=== PATIENT | male | born 1980 | race Caucasian/White ===

== ENCOUNTER 2020-07-23 09:06 | Emergency (ER) | payer MEDICAID, SELFPAY ==
--- NOTE | ~2020-07-23 | XR_ITS ---
EXAMINATION: XR CHEST CLINICAL INFORMATION: Check Port-A-Cath COMPARISON: Previous chest CT February 2018 and chest MRI February 2018 TECHNIQUE: 2 views of the chest were obtained. FINDINGS: The cardiac and mediastinal contours are normal. There is a right jugular Port-A-Cath with tip projecting over the SVC the lungs are clear. There is no pleural effusion or pneumothorax. The right anterior second and third ribs are absent. There may be pleural thickening adjacent to the right anterior fourth rib. There are mild degenerative changes of the spine. There may be slight loss of height of the T7 vertebral body. XR/XR chest 2V IMPRESSION: Right jugular port projects over SVC. Absent right anterior second and third ribs. Question pleural thickening adjacent to the anterior right fourth rib.
[2020-07-23 09:59] VITALS: BP 156/71; PULSE 58; RESP 12; TEMP 36.7; O2SAT 98; BMI 25.8
--- NOTE | 2020-07-23 09:59 | ED.SKABFB ---
HPI - Skin/Abscess/Foreign Bdy General Chief complaint: General Medical Stated complaint: infection Time Seen by Provider: 07/23/20 09:58 Source: patient Mode of arrival: ambulatory Limitations: no limitations History of Present Illness HPI narrative: 40 year-old male came in for evaluation for possible port a cath infection. The patient with history of multiple myeloma require weekly infusion of chemotherapy, because difficult IV access on the patient patient had a right-sided chest Port-A-Cath placed 3 months ago, because he change the schedule of the chemotherapy to biweekly patient was concern of clotting of the catheter patient flush to the isabel cath himself reportedly patient used an aseptic technique, however patient started to have subjective low-grade fever, for 2-3 days last week but not this week, also notice some redness around the catheter injection site, otherwise patient feels okay patient came in today concerned of infection of his Port-A-Cath. Related Data Allergies Allergy/AdvReac Type Severity Reaction Status Date / Time No Known Allergies Allergy Verified 07/23/20 10:16 Review of Systems Review of Systems: All other systems are reviewed and are negative Constitutional: Reports as per HPI and Reports no additional constitutional complaints Eyes: Reports as per HPI and Reports no additional eye complaints Reports system reviewed and no additional complaints, except as documented Cardiovascular: Reports as per HPI and Reports no additional cardiovascular complaints Respiratory: Reports as per HPI and Reports no additional respiratory complaints Gastrointestinal: Reports as per HPI and Reports no additional gastrointestinal complaints Genitourinary: Reports no additional female genitourinary complaints Musculoskeletal: Reports no additional musculoskeletal complaints Skin/Breast: Reports system reviewed and no additional complaints, except as docu Psychiatric: Reports no additional psychiatric complaints Endocrine: Reports no additional endocrine complaints Hematologic/Lymphatic: Reports no additional hematologic/lymphatic complaints Allergic/Immunologic: Reports no additional allergic/immunologic complaints Reports system reviewed and no additional complaints, except as documented and Reports Abnormal speech present [facility] Past Medical History Medical History (Updated 07/23/20 @ 13:30 by Mita Solo MD) Multiple myeloma Social History Social History Alcohol intake: never Smoking Status: Current every day smoker Use of substances other than those prescribed or required for medical reasons: No Advance Directives: No Advance Directives Information Provided: No Physical Exam Vital Signs: Vital Signs: Last Vital Signs Temp 98.1 F 07/23/20 09:59 Pulse 51 07/23/20 11:31 Resp 17 07/23/20 11:31 BP 136/79 07/23/20 11:31 Pulse Ox 99 07/23/20 11:31 Body Mass Index 25.8 Vital signs have been reviewed as appeared to be correct. Blood pressure normal. Heart rate normal. Respiration rate normal. Temperature normal. Oxygen saturation normal. Appearance: Alert. Oriented X3. No acute distress. Head: Normal external exam. Normocephalic. Atraumatic. No Davis signs noted. No raccoon eyes noted Eyes: PERRLA. EOMI. Conjunctiva and sclera normal. Eyelids normal. ENT: TM's Normal. Pharynx normal. Uvula midline. Moist mucous membranes. No trismus noted. No drooling noted. No muffled voice noted. Neck: Normal inspection. Neck supple. FROM. No adenopathy. Thyroid Normal. No meningeal signs. No neck mass noted. CVS: Normal heart rate and rhythm. Heart sound normal. No murmurs noted. Pulses normal throughout. Respiratory: No respiratory distress. Painless inspiration. Breath sounds normal. No wheezes/rales/rhonchi noted. Catheter reservoir is felt on Right Chest wall, 2 x 1 circular redness around it, no fluctuation, no discharge, no tenderness. No accessory muscle usage noted or decreased air movement noted. Abdomen: Soft and nontender. Bowel sounds normal in all 4 quadrants. No distention noted. No organomegaly noted. No visible injury noted. Back: No CVA tenderness. Full range of motion noted. Skin: Skin warm and dry. Normal skin color. Normal skin turgor. No rashes/lesions/lacerations noted. Extremities: No lower extremity edema. Extremities exhibit normal range of motion. Extremities nontender. Neuro: Oriented X 3. No motor deficit. No sensory deficit. Reflexes normal. Course Course Course Narrative: Plan was discussed with the patient to check his blood white count, CRP, sed rate. Patient walked out before full evaluation. Discharge Plan Discharge Clinical Impression: Problem with intravenous catheter Patient Disposition: Elopement
[2020-07-23 11:31] VITALS: BP 136/79; PULSE 51; RESP 17; O2SAT 99
--- NOTE | 2020-07-23 13:13 | PC.NURSE ---
pt is not at bedside, bing pratt (amanda) and cardiac cath technician stickers are one the bed, md aware.
== END 2020-07-23 13:13 | disposition left against medical advice (07) ==
PROVIDERS: Emergency Provider Emergency Medicine; PCP Internal Medicine
DX: T82.7XXA Infection and inflammatory reaction due to other cardiac and vascular devices, implants and grafts, initial encounter (principal); R50.9 Fever, unspecified; Y82.9 Unspecified medical devices associated with adverse incidents; Y92.9 Unspecified place or not applicable; F17.200 Nicotine dependence, unspecified, uncomplicated; Z71.6 Tobacco abuse counseling; Z79.899 Other long term (current) drug therapy
CPT/HCPCS: 71046; 87040; 99284

== ENCOUNTER 2020-09-12 16:08 | Emergency (ER) | payer MEDICAID, SELFPAY ==
--- NOTE | ~2020-09-12 | XR_ITS ---
EXAMINATION: XR CHEST CLINICAL INFORMATION: Pain around the prior port COMPARISON: 07/23/2020 TECHNIQUE: 2 views of the chest were obtained. FINDINGS: Chest wall port has been removed. The lungs are well expanded. There is no focal consolidation, edema, or effusion. No pneumothorax. The cardiomediastinal silhouette is within normal limits. No acute osseous abnormality. XR/XR chest 2V IMPRESSION: Clear lungs.
[2020-09-12 16:26] VITALS: BP 143/90; PULSE 69; RESP 8; TEMP 36.7; O2SAT 98; BMI 25.7
[2020-09-12 17:26] VITALS: BP 152/85; PULSE 65; TEMP 36.6; O2SAT 97
--- NOTE | 2020-09-12 17:29 | ED.GENADULT ---
HPI - General Adult General Chief complaint: General Medical Stated complaint: infection Time Seen by Provider: 09/12/20 17:12 Source: patient Limitations: no limitations History of Present Illness HPI narrative: This is a 40-year-old male with history of multiple myeloma who had had a port placed at [facility] in April. The patient subsequently had an infection of the port and had it removed. He was on ceftriaxone and amoxicillin and the infection improved. Patient finished a last course of antibiotics about 2 weeks ago. Subsequently he felt like there was some pain around the port site and went to [facility] and was re-evaluated, however they did not feel there was an infection and did not recommend antibiotics. Patient continues to have some discomfort around the port site and is concerned that the infection is coming back. He denies any fever. He denies any redness or swelling around where the port was. He went to an urgent care today but was advised to come to the emergency department. Denies any cough or shortness of breath. He has not had any abdominal pain. Related Data Allergies Allergy/AdvReac Type Severity Reaction Status Date / Time No Known Allergies Allergy Verified 07/23/20 10:16 Review of Systems Review of Systems: Yes all other systems are reviewed and are negative Constitutional: Constitutional: Reports as per HPI and Denies fever(s) Eyes: Eyes: Reports as per HPI and Reports no additional eye complaints ENT: Reports system reviewed and no additional complaints, except as documented, Reports as per HPI, Denies nasal congestion, Denies nasal discharge and Denies sore throat Cardiovascular: Cardiovascular: Reports as per HPI, Denies chest pain and Denies dyspnea Respiratory: Respiratory: Reports as per HPI, Denies cough and Denies dyspnea Gastrointestinal: Gastrointestinal: Reports as per HPI, Denies abdominal pain, Denies diarrhea and Denies vomiting Genitourinary: Genitourinary: Reports as per HPI, Denies hematuria, Denies dysuria and Denies urinary frequency Musculoskeletal: Musculoskeletal: Reports no additional musculoskeletal complaints and Denies numbness Integumentary/Breasts: Skin/Breast: Reports as per HPI and Denies rash Neurologic: Reports as per HPI, Denies focal weakness, Denies numbness and Denies Sensory deficit (Neuro) Psychiatric: Psychiatric: Reports no additional psychiatric complaints and Reports as per HPI Endocrine: Endocrine: Reports no additional endocrine complaints and Reports as per HPI Hematologic/Lymphatic: Hematologic/Lymphatic: Reports no additional hematologic/lymphatic complaints, Reports as per HPI and Reports other (No peripheral edema) [facility] Past Medical History Medical History (Updated 09/13/20 @ 00:01 by Felix Chambers) Anxiety Multiple myeloma Restless legs Social History Social History Alcohol intake: never Patient Tobacco Use Status: Current everyday Tobacco user Use of substances other than those prescribed or required for medical reasons: Yes Substance Use Type: Marijuana Advance Directives: No Advance Directives Information Provided: No Physical Exam Vital Signs: Vital Signs: Last Vital Signs Temp 98.5 F 09/12/20 18:45 Pulse 68 09/12/20 18:54 Resp 16 09/12/20 18:54 BP 126/84 09/12/20 18:54 Pulse Ox 98 09/12/20 18:54 Body Mass Index 25.7 Const: General: cooperative, no acute distress and alert Orientation/consciousness: patient oriented x3 HENMT: Head: Yes normal to inspection Eyes: General: appearance normal, both eyes and all related structures Eyelids: Yes eyelids normal Conjunctivae: conjunctivae normal Pupils: Equal, round and reactive pupils present Neck: Neck: Yes normal visual inspection and Yes supple Chest: Chest palpation & inspection: normal inspection of the chest and other ( Well-healed incision right chest, no erythema, swelling, induration, fluc) Breast/axilla palpation: other Resp: Effort & Inspection: normal respiratory effort Auscultation: clear to auscultation bilaterally Cardio: Rate: regular rate Rhythm: regular rhythm Heart sounds: S1 normal heart sound present, S2 normal heart sound present, no gallops, no murmurs and no rubs GI: Palpation (GI): Soft to palpation, nontender and Other GI palpation findings present (Non-distended) Auscultation: normal bowel sounds Skin: General skin exam: no rashes or lesions noted Neuro: General: patient oriented x3, no focal motor deficits and CN's II-XI intact bilaterally Cranial nerves: Yes Equal, round and reactive pupils present Cognition (Neuro): normal cognition Motor exam (neuro): 5/5 motor strength present throughout Sensory Exam: No Sensory deficit (Neuro) Extrem: General: Yes normal to inspection and Yes no pedal edema Psych: Appearance: grossly normal Affect: normal affect Medical Decision Making MDM Narrative Medical decision making narrative: Patient concerned about infection around his port, which he had previously, but subsequently had the port removed him was on antibiotics. No clinical evidence of infection on exam. Chest x-ray, white blood cell count, CRP all normal. Patient likely has some residual discomfort to the chest wall related to having had a port in the infection, could perhaps have some affected nerves. Recommend ibuprofen and reassured the patient that the symptoms will gradually resolved. Lab Data Lab results reviewed: Yes I reviewed the patient's lab results. Result diagrams: 09/12/20 18:11 09/12/20 18:11 Labs: Lab Results 09/12/20 09/12/20 09/12/20 Range/Units 18:10 18:10 18:11 WBC 5.3 (4.8-10.8) X10*3/uL RBC 5.13 (4.60-5.80) X10*6/uL Hgb 15.4 (14.0-18.0) g/dl Hct 45.4 (42-52) % MCV 88.5 (80-98) fL MCH 30.0 (27.0-33.0) pg MCHC 33.9 (31.0-36.0) g/dl RDW 13.4 (11.0-16.0) % Plt Count 240 (160-400) X10*3/uL MPV 9.1 L (9.4-12.4) fL Immature Gran % (Auto) 0.2 (0.0-0.4) % Neut % (Auto) 70.2 (45-73) % Lymph % (Auto) 18.4 L (20-40) % [facility] % (Auto) 9.9 (2-11) % Eos % (Auto) 0.9 (0-4) % Baso % (Auto) 0.4 (0-2) % Lymph # (Auto) 1.0 L (1.2-4.9) X10*3/uL [facility] # (Auto) 0.5 (0.1-1.2) X10*3/uL Eos # (Auto) 0.1 (0.0-0.4) X10*3/uL Baso # (Auto) 0.0 (0.0-0.2) X10*3/uL Abs Immat Gran (auto) 0.01 (0.00-0.03) X10*3/uL Absolute Neuts (auto) 3.7 (2.0-8.3) X10*3/uL Absolute Nucleated RBC 0.000 (0.0-0.012) X10*3/uL Nucleated RBC % (auto) 0.0 (0.0-0.2) /100WBC ESR 2 (0-15) MM/HR Sodium (135-145) mmol/L Potassium (3.3-5.1) mmol/L Chloride (96-108) mmol/L Carbon Dioxide (22-29) mmol/L Anion Gap (12-20) BUN (9-16) mg/dL Creatinine (0.5-1.4) mg/dL Estim Creat Clear Calc Estimated GFR Random Glucose (60-115) mg/dL Calcium (8.4-10.2) mg/dL C-Reactive Protein 0.09 (< or = 0.50) mg/dL 09/12/20 Range/Units 18:11 WBC (4.8-10.8) X10*3/uL RBC (4.60-5.80) X10*6/uL Hgb (14.0-18.0) g/dl Hct (42-52) % MCV (80-98) fL MCH (27.0-33.0) pg MCHC (31.0-36.0) g/dl RDW (11.0-16.0) % Plt Count (160-400) X10*3/uL MPV (9.4-12.4) fL Immature Gran % (Auto) (0.0-0.4) % Neut % (Auto) (45-73) % Lymph % (Auto) (20-40) % [facility] % (Auto) (2-11) % Eos % (Auto) (0-4) % Baso % (Auto) (0-2) % Lymph # (Auto) (1.2-4.9) X10*3/uL [facility] # (Auto) (0.1-1.2) X10*3/uL Eos # (Auto) (0.0-0.4) X10*3/uL Baso # (Auto) (0.0-0.2) X10*3/uL Abs Immat Gran (auto) (0.00-0.03) X10*3/uL Absolute Neuts (auto) (2.0-8.3) X10*3/uL Absolute Nucleated RBC (0.0-0.012) X10*3/uL Nucleated RBC % (auto) (0.0-0.2) /100WBC ESR (0-15) MM/HR Sodium 138 (135-145) mmol/L Potassium 4.3 (3.3-5.1) mmol/L Chloride 104 (96-108) mmol/L Carbon Dioxide 24 (22-29) mmol/L Anion Gap 14 (12-20) BUN 18 H (9-16) mg/dL Creatinine 1.04 (0.5-1.4) mg/dL Estim Creat Clear Calc 94.4 Estimated GFR > 60 Random Glucose 93 (60-115) mg/dL Calcium 9.7 (8.4-10.2) mg/dL C-Reactive Protein (< or = 0.50) mg/dL Imaging Data Chest x-ray: Radiologist's impression: Patient: Brandin GarciaMR#: [id number]: [id number]:[id number]/Sex: 40 / MADM Date: 09/12/20Loc: [facility]: Ordering Physician: Jamar Lara MD Date of Service: 09/12/20 Procedure(s): XR chest 2V Accession Number(s): [id number] cc: Jamar Lara MD~ EXAMINATION: XR CHEST CLINICAL INFORMATION: Pain around the prior port COMPARISON: 07/23/2020 TECHNIQUE: 2 views of the chest were obtained. FINDINGS: Chest wall port has been removed. The lungs are well expanded. There is no focal consolidation, edema, or effusion. No pneumothorax. The cardiomediastinal silhouette is within normal limits. No acute osseous abnormality. XR/XR chest 2V IMPRESSION: Clear lungs. Dictated By:Brennon Lopez MDSigned By:<Electronically signed by Brennon Lopez MD in OV> Discharge Plan Discharge Clinical Impression: Acute chest wall pain Patient Disposition: Home, Self-Care Instructions: Chest Wall Pain (ED) Additional Instructions: Return for any worsened symptoms such as redness, swelling, fever. [facility] to have some residual discomfort related to her port, however there is no evidence of infection at this time. His Tylenol or ibuprofen for pain and the discomfort will likely gradually dissipate over days to weeks Interventions: ED Discharge Assessment Last Done: 09/12/20 18:56 Discharge Date/Time: 09/12/20 18:57
[2020-09-12 18:16] LABS: MANUAL DIFF FLAG NO
[2020-09-12 18:19] LABS: Basophils Percent Auto 0.4 % (0-2); Eosinophils Absolute Auto 0.1 X10*3/uL (0.0-0.4); Eosinophils Percent Auto 0.9 % (0-4); Hematocrit 45.4 % (42-52); Hemoglobin 15.4 g/dl (14.0-18.0); Imm Gran Abs Auto 0.01 X10*3/uL (0.00-0.03); Imm Gran Pct Auto 0.2 % (0.0-0.4); Lymphocytes Percent Auto 18.4 % (20-40); Mean Corpuscular HGB Conc 33.9 g/dl (31.0-36.0); Mean Corpuscular Volume 88.5 fL (80-98); Mean Platelet Volume 9.1 fL (9.4-12.4); Monocytes Absolute Auto 0.5 X10*3/uL (0.1-1.2); Monocytes Percent Auto 9.9 % (2-11); Neutrophils Absolute Auto 3.7 X10*3/uL (2.0-8.3); Neutrophils Percent Auto 70.2 % (45-73); Platelet Count 240 X10*3/uL (160-400); Red Blood Count 5.13 X10*6/uL (4.60-5.80); Red Cell Distribution Width 13.4 % (11.0-16.0); White Blood Count 5.3 X10*3/uL (4.8-10.8)
[2020-09-12 18:38] LABS: C Reactive Protein 0.09 mg/dL (< or = 0.50)
[2020-09-12 18:39] LABS: Anion Gap 14 (12-20); Blood Urea Nitrogen 18 mg/dL (9-16); Calcium 9.7 mg/dL (8.4-10.2); Carbon Dioxide 24 mmol/L (22-29); Chloride 104 mmol/L (96-108); Creatinine Clr Calc Pharmacy 94.4; Estimated Glomerular Filt Rate > 60; Glucose Random 93 mg/dL (60-115); Potassium 4.3 mmol/L (3.3-5.1); Sodium 138 mmol/L (135-145)
[2020-09-12 18:45] VITALS: BP 116/79; PULSE 55; RESP 18; TEMP 36.9; O2SAT 98
[2020-09-12 18:54] VITALS: BP 126/84; PULSE 68; RESP 16; O2SAT 98
[2020-09-12 19:05] LABS: Erythrocyte Sedimentation Rate 2 MM/HR (0-15)
== END 2020-09-12 18:57 | disposition home or self-care (01) ==
PROVIDERS: Physician Assistant; Emergency Provider Emergency Medicine; PCP Internal Medicine
DX: R07.89 Other chest pain (principal); Z85.79 Personal history of other malignant neoplasms of lymphoid, hematopoietic and related tissues
CPT/HCPCS: 36415; 71046; 80048; 85025; 85652; 86140; 99283; 99284

== ENCOUNTER 2021-12-26 14:31 | Outpatient (REF) | payer MEDICAID, SELFPAY ==
--- NOTE | ~2021-12-26 | XR_ITS ---
EXAMINATION: XR CHEST CLINICAL INFORMATION: Productive cough COMPARISON: None TECHNIQUE: 2 views of the chest were obtained. FINDINGS: No focal consolidation, pulmonary edema, or pleural effusion. Stable cardiomediastinal silhouette. Residual soft tissue thickening along the right anterior 5th rib. The anterior 2nd, 3rd, and 4th ribs appear to have been resected. XR/XR chest 2V IMPRESSION: No acute cardiopulmonary findings.
[2021-12-26 16:52] LABS: MANUAL DIFF FLAG NO
[2021-12-26 17:08] LABS: Basophils Percent Auto 0.9 % (0-2); Eosinophils Absolute Auto 0.2 X10*3/uL (0.0-0.4); Eosinophils Percent Auto 5.2 % (0-4); Hematocrit 31.6 % (42.0-52.0); Hemoglobin 10.7 g/dl (14.0-18.0); Imm Gran Abs Auto 0.23 X10*3/uL (0.00-0.03); Lymphocytes Absolute Auto 1.1 X10*3/uL (1.2-4.9); Lymphocytes Percent Auto 23.7 % (20-40); Mean Corpuscular HGB Conc 33.9 g/dl (31.0-36.0); Mean Corpuscular Hemoglobin 30.7 pg (27.0-33.0); Mean Corpuscular Volume 90.5 fL (80.0-98.0); Mean Platelet Volume 10.6 fL (9.4-12.4); Monocytes Absolute Auto 0.5 X10*3/uL (0.1-1.2); Monocytes Percent Auto 11.5 % (2-11); NRBC Pct Auto 0.4 /100WBC (0.0-0.2); Neutrophils Absolute Auto 2.5 x10*3/uL (2.0-8.3); Neutrophils Percent Auto 53.7 % (45-73); Red Blood Count 3.49 X10*6/uL (4.60-5.80); Red Cell Distribution Width 15.1 % (11.0-16.0); White Blood Count 4.6 X10*3/uL (4.8-10.8)
[2021-12-26 17:10] LABS: Platelet Count 96 X10*3/uL (160-400)
[2021-12-26 17:37] LABS: Anion Gap 21 (12-20); Blood Urea Nitrogen 21 mg/dL (9-16); Carbon Dioxide 22 mmol/L (22-29); Chloride 101 mmol/L (96-108); Estimated Glomerular Filt Rate 40; Glucose Random 79 mg/dL (60-115); Potassium 4.4 mmol/L (3.3-5.1); Sodium 140 mmol/L (135-145)
[2021-12-26 17:45] LABS: Calcium 11.5 mg/dL (8.4-10.2)
== END 2021-12-26 14:32 | disposition home or self-care (01) ==
LOC: HO.HMGCX 14:31
PROVIDERS: PCP Internal Medicine; Visit Provider Internal Medicine
DX: R05.9 Cough, unspecified (principal); R53.83 Other fatigue
CPT/HCPCS: 36415; 71046; 80048; 85025

== ENCOUNTER 2022-04-21 13:33 | Outpatient (REF) | payer MEDICAID, SELFPAY ==
--- NOTE | ~2022-04-21 | XR_ITS ---
EXAMINATION: XR CHEST CLINICAL INFORMATION: Congestion COMPARISON: 12/26/2021 TECHNIQUE: 2 views of the chest were obtained. FINDINGS: No focal consolidation, pulmonary edema, or pleural effusion. Stable cardiomediastinal silhouette. Interval placement of a right subclavian catheter with tip overlying the cavoatrial junction. XR/XR chest 2V IMPRESSION: No acute cardiopulmonary findings.
== END 2022-04-21 13:34 | disposition home or self-care (01) ==
LOC: HO.HMGCX 13:33
PROVIDERS: PCP Internal Medicine; Visit Provider Internal Medicine
DX: J18.9 Pneumonia, unspecified organism (principal)
CPT/HCPCS: 71046

== ENCOUNTER 2023-02-26 08:45 | Outpatient (REF) | payer MEDICARE, MEDICAID, SELFPAY ==
--- NOTE | ~2023-02-26 | XR_ITS ---
EXAMINATION: XR CHEST CLINICAL INFORMATION: Cough. Concern for pneumonia. COMPARISON: April 21, 2022. TECHNIQUE: 2 views of the chest were obtained. FINDINGS: The cardiomediastinal silhouette is normal. Dual-lumen central catheter is noted in a stable position. There is no focal lung consolidation or pleural effusion. The bony structures and soft tissues are unremarkable. XR/XR chest 2V IMPRESSION: No active cardiopulmonary disease. No significant interval change.
== END 2023-02-26 08:46 | disposition home or self-care (01) ==
LOC: HO.HMGCX 08:45
PROVIDERS: PCP Internal Medicine; Visit Provider Internal Medicine
DX: R05.9 Cough, unspecified (principal)
CPT/HCPCS: 71046

== ENCOUNTER → 2023-05-20 16:17 | Outpatient (BNVA) | payer MEDICARE, MEDICAID, SELFPAY | PROVIDERS: PCP Internal Medicine; Visit Provider Internal Medicine Nephrology ==

== ENCOUNTER 2023-06-12 13:51 | Outpatient (AMB) | payer MEDICARE, MEDICAID, SELFPAY ==
--- NOTE | 2023-06-12 13:54 | HO.NEPHOV_ITS ---
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 According to him he has been told that he has been in remission from eyes myeloma point of few. His pain has been controlled on his chronic methadone and oxycodone. He had been having high inter dialytic weight gains which is better now. He does not have significant urine output. He denies vomiting, chest pain, shortness of breath, abdominal pain, diarrhea, or urinary symptoms. He is compliant with his dialysis treatments.He has a permcath. He has been having blood pressure issues during and after dialysis but better now. He feels tired after his dialysis treatments. His girl friend was also there during this visit. [facility] Medical History (Updated 06/11/23 @ 21:02 by Dhaval Gomes MD) Restless legs Anxiety Multiple myeloma Family History (Updated 06/12/23 @ 14:02 by Sonia Fernández MA) Maternal Uncle Cancer Social History (Updated 06/12/23 @ 14:03 by Sonia Fernández MA) Alcohol intake: never Patient Tobacco Use Status: Current everyday Tobacco user Use of substances other than those prescribed or required for medical reasons: No Vital Signs 06/12/23 13:55 Height 5 ft 9 in Weight 145 lb 8 oz BMI 21.5 BP 102/60 Blood Pressure Location Lt brachial Position Sitting Pulse 80 Pulse Source Pulse Oximeter Pulse Oximetry (%) 97 Oxygen Delivery Method Room Air Physical Exam Vital Signs: Last Vital Signs Pulse 80 06/12/23 13:55 BP 102/60 06/12/23 13:55 Pulse Ox 97 06/12/23 13:55 Oxygen Delivery Method Room Air 06/12/23 13:55 BMI result Body Mass Index 21.5 Const Other: PermCath present General: comfortable and no acute distress Orientation/consciousness: patient oriented x3 HEENT Head: Yes normocephalic Mouth: Normal oral and palatal mucosa present Eyes EOM: EOMs intact bilaterally Neck Neck: Yes supple Resp Auscultation: clear to auscultation bilaterally Cardio Jugular venous distension: no JVD Rate: regular rate GI Palpation (GI): Soft to palpation Auscultation: normal bowel sounds General: Yes no CVA tenderness Back/Spine/Pelvis Back: no CVA tenderness Skin General skin exam: no rashes or lesions noted Neuro General: patient oriented x3 and moves all extremities Extrem General: Yes no pedal edema Assessment & Plan Assessment & Plan (1) End stage renal disease on dialysis: Code(s): N18.6 - End stage renal disease; Z99.2 - Dependence on renal dialysis (2) Multiple myeloma: Code(s): C90.00 - Multiple myeloma not having achieved remission Qualifiers: Multiple myeloma remission status: not in remission Qualified Code(s): C90.00 - Multiple myeloma not having achieved remission Plan 1.ESRD on HD - schedule: T/T/S at [facility] - access: R IJ PermCath - Shall follow recent labs and adjust medications as appropriate - he wants to explore whether he is a candidate for renal transplant-- & is going to discuss with his oncologist in [facility] - he should maintain a renal diet and take phosphorus binders with meals -he should be strict with inter dialytic weight gain with his salt and fluid restriction 2. IgA Myeloma - Had gotten chemo through Oncology. He has a disease in remission now. 3. Anemia - Had been getting Mircera 4. Hyperkalemia - renal diet 5. Hypertension -Continue current BP medications for now -I shall adjust his antihypertensive medication regimen once his dry weight has been adjusted Coding Level of Care Code Est Pt Level 4 (59330) Diagnoses End stage renal disease on dialysis N18.6; Z99.2 Multiple myeloma not having achieved remission C90.00 Multiple myeloma remission status: not in remission
[2023-06-12 13:55] VITALS: BP 102/60; PULSE 80; O2SAT 97; BMI 21.5
== END 2023-06-12 14:48 | disposition home or self-care (01) ==
PROVIDERS: PCP Internal Medicine; Visit Provider Internal Medicine Nephrology
DX: N18.6 End stage renal disease (principal); Z99.2 Dependence on renal dialysis; C90.00 Multiple myeloma not having achieved remission
CPT/HCPCS: 99214

== ENCOUNTER → 2023-06-12 13:51 | Outpatient (BNVA) | payer MEDICARE, MEDICAID, SELFPAY | PROVIDERS: PCP Internal Medicine; Visit Provider Internal Medicine Nephrology | DX: C90.00 Multiple myeloma not having achieved remission (principal); N18.6 End stage renal disease; Z99.2 Dependence on renal dialysis | CPT/HCPCS: 99212 ==

== ENCOUNTER → 2023-09-07 | Outpatient (BNV) | payer MEDICARE, MEDICAID, SELFPAY | PROVIDERS: PCP Internal Medicine; Visit Provider Internal Medicine Nephrology | DX: N18.6 End stage renal disease (principal) | CPT/HCPCS: 90960; 90961; 90962 ==

== ENCOUNTER 2023-12-15 15:06 | Outpatient (REF) | payer MEDICARE, MEDICAID, SELFPAY ==
--- NOTE | ~2023-12-15 | XR_ITS ---
EXAMINATION: XR CHEST CLINICAL INFORMATION: Cough, fatigue, rule out pneumonia. COMPARISON: 02/26/2023. TECHNIQUE: 2 views of the chest were obtained. FINDINGS: Redemonstration of dual lumen central catheter with tip at the cavoatrial junction. Cardiac silhouette within normal limits in size. No significant pleural effusion. Mild degenerative changes in the thoracic spine. No significant pleural effusion. Increased bilateral patchy airspace opacities, predominantly lower lungs, right greater than left, concerning for pneumonia versus other etiology. XR/XR chest 2V IMPRESSION: Increased bilateral patchy airspace opacities, predominantly lower lungs, right greater than left, concerning for pneumonia versus other etiology. This study was presented to me on December 23, 2023 for interpretation. PSA staff will provide results to referring provider at this time. This study was presented today December 23, 2023 for interpretation. Stat results provided at this time as requested by referring provider. Electronically signed by: Monie Ríos MD 12/23/2023 08:52 AM EDT
[2023-12-15 16:32] LABS: Mean Corpuscular Hemoglobin 31.6 pg (27.0-33.0); Mean Corpuscular Volume 101.8 fL (80.0-98.0); Mean Platelet Volume 9.6 fL (9.4-12.4); Platelet Count 117 X10*3/uL (160-400); Red Blood Count 2.85 X10*6/uL (4.60-5.80); Red Cell Distribution Width 15.9 % (11.0-16.0)
[2023-12-15 16:37] LABS: WBC ABN SCTR FOR CBC 1
[2023-12-15 17:13] LABS: Alanine Aminotransferase 13 U/L (0-40); Albumin Level 4.1 g/dL (3.5-5.0); Alkaline Phosphatase 80 U/L (39-117); Anion Gap 15 (12-20); Aspartate Amino Transferase 17 U/L (5-37); Bilirubin Total 0.9 mg/dL (0.0-1.0); Blood Urea Nitrogen 21 mg/dL (9-16); Calcium 8.8 mg/dL (8.4-10.2); Carbon Dioxide 28 mmol/L (22-29); Chloride 103 mmol/L (96-108); Estimated Glomerular Filt Rate 16; Glucose Random 83 mg/dL (60-115); Potassium 3.7 mmol/L (3.3-5.1); Sodium 142 mmol/L (135-145); Total Protein 6.4 g/dL (6.5-8.0)
[2023-12-15 18:58] LABS: Band Neutrophils Percent 5 % (3-5); Basophils Percent Manual 2 % (0-2); Eosinophils Percent Manual 28 % (0-4); Lymphocytes Percent Manual 13 % (20-40); Metamyelocytes Percent 3 %; Monocytes Percent Manual 11 % (2-11); Neutrophils Percent Manual 38 % (45-73)
[2023-12-15 19:00] LABS: RBC Morphology NOTED
[2023-12-15 19:01] LABS: Schistocytes 1+ (0-2) /OIF
[2023-12-15 19:02] LABS: Burr Cells 1+ (0-2) /OIF; Platelet Estimate NORMAL (NORMAL); Toxic Vacuolation PRESENT
[2023-12-15 19:30] LABS: Ovalocytes 1+ (5-14) /OIF
[2023-12-15 20:22] LABS: Basophils Abs Manual 0.1 X10*3/uL (0.0-0.2); Eosinophils Absolute Manual 1.1 X10*3/uL (0.0-0.4); Lymphocytes Absolute Manual 0.5 X10*3/uL (1.2-4.9); Metamyelocytes Absolute 0.1 X10*3/uL; Monocytes Absolute Manual 0.4 X10*3/uL (0.1-1.2); Neutrophils Absolute Manual 1.6 X10*3/uL (2.0-8.3); Platelet Morphology Comment NORMAL; White Blood Count 3.8 X10*3/uL (4.8-10.8)
== END 2023-12-15 15:07 | disposition home or self-care (01) ==
LOC: HO.HMGCX 15:06
PROVIDERS: PCP Internal Medicine; Visit Provider Internal Medicine
DX: R53.83 Other fatigue (principal)
CPT/HCPCS: 36415; 71046; 80053; 85007; 85027

== ENCOUNTER 2023-12-23 11:57 | Outpatient (AMB) | payer MEDICARE, MEDICAID, SELFPAY ==
--- OUTSIDE RECORDS SUMMARY | 2023-12-23 11:58 | XMS_ITS | Continuity of Care Document ---
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 Name Role Phone Johan BOND, Nabil Coleman Primary Care Physician [phone] Encounter [facility] [place] Date(s): 03/18/22 - 04/27/[address] [id number] Attending Physician: Joao Jama MD Admitting Physician: Joao Jama MD Referring Physician: Yudith BOND, Danny Allergies, Adverse Reactions, Alerts No Known Allergies Immunizations Given and Recorded Vaccine Date Status Refusal Reason pneumococcal 23-valent vaccine 08/17/18 Given pneumococcal 13-valent vaccine 1 06/15/18 Given Not Given Vaccine Date Status Refusal Reason influenza virus vaccine, inactivated 03/28/22 Not Given Patient Refuses 1Early/Late Reason: Wan to Standard Admin Times Medications acyclovir 400 mg oral tablet 1 tablet = 400 mg, By Mouth, 2 times a day, # 14 tablet, 0 Refills, Maintenance, 03/30/22 12:41:00 EST, Tablet, [facility], Partial fill upon patient request if the prescription is for a schedule II opioid drug., 172, cm, 03/30/22 7:57:0... Start Date: 03/30/22 Stop Date: 04/06/22 Status: Ordered amLODIPine 10 mg oral tablet 10 mg, 1, tablet, By Mouth, Daily, # 30 tablet, Refills 0, Tot. Refills 0, Maintenance, 03/07/22 14:44:00 EST, Route to Pharmacy Electronically, [facility], Partial fill upon patient request if the prescription is for a schedule II opioi... Start Date: 03/07/22 Stop Date: 04/06/22 Status: Ordered KlonoPIN 1 mg oral tablet 1 tablet = 1 mg, By Mouth, 2 times a day, this is an increase, # 60 tablet, 1 Refills, Maintenance,03/31/22 12:15:00 EST, [facility], Partial fill upon patient request if the prescription is for a schedule II opioid drug., 172, cm, 03/30/22... Start Date: 03/31/22 Stop Date: 05/30/22 Status: Ordered Methadone = 140 mg, By Mouth, Daily, 0 Refills, Maintenance, 05/10/18 11:13:13 EST Start Date: 05/10/18 Status: Ordered ondansetron 4 mg oral tablet 1 tablet = 4 mg, By Mouth, Every 8 hours, PRN Nausea & Vomiting, # 90 tablet, 0 Refills, Maintenance, 04/22/22 9:26:00 EST, Tablet, [facility], Partial fill upon patient request if the prescription is for a schedule II opioid drug., 175, cm,... Start Date: 04/22/22 Status: Ordered oxyCODONE 5 mg oral capsule 1 capsule = 5 mg, By Mouth, Every 6 hours, 0 Refills, Maintenance, 11/26/21 13:30:00 EDT, Partial fill upon patient request if the prescription is for a schedule II opioid drug. Start Date: 11/26/21 Status: Ordered Pepcid 20 mg oral tablet 1 tablet = 20 mg, By Mouth, Daily, # 90 tablet, 1 Refills, Maintenance, 04/22/22 9:26:00 EST, Tablet, [facility], Partial fill upon patient request if the prescription is for a schedule II opioid drug., 175, cm, 04/11/22 13:59:00 EST, Height,... Start Date: 04/22/22 Status: Ordered prochlorperazine 5 mg oral tablet 1-2 tablet, By Mouth, Every 6 hours, PRN Nausea, # 60 tablet, 1 Refills, Maintenance, 02/12/22 17:40:00 EST, [facility], Partial fill upon patient request if the prescription is for a schedule II opioid drug., 175, cm, 02/12/22 14:26:00 EST,... Start Date: 02/12/22 Status: Ordered Problem List Condition Confirmation Course Effective Dates Status Health St atus Informant Abscess of chest wall Confirmed Active Anxiety Confirmed Active Bacteremia due to Enterococcus Confirmed Active Chronic anemia Confirmed Active COVID-19 1 Confirmed 03/07/22 Active End stage renal disease on dialysis Confirmed Active Multiple myeloma in relapse Confirmed Active Opioid use disorder Confirmed Active Opiate dependence Confirmed Active Plasmacytoma Confirmed Active History of tobacco use Confirmed Active 1Problem added by Discern Expert Social History Social History Type Response Smoking Status 10 or more cigarette s (1/2 pack or more)/day in last 30 days entered on: 06/03/18 Sex Patient Care team information Care Team Personnel Name: Suzette Jama Position: S Onco RN Member Role: Primary Care Nurse Name: Aracely Rae RN Position: S RN Member Role: Primary Care Nurse Name: Moon Cummings RN Position: [facility] RN Member Role: Primary Care Nurse Name: Errol Hdez RN Position: [facility] RN Member Role: Primary Care Nurse Name: Gladis Viera RN Position: [facility] RN Member Role: Primary Care Nurse Name: Hanh Bruner RN Position: [facility] Onco RN Member Role: Primary Care Nurse Name: Geneva Ayala NP Position: [facility] Associate Professional Member Role: Lifetime Consulting Provider Address: Address: [address] [place] [address] [facility] [place] [address]- Name: Eliseo Ramirez DO Position: [facility] Renal MD Member Role: Lifetime Consulting Physician Address: Address: [address] [place] [address] [facility] [address] Name: Julieta Richmond RN Position: [facility] Onco RN Member Role: Primary Care Nurse Name: Goyo Moncada III, RN Position: [facility] RN Member Role: Primary Care Nurse Name: Nereyda Nguyễn RN Position: [facility] Onco RN Member Role: Primary Care Nurse Name: Nabil Prado MD Position: Reference Physician Member Role: PCP Address: Address: [address] [place] [id number]- Name: Eric Castano RN Position: S RN Member Role: Primary Care Nurse Name: Dinah Kaur RN Position: S RN Member Role: Primary Care Nurse Name: Johnny Romano RN Position: S RN Member Role: Primary Care Nurse Name: Johnson Munoz RN Position: [facility] RN Member Role: Primary Care Nurse Name: Suzanne Weber RN Position: [facility] RN Member Role: Primary Care Nurse Name: Radha Miguel RN Position: [facility] RN Member Role: Primary Care Nurse Name: Shantanu Allan RN Position: [facility] RN Member Role: Primary Care Nurse Name: Laura Narayanan Position: [facility] Onco RN Member Role: Primary Care Nurse Name: Jemma Matos RN Position: [facility] RN Member Role: Primary Care Nurse Name: Dash Olson RN Position: [facility] OB RN Member Role: Primary Care Nurse Name: Sahara Patel RN Position: [facility] RN Member Role: Primary Care Nurse Name: Dorinda Brery RN Position: [facility] Onco RN Member Role: Primary Care Nurse Name: Lotus Gutierrez RN, I Position: [facility] RN Member Role: Primary Care Nurse Name: Lacey Rodriguez Position: [facility] RN Member Role: Primary Care Nurse Name: Kirsty Avila RN Position: [facility] SN RN Member Role: Primary Care Nurse Care Team Related Persons Name: SUZANNE WALLIS Address: [address] [place] [address] Name: DASH MATTHEW Address: [address] [place] [address]
--- NOTE | 2023-12-23 11:59 | MHC.OFFWIV ---
Intake Vital Signs 12/23/23 12:00 Weight 145 lb BP 130/90 H Blood Pressure Location Lt brachial Position Sitting Pulse 64 Pulse Source Pulse Oximeter Pulse Oximetry (%) 94 Oxygen Delivery Method Room Air Intake Visit Reasons: EP-chest congestion Intake Note: Patient here for chest congestion that has been present for about 1 month. Patient Tobacco Use Status: Current everyday Tobacco user Allergies No Known Allergies Allergy (Verified 12/23/23 12:00) Do you need a note to return to daycare/school/sports/work: No HPI HPI Comments History of Present Illness Details Patient is a 43-year-old male complaining of 1 month of a cough and chest congestion. He states his cough is productive with white sputum. He denies any fevers, sinus pain, headaches, ear pain or shortness of breath. He states he did have some other symptoms earlier on in the illness but the only thing that remains as his cough. He does admit to being a current smoker but he is unsure if he has COPD. He has not been taking any aghd-mom-ltimzfy medications to treat his symptoms. [facility] Medical History (Updated 12/23/23 @ 12:13 by Criselda Arnold PA-C) Restless legs Anxiety Multiple myeloma Family History (Updated 06/12/23 @ 14:02 by Sonia Fernández MA) Maternal Uncle Cancer Social History (Updated 06/12/23 @ 14:03 by Sonia Fernández MA) Alcohol intake: never Patient Tobacco Use Status: Current everyday Tobacco user Review of Systems Const All systems reviewed & are unremarkable except as noted in HPI and below Physical Exam Const General: cooperative, healthy appearing, comfortable and no acute distress Orientation/consciousness: patient oriented x3 Limitations: no limitations HEENT Head: Yes normal to inspection Ears: hearing grossly normal bilaterally, external ears normal and TM's normal bilaterally General nose exam: Normal external nose present, Normal nares present and No nasal discharge present Face and sinus: Yes normal facial exam and Yes sinuses nontender Mouth: Normal oral and palatal mucosa present and moist mucous membranes Throat: Yes tonsils normal, Yes uvula midline and Yes posterior oropharynx abnormal (Erythema) Eyes General: appearance normal, both eyes and all related structures Neck Neck: Yes normal visual inspection Resp Effort & Inspection: normal respiratory effort, able to speak in complete sentences, no respiratory distress, not tachypneic, no tripod positioning and no use of accessory muscles Auscultation: bronchovesicular breath sounds on the right (lower) Cardio Rate: regular rate Rhythm: regular rhythm Heart sounds: normal S1 and S2 Skin General skin exam: no rashes or lesions noted Neuro General: patient oriented x3 Extrem General: Yes normal to inspection and Yes no clubbing, cyanosis or edema Assessment & Plan Assessment & Plan (1) Lower respiratory infection (e.g., bronchitis, pneumonia, pneumonitis, pulmonitis): Code(s): J22 - Unspecified acute lower respiratory infection Plan: Patient is slightly hypoxic at 94%, is a current smoker but unclear of COPD status, we will get a chest x-ray to rule out pneumonia as lung sounds bronchovesicular in the right lower. If that is negative, we will prescribe a Z-Dandy for walking pneumonia. Plan See above Orders: Orders XR chest 2V Today R05.9 - Cough, unspecified Coding Level of Care Code New Pt Level 4 (13648) Diagnoses Lower respiratory infection (e.g., bronchitis, pneumonia, pneumonitis, pulmonitis) J22
--- OUTSIDE RECORDS SUMMARY | 2023-12-23 11:59 | XMS_ITS | Continuity of Care Document ---
Author Organization [facility] Address [address] [place] [address]- Care Team Providers Care Cathead Operator Name Role Phone Johan BOND, Nabil Coleman Primary Care Physician Encounter [facility] [place] Date(s): 02/18/23 - 03/20/23 [facility] [address] [place] [id number] Attending Physician: Aiden Jackson Admitting Physician: AdmtrAiden Referring Physician: Admtr, Aiden Allergies, Adverse Reactions, Alerts No Known Allergies Immunizations Given and Recorded Vaccine Date Status Refusal Reason pneumococcal 23-valent vaccine 08/17/18 Given pneumococcal 13-valent vaccine 1 06/15/18 Given 1Early/Late Reason: Wan to Standard Admin Times Medications acyclovir 400 mg oral tablet 1 tablet = 400 mg, By Mouth, 2 times a day, # 180 tablet, 3 Refills, Maintenance, 08/06/23 8:09:00 EDT, Tablet, [id number], Partial fill upon patient request if the prescription is for a schedule II opioid drug., 175, cm, 02/19/23 14:12:00 EST... Start Date: 08/06/23 Stop Date: 07/31/24 Status: Ordered acyclovir 400 mg oral tablet 1 tablet = 400 mg, By Mouth, 2 times a day, for 30 days, # 60 tablet, 6 Refills, Hard Stop :09:00 EDT, 01/08/23 8:09:00 EDT, Tablet, [facility], Partial fill upon patient request if the prescription is for a schedule II opioid drug.... Start Date: 01/08/23 Stop Date: 08/06/23 Status: Ordered amLODIPine 10 mg oral tablet 10 mg, 1, tablet, By Mouth, Daily, # 30 tablet, Refills 0, Tot. Refills 0, Maintenance, 03/07/22 14:44:00 EST, Route to Pharmacy Electronically, [facility], Partial fill upon patient request if the prescription is for a schedule II opioi... Start Date: 03/07/22 Stop Date: 04/06/22 Status: Ordered Bactrim 400 mg-80 mg oral tablet 1 tablet, By Mouth, 2 times a day, # 10 tablet, 0 Refills, Maintenance, 10/16/22 14:30:00 EDT, Tablet, Partial fill upon patient request if the prescription is for a schedule II opioid drug. Start Date: 10/16/22 Status: Ordered dexamethasone 4 mg oral tablet See Instructions, 10 tablet By Mouth once a week, # 40 tablet, 0 Refills, Maintenance, 07/24/22 8:41:00 EDT, Tablet, [facility], Partial fill upon patient request if the prescription is for a schedule II opioid drug., 175, cm, 07/21/22 12:33... Start Date: 07/24/22 Status: Ordered KlonoPIN 1 mg oral tablet 1 tablet = 1 mg, By Mouth, 2 times a day, for 30 days, this is an increase, # 60 tablet, 1 Refills,Hard Stop 04/16/23 13:22:00 EST, 02/15/23 13:22:00 EST, [facility], Partial fill upon patient request if the prescription is for a schedule II... Start Date: 02/15/23 Stop Date: 04/16/23 Status: Ordered KlonoPIN 1 mg oral tablet 1 tablet = 1 mg, By Mouth, 2 times a day, this is an increase, # 60 tablet, 2 Refills, Maintenance,04/16/23 13:22:00 EST, [id number], Partial fill upon patient request if the prescription isfor a schedule II opioid drug., 175, cm, 02/19/23 1... Start Date: 04/16/23 Stop Date: 07/15/23 Status: Ordered Methadone = 140 mg, By Mouth, Daily, 0 Refills, Maintenance, 05/10/18 11:13:13 EST Start Date: 05/10/18 Status: Ordered ondansetron 4 mg oral tablet 1 tablet = 4 mg, By Mouth, Every 8 hours, PRN Nausea & Vomiting, may take 2 if 1 not effective,# 90 tablet, 0 Refills, Maintenance, 12/02/22 8:58:00 EDT, Tablet, [facility], Partial fill upon patient request if the prescription is for a sche... Start Date: 12/02/22 Status: Ordered oxyCODONE 5 mg oral capsule 1 capsule = 5 mg, By Mouth, Every 6 hours, 0 Refills, Maintenance, 11/26/21 13:30:00 EDT, Partial fill upon patient request if the prescription is for a schedule II opioid drug. Start Date: 11/26/21 Status: Ordered Pepcid 20 mg oral tablet 1 tablet = 20 mg, By Mouth, Daily, # 90 tablet, 1 Refills, Maintenance, 07/29/22 15:26:00 EDT, Tablet, [facility], Partial fill upon patient request if the prescription is for a schedule II opioid drug., 175, cm, 07/21/22 12:33:00 EDT, Height... Start Date: 07/29/22 Status: Ordered Pomalyst 4 mg oral capsule 1 capsule = 4 mg, By Mouth, Daily, on an empty stomach take for 21 days followed by a 7 day rest period, # 21 capsule, 0 Refills, Maintenance, 07/28/22 13:44:00 EDT, Capsule, Partial fill upon patient request if the prescription is for a schedule II... Start Date: 07/28/22 Status: Ordered prochlorperazine 10 mg oral tablet 1 tablet = 10 mg, By Mouth, Every 6 hours, # 60 tablet, 0 Refills, Maintenance, 12/02/22 8:58:00 EDT, [facility], Partial fill upon patient request if the prescription is for a schedule II opioid drug., 175, cm, 11/13/22 9:53:00 EDT, Height,... Start Date: 12/02/22 Status: Ordered sulfamethoxazole-trimethoprim 800 mg-160 mg oral tablet 1 tablet, By Mouth, Every Thursday, Thursday and Thursday, # 45 tablet, 3 Refills, Maintenance, 03/16/23 9:22:00 EST, [id number], Partial fill upon patient request if the prescription is for a schedule II opioid drug., 1 tablet By Mouth Every Mon... Start Date: 03/16/23 Status: Ordered Zarxio 300 mcg/0.5 mL injectable solution See Instructions, 300 mcg Subcutaneous Infusion M,W,F, # 12 each, 4 Refills, Maintenance, 01/30/23 8:58:00 EST, Partial fill upon patient request if the prescription is for a schedule II opioid drug. Start Date: 01/30/23 Status: Ordered Zarxio 300 mcg/0.5 mL injectable solution See Instructions, 300 mcg Subcutaneous Injection MWF, # 12 each, 0 Refills, Maintenance, 01/01/23 15:09:00 EDT, Solution, Partial fill upon patient request if the prescription is for a schedule II opioid drug. Start Date: 01/01/23 Status: Ordered Problem List Condition Confirmation Course [...] last 30 days entered on: 06/03/18 Sex Cardiology * Event Display: Non BH Cardiopulm Exercise Test Results Authored Date: Laboratory * Event Display: Non BH Lab Results Authored Date: * Event Display: Non BH Lab Results Authored Date: * Event Display: Non BH Lab Results Authored Date: Radiology * Event Display: NM Nuclear Medicine, Non-BH Authored Date: * Event Display: IR Special Procedures, Non-BH Authored Date: * Event Display: MRI Spine, Non- BH Authored Date: * Event Display: IR Special Procedures, Non-BH Authored Date: * Event Display: MRI Chest, Non- BH Authored Date: * Event Display: CT Scan Chest, Non- Authored Date: Patient Care team information Care Team Personnel Name: Evita Suzette Position: [facility] Onco RN Member Role: Primary Care Nurse Name: Aracely Rae RN Position: S RN Member Role: Primary Care Nurse Name: Moon Cummings RN Position: [facility] RN Member Role: Primary Care Nurse Name: Kath Weeks RN Position: [facility] RN Member Role: Primary Care Nurse Name: Errol Hdez RN Position: [facility] RN Member Role: Primary Care Nurse Name: Hanh Bruner RN Position: [facility] Onco RN Member Role: Primary Care Nurse Name: Geneva Ayala NP Position: [facility] Associate Professional Member Role: Lifetime Consulting Provider Address: Address: [address] [place] [address] [facility] [address] Name: Phil Ortiz MD Position: [facility] Renal MD Member Role: Lifetime Consulting Physician Address: Address: [address] [place] [address] [facility] [address] Name: Eliseo Ramirez DO Position: [facility] Renal MD Member Role: Lifetime Consulting Physician Address: Address: [address] [place] [address] [facility] [address] Name: Julieta Richmond RN Position: [facility] Onco RN Member Role: Primary Care Nurse Name: Goyo Moncada III, RN Position: [facility] RN Member Role: Primary Care Nurse Name: Nereyda Nguyễn RN Position: [facility] Onco RN Member Role: Primary Care Nurse Name: Nabil Prado MD Position: Reference Physician Member Role: PCP Address: Address: [address] [place] [address] Name: Eric Castano RN Position: [facility] RN Member Role: Primary Care Nurse Name: Johnny Romano RN Position: [facility] RN Member Role: Primary Care Nurse Name: Johnson Munoz RN Position: [facility] Onco RN Member Role: Primary Care Nurse Name: Jaret Mendoza RN Position: [facility] RN Member Role: Primary Care Nurse Name: Shantanu Allan RN Position: [facility] RN Member Role: Primary Care Nurse Name: Laura Narayanan Position: [facility] Onco RN Member Role: Primary Care Nurse Name: Jemma Matos RN Position: [facility] RN Member Role: Primary Care Nurse Name: Dash Olson RN Position: [facility] Onco RN Member Role: Primary Care Nurse Name: Dorinda Berry RN Position: [facility] Onco RN Member Role: Primary Care Nurse Name: Lotus Gutierrez RN, I Position: [facility] RN Member Role: Primary Care Nurse Name: Lacey Rodriguez RN Position: [facility] RN Member Role: Primary Care Nurse Name: Kirsty Avila RN Position: [facility] SN RN Member Role: Primary Care Nurse Care Team Related Persons Name: INOCENCIOWARRENSUZANNE GOOD Address: [address] [place] [address] Name: DASH MATTHEW Address: [address] [place] [address]
--- OUTSIDE RECORDS SUMMARY | 2023-12-23 11:59 | XMS_ITS | Continuity of Care Document ---
Author Organization [facility] Address [address] [place] [address]- Care Team Providers Care Warehouse Picker Name Role Phone Johan BOND, Nabil Coleman Primary Care Physician [place] [facility] [place]23 [place] 07/01/23 [facility] [address] [place] [id number] Allergies, Adverse Reactions, Alerts No Known Allergies Immunizations Given and Recorded Vaccine Date Status Refusal Reason pneumococcal 23-valent vaccine 08/17/18 Given pneumococcal 13-valent vaccine 1 06/15/18 Given 1Early/Late Reason: Wan to Standard Admin Times Medications acyclovir 400 mg oral tablet 1 tablet = 400 mg, By Mouth, 2 times a day, # 180 tablet, 3 Refills, Maintenance, 08/06/23 8:09:00 EDT, Tablet, [id number], Partial fill upon patient request if [...] 03/07/22 14:44:00 EST, Route to Pharmacy Electronically, [facility], Partial fill upon patient [...] 0 Refills, Maintenance, 07/24/22 8:41:00 EDT, Tablet, [facility], Partial fill upon patient request if the prescription is for a schedule II opioid drug., 175 cm, 07/21/22 12:33... Start Date: 07/24/22 Status: Ordered hydrALAZINE 50 mg oral tablet 1 tablet = 50 mg, By Mouth, 3 times a day, # 90 tablet, 0 Refills, Maintenance, 06/01/23 15:43:00 EDT, Tablet, Partial fill upon patient request if the prescription is for a schedule II opioid drug. Start Date: 06/01/23 Status: Ordered KlonoPIN 1 mg oral tablet 1 tablet = 1 mg, By Mouth, 2 times a day, this is an increase, # 60 tablet, 0 Refills, Maintenance,07/15/23 13:22:00 EDT, [id number], Partial fill upon patient request if the prescription isfor a schedule II opioid drug., 175, cm, 06/01/23 1... Start Date: 07/15/23 Stop Date: 08/14/23 Status: Ordered KlonoPIN 1 mg oral tablet 1 tablet = 1 mg, By Mouth, 2 times a day, for 30 days, this is an increase, # 60 tablet, 2 Refills,Hard Stop 07/15/23 13:22:00 EDT, 04/16/23 13:22:00 EST, [id number], Partial fill upon patient request if the prescription is for a schedule II... Start Date: 04/16/23 Stop Date: 07/15/23 Status: Ordered labetalol 300 mg oral tablet 1 tablet = 300 mg, By Mouth, 3 times a day, 0 Refills, Maintenance, 06/01/23 15:44:00 EDT, Partial fill upon patient request if the prescription is for a schedule II opioid drug. Start Date: 06/01/23 Status: Ordered levETIRAcetam 500 mg oral tablet 1 tablet = 500 mg, By Mouth, 2 times a day, # 180 tablet, 0 Refills, Maintenance, 06/01/23 15:44:00EDT, Tablet, Partial fill upon patient request if the prescription is for a schedule II opioid drug. Start Date: 06/01/23 Status: Ordered Methadone = 140 mg, By Mouth, Daily, 0 Refills, Maintenance, 05/10/18 11:13:13 EST Start Date: 05/10/18 Status: Ordered ondansetron 4 mg oral tablet 1 tablet = 4 mg, By Mouth, Every 8 hours, PRN Nausea & Vomiting, may take 2 if 1 not effective,# 90 tablet, 0 Refills, Maintenance, 12/02/22 8:58:00 EDT, Tablet, [facility], Partial fill upon [...] 1 Refills, Maintenance, 07/29/22 15:26:00 EDT, Tablet, [facility], Partial fill upon [...] tablet, 0 Refills, Maintenance, 12/02/22 8:58:00 EDT, [facility], Partial fill upon patient request if the prescription is for a schedule II opioid drug., 175, cm, 11/13/22 9:53:00 EDT, Height,... Start Date: 12/02/22 Status: Ordered sulfamethoxazole-trimethoprim 800 mg-160 mg oral tablet 1 tablet, By Mouth, Every Thursday, Thursday and Thursday, # 45 tablet, 3 Refills, Maintenance, 03/16/23 9:22:00 EST, [id number], Partial fill upon patient request if [...] History Social History Type Response Smoking Status 5-9 cigarettes (betw een 1/4 to 1/2 pack)/day in last 30 days; Interested in cessation: No; Patient wants NRT during admission No entered on: 06/01/23 Sex Patient Care team information Care Team Personnel Name: Evita , Suzette Position: [facility] Onco RN Member Role: Primary Care Nurse Name: Aracely Rae RN Position: [facility] RN Member Role: Primary Care Nurse Name: Moon Cummings RN Position: S RN Member Role: Primary Care Nurse Name: Kath Weeks RN Position: [facility] RN Member Role: Primary Care Nurse Name: Errol Hdez RN Position: [facility] RN Member Role: Primary Care Nurse Name: Hanh Bruner RN Position: [facility] Onco RN Member Role: Primary Care Nurse Name: Geneva Ayala NP Position: [facility] Associate Professional Member Role: Lifetime Consulting Provider Address: Address: [address] [place], [place] [address]E [facility] [address] Name: Phil Ortiz MD Position: [facility] Renal MD Member Role: Lifetime Consulting Physician Address: Address: [address] [place], [place] [address] [facility] [address] Name: Eliseo Ramirez DO Position: [facility] Renal MD Member Role: Lifetime Consulting Physician Address: Address: [address] [place], [place] [address] [address] Name: Julieta Richmond RN Position: [facility] Onco RN Member Role: Primary Care Nurse Name: Dorinda Bryant RN Position: [facility] Onco RN Member Role: Primary Care Nurse Name: Goyo Moncada III, RN Position: [facility] RN Member Role: Primary Care Nurse Name: Nereyda Nguyễn RN Position: [facility] Onco RN Member Role: Primary Care Nurse Name: Nabil Prado MD Position: Reference Physician Member Role: PCP Address: Address: [address] [place] [id number]- Name: Eric Castano RN Position: [facility] RN Member Role: Primary Care Nurse Name: Johnny Romano RN Position: [facility] RN Member Role: Primary Care Nurse Name: Johnson Munoz RN Position: [facility] Onco RN Member Role: Primary Care Nurse Name: Jaret Mendoza RN Position: [facility] RN Member Role: Primary Care Nurse Name: Shantanu Allan RN Position: [facility] RN Member Role: Primary Care Nurse Name: Laura Narayanan Position: [facility] Onco RN Member Role: Primary Care Nurse Name: Jemma Matos RN Position: [facility] RN Member Role: Primary Care Nurse Name: Dash Olson RN Position: [facility] Onco RN Member Role: Primary Care Nurse Name: Lotus Gutierrez RN, I Position: [facility] RN Member Role: Primary Care Nurse Name: Lacey Rodriguez RN Position: [facility] RN Member Role: Primary Care Nurse Name: Kirsty Avila RN Position: [facility] SN RN Member Role: Primary Care Nurse Care Team Related Persons Name: SUZANNE WALLIS Address: [address] [place] [address] Name: DASH MATTHEW Address: [address] [place] [address]
--- OUTSIDE RECORDS SUMMARY | 2023-12-23 11:59 | XMS_ITS | Continuity of Care Document ---
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 Role Phone Johan BOND, Nabil Coleman Primary Care Physician Encounter [facility] [place] [facility] Date(s): 12/10/22 - 01/09/23 [facility] [address] [place] [id number] Allergies, Adverse Reactions, Alerts No Known Allergies Immunizations Given and Recorded Vaccine Date Status Refusal Reason pneumococcal 23-valent vaccine 08/17/18 Given pneumococcal 13-valent vaccine 1 06/15/18 Given 1Early/Late Reason: Wan to Standard Admin Times Medications acyclovir 400 mg oral tablet 1 tablet = 400 mg, By Mouth, 2 times a day, # 60 tablet, 6 Refills, Maintenance, 01/08/23 8:09:00 EDT, Tablet, [facility], Partial fill upon patient request if the prescription is for a schedule II opioid drug., 175, cm, 07/21/22 12:33:00 EDT... Start Date: 01/08/23 Stop Date: 08/06/23 Status: Ordered amLODIPine 10 mg oral tablet 10 mg, 1, tablet, By Mouth, Daily, # 30 tablet, Refills 0, Tot. Refills 0, Maintenance, 03/07/22 14:44:00 EST, Route to Pharmacy Electronically, [facility], Partial fill upon patient [...] 0 Refills, Maintenance, 07/24/22 8:41:00 EDT, Tablet, [facility], Partial fill upon patient request if the prescription is for a schedule II opioid drug., 175, cm, 07/21/22 12:33... Start Date: 07/24/22 Status: Ordered filgrastim 300 mcg/0.5 mL injectable solution = 300 mcg, Subcutaneous Injection, Daily, for 14 days, # 14 each, 4 Refills, Acute 02/20/23 7:10:00EST, 12/12/22 7:10:00 EDT, Solution, Partial fill upon patient request if the prescription is for aschedule II opioid drug. Start Date: 12/12/22 Stop Date: 02/20/23 Status: Ordered KlonoPIN 1 mg oral tablet 1 tablet = 1 mg, By Mouth, 2 times a day, this is an increase, # 60 tablet, 1 Refills, Maintenance,12/17/22 13:22:00 EDT, [facility], Partial fill upon patient request if the prescription is for a schedule II opioid drug., 175, cm, 12/15/22... Start Date: 12/17/22 Stop Date: 02/15/23 Status: Ordered Methadone = 140 mg, By Mouth, Daily, 0 Refills, Maintenance, 05/10/18 11:13:13 EST Start Date: 05/10/18 Status: Ordered ondansetron 4 mg oral tablet 1 tablet = 4 mg, By Mouth, Every 8 hours, PRN Nausea & Vomiting, may take 2 if 1 not effective,# 90 tablet, 0 Refills, Maintenance, 12/02/22 8:58:00 EDT, Tablet, [facility], [...] 1 Refills, Maintenance, 07/29/22 15:26:00 EDT, Tablet, [facility], [...] tablet, 0 Refills, Maintenance, 12/02/22 8:58:00 EDT, [facility], Partial fill upon patient request if the prescription is for a schedule II opioid drug., 175, cm, 11/13/22 9:53:00 EDT, Height,... Start Date: 12/02/22 Status: Ordered Zarxio 300 mcg/0.5 mL injectable solution See Instructions, 300 mcg Subcutaneous Injection MWF, # 12 each, 0 Refills, Maintenance, 01/01/23 15:09:00 EDT, Solution, Partial fill upon patient request if the prescription is for a schedule II opioid drug. Start Date: 01/01/23 Status: Ordered Problem List Condition Confirmation Course Effective Dates Status [facility] Informant Abscess of chest wall [...] Care Team Personnel Name: Suzette Jama Position: [facility] Onco RN Member Role: Primary Care Nurse Name: Aracely Rae RN Position: [facility] RN Member Role: Primary Care Nurse Name: Moon Cummings RN Position: [facility] RN Member Role: Primary Care Nurse Name: Kath Weeks RN Position: [facility] RN Member Role: Primary Care Nurse Name: Errol Hdez RN Position: [facility] RN Member Role: Primary Care Nurse Name: Hanh Bruner RN Position: [facility] Onco RN Member Role: Primary Care Nurse Name: Geneva Ayala NP Position: [facility] Associate Professional Member Role: Lifetime Consulting Provider Address: Address: [address] [place], [place] [address] [address] Name: Phil Ortiz MD Position: [facility] Renal MD Member Role: Lifetime Consulting Physician Address: Address: [address] [place], [place] [address] [address] Name: Eliseo Ramirez DO Position: [facility] Renal MD Member Role: Lifetime Consulting Physician Address: Address: [address] [place], [place] [address]E [facility] [address] Name: Julieta Richmond RN Position: [facility] Onco RN Member Role: Primary Care Nurse Name: Goyo Moncada III, RN Position: [facility] RN Member Role: Primary Care Nurse Name: Nereyda Nguyễn RN Position: [facility] Onco RN Member Role: Primary Care Nurse Name: Nabil Prado MD Position: Reference Physician Member Role: PCP Address: Address: [address] [place] [id number] Name: Eric Castano RN Position: [facility] RN Member Role: Primary Care Nurse Name: Dinah Kaur RN Position: [facility] RN Member Role: Primary Care Nurse Name: Johnny Romano RN Position: [facility] RN Member Role: Primary Care Nurse Name: Johnson Munoz RN Position: [facility] Onco RN Member Role: Primary Care Nurse Name: Jaret Mendoza RN Position: [facility] RN Member Role: Primary Care Nurse Name: Shantanu Allan RN Position: [facility] RN Member Role: Primary Care Nurse Name: Laura Narayanan Position: [facility] Onco RN Member Role: Primary Care Nurse Name: Jemma Matos RN Position: [facility] RN Member Role: Primary Care Nurse Name: Dash Olson RN Position: [facility] Onco RN Member Role: Primary Care Nurse Name: Dorinda Berry RN Position: [facility] Onco RN Member Role: Primary Care Nurse Name: Lotus Gutierrez RN, I Position: [facility] RN Member Role: Primary Care Nurse Name: Lacey Rodriguez RN Position: [facility] RN Member Role: Primary Care Nurse Name: Kirsty Avila RN Position: [facility] SN RN Member Role: Primary Care Nurse Care Team Related Persons Name: SUZANNE [place] Address: home [address] [place] [address] Name: DASH MATTHEW Address: [place] [address] [place] [address]
--- OUTSIDE RECORDS SUMMARY | 2023-12-23 11:59 | XMS_ITS | Continuity of Care Document ---
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 Role Phone Johan BOND, Nabil Coleman Primary Care Physician Encounter [facility] R [id number] Date(s): 04/07/19 - 04/17/19 [facility] [address] [address]- [place] Attending Physician: Aiden Jackson Admitting Physician: AdmAiden ace Referring Physician: AdmtrAiden Allergies, Adverse Reactions, Alerts Substance Reaction Severity Status NKA Active Immunizations Given and Recorded Vaccine Date Status Refusal Reason pneumococcal 23-valent vaccine 08/17/18 Given pneumococcal 13-valent vaccine 1 06/15/18 Given 1Early/Late Reason: Wan to Standard Admin Times Medications Calcium 600+D oral tablet 1 tablet, By Mouth, 2 times a day, with food, # 60 tablet, 0 Refills, Maintenance, 10/21/18 10:51:34 EDT, 1 tablet By Mouth 2 times a day,x30 days,Instr:with food Start Date: 10/21/18 Stop Date: 11/20/18 Status: Ordered clonazePAM 2 mg oral tablet 1 tablet = 2 mg, By Mouth, 3 times a day, 0 Refills, Maintenance, 05/10/18 11:12:00 EST Start Date: 05/10/18 Status: Ordered lenalidomide 25 mg oral capsule 1 capsule = 25 mg, By Mouth, Daily, do not break, chew, or open capsules, take 3 weeks ON and 1 week OFF, # 21 capsule, 0 Refills, Maintenance, 03/08/19 11:05:00 EST Start Date: 03/08/19 Stop Date: 03/29/19 Status: Ordered Methadone By Mouth, 0 Refills, Maintenance, 05/10/18 11:13:13 EST Start Date: 05/10/18 Status: Ordered Problem List Condition Effective Dates Status Health Status Inform ant H/O: substance abuse(Confirmed) 1 Active 1on Methadone maintenance 2006 Social History Social History Type Response Smoking Status 10 or more cigarette s (1/2 pack or more)/day in last 30 days entered on: 06/03/18 Sex
--- OUTSIDE RECORDS SUMMARY | 2023-12-23 11:59 | XMS_ITS | Continuity of Care Document ---
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 [place] Date(s): 09/06/20 - 09/21/20 [facility] Care [address] [place] [id number] Discharge Disposition: A-D/C Home Attending Physician: Glenda Higginbotham MD Admitting Physician: Glenda Higginbotham MD Referring Physician: Nabil Prado MD Allergies, Adverse Reactions, Alerts Substance Reaction Severity Status NKA Active Immunizations Given and Recorded Vaccine Date Status Refusal Reason pneumococcal 23-valent vaccine 08/17/18 Given pneumococcal 13-valent vaccine 1 06/15/18 Given 1Early/Late Reason: Wan to Standard Admin Times Medications acyclovir 400 mg oral tablet 1 tablet = 400 mg, By Mouth, 2 times a day, # 60 tablet, 3 Refills, Maintenance, 10/24/19 12:35:00 EDT, Tablet, [facility], 173, cm, 10/24/19 10:34:00 EDT, Height, 75, kg, 10/24/19 10:34:00 EDT, Dry Weight Start Date: 10/24/19 Stop Date: 02/21/20 Status: Ordered aspirin 325 mg oral tablet 325 mg, 1, tablet, By Mouth, Daily, # 30 tablet, Refills 3, Tot. Refills 3, Maintenance, 10/24/19 12:35:00 EDT, Route to Pharmacy Electronically, [facility], 173, cm, 10/24/19 10:34:00 EDT, Height, 75, kg, 10/24/19 10:34:00 EDT, Dry Weight Start Date: 10/24/19 Status: Ordered Calcium 600+D oral tablet 1 tablet, By Mouth, 2 times a day, with food, # 60 tablet, 0 Refills, Maintenance, 10/21/18 10:51:34 EDT, 1 tablet By Mouth 2 times a day,x30 days,Instr:with food Start Date: 10/21/18 Stop Date: 11/20/18 Status: Ordered clonazePAM 0.5 mg oral tablet 0.5 tablet = 0.25 mg, By Mouth, Daily, 0 Refills, Maintenance, 08/22/19 13:50:00 EDT, Tablet Start Date: 08/22/19 Status: Ordered lenalidomide 25 mg oral capsule 1 capsule = 25 mg, By Mouth, Daily, do not break, chew, or open capsules, take 3 weeks ON and 1 week OFF, # 21 capsule, 0 Refills, Maintenance, 04/06/20 13:10:00 EST Start Date: 04/06/20 Stop Date: 04/27/20 Status: Ordered lenalidomide 25 mg oral capsule 1 capsule = 25 mg, By Mouth, Daily, do not break, chew, or open capsules, take 3 weeks ON and 1 week OFF, # 21 capsule, 0 Refills, Maintenance, 08/29/20 13:04:00 EDT Start Date: 08/29/20 Stop Date: 09/19/20 Status: Ordered Methadone = 140 mg, By Mouth, Daily, 0 Refills, Maintenance, 05/10/18 11:13:13 EST Start Date: 05/10/18 Status: Ordered prochlorperazine 10 mg oral tablet 1 tablet = 10 mg, By Mouth, Every 6 hours, PRN as needed for nausea/vomiting, # 60 tablet, 1 Refills, Maintenance, 05/16/20 14:07:00 EST, [facility], Partial fill upon patient request if theprescription is for a schedule II opioid drug., 173... Start Date: 05/16/20 Status: Ordered Zofran 8 mg oral tablet 1 tablet = 8 mg, By Mouth, Every 8 hours, PRN as needed for nausea/vomiting, # 30 tablet, 1 Refills, Maintenance, 05/16/20 14:07:00 EST, [facility], Partial fill upon patient request if the prescription is for a schedule II opioid drug., 173,... Start Date: 05/16/20 Status: Ordered Problem List Condition Effective Dates Status Health Status Inform ant Abscess of chest wall(Confirmed) Active Bacteremia due to Enterococcus(Confirmed) Active Opioid use disorder(Confirmed) Active History of tobacco use(Confirmed) Active Social History Social History Type Response Smoking Status 10 or more cigarette s (1/2 pack or more)/day in last 30 days entered on: 06/03/18 Sex
--- OUTSIDE RECORDS SUMMARY | 2023-12-23 11:59 | XMS_ITS | Continuity of Care Document ---
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 Start Date: 03/30/22 Stop Date: 04/06/22 Status: Ordered amLODIPine 10 mg oral tablet 10 mg, 1, tablet, By Mouth, Daily, # 30 tablet, Refills 0, Tot. Refills 0, Maintenance, 03/07/22 14:44:00 EST, Route to Pharmacy Electronically, [facility], Partial fill upon patient request if the prescription is for a schedule II opioi... Start Date: 03/07/22 Stop Date: 04/06/22 Status: Ordered KlonoPIN 1 mg oral tablet 1 tablet = 1 mg, By Mouth, 2 times a day, this is an increase, # 60 tablet, 1 Refills, Maintenance,03/31/22 12:15:00 EST, [facility], Partial fill [...] 4 mg, By Mouth, Every 8 hours, # 30 tablet, 0 Refills, Acute 04/29/22 9:00:00 EST, 03/30/22 12:41:00 EST, Tablet, [facility], Partial fill upon patient request if the prescription is for a schedule II opioid drug., 172, cm, ... Start Date: 03/30/22 Stop Date: 04/29/22 Status: Ordered oxyCODONE 5 mg oral capsule 1 capsule = 5 mg, By Mouth, Every 6 hours, 0 Refills, Maintenance, 11/26/21 13:30:00 EDT, Partial fill upon patient request if the prescription is for a schedule II opioid drug. Start Date: 11/26/21 Status: Ordered Pepcid 20 mg oral tablet 1 tablet = 20 mg, By Mouth, Daily, # 30 tablet, 3 Refills, Maintenance, 03/11/22 16:38:00 EST, Tablet, [facility], Partial fill upon patient request if the prescription is for a schedule II opioid drug., 175, cm, 03/05/22 22:38:00 EST, Height... Start Date: 03/11/22 Status: Ordered prochlorperazine 5 mg oral tablet [...] Care Team Personnel Name: Suzette Jama Position: [facility] Onco RN Member Role: Primary Care Nurse Name: Aracely Rae RN Position: [facility] RN Member Role: Primary Care Nurse Name: Moon Cummings RN Position: S RN Member Role: Primary Care Nurse Name: Errol Hdez RN Position: S RN Member Role: Primary Care Nurse Name: Gladis Viera RN Position: [facility] RN Member Role: Primary Care Nurse Name: Hanh Bruner RN Position: [facility] Onco RN Member Role: Primary Care Nurse Name: Geneva Ayala NP Position: [facility] Associate Professional Member Role: Lifetime Consulting Provider Address: Address: [address] [place] [address] [facility] [address] Name: Eliseo Ramirez DO Position: [facility] Renal MD Member Role: Lifetime Consulting Physician Address: Address: [address] [place] [address] [facility] [place] [address]- Name: Julieta Richmond RN Position: [facility] Onco RN Member Role: Primary Care Nurse Name: Goyo Moncada III, RN Position: [facility] RN Member Role: Primary Care Nurse Name: Nereyda Nguyễn RN Position: [facility] Onco RN Member Role: Primary Care Nurse Name: Nabil Prado MD Position: Reference Physician Member Role: PCP Address: Address: [address] [place] [address]- Name: Eric Castano RN Position: [facility] RN Member Role: Primary Care Nurse Name: Dinah Kaur RN Position: S RN Member Role: Primary Care Nurse Name: Johnny Romano RN Position: S RN Member Role: Primary Care Nurse Name: Johnson Munoz RN Position: [facility] RN Member Role: Primary Care Nurse Name: Suzanne Weber RN Position: [facility] RN Member Role: Primary Care Nurse Name: Radha Miguel RN Position: [facility] RN Member Role: Primary Care Nurse Name: Shantanu Allan RN Position: [facility] RN Member Role: Primary Care Nurse Name: Laura Narayanan Position: [facility] Onco RN Member Role: Primary Care Nurse Name: Jemma Matos RN Position: [facility] RN Member Role: Primary Care Nurse Name: Dash Olson RN Position: [facility] OB RN Member Role: Primary Care Nurse Name: Sahara Patel RN Position: [facility] RN Member Role: Primary Care Nurse Name: Dorinda Berry RN Position: [facility] Onco RN Member Role: Primary Care Nurse Name: Lotus Gutierrez RN, I Position: [facility] RN Member Role: Primary Care Nurse Name: Lacey Rodriguez Position: [facility] RN Member Role: Primary Care Nurse Name: Kirsty Avila RN Position: [facility] RN Member Role: Primary Care Nurse Care Team Related Persons Name: SUZANNE [place] Address: home [address] [place] [address] Name: DASH MATTHEW Address: home [address] [place] [address]
--- OUTSIDE RECORDS SUMMARY | 2023-12-23 11:59 | XMS_ITS | Continuity of Care Document ---
Author Organization [facility] ter Address [address] [place] [id number]- Care Team Providers Care Greaser Operator Name Role Phone Johan BOND, Nabil Coleman Primary Care Physician [place] [facility] [place]): 03/10/22 - 03/10/[address] [address] Discharge Disposition: A-D/C Home Attending Physician: Efrain Mukherjee MD, I Admitting Physician: Efrain Mukherjee MD, I Referring Physician: Not on Staff, Referring MD Allergies, Adverse Reactions, Alerts No Known Allergies Immunizations Given and Recorded Vaccine Date Status Refusal Reason pneumococcal 23-valent vaccine 08/17/18 Given pneumococcal 13-valent vaccine 1 06/15/18 Given 1Early/Late Reason: Wan to Standard Admin Times Medications amLODIPine 10 mg oral tablet 10 mg, 1, tablet, By Mouth, Daily, # 30 tablet, Refills 0, Tot. Refills 0, Maintenance, 03/07/22 14:44:00 EST, Route to Pharmacy Electronically, [facility], Partial fill upon patient request if the prescription is for a schedule II opioi... Start Date: 03/07/22 Stop Date: 04/06/22 Status: Ordered Calcium 600+D oral tablet 1 tablet, By Mouth, 2 times a day, with food, # 60 tablet, 0 Refills, Maintenance, 10/21/18 10:51:34 EDT, 1 tablet By Mouth 2 times a day,x30 days,Instr:with food Start Date: 10/21/18 Stop Date: 11/20/18 Status: Ordered KlonoPIN 1 mg oral tablet 1 tablet = 1 mg, By Mouth, Daily at bedtime, # 14 tablet, 0 Refills, Maintenance, 02/04/22 15:31:00EST, [facility], Partial fill upon patient request if the prescription is for a schedule II opioid drug., 175, cm, 02/04/22 10:02:00 EST, [place]... Start Date: 02/04/22 Status: Ordered LORazepam 0.5 mg oral tablet 1 tablet = 0.5 mg, By Mouth, Daily at bedtime, PRN Insomnia, # 14 tablet, 0 Refills, Maintenance, 01/08/22 16:52:00 EDT, Tablet, [facility], Partial fill upon patient request if the prescription is for a schedule II opioid drug., 175, cm, .. Start Date: 01/08/22 Status: Ordered Methadone = 140 mg, By Mouth, Daily, 0 Refills, Maintenance, 05/10/18 11:13:13 EST Start Date: 05/10/18 Status: Ordered oxyCODONE 5 mg oral capsule 1 capsule = 5 mg, By Mouth, Every 6 hours, 0 Refills, Maintenance, 11/26/21 13:30:00 EDT, Partial fill upon patient request if the prescription is for a schedule II opioid drug. Start Date: 11/26/21 Status: Ordered Pepcid 20 mg oral tablet 1 tablet = 20 mg, By Mouth, Daily, # 30 tablet, 3 Refills, Maintenance, 02/12/22 17:40:00 EST, Tablet, [facility], Partial fill upon patient request if the prescription is for a schedule II opioid drug., 175, cm, 02/12/22 14:26:00 EST, Height... Start Date: 02/12/22 Status: Ordered prochlorperazine 5 mg oral tablet 1-2 tablet, By Mouth, Every 6 hours, PRN Nausea, # 60 tablet, 1 Refills, Maintenance, 02/12/22 17:40:00 EST, [facility], Partial fill upon patient request if the prescription is for a schedule II opioid drug., 175, cm, 02/12/22 14:26:00 EST,... Start Date: 02/12/22 Status: Ordered venetoclax 100 mg oral tablet 2 tablet = 200 mg, By Mouth, Daily, dose reduction to level -1 given prolonged cytopenia >42 days; ref: Lancet Haematol. 2019 ; 7(10): e724 e736., # 42 tablet, 0 Refills, Maintenance, 02/26/22 11:59:00 EST, Tablet, [facility],... Start Date: 02/26/22 Stop Date: 03/19/22 Status: Ordered Problem List Condition Confirmation Course Effective Dates Status Health St atus Informant Abscess of chest wall Confirmed Active Bacteremia due to Enterococcus Confirmed Active COVID-19 1 Confirmed 03/07/22 Active Opioid use disorder Confirmed Active History of tobacco use Confirmed Active 1Problem added by Discern Expert Social History Social History Type Response Smoking Status 10 or more cigarette s (1/2 pack or more)/day in last 30 days entered on: 06/03/18 Sex Hospital Progress note * Radha Miguel RN: PERFORM, SIGN, VERIFY Event Display: Progress Note Hospital Authored Date: Patient: RITESH GARCIA Age: 42 years Sex: Male : 1980 Associated Diagnoses: None Author: Radha Miguel RN Findings Narrative/Incidental pt tolerated 3 hr tx most well last 30 min pt reported to have nausea and sweating re checked bp 91/43 , HOB placed to flat position 200 ml of NS given with positive result , pt reported to feel better now than shagufta to hd , 2.3 L OF NET FLUID REMOVED BV-10.1% VSS S/P HD as follow BP100/39 hr 74 rr 13 temp 97.9. Discharge Information Case Management Discharge Plan : Case Management Discharge Plan Data 03/07/2022 16:34 EST Discharge Level of Care at Discharge Home/Prison/Foster Care 03/07/2022 9:17 EST Discharge Level of Care at Discharge Home/Prison/Foster Care * Iglesia Lambert MD: PERFORM, SIGN, VERIFY Event Display: Progress Note Hospital Authored Date: [id number] Patient: RITESH GARCIA Age: 42 years Sex: Male : 1980 Associated Diagnoses: None Author: Iglesia Lambert MD pt here for dialysis, tolerating treatment well records reviewed Review of Systems Constitutional: negative. Physical Examination HEENT Moist mucous membranes. Respiratory Lungs: CTA. Cardiac No murmur/gallop/rub. Abdomen/GI Soft. Extremities Normal. Skin OTHER Right chest permcath. Data Review Laboratory results reviewed : RENAL FLOWSHEET 03/10/2022 7:02 EST Sodium 138 mmol/L Potassium 3.5 mmol/L L Chloride 95 mmol/L L Bicarbonate Level 24 mmol/L Anion Gap 19 H Hgb 6.3 Gm/dL C Hct 19.6 % C WBC 9.3 k/mm3 . Impression and Plan Mr. Garcia is a 41-year-old gentleman with history of IgA kappa multiple myeloma, refractory/persistent disease. The patient presented to the hospital with acute kidney injury and hyperkalemia. As mentioned above, serum creatinine started to rise since November of this year. Never had renal issues prior to that. The patient obviously has multiple risk factors for acute kidney injury and CKD. Asyou know, multiple myeloma can affect kidney in many ways. I doubt myeloma kidney with most recent monoclonal protein 2 grams only. However, I would recheck SPEP and immunofixation. Other myeloma associated kidney disease, possibly including plasma cell infiltration, light chain deposition disease, thrombotic microangiopathy, MPGN, etc can not be excluded. Acute interstitial nephritis is also in differential diagnosis, patient is taking multiple medications. The patient may need a renal biopsy to solidify the diagnosis when more stable. 1. ANN MARIE - likely related to relapse of multiple myeloma, serum creatinine rising since the end of November, when IgA started to rise too, kidney biopsy may help rule out other causes and solidify the diagnosis - no signs of hemolysis, TTP less likely - C3, C4 normal, ANCA, anti GBM Ab negative - started HD on 02/25 via PermCath, tolerating well, put on MWF schedule 2, Anemia Hb 6.3 g/dL. Plan - HD today - will continue to monitor pt's pre-dialysis creatinine; with no sign of improvement so far and this degree of renal failure, pt may be approaching ESRD - outpt HD unit was all set: [facility] 3rd shift arrival time 3:45 pm, unfortunately I was told that his insurance medicaid does not cover HD for ANN MARIE in outpatient unit, he has Medicare part A, whichdoes not cover HD. awaiting insurance clearance. - will consider renal biopsy later in the week (probably not critical to management and does not need to stay in the hospital for this) -Type and Cross sent will transfuse on Wednesday HD. -4K bath today. Patient Care team information Care Team Personnel Name: Suzette Jama Position: [facility] Onco RN Member Role: Primary Care Nurse Name: Moon Cummings RN Position: [facility] RN Member Role: Primary Care Nurse Name: Errol Hdez RN Position: S RN Member Role: Primary Care Nurse Name: Hanh Bruner RN Position: [facility] Onco RN Member Role: Primary Care Nurse Name: Geneva Ayala NP Position: [facility] Associate Professional Member Role: Lifetime Consulting Provider Address: Address: [address] [place], [place] [address] [address] Name: Eliseo Ramirez DO Position: [facility] Renal MD Member Role: Lifetime Consulting Physician Address: Address: [address] [place], [place] [address] [address] Name: Julieta Richmond RN Position: [facility] Onco RN Member Role: Primary Care Nurse Name: Nereyda Nguyễn RN Position: [facility] Onco RN Member Role: Primary Care Nurse Name: Nabil Prado MD Position: Reference Physician Member Role: PCP Address: Address: [address] [place] [id number] Name: Eric Castano RN Position: [facility] RN Member Role: Primary Care Nurse Name: Dinah Kaur RN Position: [facility] RN Member Role: Primary Care Nurse Name: Johnny Romano RN Position: [facility] RN Member Role: Primary Care Nurse Name: Suzanne Weber RN Position: [facility] RN Member Role: Primary Care Nurse Name: Radha Miguel RN Position: [facility] RN Member Role: Primary Care Nurse Name: Shantanu Allan RN Position: [facility] RN Member Role: Primary Care Nurse Name: Laura Narayanan Position: [facility] Onco RN Member Role: Primary Care Nurse Name: Mariama Olson RN Position: [facility] Onco RN Member Role: Primary Care Nurse Name: Dorinda Berry RN Position: [facility] Onco RN Member Role: Primary Care Nurse Name: Lotus Gutierrez RN, I Position: [facility] RN Member Role: Primary Care Nurse Name: Lacey Rodriguez Position: S RN Member Role: Primary Care Nurse Name: Kirsty Avila Position: [facility] RN Member Role: Primary Care Nurse Care Team Related Persons Name: SUZANNE WALLIS Address: home [address] [place] [id number]
--- OUTSIDE RECORDS SUMMARY | 2023-12-23 11:59 | XMS_ITS | Continuity of Care Document ---
Author Organization [facility] ancer Care Address [address] [place] [address]- Care Team Providers Care Technology Strategist Name Role Phone Johan BOND, Nabil Coleman Primary Care Physician Encounter [facility] [place] Date(s): 06/09/22 - 07/09/22 [facility] [address] [place] [address] Attending Physician: Aiden Jackson Admitting Physician: AdmAiden ace Referring Physician: AdmtrAiden Allergies, Adverse Reactions, Alerts No Known Allergies [...] day, # 60 tablet, 6 Refills, Maintenance, 06/12/22 8:09:00 EDT, Tablet, [facility], Partial fill upon patient request if the prescription is for a schedule II opioid drug., 175, cm, 06/02/22 13:28:00 EDT... Start Date: 06/12/22 Stop Date: 01/08/23 Status: Ordered acyclovir 400 mg oral tablet 1 tablet = 400 mg, By Mouth, 2 times a day, for 30 days, # 60 tablet, 0 Refills, Hard Stop 08/07/2313:31:00 EDT, 07/08/22 14:31:00 EDT, Tablet, [facility], Partial fill upon patient requestif the prescription is for a schedule II opioid charlie... Start Date: 07/08/22 Stop Date: 08/07/22 Status: Ordered amLODIPine 10 mg oral tablet 10 mg, 1, tablet, By Mouth, Daily, # 30 tablet, Refills 0, Tot. Refills 0, Maintenance, 03/07/22 14:44:00 EST, Route to Pharmacy Electronically, [facility], Partial fill upon patient request if the prescription is for a schedule II opioi... Start Date: 03/07/22 Stop Date: 04/06/22 Status: Ordered KlonoPIN 1 mg oral tablet 1 tablet = 1 mg, By Mouth, 2 times a day, this is an increase, # 60 tablet, 1 Refills, Maintenance,06/09/22 10:05:00 EDT, [facility], Partial fill upon patient request if the prescription is for a schedule II opioid drug., 175, cm, 06/02/22... Start Date: 06/09/22 Stop Date: 08/08/22 Status: Ordered Methadone = 140 mg, By Mouth, Daily, 0 Refills, Maintenance, 05/10/18 11:13:13 EST Start Date: 05/10/18 Status: Ordered ondansetron 4 mg oral tablet 1 tablet = 4 mg, By Mouth, Every 8 hours, PRN Nausea & Vomiting, # 90 tablet, 0 Refills, Maintenance, 04/22/22 9:26:00 EST, Tablet, [facility], Partial fill [...] EST, Height,... Start Date: 04/22/22 Status: Ordered Pomalyst 4 mg oral capsule 1 capsule = 4 mg, By Mouth, Daily, on an empty stomach take for 21 days followed by a 7 day rest period, # 21 capsule, 0 Refills, Maintenance, 06/30/22 12:13:00 EDT, Capsule, Partial fill upon patient request if the prescription is for a schedule II... Start Date: 06/30/22 Status: Ordered prochlorperazine 5 mg oral tablet 1-2 tablet, By Mouth, Every 6 hours, PRN Nausea, # 60 tablet, 1 Refills, Maintenance, 05/16/22 12:43:00 EST, [facility], Partial fill upon patient request if the prescription is for a schedule II opioid drug., 175, cm, 04/25/22 13:35:00 EST,... Start Date: 05/16/22 Status: Ordered Problem List Condition Confirmation Course [...] last 30 days entered on: 06/03/18 Sex Note * Event Display: Non Lab Results Authored Date: * Event Display: Non Lab Results Authored Date: * Event Display: Non BH Lab Results Authored Date: * Event Display: IR Special Procedures, Non-BH Authored Date: * Event Display: MRI Spine, Non- Authored Date: * Event Display: IR Special Procedures, Non- Authored Date: * Event Display: MRI Chest, Non- Authored Date: * Event Display: CT Scan Chest, Non- Authored Date: Patient Care team information Care Team Personnel Name: Suzette Jama Position: [facility] Onco RN Member Role: Primary Care Nurse Name: Aracely Rae RN Position: [facility] RN Member Role: Primary Care Nurse Name: Moon Cummings RN Position: [facility] RN Member Role: Primary Care Nurse Name: Kath Weeks RN Position: [facility] RN Member Role: Primary Care Nurse Name: Errol Hdez RN Position: [facility] RN Member Role: Primary Care Nurse Name: Gladis Viera RN Position: [facility] RN Member Role: Primary Care Nurse Name: Hanh Bruner RN Position: [facility] Onco RN Member Role: Primary Care Nurse Name: Geneva Ayala NP Position: [facility] Associate Professional Member Role: Lifetime Consulting Provider Address: Address: [address] [place], [place] [address] [place] [address]- Name: Phil Ortiz MD Position: [facility] Renal MD Member Role: Lifetime Consulting Physician Address: Address: [address] [place], [place] [address]E [facility] [address] Name: Eliseo Ramirez DO Position: [facility] Renal MD Member Role: Lifetime Consulting Physician Address: Address: [address] [place], [place] [address]E [facility] [address] Name: Julieta Richmond RN Position: [facility] Onco RN Member Role: Primary Care Nurse Name: Goyo Moncada III, RN Position: [facility] RN Member Role: Primary Care Nurse Name: Nereyda Nguyễn RN Position: [facility] Onco RN Member Role: Primary Care Nurse Name: Nabil Prado MD Position: Reference Physician Member Role: PCP Address: Address: [address] [place] [id number]- Name: Eric Castano RN Position: [facility] RN Member Role: Primary Care Nurse Name: Dinah Kaur RN Position: [facility] RN Member Role: Primary Care Nurse Name: Johnny Romano RN Position: [facility] RN Member Role: Primary Care Nurse Name: Johnson Munoz RN Position: [facility] Onco RN Member Role: Primary Care Nurse Name: Suzanne Weber RN Position: [facility] RN Member Role: Primary Care Nurse Name: Radha Miguel RN Position: [facility] RN Member Role: Primary Care Nurse Name: Shantanu Allan RN Position: [facility] RN Member Role: Primary Care Nurse Name: Laura Narayanan Position: [facility] Onco RN Member Role: Primary Care Nurse Name: Jemma Matos RN Position: [facility] RN Member Role: Primary Care Nurse Name: Dash Olson RN Position: [facility] Onco RN Member Role: Primary Care Nurse Name: Saahra Patel RN Position: [facility] RN Member Role: Primary Care Nurse Name: Dorinda Berry RN Position: [facility] Onco RN Member Role: Primary Care Nurse Name: Lotus Gutierrez RN, I Position: [facility] RN Member Role: Primary Care Nurse Name: Lacey Rodriguez RN Position: [facility] RN Member Role: Primary Care Nurse Name: Kirsty Avila RN Position: [facility] SN RN Member Role: Primary Care Nurse Care Team Related Persons Name: SUZANNE WALLIS Address: home [address] [place] [address] Name: DASH MATTHEW Address: [address] [address]
--- OUTSIDE RECORDS SUMMARY | 2023-12-23 11:59 | XMS_ITS | Continuity of Care Document ---
Author Organization [facility] ter Address [address] [place] [address]- Care Team Providers Care Tuberculosis Specialist Name Role Phone Nabil Prado MD Primary Care Physician [place] [facility] [place] - 02/25/[address] [address] Attending Physician: Nabil Prado MD Allergies, Adverse Reactions, Alerts No Known Allergies Immunizations Given and Recorded Vaccine Date Status Refusal Reason pneumococcal 23-valent vaccine 08/17/18 Given pneumococcal 13-valent vaccine 1 06/15/18 Given 1Early/Late Reason: Wan to Standard Admin Times Medications acyclovir 400 mg oral tablet See Instructions, TAKE ONE TABLET BY MOUTH TWICE A DAY, # 60 tablet, 3 Refills, 01/01/22 9:52:00 EDT, [facility], 175, cm, 01/01/22 8:59:00 EDT, Height, 79.8, kg, 12/05/21 13:08:00 EDT, Dry Weight Start Date: 01/01/22 Status: Ordered allopurinol 100 mg oral tablet 100 mg, 1, tablet, By Mouth, Daily, with plenty of fluids, # 30 tablet, Refills 0, Tot. Refills 0, Maintenance, 01/07/22 17:04:00 EDT, Route to Pharmacy Electronically, [facility], Partial fill upon patient request if the prescription is for... Start Date: 01/07/22 Status: Ordered aspirin 325 mg oral tablet 325 mg, 1, tablet, By Mouth, Daily, # 30 tablet, Refills 3, Tot. Refills 3, Maintenance, 10/24/19 12:35:00 EDT, Route to Pharmacy Electronically, [facility], 173, cm, 10/24/19 10:34:00 [...] 14 tablet, 0 Refills, Maintenance, 02/04/22 15:31:00EST, [facility], Partial fill upon patient request if the prescription is for a schedule II opioid drug., 175, cm, 02/04/22 10:02:00 EST, [facility]... Start Date: 02/04/22 Status: Ordered LORazepam 0.5 mg oral tablet 1 tablet = 0.5 mg, By Mouth, Daily at bedtime, PRN Insomnia, # 14 tablet, 0 Refills, Maintenance, 01/08/22 16:52:00 EDT, Tablet, [facility], Partial fill upon patient request if the prescription is for a schedule II opioid drug., 175, cm, ... Start Date: 01/08/22 Status: Ordered Methadone = [...] Active Bacteremia due to Enterococcus Confirmed Active Opioid use disorder Confirmed Active History of tobacco use Confirmed Active Social History Social History Type Response Smoking Status 10 or more cigarette s (1/2 pack or more)/day in last 30 days entered on: 06/03/18 Sex Patient Care team information Care Team Personnel Name: Suzette Jama Position: [facility] RN Member Role: Primary Care Nurse Name: Errol Hdez RN Position: S RN Member Role: Primary Care Nurse Name: Hanh Bruner RN Position: [facility] RN Member Role: Primary Care Nurse Name: Julieta Richmond RN Position: [facility] RN Member Role: Primary Care Nurse Name: Nereyda Nguyễn RN Position: [facility] RN Member Role: Primary Care Nurse Name: Nabil Prado MD Position: Reference Physician Member Role: PCP Address: Address: [address] [place] [address]- Name: Laura Narayanan Position: [facility] RN Member Role: Primary Care Nurse Name: Mariama Olson RN Position: [facility] RN Member Role: Primary Care Nurse Name: Dorinda Berry RN Position: [facility] On[facility] RN Member Role: Primary Care Nurse Name: Kirsty Avila Position: S RN Supv Member Role: Primary Care Nurse Care Team Related Persons Name: SUZANNE WALLIS Address: home [address] [place] [address]
--- OUTSIDE RECORDS SUMMARY | 2023-12-23 11:59 | XMS_ITS | Continuity of Care Document ---
Author Organization [facility] Address [address] [address]- Care Team Providers Care Wrinkle Chaser Name Role Phone Johan BOND, Nabil Coleman Primary Care Physician Encounter [facility] [place] Date(s): 04/07/19 - 04/14/19 [facility] [address] [address] Attending Physician: Glenda Higginbotham MD Admitting Physician: Glenda Higginbotham MD Referring Physician: Glenda Higginbotham MD Allergies, Adverse Reactions, Alerts Substance Reaction [...]
--- OUTSIDE RECORDS SUMMARY | 2023-12-23 11:59 | XMS_ITS | Continuity of Care Document ---
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 Start Date: 03/07/22 Stop Date: 04/06/22 Status: Ordered amLODIPine 5 mg oral tablet 10 mg, Tablet, By Mouth, 03/07/22 9:00:00 EST Start Date: 03/07/22 Stop Date: 03/07/22 Status: Completed Calcium 600+D oral tablet 1 tablet, By [...] 14 tablet, 0 Refills, Maintenance, 02/04/22 15:31:00EST, [facility], Partial fill upon patient request if the prescription is for a schedule II opioid drug., 175, cm, 02/04/22 10:02:00 EST, [place]... Start Date: 02/04/22 Status: Ordered LORazepam 0.5 mg oral tablet 1 tablet = 0.5 mg, By Mouth, Daily at bedtime, PRN Insomnia, # 14 tablet, 0 Refills, Maintenance, 01/08/22 16:52:00 EDT, Tablet, [facility], Partial fill upon patient request if the prescription is for a schedule II opioid drug., 175, cm, .. Start Date: 01/08/22 Status: Ordered Methadone = 140 mg, By Mouth, Daily, 0 Refills, Maintenance, 05/10/18 11:13:13 EST Start Date: 05/10/18 Status: Ordered Methadone Tablet 140 mg, Tablet, By Mouth, 03/07/22 9:00:00 EST Start Date: 03/07/22 Stop Date: 03/07/22 Status: Completed oxyCODONE 5 mg oral capsule 1 capsule [...] 3 Refills, Maintenance, 02/12/22 17:40:00 EST, Tablet, [facility], Partial fill upon patient request if the prescription is for a schedule II opioid drug., 175, cm, 02/12/22 14:26:00 EST, Height... Start Date: 02/12/22 Status: Ordered prochlorperazine 5 mg oral tablet 1-2 tablet, By Mouth, Every 6 hours, PRN Nausea, # 60 tablet, 1 Refills, Maintenance, 02/12/22 17:40:00 EST, [facility], Partial fill upon [...] 0 Refills, Maintenance, 02/26/22 11:59:00 EST, Tablet, [facility],... Start Date: 02/26/22 Stop Date: 03/19/22 Status: Ordered Problem List Condition Confirmation Course Effective Dates Status Health St atus Informant Abscess of chest wall Confirmed Active Bacteremia due to Enterococcus Confirmed Active COVID-19 1 Confirmed 03/07/22 Active Opioid use disorder Confirmed Active History of tobacco use Confirmed Active 1Problem added by Discern Expert Results Radiology Reports * Exam Date Time Procedure Performing Provider Status 02/25/22 9:29 AM C-Arm < 1 Hour Julieta Mckee; Auth (Verified) Notes: (C-Arm < 1 Hour) Reason For Exam: hemodialysis cath insertion RESULT: C-Arm < 1 Hour C-Arm < 1 Hour INDICATION: Reason: hemodialysis cath insertion COMPARISONS: None TECHNIQUE: Fluoroscopy support was provided. There was no radiologist in attendance. FLUOROSCOPY TIME: 6 seconds TECHNOLOGIST TIME: 20 minutes FINDINGS: Fluoroscopy support was provided. There was no radiologist in attendance. IMPRESSION: See above. WSN: [id number] Ordering Physician: Martin Kaur Dictated By: David Ace MD Dictated Date/Time: 02/26/22 9:49 am Reviewed By: David Ace MD Signed By: David Ace MD Signed Date/Time: 02/26/22 9:49 am Transcribed By: AASHISH Transcribed Date/Time: 02/25/22 6:56 pm * Exam Date Time Procedure Performing Provider Status 02/20/22 7:34 PM US Doppler Ext Lower Venous Bilat Ambika Cee; Auth (Verified) Notes: (US Doppler Ext Lower Venous Bilat) Reason For Exam: Pain in limb;Other: RESULT: US Doppler Ext Lower Venous Bilat US Doppler Ext Lower Venous Bilat Hx of Present Illness: PT states had labs drawn on tue for chemo treatment for multiple myeloma, told to come to eD with critical results, kidney levels elevated, potassium elevated reportedly. Feeling run down, nausea vomiting, pain to left lower abd. Voiding normal. Chest pain on occasion; Reason: Other:; Pain in limb; Clinical Question(s): Thrombosis COMPARISON: No prior. IMAGING TECHNIQUE: Ultrasound of the veins from the groin through the calf was performed using grayscale, color, and spectral Doppler ultrasound assessing for complete compressibility and normal flowcharacteristics. FINDINGS: RIGHT LOWER EXTREMITY: Common femoral vein: Patent. No thrombosis. Femoral vein: Patent. No thrombosis. Popliteal vein: Patent. No thrombosis. Gastrocnemius veins: The visualized portions are patent without evidence of thrombosis. Peroneal veins: The visualized portions are patent without evidence of thrombosis. Posterior tibial veins: The visualized portions are patent without evidence of thrombosis. LEFT LOWER EXTREMITY: Common femoral vein: Patent. No thrombosis. Femoral vein: Patent. No thrombosis. Popliteal vein: Patent. No thrombosis. Gastrocnemius veins: The visualized portions are patent without evidence of thrombosis. Peroneal veins: The visualized portions are patent without evidence of thrombosis. Posterior tibial veins: The visualized portions are patent without evidence of thrombosis. OTHER FINDINGS: Mild soft tissue edema at the level of the left distal calf/ankle is noted. IMPRESSION: No evidence of deep venous thrombosis. WSN: [id number] Ordering Physician: Kevin Mesa MD Dictated By: Letitia Fernández MD Dictated Date/Time: 02/20/22 7:37 pm Reviewed By: Letitia Fernández MD Signed By: Letitia Fernández MD Signed Date/Time: 02/20/22 7:37 pm Transcribed By: AASHISH Transcribed Date/Time: 02/20/22 7:31 pm * Exam Date Time Procedure Performing Provider Status 02/20/22 3:04 PM US Retroperitoneum Comp Emma Pang; Auth (Verified) Notes: (US Retroperitoneum Comp) Reason For Exam: renal failure;Other: RESULT: US Retroperitoneum Comp US Retroperitoneum Comp HX OF PRESENT ILLNESS: PT states had labs drawn on tue for chemo treatment for multiple myeloma, told to come to ED with critical results, kidney elevated, potassium elevated reportedly. feeling run down, nausea vomiting, pain to left lower abd. voiding normal. cp occasio; Reason: renal failure; Clinical Question(s): Acute Renal Failure; GFR 8; creatinine 8.4 (as of 02/20/2022) COMPARISON: PET/CT from 12/02/2021 FINDINGS: Right kidney: 12.9 cm in length. No hydronephrosis. Increased parenchymal echogenicity. No stones. No suspicious mass. Left kidney: 12.7 cm in length. No hydronephrosis. Increased parenchymal echogenicity. No stones. No suspicious mass. Urinary bladder: Normal morphology. No stone, mass, wall thickening or debris. Prevoid volume: 228.3 cc. Postvoid volume: No significant postvoid residual. Prostate: 2.4 x 2.2 x 2.6 cm, volume 7.2 cc. IMPRESSION: Echogenic kidneys likely representing medical renal disease. No hydronephrosis. Normal urinary bladder. I have personally reviewed the images and I agree with this report. WSN: [id number] Ordering Physician: Angelika Patton Dictated By: Jose Holbrook MD Dictated Date/Time: 02/20/22 4:05 pm Reviewed By: Eliseo Plascencia MD Signed By: Eliseo Plascencia MD Signed Date/Time: 02/20/22 4:10 pm Transcribed By: AASHISH Transcribed Date/Time: 02/20/22 3:22 pm Vital Signs Most recent to oldest [Reference Range]: 1 2 3 Height 175 cm (03/05/22 10:38 PM) 175 cm (03/05/22 8:08 PM) 175 cm (03/05/22 2:34 AM) Weight 73.1 kg (02/27/22 6:31 PM) 70.9 kg (02/27/22 6:00 AM) 80.7 kg (02/25/22 8:25 AM) Oxygen Saturation [94-100 %] 98 % (03/07/22 7:00 AM) 95 % (03/07/22 3:52 AM) 91 % *L* (03/06/22 11:00 PM) Pulse Rate [55-90 bpm] 98 bpm *H* (03/07/22 7:00 AM) 90 bpm (03/07/22 3:52 AM) 87 bpm (03/06/22 11:00 PM) Body Mass Index [18.5-24.99 kg/m2] 23.15 kg/m2 (02/27/22 6:00 AM) 26.35 kg/m2 *H* (02/25/22 8:25 AM) 26.35 kg/m2 *H* (02/22/22 2:16 AM) Blood Pressure [90-138/55-84 mm Hg] 124/58mm Hg (03/07/22 8:05 AM) 124/58mm Hg (03/07/22 7:00 AM) 111/49mm Hg (03/07/22 3:52 AM) Respiratory Rate [16-30 br/min] 16 br/min (03/07/22 9:05 AM) 16 br/min (03/07/22 8:05 AM) 18 br/min (03/07/22 7:00 AM) Temperature [96.8-100.4 DegF] 98.6 DegF (03/07/22 7:00 AM) 99.2 DegF (03/07/22 3:52 AM) 98.6 DegF (03/06/22 11:00 PM) Liters per Minute 6 L/min (02/25/22 9:45 AM) Mode of Delivery (Oxygen) Room air (03/07/22 7:00 AM) Room air (03/07/22 3:52 AM) Room air (03/06/22 11:00 PM) Blood pressure sites Arm, left (03/07/22 7:00 AM) Arm, left (03/07/22 3:52 AM) Arm, left (03/06/22 11:00 PM) Temperature Route Axillary (03/07/22 7:00 AM) Oral (03/07/22 3:52 AM) Oral (03/06/22 11:00 PM) Dry Weight 80.7 kg (02/22/22 2:16 AM) Weight Obtained Via Bed scale (02/27/22 6:00 AM) Social History Social History Type Response Smoking Status 10 or more cigarette s (1/2 pack or more)/day in last 30 days entered on: 06/03/18 Sex Admission evaluation note * Rica BOND, Marilyn: PERFORM, MODIFY Event Display: Admission Note Authored Date: [id number] Patient: ??BROCK RITESH ? Age:??41 Years?Sex:??Male?:??1980?? Chief Complaint/Reason for Consultation Acute renal failure History of Present Illness Ritesh is a 41-year-old male patient who has past medical history of multiple myeloma???currently on chemotherapy who presented to the emergency room with complaints of having abdominal bloating andfeeling unwell.?? Patient had blood work done at [facility] which showed worsening creatinine/BUN and elevated potassium.?? Patient reports no decrease in urine output and has been drinking well.?? Reports dark urine yesterday.?? Did have couple episodes of vomiting couple days ago without hematuria, hematemesis, melena or hematochezia.?? Patient does not have any more nausea.?? Does have a some abdominal bloating.?? He says that he was admitted with renal issues at [facility] on January 17 with some abdominal pain which had resolved.?? Patient denies any cardiac, respiratory or neurological symptoms.?? He is somewhat slow to answer questions but according to that is baseline.?? He is alert and oriented x4 otherwise and he is full code.?? He is on methadone 140 mg and hasbeen on methadone since 2005.?? Goes to at [facility] in [place].?? Patient is full code. . In the emergency room, noted to be afebrile, most recent blood pressure 167/95, heart rate in 60s, maintaining saturation of 98% on room air.?? In the emergency room, noted to have a hemoglobin of 8.1???close to baseline, platelets 143, white count 4.6, hemoglobin 8.2, sodium 144, potassium 5.2, chloride 110, bicarb 18, creatinine 8.4, BUN 85, LFTs unremarkable, proBNP 16497, troponin x2 was 34.?? Lower extremity duplex bilaterally negative for DVT.?? Ultrasound renal shows echogenic kidneys likely medical renal disease without any hydronephrosis. Review of Systems General ROS:??negative for chills or fever, noted fatigue, no night sweats, no unexpained weight loss or weight gain Psychological ROS:negative for anxiety or depressive symptoms, no suicidal thoughts, appropriate insight into situation, mood appears appropriate for situation ENT ROS:??negative for nasal congestion, no sinus drainage, no nosebleeding, no sore throat, no dysphagia, no ear pain Hematological and Lymphatic ROS:??negative for bleeding problems, no history of blood clots, no recent increase in bruising, no noted swollen lymph nodes Endocrine ROS:??negative for polyuria/polydipsia?? Respiratory ROS:??negative for cough, no shortness of breath, no wheezing Cardiovascular ROS:??no chest pain, ??No dyspnea on exertion, ??No edema, no palpitations, no history of loss of consciousness, no orthopnea, no paroxysmal nocturnal dyspnea?? Gastrointestinal ROS:??negative for reflux, positive for nausea and vomiting???resolved, positive for abdominal pain, no black or bloody stools- also no history of constipation, diarrhea, heartburn or hematemesis Genito-Urinary ROS:??no dysuria, no trouble voiding, or hematuria Musculoskeletal ROS:??negative for worsening ongoing back pain, no worsening or chronic neck pain, no new or worsening joint pain, no calf swelling Neurological ROS:??Slow to respond to questions,??no symptoms of confusion, no dizziness, no gait disturbance, no impaired coordination/balance, no memory loss, no history of seizures, no history of speech problems, no tremors , no visual changes. Objective ? Vital Signs?? Temperature: 98 DegF (02/20/22 16:29:00) Temperature Route: Oral (02/20/22 16:29:00) Pulse Rate: 67 bpm (02/20/22 21:27:00) Respiratory Rate: 18 br/min (02/20/22 20:15:00) Systolic Blood Pressure:??167 mm Hg??High (02/20/22 21:27:00) Diastolic Blood Pressure:??95 mm Hg??High (02/20/22 21:27:00) Blood pressure sites: Arm, right (02/20/22:27:00) Mean Arterial Pressure: 119 mm Hg (02/20/22 21:27:00) Pulse Pressure: 72 mm Hg (02/20/22 21:27:00) Oxygen Saturation: 98 % (02/20/22:27:00) Mode of Delivery (Oxygen): Room air (02/20/22 21:27:00) Early Warning Score: 3 (02/20/22 23:14:19) ? Pain Scores 1 - 10 Pain Scale Score: 3 (12:34) Pain relief acceptable: Yes (20:15) ? Intake/Output? No Data Available ? Anthony Coma Scale Anthony Coma Score: 15 (02/20/22 12:34:00) Motor Response-Adult: Obeys commands (02/20/22 12:34:00) Response Eye Opening: Spontaneously (02/20/22 12:34:00) Verbal Response-Adult: Oriented and converses (02/20/22 12:34:00) ? Physical Exam General appearance- alert, cooperative, no distress, appears stated age, oriented to time, place and person,??answering questions??slightly slower??which is baseline according to Head- Normocephalic, without obvious abnormality, atraumatic Eyes-conjunctivae/corneas clear. PERRL, EOM's intact. Nose- Nares normal. Septum midline. Mucosa normal. No drainage or sinus tenderness. Throat-Lips, mucosa, and tongue normal. Neck- supple, symmetrical, trachea midline, no adenopathy, thyroid: not enlarged, symmetric, no tenderness/mass/nodules, no carotid bruit and no JVD Back- symmetric, no curvature. ROM normal. No CVA tenderness Lungs-??clear to auscultation bilaterally, no accessory muscle use, no excess respiratory sounds Chest wall- no tenderness, no skin rash or lesions or bruising, no crepitance Heart- regular rate and rhythm, S1, S2 normal, no?? click, rub or gallop Abdomen-??soft, mild periumbilical tenderness to palpation, no rebound, no guarding, no peritoneal signs, did receive morphine prior to my interview. ??Bowel sounds normal. No masses,?? No organomegaly Extremities- extremities normal, atraumatic, no cyanosis or edema, warm and well perfused. Pulses- 2+ and symmetric on dorsal pedal pulses, posterior tibial pulses, radial pulses Skin- Skin color, texture, turgor normal. No rashes or lesions Neurologic- Normal, nonfocal, no focal weakness Assessment/Plan Ritesh is a 41-year-old male patient who has past medical history of multiple myeloma???currently on chemotherapy who presented to the emergency room with complaints of having abdominal bloating andfeeling unwell.?? Patient had blood work done at infusion center which showed worsening creatinine/BUN and elevated potassium ?? Acute kidney injury on CKD stage III Baseline creatinine??~2.creatinine today 8.4 Kidney care team consulted??in the ER, recommended??NS at??125 mill per hour Continue??IV hydration Repeat CMP??tonight and in the morning Urine studies ordered Ultrasound renal??did not reveal obstructive causes Avoid nephrotoxic meds Holding acyclovir ?? Methadone dependence Will need to confirm methadone dose with??at [facility] in [place] ?? Hyperkalemia resolved ?? Mild, vague abdominal discomfort Check lactic acid??and lipase ?? Anemia, chronic Hemoglobin close to baseline History of multiple myeloma ?? History of multiple myeloma not having achieved remission Continued outpatient follow-up with heme-onc ?? DVT prophylaxis???Heparin subcu ?? CODE STATUS???full code ?? Diet???renal ?? Marilyn Strauss MD [facility] Medicine Date-February 20, 2022,??patient??seen??at??8:30 PM ?? IMPORTANT: This document was created by voice recognition software. A conscious effort has been made to improve accuracy of the semiconductor packages leak tester. Any obvious errors or omissions should be clarified with the authorof this document. ?? Addendum???6:30 AM Patient's methadone dose??of 140 mg daily was confirmed with nursing at??[facility]??in [place].?? Patient's last dose at[facility]was on February 17, 2022??and was given 3??doses??to take home??with a finish date of February 20, 2022.?? Orders placed Histories Allergies Allergies ?(Active and Proposed Allergies Only) NKA? (Severity: Unknown severity, Onset: Unknown) ? Past Medical History/Problem List Active Problems??(4) Abscess of chest wall Bacteremia due to Enterococcus History of tobacco use Opioid use disorder ? Past Surgical History Mesh placement??along right lower ribs ? Social History Alcohol Details:??Use: Never. Substance Abuse Details:??Use: Never. Tobacco Details:??Use: 10 or more cigarettes (1/2 pack or more)/day in last 30 days. ? Psychosocial History ? Family History- noncontributory per patient ?? Travel History Travel Outside [facility]: No ?? Medications Home Medications Acyclovir (acyclovir 400 mg oral tablet)?See Instructions?TAKE ONE TABLET BY MOUTH TWICE A DAY Allopurinol (allopurinol 100 mg oral tablet)?100?Milligram?1?tablet?By Mouth?Daily?with plenty of fluids Aspirin (aspirin 325 mg oral tablet)?325?Milligram?1?tablet?By Mouth?Daily Calcium And Vitamin D Combination (Calcium 600+D oral tablet)?1?tab(s)?By Mouth?2 timesa day?for 30?Days?with food Clonazepam (KlonoPIN 1 mg oral tablet)?1?tab(s)?1?Milligram?By Mouth?Daily at bedtime Famotidine (Pepcid 20 mg oral tablet)?1?tab(s)?20?Milligram?By Mouth?Daily Lorazepam (LORazepam 0.5 mg oral tablet)?1?tab(s)?0.5?Milligram?By Mouth?Daily atbedtime?as needed?Insomnia Methadone?140?Milligram?By Mouth?Daily Oxycodone (oxyCODONE 5 mg oral capsule)?1?capsule?5?Milligram?By Mouth?Every 6 hours PROCHLORperazine (prochlorperazine 5 mg oral tablet)?1-2 tablet?By Mouth?Every 6 hours?as needed?Nausea ? Results Recent Labs BLOOD COUNT & DIFF WBC 4.6 k/mm3 ()?? 02/20/2022 13:40 RBC 2.65 m/mm3 (Low)?? 02/20/2022 13:40 Hgb 8.1 Gm/dL (Low)?? 02/20/2022 13:40 Hct 25.9 % (Low)?? 02/20/2022 13:40 MCV 97.7 femtoliters (High)?? 02/20/2022 13:40 MCH 30.6 pg ()?? 02/20/2022 13:40 MCHC 31.3 g/dL (Low)?? 02/20/2022 13:40 Platelet Count 143 k/mm3 (Low)?? 02/20/2022 13:40 RDW-SD 60.1 femtoliters (High)?? 02/20/2022 13:40 MPV 10.2 femtoliters ()?? 02/20/2022 13:40 Nucleated RBC (Automated) 0.0 #/100 WBC'S ()?? 02/20/2022 13:40 Abs. NRBC 0.0 k/mm3 ()?? 02/20/2022 13:40 Abs. Neut 3.0 k/mm3 ()?? 02/20/2022 13:40 Abs. Lymph 0.8 k/mm3 ()?? 02/20/2022 13:40 Abs. Dinwiddie 0.8 k/mm3 ()?? 02/20/2022 13:40 Abs. Eo 0.1 k/mm3 ()?? 02/20/2022 13:40 Abs. Baso 0.0 k/mm3 ()?? 02/20/2022 13:40 Neut % 64.4 % ()?? 02/20/2022 13:40 Lymph % 16.5 % ()?? 02/20/2022 13:40 Din[place]iddie % 17.4 % (High)?? 02/20/2022 13:40 Eos % 1.3 % ()?? 02/20/2022 13:40 Baso % 0.0 % ()?? 02/20/2022 13:40 Hemoglobin (POC) POC Cartridge 8.2 Gm/dL (Low)?? 02/20/2022 13:47 Hematocrit (POC) POC Cartridge 24 % (Low)?? 02/20/2022 13:47 Imm Gran 0.4 % ()?? 02/20/2022 13:40 Abs. Imm Gran 0.0 k/mm3 ()?? 02/20/2022 13:40 ?? BLOOD GAS pH Venous (POC) POC Cartridge 7.39 ()?? 02/20/2022 13:47 pCO2 Venous (POC) POC Cartridge 28.1 mm Hg (Low)?? 02/20/2022 13:47 pO2 Venous (POC) POC Cartridge 135 mm Hg (High)?? 02/20/2022 13:47 Est Bicarbonate (POC) POC Cartridge 16.9 mmol/L (Low)?? 02/20/2022 13:47 % O2 Sat Venous (POC) POC Cartridge 99 ()?? 02/20/2022 13:47 Base Excess (POC) POC Cartridge NEGATIVE 8 ()?? 02/20/2022 13:47 Specimen Type - Blood Gas VENOUS ()?? 02/20/2022 13:47 ?? CARDIAC Nt-Probnp 06159 pg/mL (High)?? 02/20/2022 13:40 High Sensitivity Troponin (HSTnT) 34 ng/L (High)?? 02/20/2022 20:15 ?? CHEM GENERAL Sodium 144 mmol/L ()?? 02/20/2022 13:40 Potassium 5.2 mmol/L ()?? 02/20/2022 13:40 Chloride 110 mmol/L (High)?? 02/20/2022 13:40 Bicarbonate Level 18 mmol/L (Low)?? 02/20/2022 13:40 Anion Gap 16 ()?? 02/20/2022 13:40 Sodium (POC) POC Cartridge 142 mmol/L ()?? 02/20/2022 13:47 Potassium (POC) POC Cartridge 4.9 mmol/L ()?? 02/20/2022 13:47 Glucose Level 84 mg/dL ()?? 02/20/2022 13:40 Glucose (POC) POC Cartridge 84 ()?? 02/20/2022 13:47 BUN 85 mg/dL (High)?? 02/20/2022 13:40 Creatinine-Blood 8.4 mg/dL (High)?? 02/20/2022 13:40 Estimated GFR Creatinine 8 ML/MIN/1.73 M2 ()?? 02/20/2022 13:40 Calcium 8.6 mg/dL ()?? 02/20/2022 13:40 Ionized Calcium (POC) POC Cartridge 1.00 mmol/L (Critical)?? 02/20/2022 13:47 ?? HEME OTHER Hold Lavender Top SPECIMEN DISCARDED AFTER 24 HOURS. ()?? 02/20/2022 20:15 Hold Blue Top SPECIMEN DISCARDED AFTER 4 HOURS. ()?? 02/20/2022 14:15 ?? VIROLOGY COVID-19 by RT-PCR NEGATIVE ()?? 02/20/2022 14:30 ? Abnormal Labs ?? BLOOD COUNT & DIFF ??Abs. Imm Gran ??0.0 k/mm3 () ??02/20/2022 13:40 ??Abs. NRBC ??0.0 k/mm3 () ??02/20/2022 13:40 ??Hct ??25.9 % (Low) ??02/20/2022 13:40 ??Hematocrit (POC) POC Cartridge ??24 % (Low) ??02/20/2022 13:47 ??Hemoglobin (POC) POC Cartridge ??8.2 Gm/dL (Low) ??02/20/2022 13:47 ??Hgb ??8.1 Gm/dL (Low) ??02/20/2022 13:40 ??Imm Gran ??0.4 % () ??02/20/2022 13:40 ??MCHC ??31.3 g/dL (Low) ??02/20/2022 13:40 ??MCV ??97.7 femtoliters (High) ??02/20/2022 13:40 ??Dinwiddie % ??17.4 % (High) ??02/20/2022 13:40 ??Nucleated RBC (Automated) ??0.0 #/100 WBC'S () ??02/20/2022 13:40 ??Platelet Count ??143 k/mm3 (Low) ??02/20/2022 13:40 ??RBC ??2.65 m/mm3 (Low) ??02/20/2022 13:40 ??RDW-SD ??60.1 femtoliters (High) ??02/20/2022 13:40 ? BLOOD GAS ??% O2 Sat Venous (POC) POC Cartridge ??99 () ??02/20/2022 13:47 ??Base Excess (POC) POC Cartridge ??NEGATIVE 8 () ??02/20/2022 13:47 ??Est Bicarbonate (POC) POC Cartridge ??16.9 mmol/L (Low) ??02/20/2022 13:47 ??Specimen Type - Blood Gas ??VENOUS () ??02/20/2022 13:47 ??pCO2 Venous (POC) POC Cartridge ??28.1 mm Hg (Low) ??02/20/2022 13:47 ??pO2 Venous (POC) POC Cartridge ??135 mm Hg (High) ??02/20/2022 13:47 ? CARDIAC ??High Sensitivity Troponin (HSTnT) ??34 ng/L (High) ??02/20/2022 20:15 ??Nt-Probnp ??69590 pg/mL (High) ??02/20/2022 13:40 ? CHEM GENERAL ??BUN ??85 mg/dL (High) ??02/20/2022 13:40 ??Bicarbonate Level ??18 mmol/L (Low) ??02/20/2022 13:40 ??Chloride ??110 mmol/L (High) ??02/20/2022 13:40 ??Creatinine-Blood ??8.4 mg/dL (High) ??02/20/2022 13:40 ??Estimated GFR Creatinine ??8 ML/MIN/1.73 M2 () ??02/20/2022 13:40 ??Ionized Calcium (POC) POC Cartridge ??1.00 mmol/L (Critical) ??02/20/2022 13:47 ? HEME OTHER ??Hold Blue Top ??SPECIMEN DISCARDED AFTER 4 HOURS. () ??02/20/2022 14:15 ??Hold Lavender Top ??SPECIMEN DISCARDED AFTER 24 HOURS. () ??02/20/2022 20:15 ? VIROLOGY ??COVID-19 by RT-PCR ??NEGATIVE () ??02/20/2022 14:30 ? Note: Critical results are displayed in red. ? Blood Glucose Trend Glucose Level: 84 mg/dL (02/20/22 13:40:00) Glucose (POC) POC Cartridge: 84 (02/20/22 13:47:00) ? CBC, CBC w/Diff?? CBC?? Differential?? WBC: 4.6 k/mm3 (13:40) Abs. Neut: 3 k/mm3 (13:40) RBC:??2.65 m/mm3??Low (13:40) Abs. Lymph: 0.8 k/mm3 (13:40) Hct:??25.9 %??Low (13:40) Abs. Dinwiddie: 0.8 k/mm3 (13:40) RDW-SD:??60.1 femtoliters??High (13:40) Abs. Eo: 0.1 k/mm3 (13:40) Nucleated RBC (Automated): 0 #/100 WBC'S (13:40) Abs. Baso: 0 k/mm3 (13:40) Abs. NRBC: 0 k/mm3 (13:40) Neut %: 64.4 % (13:40) ?? Lymph %: 16.5 % (13:40) ?? Dinwiddie %:??17.4 %??High (13:40) ?? Eos %: 1.3 % (13:40) ?? Baso %: 0 % (13:40) ?? Hemoglobin (POC) POC Cartridge:??8.2 Gm/dL??Low (13:47) ?? Hematocrit (POC) POC Cartridge:??24 %??Low (13:47) ?? Imm Gran: 0.4 % (13:40) ?? Abs. Imm Gran: 0 k/mm3 (13:40) ? BMP, Mg, and Phos Anion Gap: 16 (13:40) Bicarbonate Level:??18 mmol/L??Low (13:40) BUN:??85 mg/dL??High (13:40) Calcium: 8.6 mg/dL (13:40) Chloride:??110 mmol/L??High (13:40) Creatinine-Blood:??8.4 mg/dL??High (13:40) Estimated GFR Creatinine: 8 ML/MIN/1.73 M2 (13:40) Glucose Level: 84 mg/dL (13:40) Ionized Calcium (POC) POC Cartridge:??1 mmol/L??Critical (13:47) Potassium: 5.2 mmol/L (13:40) Sodium: 144 mmol/L (13:40) ?? Coagulation Profile?? No qualifying data available. ?? LFT?? No qualifying data available. ?? Urinalysis?? No qualifying data available. ?? Microbiology ?? COVID-19 (Novel Coronavirus), Rapid PCR?? Completed?? Source: Nasal Body Site: Nose Collected Dt/Tm: 02/20/2022 13:29 Last Updated Dt/Tm: 02/20/2022 16:52 ? Cardiology Labs Nt-Probnp:??51084 pg/mL??High (02/20/22 13:40:00) High Sensitivity Troponin (HSTnT):??34 ng/L??High (02/20/22 20:15:00) High Sensitivity Troponin (HSTnT):??34 ng/L??High (02/20/22 12:38:00) ?? Blood Gases Specimen Type - Blood Gas: VENOUS (13:47) pH Venous (POC) POC Cartridge: 7.39 (13:47) pCO2 Venous (POC) POC Cartridge:??28.1 mm Hg??Low (13:47) pO2 Venous (POC) POC Cartridge:??135 mm Hg??High (13:47) Est Bicarbonate (POC) POC Cartridge:??16.9 mmol/L??Low (13:47) % O2 Sat Venous (POC) POC Cartridge: 99 (13:47) Base Excess (POC) POC Cartridge: NEGATIVE 8 (13:47) ?? Uric/LDH?? No qualifying data available. ?? EKG study * Event Display: EKG Authored Date: * Event Display: ECG 12-Lead Authored Date: [id number] Please click on pdf link to open report * Event Display: ECG 12-Lead Authored Date: Ventricular Rate: 62 BPM Atrial Rate: 62 BPM P-R Interval: 182 ms QRS Duration: 78 ms Q-T Interval: 468 ms QTC Calculation(Bazett): 475 ms P [place]: 8 degrees R [place]: -10 degrees T [place]: 52 degrees Normal sinus rhythm Normal ECG When compared with ECG of 20-FEB-2022 12:44, No significant change was found Confirmed by VERONICA BLISS MD ([id number]) on 02/24/2022 9:58:18 AM [place]: VERONICA BLISS MD * Event Display: ECG 12-Lead Authored Date: [id number] Please click on pdf link to open report * Event Display: ECG 12-Lead Authored Date: [id number] Ventricular Rate: 68 BPM Atrial Rate: 68 BPM P-R Interval: 162 ms QRS Duration: 72 ms Q-T Interval: 456 ms QTC Calculation(Bazett): 484 ms P [place]: 68 degrees R [place]: -8 degrees T [place]: 57 degrees Normal sinus rhythm Cannot rule out Anterior infarct , age undetermined Abnormal ECG When compared with ECG of 13-AUG-2020 12:43, Premature ventricular complexes are no longer Present Confirmed by TRACEY VALLEJO ([id number]) on 02/22/2022 9:58:21 PM [place]: TRACEY VALLEJO Heart * Event Display: Echocardiogram - Complete Authored Date: [id number] Transthoracic Echocardiography Report (TTE) Patient Demographics Patient Name RITESH GARCIA Date of Study 02/21/2022 Corporate Gender Male Facility Race Ethnicity Date of 1980 Height: 68.9 inches Age 41 year(s) Weight: 182.98 pounds Accession Number [id number] BSA: 1.99 m2 Room Number [facility] BMI: 27.1 kg/m2 Referring Physician Efrain Mukherjee MD Interpreting Yesi Sandoval MD Physician [employer] Consultant Kemar Mary Fellow Riya Friend Indications Heart failure. Study Data Type of Study TTE procedure:Echo Complete-Doppler, Colorflow, M-Mode. Study Date02/21/2022 Start Time: 02:27 PM [place] [facility] [place] Status: Bedside Patient Status: Routine Technical Quality: Fair Blood Pressure:162/96 mmHg EKG: Normal sinus rhythm HR: 79 bpm 2D Measurements LV Diastolic Dimension: 5.3 cm LV Systolic Dimension: 2.9 cm LV Septum Diastolic: 1.2 cm LV PW Diastolic: 1.3 cm AO Root Dimension: 2.8 cm LA Dimension: 4.8 cm LA ESV (BP):98.3 ml LVOT Stroke Volume: 91.05 ml LA ESV Index: 49 ml/m2 Stroke Volume Index45.75 ml/m2 LVOT: 2.1 cm Cardiac Index:3.61 l/min/m2 Ascending Aorta:2.4 cm Doppler Measurements AV Peak Velocity: 212 cm/s MV Peak E-Wave: 133 cm/s AV Peak Gradient: 17.98 mmHg MV Peak A-Wave: 84.3 cm/s AV Mean Gradient: 9 mmHg MV E/A Ratio: 1.58 AV VTI:36.6 cm LVOT Peak Velocity: 155 cm/s MV Mean Gradient: 90 mmHg LVOT VTI26.3 cm MV Area (continuity): 0.54 cm2 AV Area (Continuity):2.49 cm2 MV Deceleration Time: 187 msec TR Velocity:326 cm/s TR Gradient:42.51 mmHg Estimated RAP:15 mmHg Estimated RVSP: 57.5 mmHg E' Septal Velocity: 10.1 cm/s E' Lateral Velocity: 16.1 cm/s E/Med E':13.47293 E/Lat E':8.83561 Cardiac Anatomy Left Ventricle/Interventricular Septum The left ventricular size is normal. Left ventricular wall thickness is mildly increased. The left ventricular function appears grossly normal. The left ventricular ejection fraction is 50-55 %. There are no regional wall motion abnormalities. Diastolic function could not be determined. Left Atrium/Interatrial Septum The left atrium is mildly dilated. Aortic Valve The aortic valve is poorly visualized. There is no aortic stenosis. There is no aortic regurgitation. Mitral Valve The mitral valve appears thickened . There is mild mitral regurgitation. There is no significant mitral stenosis. Aorta The ascending aorta and aortic root are normal in size when indexed. Right Ventricle The right ventricle is dilated. Right ventricular systolic function is preserved overall. Right Atrium The right atrium is dilated. Pulmonic Valve The pulmonic valve is poorly visualized. There is trace pulmonic regurgitation. Tricuspid Valve There is mild tricuspid valve regurgitation. Pumonary Artery The pulmonary artery systolic pressure estimation is 55-60 mmHg. Venous Structures The inferior vena cava is dilated with poor inspiratory collapse. Pericardium/Extracardiac There is no pericardial effusion detected. Summary The left ventricular size is normal. Left ventricular wall thickness is mildly increased. The left ventricular function appears grossly normal. The left ventricular ejection fraction is 50-55 %. There are no regional wall motion abnormalities. Diastolic function could not be determined. The left atrium is mildly dilated. The right ventricle is dilated. Right ventricular systolic function is preserved overall. The right atrium is dilated. The pulmonary artery systolic pressure estimation is 55-60 mmHg. The inferior vena cava is dilated with poor inspiratory collapse. Signature * Event Display: Echocardiogram - Complete Authored Date: [id number] Note * Monica Hope RN: PERFORM Event Display: Discharge/Transfer Note Hospital Authored Date: [id number] Nursing Discharge Note Entered On: 03/07/2022 16:35 EST Performed On: 03/07/2022 16:34 EST by Monica Hope RN Nursing Discharge Note 2 Discharge Time : 03/07/2022 16:35 EST Discharge Level of Care at Discharge : Home/Correction/Foster Care Patient Left Unit Via : Wheelchair Patient Accompanied Off Unit with : Responsible adult DC Instructions Provided & Signed by Pt : Yes Patient Understands D/C Instructions : Yes Verbalized Understanding of D/C Plan By : Patient, Significant other Patient Instructions Discharge Signed : Yes Did Pt have Specialty Bed or Wound Vac : No Monica oHpe RN - 03/07/2022 16:34 EST * Namrata BOND, Mita: PERFORM Event Display: Discharge/Transfer Note Hospital Authored Date: [id number] Patient: ??RITESH GARCIA ? Age:??42 Years?Sex:??Male?:??1980?? Patient Information Discharge Location: W4 Primary Care Physician: Nabil Prado MD Admit Date/Time: 02/20/22 19:42 Discharge Disposition Discharge Disposition: ?? Discharge Diagnosis COVID-19 (U07.1) ?? _ Discharge Medications Amlodipine (amLODIPine 10 mg oral tablet)?10?Milligram?1?tablet?By Mouth?Daily?for 30?Days Calcium And Vitamin D Combination (Calcium 600+D oral tablet)?1?tab(s)?By Mouth?2 timesa day?for 30?Days?with food Clonazepam (KlonoPIN 1 mg oral tablet)?1?tab(s)?1?Milligram?By Mouth?Daily at bedtime Famotidine (Pepcid 20 mg oral tablet)?1?tab(s)?20?Milligram?By Mouth?Daily Lorazepam (LORazepam 0.5 mg oral tablet)?1?tab(s)?0.5?Milligram?By Mouth?Daily atbedtime?as needed?Insomnia Methadone?140?Milligram?By Mouth?Daily Oxycodone (oxyCODONE 5 mg oral capsule)?1?capsule?5?Milligram?By Mouth?Every 6 hours PROCHLORperazine (prochlorperazine 5 mg oral tablet)?1-2 tablet?By Mouth?Every 6 hours?as needed?Nausea venetoclax (venetoclax 100 mg oral tablet)?2?tab(s)?200?Milligram?By Mouth?Daily?for 21?Days?dose reduction to level -1 given prolonged cytopenia >42 days; ref: Lancet Haematol. 2020 December ; 7(10): e792 e736. ? Quality Measures Tobacco Use Treatment:? Medications Started Amlodipine Medications Discontinued Discontinue acyclovir, allopurinol, aspirin 325 Doses Changed None Allergies Allergies ?(Active and Proposed Allergies Only) NKA? (Severity: Unknown severity, Onset: Unknown) ? PCP Follow-Up/Heads-Up Patient will need follow-up with??nephrology and hematology??with??biweekly blood work-up arranged with dialysis Hospital Course ?? 42-year-old male patient with history of multiple myeloma???currently on chemotherapy who presentedto the emergency room with complaints of having abdominal bloating and feeling unwell.?? Patient had blood work done at infusion center which showed worsening creatinine/BUN and elevated potassium. hence, came to hospital . ??For multiple myeloma??progression and acute renal failure??started on dialysis and required??initiation of new chemotherapy regiment??under the guidance of hematology team. ??Patient has been stable and interested to leave the hospital.?? Hemoglobin noted to be??7.1 in dayof discharge giving??half unit of blood. ??Discussed case with renal and hematology on discharge.??Patient will come back to [facility]??on??M/W/F for hemodialysis,??hematology arranging follow-up as outpatient. ?? 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 Most likely due to multiple myeloma C3, C4 normal, ANCA, anti GBM Ab negative Was??started on??HD on 02/25 via [facility] -Seen by nephrology -Discharging patient to come back to [facility] for hemodialysis??M/W/F -Renal??considering kidney??biopsy as outpatient? 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 pomalidomide). With ??dramatically worsening??ANN MARIE,??cast nephropathy high??differential.?? 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 -Spoke with oncology team in day of discharge, they are arranging follow-up as outpatient, continuewith??blood work-up to check 2 times??per week which will be arranged with hemodialysis ?? Iron deficiency anemia Acute on chronic anemia Iron??levels??low: 40??and decreased iron saturation. ??Elevated ferritin. ??But normal LDH and haptoglobin.? received??IV Venofer: 250 mg x1. Hemoglobin 7.1 at discharge, giving half unit of blood with dialysis ?? Methadone dependence Methadone dose was confirmed[facility]at[facility]??and that he takes 140 mg daily. Continue methadone ?? Incidental covid positive asymptomatic Given 3 days of remdesivir ? Objective Vital Signs?? Temperature: 98.6 DegF (03/07/22 07:00:00) Temperature Route: Axillary (03/07/22 07:00:00) Pulse Rate:??98 bpm??High (03/07/22 07:00:00) Respiratory Rate: 16 br/min (03/07/22 09:05:00) Systolic Blood Pressure: 124 mm Hg (03/07/22 08:05:00) Diastolic Blood Pressure: 58 mm Hg (03/07/22 08:05:00) Blood pressure sites: Arm, left (03/07/22 07:00:00) Pulse Pressure: 66 mm Hg (03/07/22 07:00:00) Oxygen Saturation: 98 % (03/07/22 07:00:00) Mode of Delivery (Oxygen): Room air (03/07/22 07:00:00) Early Warning Score: 0 (03/07/22 10:41:19) ? . Physical Exam General?NAD, AAO HEENT?PERRLA, oropharynx clear, moist mucus membranes Pulm?CTA bilaterally, no wheezes/rhonchi/rales CV?RRR, +S1/S2, no murmurs/rubs GI?Soft, nontender, nondistended, no organomegaly, bowel sounds are present Neuro?Moves all extremities MS?no obvious deformity Psych?Mood appropriate to situation?? Surgical Procedures Insertion Hemodialysis Catheter 02/25/2022 09:07 Pending Results Add On Lab Order ordered on 03/01/2022 CBC w/ Differential ordered on 03/02/2022 Comprehensive Metabolic Panel ordered on 03/02/2022 Transfuse RBCs ordered on 03/07/2022 Type and Screen ordered on 03/07/2022 Type and Screen ordered on 03/07/2022 Follow-Up Appointments Added Follow Up ?Time Frame ?Comments Johan BOND, Nabil Coleman?3-5 day: call to discuss follow up visit Home Health Face to Face ^HomeHealthFTF Results Discharge Labs BLOOD COUNT & DIFF WBC 4.4 k/mm3 ()?? 03/07/2022 06:51 RBC 2.35 m/mm3 (Low)?? 03/07/2022 06:51 Hgb 7.1 Gm/dL (Low)?? 03/07/2022 06:51 Hct 22.1 % (Low)?? 03/07/2022 06:51 MCV 94.0 femtoliters ()?? 03/07/2022 06:51 MCH 30.2 pg ()?? 03/07/2022 06:51 MCHC 32.1 g/dL (Low)?? 03/07/2022 06:51 Platelet Count 263 k/mm3 ()?? 03/07/2022 06:51 RDW-SD 53.5 femtoliters (High)?? 03/07/2022 06:51 MPV 9.8 femtoliters ()?? 03/07/2022 06:51 Nucleated RBC (Automated) 0.0 #/100 WBC'S ()?? 03/07/2022 06:51 Abs. NRBC 0.0 k/mm3 ()?? 03/07/2022 06:51 Abs. Neut 7.8 k/mm3 (High)?? 03/05/2022 05:32 Abs. Lymph 0.3 k/mm3 (Low)?? 03/05/2022 05:32 Abs. [place] 0.3 k/mm3 (Low)?? 03/05/2022 05:32 Abs. Eo 0.2 k/mm3 ()?? 03/05/2022 05:32 Abs. Baso 0.0 k/mm3 ()?? 03/05/2022 05:32 Neut % 72.5 % ()?? 03/05/2022 05:32 Lymph % 2.4 % (Low)?? 03/05/2022 05:32 [place] % 3.1 % (Low)?? 03/05/2022 05:32 Eos % 2.2 % ()?? 03/05/2022 05:32 Baso % 0.3 % ()?? 03/05/2022 05:32 RBC Morphology MODERATE ()?? 03/05/2022 05:32 Hemoglobin (POC) POC Cartridge 8.2 Gm/dL (Low)?? 02/20/2022 13:47 Hematocrit (POC) POC Cartridge 24 % (Low)?? 02/20/2022 13:47 Retic Count 1.2 % ()?? 02/22/2022 03:04 Retic Count Corrected 0.6 % (Low)?? 02/22/2022 03:04 Retic Production Index 0.3 % (Low)?? 02/22/2022 03:04 Imm Gran 19.5 % ()?? 03/05/2022 05:32 Abs. Imm Gran 2.1 k/mm3 ()?? 03/05/2022 05:32 ?? BLOOD GAS pH Venous (POC) POC Cartridge 7.39 ()?? 02/20/2022 13:47 pCO2 Venous (POC) POC Cartridge 28.1 mm Hg (Low)?? 02/20/2022 13:47 pO2 Venous (POC) POC Cartridge 135 mm Hg (High)?? 02/20/2022 13:47 Est Bicarbonate (POC) POC Cartridge 16.9 mmol/L (Low)?? 02/20/2022 13:47 % O2 Sat Venous (POC) POC Cartridge 99 ()?? 02/20/2022 13:47 Base Excess (POC) POC Cartridge NEGATIVE 8 ()?? 02/20/2022 13:47 Specimen Type - Blood Gas VENOUS ()?? 02/20/2022 13:47 ? CARDIAC CK, Total 24 units/L ()?? 02/21/2022 01:06 Nt-Probnp 93597 pg/mL (High)?? 02/20/2022 13:40 High Sensitivity Troponin (HSTnT) 34 ng/L (High)?? 02/20/2022 20:15 ? CHEM GENERAL Sodium 137 mmol/L ()?? 03/07/2022 06:51 Potassium 4.2 mmol/L ()?? 03/07/2022 06:51 Chloride 96 mmol/L (Low)?? 03/07/2022 06:51 Bicarbonate Level 25 mmol/L ()?? 03/07/2022 06:51 Anion Gap 16 ()?? 03/07/2022 06:51 Sodium (POC) POC Cartridge 142 mmol/L ()?? 02/20/2022 13:47 Potassium (POC) POC Cartridge 4.9 mmol/L ()?? 02/20/2022 13:47 Glucose Level 95 mg/dL ()?? 03/05/2022 05:32 Glucose (POC) POC Cartridge 84 ()?? 02/20/2022 13:47 Glucose, POC 62 mg/dL (Low)?? 02/21/2022 13:40 BUN 77 mg/dL (High)?? 03/05/2022 05:32 Creatinine-Blood 8.8 mg/dL (High)?? 03/05/2022 05:32 Estimated GFR Creatinine 7 ML/MIN/1.73 M2 ()?? 03/05/2022 05:32 Calcium 7.3 mg/dL (Low)?? 03/05/2022 05:32 Ionized Calcium (POC) POC Cartridge 1.00 mmol/L (Critical)?? 02/20/2022 13:47 Phosphorus 5.1 mg/dL (High)?? 03/01/2022 07:20 Magnesium 2.2 mg/dL ()?? 2022 01:51 Protein, Total 5.9 Gm/dL (Low)?? 03/05/2022 05:32 Albumin 3.3 Gm/dL (Low)?? 03/05/2022 05:32 AG Ratio 1.3 ()?? 03/05/2022 05:32 LDH 221 units/L ()?? 02/22/2022 03:04 Alkaline Phosphatase 89 units/L ()?? 03/05/2022 05:32 Lipase 57 units/L ()?? 02/21/2022 01:06 AST (SGOT) 15 units/L ()?? 03/05/2022 05:32 ALT (SGPT) 7 units/L ()?? 03/05/2022 05:32 Bilirubin, Total 0.4 mg/dL ()?? 03/05/2022 05:32 Vitamin B12 Level 454 pg/mL ()?? 02/21/2022 15:00 Folic Acid Level 22.7 ng/mL ()?? 02/21/2022 15:00 Lactate 0.6 mmol/L ()?? 02/21/2022 01:06 Uric Acid 7.0 mg/dL ()?? 02/22/2022 09:21 Iron Level 40 mcg/dL (Low)?? 02/21/2022 15:00 Iron Binding Capacity, Unsaturated 221 mcg/dL ()?? 02/21/2022 15:00 Iron Binding Capacity, Estimated Total 261 mcg/dL ()?? 02/21/2022 15:00 % Iron Saturation 15 % (Low)?? 02/21/2022 15:00 Ferritin Level 842 ng/mL (High)?? 02/21/2022 15:00 ? COAG INR 1.2 (High)?? 02/22/2022 09:21 Protime (PT) 12.5 seconds (High)?? 02/22/2022 09:21 ?? FLOW CYTOMETRY/IMMUNOPHENOTYPING Leukemia/Lymphoma Evaluation SPECIMEN COLLECTED FOR ANALYSIS ()?? 02/24/2022 13:57 ? HEME OTHER Hold Lavender Top SPECIMEN DISCARDED AFTER 24 HOURS. ()?? 02/24/2022 12:08 Hold Blue Top SPECIMEN DISCARDED AFTER 4 HOURS. ()?? 02/24/2022 12:08 ?? IMMUNOLOGY GENERAL Complement C3 118 mg/dL ()?? 02/24/2022 12:09 Complement C4 27 mg/dL ()?? 02/24/2022 12:09 IgG 153 mg/dL (Low)?? 02/21/2022 06:00 IgA 1101 mg/dL (High)?? 02/21/2022 06:00 IgM <5 mg/dL (Low)?? 02/21/2022 06:00 Immunofixation-Serum IgA kappa monoclonal protein is present ()?? 02/21/2022 06:00 Free [place] Light Chains 689.67 mg/L (High)?? 02/21/2022 06:00 Free Lambda Light Chains 2.39 mg/L (Low)?? 02/21/2022 06:00 Free KappaRatio 288.56 (High)?? 02/21/2022 06:00 Haptoglobin 129 mg/dL ()?? 02/22/2022 03:04 Glomerular Basement Memb <0.2 ()?? 02/24/2022 12:09 Anti-Nuclear Antibody Screen NEGATIVE ()?? 02/24/2022 12:09 Anti-[place] DNA <1 ()?? 02/24/2022 12:09 Myeloperoxidase Ab <0.2 ()?? 02/24/2022 12:08 Anti PR3 <0.2 ()?? 02/24/2022 12:08 ? MISC. CHEMISTRY 25 [place]-Vitamin D Level 23.7 ng/mL ()?? 02/21/2022 15:00 Total Protein, SPE 5.7 Gm/dL (Low)?? 02/21/2022 06:00 Albumin, SPE 2.8 Gm/dL (Low)?? 02/21/2022 06:00 Alpha 1, SPE 0.3 Gm/dL ()?? 02/21/2022 06:00 Alpha 2, SPE 0.7 Gm/dL ()?? 02/21/2022 06:00 Beta, SPE 0.7 Gm/dL (Low)?? 02/21/2022 06:00 Gamma, SPE 1.1 Gm/dL ()?? 02/21/2022 06:00 Beta, Restricted Band Not Applicable ()?? 02/21/2022 06:00 Beta, Second Restricted Band Not Applicable Gm/dL ()?? 02/21/2022 06:00 Gamma, Restricted Band 0.8 Gm/dL ()?? 02/21/2022 06:00 Gamma, Second Restricted Band 0.1 Gm/dL ()?? 02/21/2022 06:00 Interpretation, SPE Two abnormal protein bands (M-proteins) with gamma restriction are ()?? 02/21/2022 06:00 ?? SEROLOGY INF DISEASE Hepatitis B Surface Antigen NEGATIVE (N)?? 02/24/2022 12:09 Hepatitis C Ab NEGATIVE (N)?? 02/24/2022 12:09 Anti-HBS Quant 0.00 mIU/mL ()?? 02/24/2022 12:09 ? UA/URINALYSIS Appear/Color, Urine COLORLESS ()?? 02/21/2022 19:00 Specific [place], Urine 1.008 ()?? 02/21/2022 19:00 pH, Urine 6.5 ()?? 02/21/2022 19:00 Albumin, Urine 2+ (Abnormal)?? 02/21/2022 19:00 Glucose, Urine NEGATIVE ()?? 02/21/2022 19:00 Ketones, Urine NEGATIVE ()?? 02/21/2022 19:00 Bilirubin, Urine NEGATIVE ()?? 02/21/2022 19:00 Hemoglobin, Urine 3+ (Abnormal)?? 02/21/2022 19:00 Nitrite, Urine NEGATIVE ()?? 02/21/2022 19:00 Leukocyte, Urine NEGATIVE ()?? 02/21/2022 19:00 Urobilinogen NORMAL mg/dL ()?? 02/21/2022 19:00 WBC's, Urine 1 /HPF ()?? 02/21/2022 19:00 RBC's, Urine 101 /HPF (High)?? 02/21/2022 19:00 Bacteria SLIGHT HPF (Abnormal)?? 02/21/2022 19:00 ?? URINE OTHER Eos, Urine <2 WBC/HPF, % EOS NOT CALCULATED % ()?? 02/21/2022 19:11 Creatinine, Urine Random 30.4 mg/dL ()?? 02/21/2022 05:05 Sodium, Urine Random 55 mmol/L ()?? 02/21/2022 05:05 Potassium, Urine Random 13.6 mmol/L ()?? 02/21/2022 05:05 Chloride, Urine Random 42 mmol/L ()?? 02/21/2022 05:05 Urea Nitrogen, Urine Random 214.2 mg/dL ()?? 02/21/2022 05:05 Osmolality, Urine Random 217 mOsm/kg ()?? 02/21/2022 05:05 Protein, Total Urine Random 155 mg/dL ()?? 02/21/2022 05:05 TP/Cr Ratio 5.11 (High)?? 02/21/2022 05:05 Creatinine, Urine 30.4 mg/dL ()?? 02/21/2022 05:05 ?? VIROLOGY Influenza A PCR NEGATIVE ()?? 02/20/2022 19:57 Influenza B PCR NEGATIVE ()?? 02/20/2022 19:57 RSV PCR NEGATIVE ()?? 02/20/2022 19:57 COVID-19 by RT-PCR NEGATIVE ()?? 02/26/2022 06:40 COVID-19 PCR Specimen Source NASAL ()?? 02/27/2022 17:51 COVID-19 PCR Result POSITIVE (Abnormal)?? 02/27/2022 17:51 ? Microbiology ?? COVID-19 (2018 Novel Coronavirus) PCR?? Completed?? Source: Nasal Body Site: Nose Collected Dt/Tm: 02/24/2022 06:32 Last Updated Dt/Tm: 02/24/2022 18:14 COVID-19 (2019 Novel Coronavirus) PCR?? Completed?? Source: Nasal Body Site: Nose Collected Dt/Tm: 02/27/2022 17:51 Last Updated Dt/Tm: 2022 02:34 ? > 35 minutes spent on discharge * Ariella Valenzuela RN: PERFORM Event Display: Patient Education/Instruction Authored Date: [id number] Inpatient Adult Discharge Instructions [address] [address] Name: RITESH GARCIA : 1980 Visit: 02/20/2022 19:42:00 Current Date: 03/07/2022 15:45 Account: [id number] Inpatient Adult Discharge Instructions We would like to thank you for allowing us to assist you with your healthcare needs. The following includes patient education materials and information regarding your injury/illness. Our entire staffstrives to provide an excellent experience for our patients and their families. PLEASE ENSURE YOU FOLLOW-UP PER THE INSTRUCTIONS BELOW! ?? YOUR OPINION IS IMPORTANT TO US! Please complete the survey you may receive by mail or email. Your feedback will be used to make improvements to the healthcare experiences of our patients and their families. Surveys are administered by [employer] ?? If further treatment with your primary care physician or another doctor is recommended, it is important for you to keep the appointment. Call your primary care physician or return to the Emergency Department immediately if your condition worsens, fails to improve, or new symptoms develop. If you need to find a doctor, you can call [facility] [employer] for a referral at [phone] or toll free at [phone] or log in to [email or web address].. ?? You can view and manage your care through the patient portal or by using a health care anabel of your choosing. [email or web address] is a website that allows you to securely view your medical information including your hospital discharge summary, office visit summaries, medications and follow-up visits. You can also request appointments, renew medications, and request access to your medical information using a health care anabel of your choosing, or just ask a question. You can enroll at [email or web address] or register during your next office visit. You have been discharged from [facility], Patient Care Unit: W4. If you have any questions regarding these instructions after you leave, please call us and we will be happy to assist you. [facility] Your Care Team Attending Physician Namrata OBND, Mita Consulting Providers Adela BOND, Lalitha; Mau BOND(Hem/Onc), Yves Medley; Odalis BOND, Dexter; Lilia BOND, Valerio Olson; Angel BOND, Phil Discharging Providers Namrata BOND, Mita Reason for Admission General medical Your Diagnosis COVID-19 Tests Performed Below is a partial list of the tests performed during your hospitalization. You may have had other tests and procedures not included in this list. Please discuss all test results with your provider. 25OH VITAMIN D LINDA Screen Anti DNA Ab Anti GBM B Type Natriuretic Peptide BASE EXCESS POC CARTRIDGE Basic Metabolic Panel BUN C3 Complement C4 Complement CALCIUM IONIZED POC CART CBC CBC w/ Differential Chloride Urine CK Total Only Complete Urinalysis Comprehensive Metabolic Panel COVID-19 (2019 Novel Coronavirus) PCR COVID-19 (NOVEL CORONAVIRUS), PCR COVID-19, RSV, and Flu A/B, Rapid PCR Creatinine Creatinine Urine Electrolytes FERRITIN FOLIC ACID FREE KAPPA & LAMBDA LIGHT CHAINS, SERUM Glucose Level GLUCOSE POC GLUCOSE POC CARTRIDGE Haptoglobin HEMATOCRIT POC CARTRIDGE HEMOGLOBIN POC CARTRIDGE HEPATITIS PANEL DIAL High??Sensitivity??Troponin T HOLD BLUE TUBE HOLD LAVENDER TUBE IMMUNOFIXATION SERUM INR IRON & TIBC Lactate Level LDH Leukemia/Lymphoma Evaluation Lipase Lytes Magnesium Level Osmolality Urine PHOSPHORUS Potassium Level POTASSIUM POC CARTRIDGE Potassium Urine RETICULOCYTE COUNT SERUM ELECTROPHORESIS SODIUM POC CARTRIDGE Sodium Urine UREA NITROGEN, URINE MG/DL Uric Acid Urine Eosinophils Urine Protein/Creatinine Ratio Vasculitis Eval W/Reflex To [facility] POC CARTRIDGE VITAMIN B12 US Doppler Ext Lower Venous Bilat US Renal Comp XR C-Arm < 1 Hour Primary Care Provider Johan BOND, Nabil Coleman Advance Directive Health Care Proxy on File Yes - Health Care Proxy No qualifying data available. Discharge Vitals Temperature: 98.6 DegF Height: 175 cm Pulse Rate:??98 bpm??High Weight: 73.1 kg Respiratory Rate: 16 br/min Body Mass Index: 23.15 kg/m2 Systolic Blood Pressure: 124 mm Hg Body surface area: 1.86 Diastolic Blood Pressure: 58 mm Hg ?? Oxygen Saturation: 98 % ?? Studies Pending All tests and labs ordered during this hospital stay have been completed unless listed below. Please discuss all pending results with your provider listed above in these instructions. ?? Add On Lab Order CBC w/ Differential Comprehensive Metabolic Panel Transfuse RBCs Type and Screen What to do next Instructions From Your Doctor Discharge Orders You Need to Schedule the Following Appointments Follow Up with??Johan BOND, Nabil Coleman When??Within 3-5 day: call to discuss follow up visit Where: [address] [place] [phone]- Discharge Medications RITESH GARCIA :1980 Visit Date:02/20/2022 Medications: Please continue your medications until treatment is completed or stopped by your provider. Medications not listed below should be discontinued. Discuss any questions related to medications with your provider. What How Much When Instructions Next Dose New Amlodipine (amLODIPine 10 mg oral tablet) 1 tab(s) Oral Daily Duration: 30 Days Pickup at [facility] 3 Thursday 9am New venetoclax (venetoclax 100 mg oral tablet) 2 tab(s) Oral Daily Duration: 21 Days dose reduction to level -1 given prolonged cytopenia >42 days; ref: Lancet Haematol. 2019 ; 7(10): e724 e736. ?? Pickup at [facility] Thursdaym Unchanged Calcium And Vitamin D Combination (Calcium 600+D oral tablet) 1 tab(s) Oral Twice a day Duration: 30 Days with food ?? Tonight 9pm Unchanged Clonazepam (KlonoPIN 1 mg oral tablet) 1 tab(s) Oral Daily at Bedtime Tonight 9pm Unchanged Famotidine (Pepcid 20 mg oral tablet) 1 tab(s) Oral Daily Thursday Unchanged Lorazepam (LORazepam 0.5 mg oral tablet) 1 tab(s) Oral Daily at Bedtime as needed for Insomnia as needed Unchanged Methadone 140 Milligram Oral Daily Thursday 9am Unchanged Oxycodone (oxyCODONE 5 mg oral capsule) 1 capsule Oral Every 6 hours as needed Unchanged PROCHLORperazine (prochlorperazine 5 mg oral tablet) 1-2 tablet Oral Every 6 hours as needed for Nausea as needed Pharmacy Information [facility]: [address], [place] [id number] [phone] [facility]: [address], [place] [id number] [phone] ?? What How Much When Comments Stop Taking Acyclovir (acyclovir 400 mg oral tablet) See instructions TAKE ONE TABLET BY MOUTH TWICE A DAY ?? Stop Taking Allopurinol (allopurinol 100 mg oral tablet) 1 tab(s) Oral Daily with plenty of fluids ?? Stop Taking Aspirin (aspirin 325 mg oral tablet) 1 tab(s) Oral Daily Test Results Below is a partial list of the most recent Laboratory test results done prior to this discharge. You may have had other tests and procedures not included in this list. Please discuss all test resultswith your provider. (02/24/2022) ???Flow Cytometry Interpretation - Patient Name: RITESH GARCIA Patient : 1980 (Age: 41) Collection Date: 02/24/2022 Accession Date: 02/25/2022 Sign Out Date: 02/25/2022 Interpretation: Flow Cytometry of Peripheral blood No B-cell clone or aberrant T-cell populationidentified. Plasma cells are not evaluated by this technique. CD34 positive blasts are not increased. Antigens tested: CD45, kappa, lambda, CD20, CD19, CD5, CD3, CD10, CD16, CD56, CD7, CD8, CD4, CD15, CD13, CD34, CD33, CD117, CD14, HLA-DR Note: This test was developed and its performance characteristics determined by Flow cytometry department at [facility]. It has not been cleared or approved by the US Food and Drug Administration. FDA does not require this test to go through premarket FDA review. This test is used for clinical purposes. It should not be regarded as investigational or for research. The laboratory is certified under the Clinical Laboratory Improvement Amendments of 1988 ( CLIA ) as qualified to perform high-complexity testing. Additional information about this type of test is available upon request. Testing performed at [facility], Flow Cytometry Department, [address] [place] [id number]. CLIA#: [id number]. Material Received/Source of Specimen: Specimen type/location: Peripheral blood Date/time specimen collected: 02/24/2022 at 1357 Date/time specimen received: 02/25/2022 at 0630 Date/time specimen processed: 02/25/2022 at 0630 Total cell count: 7.5 Milion Comment: Flow Cytometry Head Of Research [employer] Insights: Specimen adequate: Yes Immunophenotype: Normal/Negative Concordance with Morphological Diagnosis: N/A P/B Primary Pathologist:Matty Fabian M.D. electronically signed out by: Matty Fabian M.D. / JGABINO Phone #: [phone], On-Call Pathologist: [id number] 25OH VITAMIN D (02/21/2022) ???25 OH-Vitamin D Level - 23.7 ng/mL LINDA Screen (02/24/2022) ???Anti-Nuclear Antibody Screen - NEGATIVE Anti DNA Ab (02/24/2022) ? ?Anti-[place] DNA - <1 Anti GBM (02/24/2022) ? ?Glomerular Basement Memb - <0.2 B Type Natriuretic Peptide (02/20/2022) ???Nt-Probnp - 84287 pg/mL BASE EXCESS POC CARTRIDGE (02/20/2022) ???Base Excess (POC) POC Cartridge - NEGATIVE 8 Basic Metabolic Panel (02/27/2022) ???Sodium - 136 mmol/L???Potassium - 4.4 mmol/L???Chloride - 96 mmol/L???Bicarbonate Level - 25 mmol/L???Anion Gap - 15???Glucose Level - 132 mg/dL???BUN - 38 mg/dL???Creatinine-Blood - 5.7 mg/dL???Estimated GFR Creatinine - 12 ML/MIN/1.73 M2???Calcium - 8.2 mg/dL BUN (03/02/2022) ???BUN - 63 mg/dL C3 Complement (02/24/2022) ???Complement C3 - 118 mg/dL C4 Complement (02/24/2022) ???Complement C4 - 27 mg/dL CALCIUM IONIZED POC CART (02/20/2022) ???Ionized Calcium (POC) POC Cartridge - 1.00 mmol/L CBC (03/07/2022) ???WBC - 4.4 k/mm3???RBC - 2.35 m/mm3???Hgb - 7.1 Gm/dL???Hct - 22.1 %???MCV - 94.0 femtoliters???MCH - 30.2 pg???MCHC - 32.1 g/dL???Platelet Count - 263 k/mm3???RDW-SD - 53.5 femtoliters???MPV - 9.8femtoliters???Nucleated RBC (Automated) - 0.0 #/100 WBC'S???Abs. NRBC - 0.0 k/mm3 CBC w/ Differential (03/05/2022) ???WBC - 10.7 k/mm3???RBC - 2.45 m/mm3???Hgb - 7.4 Gm/dL???Hct - 22.5 %???MCV - 91.8 femtoliters???MCH - 30.2 pg???MCHC - 32.9 g/dL???Platelet Count - 296 k/mm3???RDW-SD - 52.3 femtoliters???MPV - 9.5 femtoliters???Nucleated RBC (Automated) - 0.0 #/100 WBC'S???Abs. NRBC - 0.0 k/mm3???Abs. Neut - 7.8 k/mm3???Abs. Lymph - 0.3 k/mm3???Abs. [place] - 0.3 k/mm3???Abs. Eo - 0.2 k/mm3???Abs. Baso - 0.0 k/mm3???Neut % - 72.5 %???Lymph % - 2.4 %???[place] % - 3.1 %???Eos % - 2.2 %???Baso % - 0.3 %???RBC Morphology - MODERATE???Imm Gran - 19.5 %???Abs. Imm Gran - 2.1 k/mm3 Chloride Urine (02/21/2022) ???Chloride, Urine Random - 42 mmol/L CK Total Only (02/21/2022) ???CK, Total - 24 units/L Complete Urinalysis (02/21/2022) ???Appear/Color, Urine - COLORLESS???Specific [place], Urine - 1.008???pH, Urine - 6.5???Albumin, Urine - 2+???Glucose, Urine - NEGATIVE???Ketones, Urine - NEGATIVE???Bilirubin, Urine - NEGATIVE???Hemoglobin, Urine - 3+???Nitrite, Urine - NEGATIVE???Leukocyte, Urine - NEGATIVE???Urobilinogen - NORMAL???WBC's, Urine - 1 /HPF???RBC's, Urine - 101 /HPF???Bacteria - SLIGHT Comprehensive Metabolic Panel (03/05/2022) ???Sodium - 136 mmol/L???Potassium - 4.1 mmol/L???Chloride - 99 mmol/L???Bicarbonate Level - 20 mmol/L???Anion Gap - 17???Glucose Level - 95 mg/dL???BUN - 77 mg/dL???Creatinine-Blood - 8.8 mg/dL???Estimated GFR Creatinine - 7 ML/MIN/1.73 M2???Calcium - 7.3 mg/dL???Protein, Total - 5.9 Gm/dL???Albumin - 3.3 Gm/dL???AG Ratio - 1.3???Alkaline Phosphatase - 89 units/L???AST (SGOT) - 15 units/L???ALT (SGPT) - 7 units/L???Bilirubin, Total - 0.4 mg/dL COVID-19 (2019 Novel Coronavirus) PCR (02/27/2022) ???COVID-19 PCR Specimen Source - NASAL???COVID-19 PCR Result - POSITIVE COVID-19 (NOVEL CORONAVIRUS), PCR (02/26/2022) ???COVID-19 by RT-PCR - NEGATIVE COVID-19, RSV, and Flu A/B, Rapid PCR (02/20/2022) ???Influenza A PCR - NEGATIVE???Influenza B PCR - NEGATIVE???RSV PCR - NEGATIVE???COVID-19 PCR Specimen Source - NASAL???COVID-19 PCR Result - NEGATIVE Creatinine (03/02/2022) ???Creatinine-Blood - 5.5 mg/dL???Estimated GFR Creatinine - 13 ML/MIN/1.73 M2 Creatinine Urine (02/21/2022) ???Creatinine, Urine Random - 30.4 mg/dL Electrolytes (03/07/2022) ???Sodium - 137 mmol/L???Potassium - 4.2 mmol/L???Chloride - 96 mmol/L???Bicarbonate Level - 25 mmol/L???Anion Gap - 16 FERRITIN (02/21/2022) ???Ferritin Level - 842 ng/mL FOLIC ACID (02/21/2022) ???Folic Acid Level - 22.7 ng/mL FREE KAPPA & LAMBDA LIGHT CHAINS, SERUM (02/21/2022) ???Free [place] Light Chains - 689.67 mg/L???Free Lambda Light Chains - 2.39 mg/L???Free [place]\LambdaRatio - 288.56 Glucose Level (2022) ???Glucose Level - 138 mg/dL GLUCOSE POC (02/21/2022) ???Glucose, POC - 62 mg/dL GLUCOSE POC CARTRIDGE (02/20/2022) ???Glucose (POC) POC Cartridge - 84 Haptoglobin (02/22/2022) ???Haptoglobin - 129 mg/dL HEMATOCRIT POC CARTRIDGE (02/20/2022) ???Hematocrit (POC) POC Cartridge - 24 % HEMOGLOBIN POC CARTRIDGE (02/20/2022) ???Hemoglobin (POC) POC Cartridge - 8.2 Gm/dL HEPATITIS PANEL DIAL (02/24/2022) ???Hepatitis B Surface Antigen - NEGATIVE???Hepatitis C Ab - NEGATIVE???Anti-HBS Quant - 0.00 mIU/mL High??Sensitivity??Troponin T (02/20/2022) ???High Sensitivity Troponin (HSTnT) - 34 ng/L HOLD BLUE TUBE (02/24/2022) ???Hold Blue Top - SPECIMEN DISCARDED AFTER 4 HOURS. HOLD LAVENDER TUBE (02/24/2022) ???Hold Lavender Top - SPECIMEN DISCARDED AFTER 24 HOURS. IMMUNOFIXATION SERUM (02/21/2022) ? ?IgG - 153 mg/dL? ?IgA - 1101 mg/dL? ?IgM - <5 mg/dL? ?Immunofixation-Serum - IgA kappa monoclonal protein is present INR (02/22/2022) ???INR - 1.2???Protime (PT) - 12.5 seconds IRON & TIBC (02/21/2022) ???Iron Level - 40 mcg/dL???Iron Binding Capacity, Unsaturated - 221 mcg/dL???Iron Binding Capacity, Estimated Total - 261 mcg/dL???% Iron Saturation - 15 % Lactate Level (02/21/2022) ???Lactate - 0.6 mmol/L LDH (02/22/2022) ???LDH - 221 units/L Leukemia/Lymphoma Evaluation (02/24/2022) ???Leukemia/Lymphoma Evaluation - SPECIMEN COLLECTED FOR ANALYSIS Lipase (02/21/2022) ???Lipase - 57 units/L Lytes (03/03/2022) ???Sodium - 136 mmol/L???Potassium - 3.1 mmol/L???Chloride - 98 mmol/L???Bicarbonate Level - 18 mmol/L???Anion Gap - 20 Magnesium Level (2022) ???Magnesium - 2.2 mg/dL Osmolality Urine (02/21/2022) ???Osmolality, Urine Random - 217 mOsm/kg PHOSPHORUS (03/01/2022) ???Phosphorus - 5.1 mg/dL Potassium Level (02/21/2022) ???Potassium - 5.3 mmol/L POTASSIUM POC CARTRIDGE (02/20/2022) ???Potassium (POC) POC Cartridge - 4.9 mmol/L Potassium Urine (02/21/2022) ???Potassium, Urine Random - 13.6 mmol/L RETICULOCYTE COUNT (02/22/2022) ???Retic Count - 1.2 %???Retic Count Corrected - 0.6 %???Retic Production Index - 0.3 % SERUM ELECTROPHORESIS (02/21/2022) ???Total Protein, SPE - 5.7 Gm/dL???Albumin, SPE - 2.8 Gm/dL???Alpha 1, SPE - 0.3 Gm/dL???Alpha 2, SPE - 0.7 Gm/dL???Beta, SPE - 0.7 Gm/dL???Gamma, SPE - 1.1 Gm/dL???Beta, Restricted Band - Not Applicable???Beta, Second Restricted Band - Not Applicable???Gamma, Restricted Band - 0.8 Gm/dL???Gamma, Second Restricted Band - 0.1 Gm/dL???Interpretation, SPE - Two abnormal protein bands (M-proteins) with gamma restriction are SODIUM POC CARTRIDGE (02/20/2022) ???Sodium (POC) POC Cartridge - 142 mmol/L Sodium Urine (02/21/2022) ???Sodium, Urine Random - 55 mmol/L UREA NITROGEN, URINE MG/DL (02/21/2022) ???Urea Nitrogen, Urine Random - 214.2 mg/dL Uric Acid (02/22/2022) ???Uric Acid - 7.0 mg/dL Urine Eosinophils (02/21/2022) ? ?Eos, Urine - <2 WBC/HPF, % EOS NOT CALCULATED Urine Protein/Creatinine Ratio (02/21/2022) ???Protein, Total Urine Random - 155 mg/dL???TP/Cr Ratio - 5.11???Creatinine, Urine - 30.4 mg/dL Vasculitis Eval W/Reflex To ANCA (02/24/2022) ? ?Myeloperoxidase Ab - <0.2? ?Anti PR3 - <0.2 VBG POC CARTRIDGE (02/20/2022) ???pH Venous (POC) POC Cartridge - 7.39???pCO2 Venous (POC) POC Cartridge - 28.1 mm Hg???pO2 Venous(POC) POC Cartridge - 135 mm Hg???Est Bicarbonate (POC) POC Cartridge - 16.9 mmol/L???% O2 Sat Venous (POC) POC Cartridge - 99???Specimen Type - Blood Gas - VENOUS VITAMIN B12 (02/21/2022) ???Vitamin B12 Level - 454 pg/mL Allergies (NKA means No Known Allergies) NKA Problems Active Problems??(5) Abscess of chest wall?? Bacteremia due to Enterococcus?? COVID-19?? History of tobacco use?? Opioid use disorder?? Education Materials Below is the list of Educational Leaflet Providered with your Discharge Instructions. Valuables and Belongings I fully understand and agree that [facility] accepts no responsibility for all my personal property including clothing, toilet articles, radios, jewelry, dentures, hearing aids, rings, money, or any other property that is in my possession or is brought to me after admission. I understand certain valuables may be placed in a hospital safe for a short period of time. I understand that the hospital is not liable for loss or damage due to accident, fire, or other natural occurrence while said property is in the safe. I accept full responsibility for any personal property that I keep with me, and will not hold the hospital responsible in case of loss or disappearance. I acknowledge that i have been encouraged to send valuables and belongings home. ?? No Valuables/Belongings: No valuables/belongings present Review of Valuable and Belonging List: With patient, With witness Disposition of Belongings: Sent home with patient/family Date for Pt to Sign Valuables/Belongings: 03/02/22 01:31:00 ?? Other Discharge Information ?? Wound Assessment?? Wound Assessment?? Wound Location I: Chest ?? Case Management Discharge Plan?? Discharge Plan?? Discharge Level of Care at Discharge: Home/Correction/Foster Care ?? Pulmonary Rehab Status?? Pulmonary Rehab Discharge Status?? Respiratory Rate: 16 br/min ? Common Emergency Awareness Tips IS IT A STROKE? Act FAST and Check for these signs: FACE Does the face look uneven? ARM Does one arm drift down? SPEECH Does their speech sound strange? TIME Call at any sign of stroke ?? Heart Attack Signs Chest discomfort: Most heart attacks involve discomfort in the center of the chest and lasts more than a few minutes, or goes away and comes back. It can feel like uncomfortable pressure, squeezing, fullness or pain. Discomfort in upper body: Symptoms can include pain or discomfort in one or both arms, back, neck, jaw or stomach. Shortness of breath: With or without discomfort. Other signs: Breaking out in a cold sweat, nausea, or lightheaded. Remember, MINUTES DO MATTER. If you experience any of these heart attack warning signs, call to get immediate medical attention! ?? Smoking can increase your chances of developing chronic health problems and can cause harmful effects to other family members in your house. If you smoke, you are strongly encouraged to quit. Please call [facility] [employer] Link at [phone] or [phone] ([phone]) or log in to [email or web address] for referrals to smoking cessation programs. ?? The National Suicide Prevention Hotline is available 29/09 if you or someone you know needs to find a reason to keep living. By calling 7-753-944-3DVista (1459) you'll be connected to a skilled, trained counselor at a crisis center in your area. INPATIENT DISCHARGE INSTRUCTIONS SIGNATURE PAGE RITESH GARCIA Location:[facility] Registration Date and Time:02/20/2022 19:42 EST Primary Care Physician: Johan BOND, Nabil Coleman, I RITESH GARCIA, have received the above patient education materials/instructions and have verbalized understanding. If ambulance or transport services are being used I further acknowledge being given a choice of service. ?? If you need to contact me, please call me at this number: . Patient/Fleet Sales Associate Name: Patient/Fleet Sales Associate Signature: Relationship to Patient: Witness Name/Signature: Date: * Event Display: Cardiac Rhythm Strips Authored Date: * Event Display: Cardiac Rhythm Strips Authored Date: * BHSPowerscriHUSSAIN baca S: TRANSCRIBE David Ace MD: VERIFY Event Display: Result: Authored Date: C-Arm < 1 Hour INDICATION: Reason: hemodialysis cath insertion COMPARISONS: None TECHNIQUE: Fluoroscopy support was provided. There was no radiologist in attendance. FLUOROSCOPY TIME: 6 seconds TECHNOLOGIST TIME: 20 minutes FINDINGS: Fluoroscopy support was provided. There was no radiologist in attendance. IMPRESSION: See above. WSN: [id number] Ordering Physician: Martin Kaur Dictated By: David Ace MD Dictated Date/Time: 02/26/22 9:49 am Reviewed By: David Ace MD Signed By: David Ace MD Signed Date/Time: 02/26/22 9:49 am Transcribed By: AASHISH Transcribed Date/Time: 02/25/22 6:56 pm Hospital Progress note * Monica Hope RN: PERFORM, SIGN, VERIFY Event Display: Progress Note Hospital Authored Date: [id number] Patient: RITESH GARCIA Age: 42 years Sex: Male : 1980 Associated Diagnoses: None Author: Monica Hope RN Findings Narrative/Incidental pt hgb 7.1 today, 1/2 unit PRBC ordered. ~1600 waiting for type and screen to result. pt and girlfriend anxious about leaving and asking if it was okay to leave without getting the blood. pt with no s/s of anemia. MD Ott paged and gave the Ok for pt to leave without getting blood. all dc instructions reviewed with pt. educated pt and girlfriend on when to return to ED . pt and girlfriend able to verbally state s/s and felt ok leaving... * Eliseo Cedeño: PERFORM, SIGN, VERIFY Event Display: Progress Note Hospital Authored Date: Patient: RITESH GARCIA Age: 42 years Sex: Male : 1980 Associated Diagnoses: None Author: Eliseo Cedeño Findings Narrative/Incidental Patient tolerated a stable 3 hr HD treatment. Net fluid removed 2 L. Blood volume change was negative 14.0 %. Access, right chest tunneled CVC, catheter patent, aspirated and flushed without resistance, no s/s of infection, Post treatment Bp 131/60, P 75. Patient stable at transport. See dialysis flow sheets for treatment details.. Discharge Information Case Management Discharge Plan : Case Management Discharge Plan Data 03/07/2022 9:17 EST Discharge Level of Care at Discharge Home/Correction/Foster Care * Lonny BOND, Efrain I: SIGN Lonny BOND, Efrain I: SIGN, MODIFY Lonny BOND, Efrain Galvin: MODIFY, SIGN, VERIFY, PERFORM Jamie TRACEY, [place]: PERFORM Event Display: Progress Note Hospital Authored Date: Patient: RITESH GARCIA Age: 42 years Sex: Male : 1980 Associated Diagnoses: None Author: Jamie TRACEY, [place] Pt seen and examined; events noted. Labs and meds reviewed. HD today. Review of Systems Review of Systems Constitutional: no complaints. Respiratory: no shortness of breath. Cardiovascular: no orthopnea. Gastrointestinal: no abdominal pain. Physical Examination Vitals Vitals : VITAL SIGNS SECTION 03/07/2022 3:52 EST Temperature 99.2 DegF Temperature Route Oral Pulse Rate 90 bpm Respiratory Rate 18 br/min Systolic Blood Pressure 111 mm Hg Diastolic Blood Pressure 49 mm Hg L Blood pressure sites Arm, left Oxygen Saturation 95 % Mode of Delivery (Oxygen) Room air . General Appearance No apparent distress. HEENT Moist mucous membranes. Respiratory Lungs: CTA. Cardiac No murmur/gallop/rub. Rhythms: RRR. Abdomen/GI Soft. Non-tender. Extremities Normal. Neurologic Alert. Oriented x 3 . Impression and Plan Mr. Garcia is [...] most recent monoclonal protein 2 grams only. Other myeloma associated kidney disease, possibly including plasma cell infiltration, light chain deposition disease, thrombotic microangiopathy, MPGN, etc can not be e xcluded. Acute interstitial nephritis is also in differential diagnosis, patient is taking multiplemedications. The patient may need a renal biopsy [...] PermCath, tolerating well, put on MWF schedule Plan - HD on M/W/F schedule while admitted - will continue to monitor pt's pre-dialysis creatinine; with no sign of improvement so far and this degree of renal failure, pt may be approaching ESRD - [place] [facility] as outpatient for dialysis while he is awaiting insurance approval for outpatient acute HD - hematology managing chemo - consider renal biopsy as outpatient Case discussed with Dr. Mukherjee. Thank you for allowing us to participate in your patient's care. * Efrain Mukherjee MD I: PERFORM Event Display: Progress Note Hospital Authored Date: [id number] I reviewed the patient's history, examined the patient, and confirmed the above findings as documented by the advanced practitioner. I personally formulated the essential elements of the assessment and plan noted above. WIll need to arrange outpt renal biopsy and do 24 hour urine collection in 2-[address] Mukherjee ` US Retroperitoneum * BHSPowerscribe , CIS S: TRANSCRIBE Thais BOND, Eliseo J: VERIFY Yusef BOND, Jose A: SIGN Event Display: Result: Authored Date: [id number] US Retroperitoneum Comp HX OF PRESENT ILLNESS: PT states had labs drawn on tue for chemo treatment for multiple myeloma, told to come to ED with critical results, kidney elevated, potassium elevated reportedly. feeling run down, nausea vomiting, pain to left lower abd. voiding normal. cp occasio; Reason: renal failure; Clinical Question(s): Acute Renal Failure; GFR 8; creatinine 8.4 (as of 02/20/2022) COMPARISON: PET/CT from 12/02/2021 FINDINGS: Right kidney: 12.9 cm in length. No hydronephrosis. Increased parenchymal echogenicity. No stones. No suspicious mass. Left kidney: 12.7 cm in length. No hydronephrosis. Increased parenchymal echogenicity. No stones. No suspicious mass. Urinary bladder: Normal morphology. No stone, mass, wall thickening or debris. Prevoid volume: 228.3 cc. Postvoid volume: No significant postvoid residual. Prostate: 2.4 x 2.2 x 2.6 cm, volume 7.2 cc. IMPRESSION: Echogenic kidneys likely representing medical renal disease. No hydronephrosis. Normal urinary bladder. I have personally reviewed the images and I agree with this report. WSN: [id number] Ordering Physician: Angelika Patton Dictated By: Jose Holbrook MD Dictated Date/Time: 02/20/22 4:05 pm Reviewed By: Eliseo Plascencia MD Signed By: Eliseo Plascencia MD Signed Date/Time: 02/20/22 4:10 pm Transcribed By: AASHISH Transcribed Date/Time: 02/20/22 3:22 pm US.doppler Lower extremity vein - bilateral * BHSPowerscribe , CIS S: TRANSCLetitia Ross MD: VERIFY Event Display: Result: Authored Date: [id number] US Doppler Ext Lower Venous Bilat Hx of Present Illness: PT states had labs drawn on tue for chemo treatment for multiple myeloma, told to come to eD with critical results, kidney levels elevated, potassium elevated reportedly. Feeling run down, nausea vomiting, pain to left lower abd. Voiding normal. Chest pain on occasion; Reason: Other:; Pain in limb; Clinical Question(s): Thrombosis COMPARISON: No prior. IMAGING TECHNIQUE: Ultrasound of the veins from the groin through the calf was performed using grayscale, color, and spectral Doppler ultrasound assessing for complete compressibility and normal flowcharacteristics. FINDINGS: RIGHT LOWER EXTREMITY: Common femoral vein: Patent. No thrombosis. Femoral vein: Patent. No thrombosis. Popliteal vein: Patent. No thrombosis. Gastrocnemius veins: The visualized portions are patent without evidence of thrombosis. Peroneal veins: The visualized portions are patent without evidence of thrombosis. Posterior tibial veins: The visualized portions are patent without evidence of thrombosis. LEFT LOWER EXTREMITY: Common femoral vein: Patent. No thrombosis. Femoral vein: Patent. No thrombosis. Popliteal vein: Patent. No thrombosis. Gastrocnemius veins: The visualized portions are patent without evidence of thrombosis. Peroneal veins: The visualized portions are patent without evidence of thrombosis. Posterior tibial veins: The visualized portions are patent without evidence of thrombosis. OTHER FINDINGS: Mild soft tissue edema at the level of the left distal calf/ankle is noted. IMPRESSION: No evidence of deep venous thrombosis. WSN: [id number] Ordering Physician: Kevin Mesa MD Dictated By: Letitia Fernández MD Dictated Date/Time: 02/20/22 7:37 pm Reviewed By: Letitia Fernández MD Signed By: Letitia Fernández MD Signed Date/Time: 02/20/22 7:37 pm Transcribed By: AASHISH Transcribed Date/Time: 02/20/22 7:31 pm Patient Care team information Care Team Personnel Name: Suzette Jama Position: S Onco RN Member Role: Primary Care Nurse Name: Moon Cummings RN Position: S RN Member Role: Primary Care Nurse Name: Errol Hdez RN Position: S RN Member Role: Primary Care Nurse Name: Hanh Bruner RN Position: S Onco RN Member Role: Primary Care Nurse Name: Geneva Ayala NP Position: S Associate Professional Member Role: Lifetime Consulting Provider Address: Address: [address] [place] [address] [facility] [place], [place] [address] Name: Eliseo Ramirez DO Position: [facility] Renal MD Member Role: Lifetime Consulting Physician Address: Address: [address] [place], [place] [address] [place] [address] Name: Julieta Richmond RN Position: [facility] Onco RN Member Role: Primary Care Nurse Name: Nereyda Nguyễn RN Position: [facility] Onco RN Member Role: Primary Care Nurse Name: Nabil Prado MD Position: Reference Physician Member Role: PCP Address: Address: [address] [place] [address]- Name: Omaira MORENO, Eric Position: [facility] RN Member Role: Primary Care Nurse Name: Dinah Kaur RN Position: [facility] RN Member Role: Primary Care Nurse Name: Johnny Romano RN Position: [facility] RN Member Role: Primary Care Nurse Name: Suzanne Weber RN Position: [facility] RN Member Role: Primary Care Nurse Name: Shantanu Allan RN Position: [facility] RN Member Role: Primary Care Nurse Name: Laura Narayanan Position: [facility] Onco RN Member Role: Primary Care Nurse Name: Mariama Olson RN Position: [facility] Onco RN Member Role: Primary Care Nurse Name: Dorinda Berry RN Position: [facility] Onco RN Member Role: Primary Care Nurse Name: Lotus Gutierrez RN, I Position: [facility] RN Member Role: Primary Care Nurse Name: Lacey Rodriguez Position: [facility] RN Member Role: Primary Care Nurse Name: Kirsty Avila Position: [facility] RN Member Role: Primary Care Nurse Name: Catherine HILL Attending Position: [facility] ED Medicine MD Name: Bette Salas Position: [facility] ED TA [facility] Member Role: Residential Therapist Name: Kath Bautista Position: [facility] ED OA Charge Member Role: ED Associate Name: Mark Srivastava RN Position: [facility] ED RN W/OE and Tasks Member Role: Patient Care Provider Care Team Related Persons Name: SUZANNE WALLIS Address: home [address] [place] [address]
--- OUTSIDE RECORDS SUMMARY | 2023-12-23 11:59 | XMS_ITS | Continuity of Care Document ---
Author Organization [facility] ancer Care Address [address] [place] [address]- Care Team Providers Care Client Services Coordinator Name Role Phone Johan BOND, Nabil Coleman Primary Care Physician [phone] Encounter [facility] [place] Date(s): 05/05/22 - 06/04/[address] [address] Allergies, Adverse Reactions, Alerts No Known Allergies [...] 2 times a day, # 60 tablet, 0 Refills, Maintenance, 05/13/22 8:09:00 EST, Tablet, [facility], Partial fill upon patient request if the prescription is for a schedule II opioid drug., 175, cm, 04/25/22 13:35:00 EST... Start Date: 05/13/22 Stop Date: 06/12/22 Status: Ordered amLODIPine 10 mg oral tablet 10 mg, 1, tablet, By Mouth, Daily, # 30 tablet, Refills 0, Tot. Refills 0, Maintenance, 03/07/22 14:44:00 EST, Route to Pharmacy Electronically, [facility], Partial fill upon patient request if the prescription is for a schedule II opioi... Start Date: 03/07/22 Stop Date: 04/06/22 Status: Ordered KlonoPIN 1 mg oral tablet 1 tablet = 1 mg, By Mouth, 2 times a day, this is an increase, # 60 tablet, 1 Refills, Maintenance,03/31/22 12:15:00 EST, [facility], Partial fill upon [...] 1 Refills, Maintenance, 04/22/22 9:26:00 EST, Tablet, [facility], Partial fill upon patient request if the prescription is for a schedule II opioid drug., 175, cm, 04/11/22 13:59:00 EST, Height,... Start Date: 04/22/22 Status: Ordered Pomalyst 4 mg oral capsule 1 capsule = 4 mg, By Mouth, Daily, on an empty stomach take for 21 days followed by a 7 day rest period, # 21 capsule, 0 Refills, Maintenance, 05/14/22 13:50:00 EST, Capsule, Partial fill upon patient request if the prescription is for a schedule II... Start Date: 05/14/22 Status: Ordered prochlorperazine 5 mg oral tablet [...] Care Nurse Name: Gladis Viera RN Position: [facility] RN Member Role: Primary Care Nurse Name: Hanh Bruner RN Position: [facility] Onco RN Member Role: Primary Care Nurse Name: Geneva Ayala NP Position: S Associate Professional Member Role: Lifetime Consulting Provider Address: Address: [address] [place] [address] [facility] [address] Name: Phil Ortiz MD Position: [facility] Renal MD Member Role: Lifetime Consulting Physician Address: Address: [address] [place], [place] [address] [facility] [address] Name: Eliseo Ramirez DO Position: [facility] Renal Member Role: Lifetime Consulting Physician Address: Address: [address] [place] [address] [facility] [address] Name: Julieta Richmond RN Position: S Onco RN Member Role: Primary Care Nurse Name: Goyo Moncada III, RN Position: S RN Member Role: Primary Care Nurse Name: Nereyda Nguyễn RN Position: S Onco RN Member Role: Primary Care Nurse Name: Nabil Prado MD Position: Reference Physician Member Role: PCP Address: Address: [address] [place] [address]- Name: Eric Castano RN Position: [facility] RN Member Role: Primary Care Nurse Name: Dinah Kaur RN Position: [facility] RN Member Role: Primary Care Nurse Name: Johnny Romano RN Position: [facility] RN Member Role: Primary Care Nurse Name: Johnson Munoz RN Position: [facility] Onco RN Member Role: Primary Care Nurse Name: Suzanne Weber RN Position: [facility] RN Member Role: Primary Care Nurse Name: Radha Miguel RN Position: [facility] RN Member Role: Primary Care Nurse Name: Shantanu Allan RN Position: [facility] RN Member Role: Primary Care Nurse Name: Laura Narayanan Position: [facility] Onco RN Member Role: Primary Care Nurse Name: Jemma Matos RN Position: [facility] RN Member Role: Primary Care Nurse Name: Dash Olson RN Position: [facility] Onco RN Member Role: Primary Care Nurse Name: Sahara Patel RN Position: [facility] RN Member Role: Primary Care Nurse Name: Dorinda Berry RN Position: [facility] Onco RN Member Role: Primary Care Nurse Name: Lotus Gutierrez RN, I Position: [facility] RN Member Role: Primary Care Nurse Name: Lacey Rodriguez RN Position: [facility] RN Member Role: Primary Care Nurse Name: Kirsty Avila RN Position: [facility] SN RN Member Role: Primary Care Nurse Care Team Related Persons Name: SUZANNE WALLIS Address: home [address] [place] [address] Name: DASH MATTHEW Address: home [address] [place] [address]
[2023-12-23 12:00] VITALS: BP 130/90; PULSE 64; O2SAT 94
--- OUTSIDE RECORDS SUMMARY | 2023-12-23 12:00 | XMS_ITS | Continuity of Care Document ---
Author Organization [facility] C ancer Care Address [address] [place] [address]- Care Team Providers Care Telecommunications Professional Name Role Phone Johan BOND, Nabil Coleman Primary Care Physician Encounter [facility] [place] Date(s): 06/08/22 - 06/08/22 [facility] Care [address] [place] [id number] Discharge Disposition: A-D/C Home Attending Physician: Danny Zurita MD Admitting Physician: Danny Zurita MD Referring Physician: Nabil Prado MD Allergies, [...] 03/07/22 14:44:00 EST, Route to Pharmacy Electronically, [facility], Partial fill upon patient [...] Care Team Personnel Name: Suzette Jama Position: [facility] Onco RN Member Role: Primary Care Nurse Name: Aracely Rae RN Position: [facility] RN Member Role: Primary Care Nurse Name: Moon Cummings RN Position: [facility] RN Member Role: Primary Care Nurse Name: Errol Hdez RN Position: [facility] RN Member Role: Primary Care Nurse Name: Gladis Viera RN Position: [facility] RN Member Role: Primary Care Nurse Name: Hanh Bruner RN Position: [facility] Onco RN Member Role: Primary Care Nurse Name: Geneva Ayala NP Position: [facility] Associate Professional Member Role: Lifetime Consulting Provider Address: Address: [address] [place] [address] [facility] [address] Name: Phil Ortiz MD Position: [facility] Renal MD Member Role: Lifetime Consulting Physician Address: Address: [address] [place] [address] [facility] [address] Name: Eliseo Ramirez DO Position: [facility] Renal MD Member Role: Lifetime Consulting Physician Address: Address: [address] [place], [place] [address]E [facility] [address] Name: Julieta Richmond RN Position: [facility] Onco RN Member Role: Primary Care Nurse Name: Goyo Moncada III, RN Position: [facility] RN Member Role: Primary Care Nurse Name: Nereyda Nguyễn RN Position: [facility] Onco RN Member Role: Primary Care Nurse Name: Nabil Prado MD Position: Reference Physician Member Role: PCP Address: Address: [address] [place] [address]- Name: Eric Castano RN Position: [facility] RN Member Role: Primary Care Nurse Name: Dinah Kaur RN Position: [facility] RN Member Role: Primary Care Nurse Name: Johnny Romano RN Position: [facility] RN Member Role: Primary Care Nurse Name: Johnson Munoz RN Position: [facility] Onco RN Member Role: Primary Care Nurse Name: Suzanne Weber RN Position: [facility] RN Member Role: Primary Care Nurse Name: Radha Miguel RN Position: [facility] RN Member Role: Primary Care Nurse Name: Shantanu Allan RN Position: [facility] RN Member Role: Primary Care Nurse Name: Laura Narayanan Position: [facility] Onco RN Member Role: Primary Care Nurse Name: Jemma Matos RN Position: [facility] RN Member Role: Primary Care Nurse Name: Dash Olson RN Position: [facility] Onco RN Member Role: Primary Care Nurse Name: Sahara Patel RN Position: [facility] RN Member Role: Primary Care Nurse Name: Dorinda Berry RN Position: [facility] Onco RN Member Role: Primary Care Nurse Name: Lotus Gutierrez RN, I Position: [facility] RN Member Role: Primary Care Nurse Name: Lacey Rodriguez RN Position: [facility] RN Member Role: Primary Care Nurse Name: Kirsty Avila RN Position: [facility] SN RN Member Role: Primary Care Nurse Care Team Related Persons Name: SUZANNE WALLIS Address: [address] [place] [address] Name: DASH MATTHEW Address: home [address] [place] [address]
--- OUTSIDE RECORDS SUMMARY | 2023-12-23 12:00 | XMS_ITS | Continuity of Care Document ---
Author Organization [facility] an[facility] Care Address [address] [place] [address]- Care Team Providers Care Tank Car Cleaner Name Role Phone Johan BOND, Nabil Coleman Primary Care Physician [place] [facility] [place]14[place] 12/14/21 [facility] [address] [place] [id number] Attending Physician: Aiden Jackson Admitting Physician: AdmAiden ace Referring Physician: AdmtrAiden Allergies, Adverse Reactions, Alerts No Known Allergies Immunizations Given and Recorded Vaccine Date Status Refusal Reason pneumococcal 23-valent vaccine 08/17/18 Given pneumococcal 13-valent vaccine 1 06/15/18 Given 1Early/Late Reason: Wan to Standard Admin Times Medications aspirin 325 mg oral tablet 325 mg, [...] Date: 10/21/18 Stop Date: 11/20/18 Status: Ordered LORazepam 0.5 mg oral tablet 1 tablet = 0.5 mg, By Mouth, Daily at bedtime, PRN Insomnia, # 14 tablet, 0 Refills, Maintenance, 11/26/21 14:53:00 EDT, Tablet, [facility], Partial fill upon patient request if the prescription is for a schedule II opioid drug., Aisha, cm, .. Start Date: 11/26/21 Status: Ordered Methadone = 140 mg, By Mouth, Daily, 0 Refills, Maintenance, 05/10/18 11:13:13 EST Start Date: 05/10/18 Status: Ordered ondansetron 8 mg oral tablet 1 tablet = 8 mg, By Mouth, Every 8 hours, PRN Nausea, # 30 tablet, 2 Refills, Maintenance, 11/26/2213:55:00 EDT, [facility], Partial fill upon patient request if the prescription is for a schedule II opioid drug., Aisha, cm, 11/26/21 12:56:00... Start Date: 11/26/21 Status: Ordered oxyCODONE 5 mg oral capsule 1 capsule = 5 mg, By Mouth, Every 6 hours, 0 Refills, Maintenance, 11/26/21 13:30:00 EDT, Partial fill upon patient request if the prescription is for a schedule II opioid drug. Start Date: 11/26/21 Status: Ordered Problem List Condition Confirmation Course [...] on: 06/03/18 Sex Patient Care team information Personnel Name: Johan BOND, Nabil Coleman Address: Address: [address] [place] [id number]
--- OUTSIDE RECORDS SUMMARY | 2023-12-23 12:00 | XMS_ITS | Continuity of Care Document ---
Author Organization [facility] ancer Care Address [address] [place] [address]- Care Team Providers Care Plastering Contractor Name Role Phone Johan BOND, Nabil Coleman Primary Care Physician Encounter [facility] [place] Date(s): 10/08/22 - 11/07/22 [facility] Care [address] [place] [id number] Allergies, Adverse Reactions, Alerts No Known Allergies Immunizations Given and Recorded Vaccine Date Status Refusal Reason pneumococcal 23-valent vaccine 08/17/18 Given pneumococcal 13-valent vaccine 1 06/15/18 Given 1Early/Late Reason: Wan to Standard Admin Times Medications acyclovir 400 mg oral tablet 1 tablet = 400 mg, By Mouth, 2 times a day, for 30 days, # 60 tablet, 6 Refills, Hard Stop :09:00 EDT, 06/12/22 8:09:00 EDT, Tablet, [facility], Partial fill upon patient request if the prescription is for a schedule II opioid drug.... Start Date: 06/12/22 Stop Date: 01/08/23 Status: Ordered acyclovir 400 mg oral tablet 1 tablet = 400 mg, By Mouth, 2 times a day, # 60 tablet, 6 Refills, Maintenance, 01/08/23 8:09:00 EDT, Tablet, [facility] [...] 03/07/22 14:44:00 EST, Route to Pharmacy Electronically, [facility], Partial fill upon patient [...] an increase, # 60 tablet, 1 Refills, Maintenance,10/10/22 15:55:00 EDT, [facility], Partial fill upon patient request if the prescription is for a schedule II opioid drug., 175, cm, 07/21/22... Start Date: 10/10/22 Stop Date: 12/09/22 Status: Ordered Methadone = 140 mg, By Mouth, Daily, 0 Refills, Maintenance, 05/10/18 11:13:13 EST Start Date: 05/10/18 Status: Ordered ondansetron 4 mg oral tablet 1 tablet = 4 mg, By Mouth, Every 8 hours, PRN Nausea & Vomiting, # 90 tablet, 0 Refills, Maintenance, 07/28/22 8:52:00 EDT, Tablet, [facility], Partial fill upon patient request if the prescription is for a schedule II opioid drug., 175, cm,... Start Date: 07/28/22 Status: Ordered oxyCODONE 5 mg oral capsule [...] II... Start Date: 07/28/22 Status: Ordered prochlorperazine 5 mg oral tablet 1-2 tablet, By Mouth, Every 6 hours, PRN Nausea, # 60 tablet, 1 Refills, Maintenance, 08/15/22 14:54:00 EDT, [facility], Partial fill upon patient request if the prescription is for a schedule II opioid drug., 175, cm, 07/21/22 12:33:00 EDT,... Start Date: 08/15/22 Status: Ordered Problem List Condition Confirmation Course [...] Member Role: Lifetime Consulting Provider Address: Address: [address] [place] [address] [address] [facility] [place] [address]- Name: Phil Ortiz MD Position: [facility] Renal MD Member Role: Lifetime Consulting Physician Address: Address: [address] [place], [place] [address] [facility] [place] [address]- Name: Eliseo Ramirez DO Position: [facility] Renal MD Member Role: Lifetime Consulting Physician Address: Address: [address] [place], [place] [address]E [facility] [place], [place] [address] Name: Julieta Richmond RN Position: [facility] Onco RN Member Role: Primary Care Nurse Name: Goyo Moncada III, RN Position: [facility] RN Member Role: Primary Care Nurse Name: Nereyda Nguyễn RN Position: [facility] Onco RN Member Role: Primary Care Nurse Name: Nabil Prado MD Position: Reference Physician Member Role: PCP Address: Address: [address] [place] [address] Name: Eric Castano RN Position: [...] Care Nurse Name: Lacey Rodriguez RN Position: S RN Member Role: Primary Care Nurse Name: Kirsty Avila RN Position: [facility] SN RN Member Role: Primary Care Nurse Care Team Related Persons Name: SUZANNE WALLIS Address: [address] [address] Name: VIPUL DASH Address: [address] [address]
--- OUTSIDE RECORDS SUMMARY | 2023-12-23 12:00 | XMS_ITS | Continuity of Care Document ---
Author Organization [facility] C ancer Care Address [address] [place] [address]- Care Team Providers Care Weaving Teacher Name Role Phone Johan BOND, Nabil Coleman Primary Care Physician [phone] Encounter [facility] [place] Date(s): 09/21/20 - 10/21/20 [facility] Care [address] [place] [id number] Attending Physician: Aiden Jackson Admitting Physician: [...] OFF, # 21 capsule, 0 Refills, Maintenance, 09/24/20 15:22:00 EDT Start Date: 09/24/20 Stop Date: 10/15/20 Status: Ordered Methadone = 140 mg, By Mouth, Daily, 0 Refills, Maintenance, 05/10/18 11:13:13 EST Start Date: 05/10/18 Status: Ordered prochlorperazine 10 mg oral tablet 1 tablet = 10 mg, By Mouth, Every 6 hours, PRN as needed for nausea/vomiting, # 60 tablet, 1 Refills, Maintenance, 05/16/20 14:07:00 EST, [facility], Partial fill upon patient request if theprescription is for a schedule II opioid drug., 173... Start Date: 05/16/20 Status: Ordered Zofran 8 mg oral tablet 1 tablet = 8 mg, By Mouth, Every 8 hours, PRN as needed for nausea/vomiting, # 30 tablet, 1 Refills, Maintenance, 05/16/20 14:07:00 EST, [facility], Partial fill upon patient [...]
--- OUTSIDE RECORDS SUMMARY | 2023-12-23 12:00 | XMS_ITS | Continuity of Care Document ---
Author Organization [facility] Address [address] [place] [address]- Care Team Providers Care Dicer Machine Operator Name Role Phone Nabil Prado MD Primary Care Phys[id number] Date(s): 09/21/20 - 09/06/21 [facility] [address] [place] [id number] Discharge Disposition: A-D/C Home Attending Physician: [...] A DAY, # 60 tablet, 3 Refills, Cover [facility] # [facility], 175, cm, 10/30/20 14:09:00 EDT, Height, 79.6, kg, 10/23/20 11:01:00 EDT, Dry Weight Start Date: 11/13/20 Status: Ordered aspirin 325 mg oral tablet 325 mg, 1, tablet, By Mouth, Daily, # 30 tablet, Refills 3, Tot. Refills 3, Maintenance, 10/24/19 12:35:00 EDT, Route to Pharmacy Electronically, [facility] # [facility], 173, cm, 10/24/19 10:34:00 [...] OFF, # 21 capsule, 0 Refills, Maintenance, 05/24/21 14:32:00 EDT Start Date: 05/24/21 Stop Date: 06/14/21 Status: Ordered Methadone = 140 mg, By Mouth, Daily, 0 Refills, Maintenance, 05/10/18 11:13:13 EST Start Date: 05/10/18 Status: Ordered prochlorperazine 10 mg oral tablet 1 tablet = 10 mg, By Mouth, Every 6 hours, PRN as needed for nausea/vomiting, # 60 tablet, 1 Refills, Maintenance, 05/16/20 14:07:00 EST [facility] # [facility], Partial fill upon patient request if theprescription is for a schedule II opioid drug., 173... Start Date: 05/16/20 Status: Ordered Zofran 8 mg oral tablet 1 tablet = 8 mg, By Mouth, Every 8 hours, PRN as needed for nausea/vomiting, # 30 tablet, 1 Refills, Maintenance, 05/16/20 14:07:00 EST, [facility] # [facility], Partial fill upon patient request if the prescription is for a schedule II opioid drug., 173,... Start Date: 05/16/20 Status: Ordered Problem List Condition Effective Dates Status Health Status Inform ant Abscess of chest wall(Confirmed) Active Bacteremia due to Enterococcus(Confirmed) Active Opioid use disorder(Confirmed) Active History of tobacco use(Confirmed) Active Vital Signs Most recent to oldest [Reference Range]: 1 2 3 Height 175 cm (05/21/21 2:27 PM) 175 cm (05/21/21 2:19 PM) 175 cm (05/07/21 2:15 PM) Weight 83.2 kg (04/22/21 10:47 AM) 78.5 kg (03/26/21 1:43 PM) 79 kg (02/26/21 2:34 PM) Oxygen Saturation [94-100 %] 100 % (05/21/21 2:19 PM) 100 % (05/07/21 2:15 PM) 100 % (04/23/21 2:29 PM) Pulse Rate [55-90 bpm] 52 bpm *L* (05/21/21 2:19 PM) 47 bpm *L* (05/07/21 2:15 PM) 51 bpm *L* (04/23/21 2:29 PM) Body Mass Index [18.5-24.99] 27.17 *H* (04/22/21 10:47 AM) 25.63 *H* (03/26/21 1:43 PM) 25.8 *H* (02/26/21 2:34 PM) Blood Pressure [90-138/55-84 mm Hg] 116/62mm Hg (05/21/21 2:19 PM) 118/55mm Hg (05/07/21 2:15 PM) 144/68mm Hg *H* (04/23/21 2:29 PM) Respiratory Rate [16-30 br/min] 18 br/min (02/26/21 2:34 PM) 14 br/min *L* (10/23/20 11:01 AM) Temperature [96.8-100.4 DegF] 97.3 DegF (05/21/21 2:19 PM) 97.8 DegF (05/07/21 2:15 PM) 98.7 DegF (04/23/21 2:29 PM) Mode of Delivery (Oxygen) Room air (05/21/21 2:19 PM) Room air (05/07/21 2:15 PM) Room air (04/23/21 2:29 PM) Blood pressure sites Arm, right (05/21/21 2:19 PM) Arm, left (05/07/21 2:15 PM) Arm, right (04/23/21 2:29 PM) Temperature Route Temporal (05/21/21 2:27 PM) Temporal (05/21/21 2:19 PM) Oral (05/07/21 2:15 PM) Dry Weight 83.2 kg (04/22/21 10:47 AM) 78.5 kg (03/26/21 1:43 PM) 79 kg (02/26/21 2:34 PM) Weight Obtained Via Standing scale (04/22/21 10:47 AM) Standing scale (03/26/21 1:43 PM) Standing scale (01/23/21 10:35 AM) Dry Weight Obtained Via Standing scale (04/22/21 10:47 AM) Standing scale (03/26/21 1:43 PM) Standing scale (01/23/21 10:35 AM) Social History Social History Type Response Smoking Status 10 or more cigarette s (1/2 pack or more)/day in last 30 days entered on: 06/03/18 Sex
--- OUTSIDE RECORDS SUMMARY | 2023-12-23 12:00 | XMS_ITS | Continuity of Care Document ---
Author Organization [facility] Address [address] [place] [address]- Care Team Providers Care Inventory Administrator Name Role Phone Nabil Prado MD Primary Care Physician Encounter [facility] Date(s): 12/21/19 - 08/27/20 [facility] Care [address] [place] [id number] Discharge Disposition: A-D/C Home Attending Physician: Glenda [...] OFF, # 21 capsule, 0 Refills, Maintenance, 06/29/20 14:59:00 EDT Start Date: 06/29/20 Stop Date: 07/20/20 Status: Ordered Methadone = 140 mg, By Mouth, Daily, 0 Refills, Maintenance, 05/10/18 11:13:13 EST Start Date: 05/10/18 Status: Ordered prochlorperazine 10 mg oral tablet 1 tablet = 10 mg, By Mouth, Every 6 hours, PRN as needed for nausea/vomiting, # 60 tablet, 1 Refills, Maintenance, 05/16/20 14:07:00 EST, [facility] # [facility], Partial fill upon patient request if theprescription is for a schedule II opioid drug., 173... Start Date: 05/16/20 Status: Ordered Zofran 8 mg oral tablet 1 tablet = 8 mg, By Mouth, Every 8 hours, PRN as needed for nausea/vomiting, # 30 tablet, 1 Refills, Maintenance, 05/16/20 14:07:00 EST, [facility] # [facility], Partial fill upon patient [...] oldest [Reference Range]: 1 2 3 Height 173.0 cm (06/27/20 11:30 AM) 173.0 cm (06/27/20 11:00 AM) 173.0 cm (06/13/20 4:43 PM) Weight 80.3 kg (06/27/20 11:00 AM) 80 kg (05/29/20 11:27 AM) 79.3 kg (05/02/20 10:47 AM) Oxygen Saturation [94-100 %] 100 % (06/27/20 11:00 AM) 97 % (06/13/20 1:44 PM) 100 % (05/16/20 1:38 PM) Pulse Rate [55-90 bpm] 54 bpm *L* (06/27/20 11:00 AM) 63 bpm (06/13/20 1:44 PM) 82 bpm (05/29/20 11:27 AM) Body Mass Index [18.5-24.99] 26.83 *H* (06/27/20 11:00 AM) 26.73 *H* (05/29/20 11:27 AM) 26.5 *H* (05/02/20 10:47 AM) Blood Pressure [90-138/55-84 mm Hg] 134/77mm Hg (06/27/20 11:00 AM) 126/68mm Hg (06/13/20 1:44 PM) 135/91mm Hg (05/29/20 11:27 AM) Respiratory Rate [16-30 br/min] 18 br/min (12/26/19 2:21 PM) Temperature [96.8-100.4 DegF] 97.4 DegF (06/27/20 11:00 AM) 98.9 DegF (06/13/20 1:44 PM) 98.6 DegF (05/29/20 11:27 AM) Mode of Delivery (Oxygen) Room air (06/27/20 11:00 AM) Room air (06/13/20 1:44 PM) Room air (05/16/20 1:38 PM) Blood pressure sites Arm, right (06/27/20 11:00 AM) Arm, left (06/13/20 1:44 PM) Arm, left (05/29/20 11:27 AM) Temperature Route Oral (06/27/20 11:30 AM) Oral (06/27/20 11:00 AM) Temporal (06/13/20 4:43 PM) Dry Weight 80.3 kg (06/27/20 11:00 AM) 80 kg (05/29/20 11:27 AM) 79.3 kg (05/02/20 10:47 AM) Weight Obtained Via Standing scale (06/27/20 11:00 AM) Standing scale (05/29/20 11:27 AM) Standing scale (05/02/20 10:47 AM) Dry Weight Obtained Via Standing scale (06/27/20 11:00 AM) Standing scale (05/29/20 11:27 AM) Standing scale (05/02/20 10:47 AM) Social History Social History Type Response Smoking Status 10 or more cigarette s (1/2 pack or more)/day in last 30 days entered on: 06/03/18 Sex
--- OUTSIDE RECORDS SUMMARY | 2023-12-23 12:00 | XMS_ITS | Continuity of Care Document ---
Author Organization [facility] Address [address] [place] [address]- Care Team Providers Care Security Flex Utility Officer Name Role Phone Nabil Prado MD Primary Care Physician Encounter [facility] Date(s): 06/09/18 - 12/21/19 [facility] [address] [place] [id number] [facility] Discharge Disposition: A-D/C Home Attending Physician: Glenda [...] capsule = 25 mg, By Mouth, Daily, for 21 days, do not break, chew, or open capsules, take 3 weeksON and 1 week OFF, # 21 capsule, 0 Refills, Hard Stop 12/26/19 12:33:00 EDT, 12/05/19 12:33:00 EDT Start Date: 12/05/19 Stop Date: 12/26/19 Status: Ordered lenalidomide 25 mg oral capsule 1 capsule = 25 mg, By Mouth, Daily, do not break, chew, or open capsules, take 3 weeks ON and 1 week OFF, # 21 capsule, 0 Refills, Maintenance, 12/26/19 12:33:00 EDT Start Date: 12/26/19 Stop Date: 01/16/20 Status: Ordered Methadone By Mouth, 0 Refills, Maintenance, 05/10/18 11:13:13 EST Start Date: 05/10/18 Status: Ordered Problem List Condition Effective Dates Status Health Status Inform ant H/O: substance abuse(Confirmed) 1 Active 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 Methadone maintenance 2005 Vital Signs Most recent to oldest [Reference Range]: 1 2 3 Height 173.0 cm (12/13/19 2:19 PM) 173.0 cm (12/13/19 2:15 PM) 173.0 cm (12/12/19 2:25 PM) Weight 73.8 kg (11/28/19 1:09 PM) 75 kg (10/24/19 10:34 AM) 75.3 kg (08/22/19 1:45 PM) Oxygen Saturation [94-100 %] 100 % (12/13/19 2:19 PM) 100 % (12/12/19 2:21 PM) 99 % (11/29/19 2:02 PM) Pulse Rate [55-90 bpm] 67 bpm (12/13/19 2:19 PM) 78 bpm (12/12/19 2:21 PM) 77 bpm (11/29/19 2:02 PM) Body Mass Index [18.5-24.99] 24.66 (11/28/19 1:09 PM) 25.06 *H* (10/24/19 10:34 AM) 25.16 *H* (08/22/19 1:45 PM) Blood Pressure [90-138/55-84 mm Hg] 137/81mm Hg (12/13/19 2:19 PM) 130/79mm Hg (12/12/19 2:21 PM) 113/74mm Hg (11/29/19 2:02 PM) Temperature [96.8-100.4 DegF] 98.5 DegF (12/13/19 2:19 PM) 98.6 DegF (12/12/19 2:21 PM) 98.0 DegF (11/29/19 2:02 PM) Mode of Delivery (Oxygen) Room air (12/13/19 2:19 PM) Room air (12/12/19 2:21 PM) Room air (11/29/19 2:02 PM) Blood pressure sites Arm, right (12/13/19 2:19 PM) Arm, right (12/12/19 2:21 PM) Arm, left (11/29/19 2:02 PM) Temperature Route Temporal (12/13/19 2:19 PM) Temporal (12/13/19 2:15 PM) Temporal (12/12/19 2:25 PM) Dry Weight 73.8 kg (11/28/19 1:09 PM) 75 kg (10/24/19 10:34 AM) 75.3 kg (08/22/19 1:45 PM) Weight Obtained Via Standing scale (11/28/19 1:09 PM) Standing scale (10/24/19 10:34 AM) Standing scale (08/22/19 1:45 PM) Dry Weight Obtained Via Standing scale (11/28/19 1:09 PM) Standing scale (10/24/19 10:34 AM) Standing scale (08/22/19 1:45 PM) Social History Social History Type Response Smoking Status 10 or more cigarette s (1/2 pack or more)/day in last 30 days entered on: 06/03/18 Sex
--- OUTSIDE RECORDS SUMMARY | 2023-12-23 12:00 | XMS_ITS | Continuity of Care Document ---
Author Organization [facility] Address [address] [place] [address]- Care Team Providers Care Ophthalmic Aide Name Role Phone Johan BOND, Nabil Coleman Primary Care Physician En[facility] Date(s): 12/05/19 - 01/04/[facility] [address] [place] [id number] [facility] Allergies, Adverse Reactions, Alerts Substance Reaction Severity [...] 3 Refills, Maintenance, 10/24/19 12:35:00 EDT, Tablet, [facility] # [facility], 173, cm, 10/24/19 10:34:00 EDT, Height, 75, kg, 10/24/19 10:34:00 EDT, Dry Weight Start Date: 10/24/19 Stop Date: 02/21/20 Status: Ordered aspirin 325 mg oral tablet 325 mg, 1, tablet, By Mouth, Daily, # 30 tablet, Refills 3, Tot. Refills 3, Maintenance, 10/24/19 12:35:00 EDT, Route to Pharmacy Electronically, [facility] # [facility], 173, cm, 10/24/19 10:34:00 [...] Inform ant H/O: substance abuse(Confirmed) 1 Active History of tobacco use(Confirmed) Active 1on Methadone maintenance 2005 Social History Social History Type Response Smoking Status 10 or more cigarette s (1/2 pack or more)/day in last 30 days entered on: 06/03/18 Sex
--- OUTSIDE RECORDS SUMMARY | 2023-12-23 12:00 | XMS_ITS | Continuity of Care Document ---
Author Organization [facility] an[facility] Address [address] [place] [address]- Care Team Providers Care Art Handler Name Role Phone Johan BOND, Nabil Coleman Primary Care Physician [phone] Encounter [facility] Date(s): 07/21/22 - 08/20/22 [facility] [address] [place] [id number] Allergies, Adverse Reactions, Alerts No Known [...] 03/07/22 14:44:00 EST, Route to Pharmacy Electronically, [facility], Partial fill upon patient request if the prescription is for a schedule II opioi... Start Date: 03/07/22 Stop Date: 04/06/22 Status: Ordered dexamethasone 4 mg oral tablet See Instructions, 10 tablet By Mouth once a week, # 40 tablet, 0 Refills, Maintenance, 07/24/22 8:41:00 EDT, Tablet, [facility], Partial fill upon patient request if the prescription is for a schedule II opioid drug., 175, cm, 07/21/22 12:33... Start Date: 07/24/22 Status: Ordered KlonoPIN 1 mg oral tablet 1 tablet = 1 mg, By Mouth, 2 times a day, this is an increase, # 60 tablet, 1 Refills, Maintenance,08/08/22 10:05:00 EDT, [facility], Partial fill upon patient request if the prescription is for a schedule II opioid drug., 175, cm, 07/21/22... Start Date: 08/08/22 Stop Date: 10/07/22 Status: Ordered Methadone = 140 mg, By Mouth, Daily, 0 Refills, Maintenance, 05/10/18 11:13:13 EST Start Date: 05/10/18 Status: Ordered ondansetron 4 mg oral tablet 1 tablet = 4 mg, By Mouth, Every 8 hours, PRN Nausea & Vomiting, # 90 tablet, 0 Refills, Maintenance, 07/28/22 8:52:00 EDT, Tablet, [facility] # [facility], Partial fill upon patient [...] Care Team Personnel Name: Suzette Jama Position: [facility] Onco RN Member Role: Primary Care Nurse Name: Aracely Rae RN Position: [facility] RN Member Role: Primary Care Nurse Name: Moon Cummings RN Position: S RN Member Role: Primary Care Nurse Name: Kath Weeks RN Position: S RN Member Role: Primary Care Nurse Name: Errol Hdez RN Position: [facility] RN Member Role: Primary Care Nurse Name: Gladis Viera RN Position: [facility] RN Member Role: Primary Care Nurse Name: Hanh Bruner RN Position: [facility] Onco RN Member Role: Primary Care Nurse Name: Geneva Ayala NP Position: [facility] Associate Professional Member Role: Lifetime Consulting Provider Address: Address: [address] [place] [address] [address] [facility] [place] [address]- Name: Phil Ortiz MD Position: [facility] Renal MD Member Role: Lifetime Consulting Physician Address: Address: [address] [place] [address] [address] [facility] [place] [address]- Name: Eliseo Ramirez DO Position: [facility] Renal MD Member Role: Lifetime Consulting Physician Address: Address: [address] [place] [address] [address] [facility] [place] [address]- Name: Julieta Richmond RN Position: [facility] Onco RN Member Role: Primary Care Nurse Name: Goyo Moncada III, RN Position: [facility] RN Member Role: Primary Care Nurse Name: Nereyda Nguyễn RN Position: [facility] Onco RN Member Role: Primary Care Nurse Name: Nabil Prado MD Position: Reference Physician Member Role: PCP Address: Address: [address] [place] [address]- Name: Eric Castano RN Position: [facility] RN Member Role: Primary Care Nurse Name: Dinah Kaur RN Position: [facility] RN Member Role: Primary Care Nurse Name: Johnny Romano RN Position: [facility] RN Member Role: Primary Care Nurse Name: Johnson Munoz RN Position: [facility] Onco RN Member Role: Primary Care Nurse Name: Suzanne Weber RN Position: [facility] RN Member Role: Primary Care Nurse Name: Radha Miguel RN Position: [facility] RN Member Role: Primary Care Nurse Name: Shantanu Allan RN Position: [facility] RN Member Role: Primary Care Nurse Name: Laura Narayanan Position: [facility] Onco RN Member Role: Primary Care Nurse Name: Jemma Matos RN Position: [facility] RN Member Role: Primary Care Nurse Name: Dash Olson RN Position: [facility] Onco RN Member Role: Primary Care Nurse Name: Dorinda Berry RN Position: [facility] Onco RN Member Role: Primary Care Nurse Name: Lotus Gutierrez RN, I Position: [facility] RN Member Role: Primary Care Nurse Name: Lacey Rodriguez RN Position: S RN Member Role: Primary Care Nurse Name: Kirsty Avila RN Position: [facility] RN Member Role: Primary Care Nurse Care Team Related Persons Name: SUZANNE WALLIS Address: [address] [address] Name: VIPUL DASH Address: [address] [address]
--- OUTSIDE RECORDS SUMMARY | 2023-12-23 12:00 | XMS_ITS | Continuity of Care Document ---
Author Organization [facility] an[facility] Care Address [address] [place] [address]- Care Team Providers Care Grinder Set Up Operator Universal Name Role Phone Johan BOND, Nabil Coleman Primary Care Physician Encounter [facility] Date(s): 03/14/22 - 04/13/22 [facility] Care [address] [place] [id number] Allergies, Adverse Reactions, Alerts No [...] 0 Refills, Maintenance, 03/30/22 12:41:00 EST, Tablet, [facility], Partial fill upon patient request if the prescription is for a schedule II opioid drug., 172, cm, 03/30/22 7:57:0... Start Date: 03/30/22 Stop Date: 04/06/22 Status: Ordered amLODIPine 10 mg oral tablet 10 mg, 1, tablet, By Mouth, Daily, # 30 tablet, Refills 0, Tot. Refills 0, Maintenance, 03/07/22 14:44:00 EST, Route to Pharmacy Electronically, [facility], Partial fill upon patient request if the prescription is for a schedule II opioi... Start Date: 03/07/22 Stop Date: 04/06/22 Status: Ordered KlonoPIN 1 mg oral tablet 1 tablet = 1 mg, By Mouth, 2 times a day, this is an increase, # 60 tablet, 1 Refills, Maintenance,03/31/22 12:15:00 EST, [facility], Partial fill upon [...] 04/29/22 9:00:00 EST, 03/30/22 12:41:00 EST, Tablet, [facility], Partial fill upon patient request if [...] 3 Refills, Maintenance, 03/11/22 16:38:00 EST, Tablet, [facility] # [facility], Partial fill upon [...] List Condition Confirmation Course Effective Dates Status [facility] atus Informant Abscess of chest wall Confirmed [...] Care Team Personnel Name: Suzette Jama Position: [facility] Onco RN Member Role: Primary Care Nurse Name: Aracely Rae RN Position: [facility] RN Member Role: Primary Care Nurse Name: Moon Cummings RN Position: [facility] RN Member Role: Primary Care Nurse Name: Errol Hdez RN Position: [facility] RN Member Role: Primary Care Nurse Name: Gladis Viera RN Position: [facility] RN Member Role: Primary Care Nurse Name: Hanh Bruner RN Position: [facility] Onco RN Member Role: Primary Care Nurse Name: Geneva Ayala NP Position: [facility] Associate Professional Member Role: Lifetime Consulting Provider Address: Address: [address] [place] [address] [facility] [place] [address]- Name: Eliseo Ramirez DO Position: [facility] Renal MD Member Role: Lifetime Consulting Physician Address: Address: [address] [place] [address] [facility] [address] Name: Julieta Richmond RN Position: [facility] Onco RN Member Role: Primary Care Nurse Name: Goyo Moncada III, RN Position: [facility] RN Member Role: Primary Care Nurse Name: Nereyda Nguyễn RN Position: [facility] Onco RN Member Role: Primary Care Nurse Name: Nabil Prado MD Position: Reference Physician Member Role: PCP Address: Address: [address] [place] [address]- Name: Eric Castano RN Position: [facility] RN Member Role: Primary Care Nurse Name: Dinah Kaur RN Position: [facility] RN Member Role: Primary Care Nurse Name: Johnny Romano RN Position: S RN Member Role: Primary Care Nurse Name: Johnson Munoz RN Position: [facility] RN Member Role: Primary Care Nurse Name: Suzanne Weber RN Position: [facility] RN Member Role: Primary Care Nurse Name: Radha Miguel RN Position: [facility] RN Member Role: Primary Care Nurse Name: Shantanu Allan RN Position: [facility] RN Member Role: Primary Care Nurse Name: Laura Narayanan Position: [facility] Onco RN Member Role: Primary Care Nurse Name: Jemma Matos RN Position: [facility] RN Member Role: Primary Care Nurse Name: Dash Olson RN Position: [facility] OB RN Member Role: Primary Care Nurse Name: Sahara Patel RN Position: [facility] RN Member Role: Primary Care Nurse Name: Dorinda Berry RN Position: [facility] Onco RN Member Role: Primary Care Nurse Name: Lotus Gutierrez RN, I Position: [facility] RN Member Role: Primary Care Nurse Name: Lacey Rodriguez Position: [facility] RN Member Role: Primary Care Nurse Name: Kirsty Avila RN Position: [facility] RN Member Role: Primary Care Nurse Care Team Related Persons Name: SUZANNE WALLIS Address: [address] [place] [address] Name: DASH MATTHEW Address: home [address] [place] [address]
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
--- OUTSIDE RECORDS SUMMARY | 2023-12-23 12:00 | XMS_ITS | Continuity of Care Document ---
Author Organization [facility] Address [address] [place] [address]- Care Team Providers Care Product Applications Engineer Name Role Phone Johan BOND, Nabil Coleman Primary Care Physician [place] [facility]): [place]/20 [facility] [address] [place] [id number] Attending Physician: Glenda Higginbotham MD Admitting Physician: [...] Dry Weight Start Date: 10/24/19 Status: Ordered Bactrim DS 800 mg-160 mg oral tablet 1 tablet, By Mouth, Every Thursday, Thursday and Thursday, for 28 days, # 12 tablet, 3 Refills, Acute 08/22/20 11:06:00 EDT, 05/02/20 11:06:00 EST, Tablet, [facility], Partial fill upon patientrequest if the prescription is for a schedule II op... Start Date: 05/02/20 Stop Date: 08/22/20 Status: Ordered Calcium 600+D oral tablet 1 [...] 06/29/20 Stop Date: 07/20/20 Status: Ordered Methadone By Mouth, 0 Refills, Maintenance, 05/10/18 11:13:13 EST Start Date: 05/10/18 Status: Ordered prochlorperazine 10 mg oral tablet 1 tablet = 10 mg, By Mouth, Every 6 hours, PRN as needed for nausea/vomiting, # 60 tablet, 1 Refills, Maintenance, 05/16/20 14:07:00 EST, [facility], Partial fill upon patient request if theprescription is for a schedule II opioid drug., 173... Start Date: 05/16/20 Status: Ordered Triple Antibiotic topical ointment 1 application, Topically, 3 times a day, # 144 Gm, 1 Refills, Maintenance, 03/28/20 16:35:00 EST, Ointment, [facility], Partial fill upon patient request if the prescription is for a schedule II opioid drug., 1 application Topically 3 times a... Start Date: 03/28/20 Status: Ordered Zofran 8 mg oral tablet 1 tablet = 8 mg, By Mouth, Every 8 hours, PRN as needed for nausea/vomiting, # 30 tablet, 1 Refills, Maintenance, 05/16/20 14:07:00 EST, [facility] # [facility], Partial fill upon patient [...]
--- OUTSIDE RECORDS SUMMARY | 2023-12-23 12:00 | XMS_ITS | Continuity of Care Document ---
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 Name Role Phone Johan BOND, Nabil Coleman Primary Care Physician Encounter [facility] Date(s): 03/25/22 - 03/30/[address] [id number] Discharge Disposition: A-D/C Home Attending Physician: Robi Duncan MD Admitting Physician: Danny Zurita MD Referring Physician: Danny Zurita MD Allergies, Adverse Reactions, Alerts No Known [...] 0 Refills, Maintenance, 03/30/22 12:41:00 EST, Tablet, [facility], Partial fill upon patient request if the prescription is for a schedule II opioid drug., 172, cm, 03/30/22 7:57:0... Start Date: 03/30/22 Stop Date: 04/06/22 Status: Ordered amLODIPine 10 mg oral tablet 10 mg, Tablet, By Mouth, 03/30/22 9:00:00 EST Start Date: 03/30/22 Stop Date: 03/30/22 Status: Completed amLODIPine 10 mg oral tablet 10 mg, 1, tablet, By Mouth, Daily, # 30 tablet, Refills 0, Tot. Refills 0, Maintenance, 03/07/22 14:44:00 EST, Route to Pharmacy Electronically, [facility], Partial fill upon patient request if the prescription is for a schedule II opioi... Start Date: 03/07/22 Stop Date: 04/06/22 Status: Ordered KlonoPIN 1 mg oral tablet 1 tablet = 1 mg, By Mouth, 2 times a day, this is an increase, # 30 tablet, 0 Refills, Maintenance,03/12/22 10:08:00 EST, [facility], Partial fill upon patient request if the prescription is for a schedule II opioid drug., 175, cm, 03/05/22... Start Date: 03/12/22 Status: Ordered Methadone = 140 mg, By Mouth, Daily, 0 Refills, Maintenance, 05/10/18 11:13:13 EST Start Date: 05/10/18 Status: Ordered methadone 10 mg oral tablet 140 mg, Tablet, By Mouth, 03/30/22 9:00:00 EST Start Date: 03/30/22 Stop Date: 03/30/22 Status: Completed ondansetron 4 mg oral tablet 1 tablet = 4 mg, By Mouth, Every 8 hours, # 30 tablet, 0 Refills, Acute 04/29/22 9:00:00 EST, 03/30/22 12:41:00 EST, Tablet, [facility], Partial fill upon patient request if the prescription is for a schedule II opioid drug., 172, cm, 01... Start Date: 03/30/22 Stop Date: 04/29/22 Status: [...] Maintenance, 03/11/22 16:38:00 EST, Tablet, [facility], Partial fill upon patient request if the prescription is for a schedule II opioid drug., 175, cm, 03/05/22 22:38:00 EST, Height... Start Date: 03/11/22 Status: Ordered prochlorperazine 5 mg oral tablet 1-2 tablet, By Mouth, Every 6 hours, PRN Nausea, # 60 tablet, 1 Refills, Maintenance, 02/12/22 17:40:00 EST, [facility], Partial fill upon patient [...] Confirmed Active 1Problem added by Discern Expert Vital Signs Most recent to oldest [Reference Range]: 1 2 3 Height 172 cm (03/30/22 3:40 PM) 172 cm (03/30/22 7:57 AM) 172 cm (03/29/22 9:56 PM) Weight 70.8 kg (03/25/22 12:07 PM) 70.8 kg (03/25/22 11:56 AM) Oxygen Saturation [94-100 %] 98 % (03/30/22 3:40 PM) 99 % (03/30/22 7:57 AM) 98 % (03/29/22 9:56 PM) Pulse Rate [55-90 bpm] 66 bpm (03/30/22 3:40 PM) 61 bpm (03/30/22 7:57 AM) 58 bpm (03/29/22 9:56 PM) Body Mass Index [18.5-24.99 kg/m2] 23.93 kg/m2 (03/25/22 12:07 PM) Blood Pressure [90-138/55-84 mm Hg] 115/70mm Hg (03/30/22 3:40 PM) 140/88mm Hg *H* (03/30/22 10:25 AM) 143/82mm Hg *H* (03/30/22 7:57 AM) Respiratory Rate [16-30 br/min] 18 br/min (03/30/22 3:40 PM) 18 br/min (03/30/22 11:25 AM) 18 br/min (03/30/22 10:25 AM) Temperature [96.8-100.4 DegF] 98.0 DegF (03/30/22 3:40 PM) 97.6 DegF (03/30/22 7:57 AM) 98.4 DegF (03/29/22 9:56 PM) Mode of Delivery (Oxygen) Room air (03/30/22 3:40 PM) Room air (03/30/22 7:57 AM) Room air (03/29/22 9:56 PM) Blood pressure sites Arm, right (03/30/22 3:40 PM) Arm, right (03/30/22 7:57 AM) Arm, right (03/29/22 9:56 PM) Temperature Route Oral (03/30/22 3:40 PM) Oral (03/30/22 7:57 AM) Oral (03/29/22 9:56 PM) Dry Weight 70.8 kg (03/25/22 12:07 PM) 70.8 kg (03/25/22 11:56 AM) Weight Obtained Via Standing scale (03/25/22 12:07 PM) Standing scale (03/25/22 11:56 AM) Dry Weight Obtained Via Standing scale (03/25/22 12:07 PM) Standing scale (03/25/22 11:56 AM) Social History Social History Type Response Smoking Status 10 or more cigarette s (1/2 pack or more)/day in last 30 days entered on: 06/03/18 Sex History and physical note * Erik BOND, Nikita P: PERFORM, MODIFY Event Display: History and Physical Hospital Authored Date: Patient: ??RITESH GARCIA ? Age:??42 Years?Sex:??Male?:??1980?? 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 The patient??denies any??recent??fever and feels that he hasbeen in his usual state of health.?? His pain has been controlled on his chronic methadone and oxycodone.?? He denies vomiting, chest pain, shortness of breath, abdominal pain, diarrhea, or urinary symptoms.?? He last had dialysis as outpatient this morning. ?? Currently on the medical floor, the patient is afebrile and hemodynamically stable. ??He has no specific complaints and is resting comfortably. Review of Systems Other than those positives as noted in the HPI above, the remaining comprehensive 14-point review of systems is negative. Objective Measurements?? Height: 172 cm (03/25/22) Weight: 70.8 kg (03/25/22) Dry Weight: 70.8 kg (03/25/22) Body Mass Index: 23.93 kg/m2 (03/25/22) ? Vital Signs?? Temperature: 98.4 DegF (03/25/22 16:47:00) Temperature Route: Oral (03/25/22 16:47:00) Pulse Rate: 80 bpm (03/25/22 16:47:00) Respiratory Rate: 18 br/min (03/25/22 16:47:00) Systolic Blood Pressure: 118 mm Hg (03/25/22 16:47:00) Diastolic Blood Pressure: 66 mm Hg (03/25/22 16:47:00) Blood pressure sites: Arm, right (03/25/22 16:47:00) Mean Arterial Pressure: 83 mm Hg (03/25/22 16:47:00) Pulse Pressure: 52 mm Hg (03/25/22 16:47:00) Oxygen Saturation: 98 % (03/25/22 16:47:00) Mode of Delivery (Oxygen): Room air (03/25/22 16:47:00) Early Warning Score: 0 (03/25/22 16:49:27) ? Pain Scores?? No qualifying data available. ? Physical Exam General Appearance: Alert, appears stated age, pleasant, answers questions appropriately HEENT: Normocephalic, atraumatic, PERRL, EOMI, no scleral icterus, no facial droop, moist mucous membranes, no oropharynx lesions?? Neck: Supple, no JVD, no C-Spine tenderness, no LAD Cardiac: RRR, S1 & S2 present, no m / r / g appreciated Chest: Clear to auscultation bilaterally, no wheezing / ronchi / rales, no tenderness to percussion Abdomen: Soft, nontender, no distention, no rebound or guarding, no masses, no organomegaly, normalbowel sounds in all quadrants Extremities: No clubbing, cyanosis, or edema. ??2+ distal pulses. ??Capillary refill < 3 seconds. ??No calf tenderness or cords Skin: Warm, no rash or open wounds Neuro: ??A & O x 3, no focal motor or sensory deficits Psych: ??Stable mood, appropriate affect Assessment/Plan Assessment:??42-year-old male with history of refractory IgA myeloma with plasmacytoma of the rightrib cage status post surgical resection, end-stage renal disease on hemodialysis , chronic anemia, anxiety, and opiate dependence on methadone who is directly admitted to [facility] oncology this afternoon for DCEP with cisplatin, cycle 2. ?? Multiple myeloma in relapse (C90.02):??The patient denies any current fever.??No significant lymphadenopathy on exam.??Last blood counts and renal function stable on 03/18/2022.??Pain controlled on methadone and oxycodone. Patient will be admitted to the oncology floor. Check CBC and comprehensive metabolic panel,??and follow daily. DCEP??with cisplatin, cycle 2, to begin tomorrow morning. Ondansetron 16 mg IV every 24 hours ordered per oncology. Hopeful??bridge??to either salvage stem cell therapy or CART. ?? End stage renal disease on dialysis (N18.6):??Patient last had hemodialysis this morning. Last creatinine 4.3 without significant acidosis, and potassium 3.3 on 03/18/2022. We will check metabolic panel. Consult nephrology for hemodialysis, next scheduled for 03/27/2022. He remains on amlodipine with stable blood pressure. Renal diet. Electrolyte supplementation as needed. Avoid nephrotoxins. ?? Chronic anemia (D64.9):??Hemoglobin 8.7 on 03/18/2022.??He feels well. No active bleeding. Check CBC. Transfuse for hemoglobin less than 7. ?? Anxiety (F41.9):??Mood is stable. Continue clonazepam as prescribed. ?? Opiate dependence (F11.20):??Continue methadone 140 mg daily, once dose is verified with [facility]. Oxycodone 10 mg every 6 hours as needed for breakthrough pain. ?? VTE Prophylaxis:??Heparin subcu 5000 units twice daily. ?VTE Prophylaxis Assessment:??VTE Prophylaxis Ordered ?? Code Status:??FULL. ?Order Code Status:??Code Status Ordered ?? Discharge Planning:??Anticipate discharge home after 4 days??hospitalization for chemotherapy. ?? I spent a total of??75 minutes today reviewing the chart / medical records, evaluating the patient,evaluating and interpreting laboratory and imaging data, formulating and discussing the treatment plan, and documenting the encounter. ? Histories Allergies Allergies ?(Active and Proposed Allergies Only) NKA? (Severity: Unknown severity, Onset: Unknown) ? Past Medical History/Problem List Active Problems??(11) Abscess of chest wall Anxiety Bacteremia due to Enterococcus Chronic anemia COVID-19 End stage renal disease on dialysis History of tobacco use Multiple myeloma in relapse Opiate dependence Opioid use disorder Plasmacytoma ? Past Surgical History Resection of right rib cage plasmacytoma, with mesh placement. ? Social History Alcohol Details:??Use: Occasional, denies heavy use. Substance Abuse Details:??Use: History of opiate abuse.?? Denies at this time, on Methadone. Tobacco Details:??Use: 5-6 cigarettes per day in last 30 days. Declines NRT. ? Family History No family history??of myeloma. Positive family history of chronic kidney disease. ? Medications Home Medications Amlodipine (amLODIPine 10 mg oral tablet)?10?Milligram?1?tablet?By Mouth?Daily?for 30?Days Clonazepam (KlonoPIN 1 mg oral tablet)?1?tab(s)?1?Milligram?By Mouth?2 times a day?this is an increase Famotidine (Pepcid 20 mg oral tablet)?1?tab(s)?20?Milligram?By Mouth?Daily Methadone?140?Milligram?By Mouth?Daily Oxycodone (oxyCODONE 5 mg oral capsule)?1?capsule?5?Milligram?By Mouth?Every 6 hours PROCHLORperazine (prochlorperazine 5 mg oral tablet)?1-2 tablet?By Mouth?Every 6 hours?as needed?Nausea ? EKG study * Event Display: ECG 12-Lead Authored Date: Please click on pdf link to open report * Event Display: ECG 12-Lead Authored Date: Ventricular Rate: 67 BPM Atrial Rate: 67 BPM P-R Interval: 152 ms QRS Duration: 82 ms Q-T Interval: 526 ms QTC Calculation(Bazett): 555 ms P [place]: -7 degrees R [place]: -3 degrees T [place]: 13 degrees Critical Test Result: Long QTc Normal sinus rhythm Prolonged QT Abnormal ECG When compared with ECG of 27-MAR-2022 07:06, No significant change was found Confirmed by CRIS ACEVES ([id number]) on 03/30/2022 11:45:10 AM Mikado: CRIS ACEVES * Event Display: ECG 12-Lead Authored Date: Please click on pdf link to open report * Event Display: ECG 12-Lead Authored Date: Ventricular Rate: 73 BPM Atrial Rate: 73 BPM P-R Interval: 184 ms QRS Duration: 78 ms Q-T Interval: 462 ms QTC Calculation(Bazett): 508 ms P [place]: 64 degrees R [place]: -8 degrees T [place]: 40 degrees Critical Test Result: Long QTc Normal sinus rhythm Prolonged QT Abnormal ECG When compared with ECG of 21-FEB-2022 09:08, Nonspecific T wave abnormality no longer evident in Lateral leads Confirmed by EAN CARRILLO ([id number]) on 03/27/2022 9:09:37 AM Mikado: EAN CARRILLO [facility] Progress note * Keerthi Whitehead RN: PERFORM, SIGN, VERIFY Event Display: [facility] Authored Date: Patient: RITESH GARCIA Age: 42 years Sex: Male : 1980 Associated Diagnoses: None Author: Keerthi Whitehead RN Findings Evaluation patient alert and verbal.D/C home around 1914.all information given and questions answered.. Discharge Information Case Management Discharge Plan : Case Management Discharge Plan Data 03/30/2022 19:15 EST Discharge Level of Care at Discharge Home/Nursing Home/Foster Care 03/29/2022 16:48 EST Discharge Level of Care at Discharge Not Done: pt not getting discharged at this time (Not Done) 03/29/2022 11:24 EST Discharge Level of Care at Discharge In Error (In Error) * Geronimo Espinosa MD: PERFORM Event Display: [facility] Authored Date: Patient: ??RITESH GARCIA ? Age:??42 Years?Sex:??Male?:??1980?? Subjective Hematology progress note ?? 42-year gentleman with refractory multiple myeloma admitted electively for cytoreductive chemotherapy. ?? He is receiving chemotherapy-s/p??DCEP chemotherapy??yesterday.?? Tolerated well. ??No nausea vomiting.?? Also received hemodialysis yesterday. -No diarrhea, hearing deficits/tingling,??neuropathy. -being discharged today. ?? Labs reviewed and is stable Review of Systems All negative unless mentioned otherwise above Objective Vital Signs?? Temperature: 97.6 DegF (03/30/22 07:57:00) Temperature Route: Oral (03/30/22 07:57:00) Pulse Rate: 61 bpm (03/30/22 07:57:00) Respiratory Rate: 18 br/min (03/30/22 11:25:00) Systolic Blood Pressure:??140 mm Hg??High (03/30/22 10:25:00) Diastolic Blood Pressure:??88 mm Hg??High (03/30/22 10:25:00) Blood pressure sites: Arm, right (03/30/22 07:57:00) Mean Arterial Pressure: 102 mm Hg (03/30/22 07:57:00) Pulse Pressure: 61 mm Hg (03/30/22 07:57:00) Oxygen Saturation: 99 % (03/30/22 07:57:00) Mode of Delivery (Oxygen): Room air (03/30/22 07:57:00) Early Warning Score: 2 (03/30/22 12:22:36) ? Physical Exam Constitutional: Alert, in no distress. Mental Status: Oriented to person, place and time. Head: Normocephalic. Eyes: Pupils are equal, round and reactive to light. Extraocular muscles intact. Ear, Nose and Throat: Oropharynx clear, mucous membranes moist. Neck: Supple, Full range of motion. Respiratory: Clear to auscultation. No wheezing, rales or rhonchi. Cardiovascular: S1 S2 regular. No murmurs, rubs or gallops. Gastrointestinal: Abdomen soft, non-tender, non-distended. Normal bowel sounds. Genitourinary: No costovertebral angle tenderness. Neurologic: Cranial nerves II-XII grossly intact. No focal neurological deficits. Skin: No rashes or lesions. No petechiae or purpura.?? Musculoskeletal: No cyanosis or clubbing. No gross deformities. Normal range of motion. Psychiatric: Normal mood and affect _ Inpatient Medications Medications (12) Active SCHEDULED: (7) Amlodipine 10 mg Tablet (amLODIPine 10 mg oral tablet) ??10 mg, By Mouth, Daily Clonazepam 1 mg Tablet (KlonoPIN 1 mg oral tablet) ??1 mg, By Mouth, 2 times a day Famotidine 20 mg Tablet (famotidine 20 mg oral tablet) ??20 mg, By Mouth, Daily Heparin 5000 units/mL Inj (1 mL) (Heparin Inj) ??5,000 units 1 mL, Subcutaneous Injection, 2 times a day Methadone 10 mg Tablet (methadone 10 mg oral tablet) ??140 mg, By Mouth, Daily in AM NaCl 0.9% Flush 3ml (NaCL 0.9% Flush) ??3 mL, IV Push, Every 8 hours Sodium Zirconium 10 Gm Packet (Lokelma Packet) ??10 Gm 1 pack/packet, By Mouth, Daily CONTINUOUS: (0) PRN: (5) Acetaminophen 325 mg Tablet (Acetaminophen Tablet) ??650 mg, By Mouth, Every 4 hours Melatonin 3 mg Tablet (Melatonin Tablet) ??3 mg, By Mouth, Daily at bedtime NaCl 0.9% Flush 3ml (NaCL 0.9% Flush) ??3 mL, IV Push, Every 8 hours OxyCODONE 5 mg IR Tablet (oxyCODONE 5 mg oral tablet) ??10 mg, By Mouth, Every 6 hours Senna 8.6 mg / Docusate 50 mg tablet (Docusate/Senna Tablet) ??1 tablet, By Mouth, 2 times a day ?? Results ??Reviewed stable. ?? LFT Albumin: 4 Gm/dL (04:48) Alkaline Phosphatase: 114 units/L (04:48) ALT (SGPT): 12 units/L (04:48) AST (SGOT): 15 units/L (04:48) Bilirubin, Total: 0.3 mg/dL (04:48) ?? Uric/LDH Uric Acid: 5 mg/dL (04:48) LDH:??362 units/L??High (04:48) ?? Assessment/Plan ?? Refractory??myeloma??in 42-year gentleman on cytoreductive chemotherapy ?? -S/p DCEP,?? Tolerated well, no??acute toxicities.?? Will receive pegfilgrastim as outpatient??tomorrow. -Lab work stable. -hemodialysis post treatment yesterday, upcoming??session on Thursday. -Upcoming appointment at [facility] early April, he is s/p??stem cell collection ?? Patient to be discharged on prophylactic acyclovir,??antiemetics ?? Patient seen and discussed with Dr. Rivera * Iglesia Lambert MD: PERFORM, SIGN, VERIFY Event Display: Progress Note Hospital Authored Date: Patient: RITESH GARCIA Age: 42 years Sex: Male : 1980 Associated Diagnoses: None Author: Iglesia Lambert MD Patient was dialyzed yesterday 3.1 L of fluid removed, undergoing multiple myeloma therapy. Physical Examination Vitals Vitals : VITAL SIGNS SECTION 03/30/2022 7:57 EST Temperature 97.6 DegF Temperature Route Oral Pulse Rate 61 bpm Respiratory Rate 18 br/min Systolic Blood Pressure 143 mm Hg H Diastolic Blood Pressure 82 mm Hg Blood pressure sites Arm, right Mean Arterial Pressure 102 mm Hg Pulse Pressure 61 mm Hg Oxygen Saturation 99 % Mode of Delivery (Oxygen) Room air . General Appearance No apparent distress. HEENT Moist mucous membranes. Respiratory Decreased breath sounds. Cardiac No murmur/gallop/rub. Abdomen/GI Soft. Non-tender. Extremities Normal. Results Review General resultsToday's results : Results 03/30/2022 4:48 EST WBC 5.7 k/mm3 RBC 2.42 m/mm3 L Hgb 7.5 Gm/dL L Hct 22.5 % L MCV 93.0 femtoliters MCH 31.0 pg MCHC 33.3 g/dL Platelet Count 169 k/mm3 RDW-SD 48.5 femtoliters H MPV 9.6 femtoliters Nucleated RBC (Automated) 0.0 #/100 WBC'S Abs. NRBC 0.0 k/mm3 Abs. Neut 5.4 k/mm3 Abs. Lymph 0.1 k/mm3 L Abs. [place] 0.2 k/mm3 L Abs. Eo 0.0 k/mm3 Abs. Baso 0.0 k/mm3 Neut % 94.8 % H Lymph % 1.4 % L [place] % 3.3 % L Eos % 0.0 % Baso % 0.0 % Imm Gran 0.5 % Abs. Imm Gran 0.0 k/mm3 Sodium 138 mmol/L Potassium 4.3 mmol/L Chloride 96 mmol/L L Bicarbonate Level 24 mmol/L Anion Gap 18 H Glucose Level 154 mg/dL H BUN 53 mg/dL H Creatinine-Blood 5.2 mg/dL H Estimated GFR Creatinine 13 ML/MIN/1.73 M2 Calcium 6.7 mg/dL L Phosphorus 4.0 mg/dL Magnesium 1.9 mg/dL Protein, Total 5.6 Gm/dL L Albumin 4.0 Gm/dL AG Ratio 2.5 LDH 362 units/L H Alkaline Phosphatase 114 units/L AST (SGOT) 15 units/L ALT (SGPT) 12 units/L Bilirubin, Total 0.3 mg/dL Uric Acid 5.0 mg/dL . Medication MEDICATION LIST Medications reviewed. Impression and Plan Mr. Garcia is a 41-year-old gentleman with newly diagnosed ESRD secondary to a history of IgA kappa multiple myeloma who dialyzes on a T/T/S schedule at [facility] via a R IJ PermCath. He presented to [facility] on 03/25 as a direct admission for Cycle 2 of DCEP with Cisplatin. 1. ESRD on HD - schedule: T/T/S at D tolerated treatment well yesterday 3.1 L of fluid removed. - access: R IJ PermCath 2. IgA Myeloma - currently on Cycle 2 of DCEP with Cisplatin 3. Anemia - unable to receive Procrit in the setting of active malignancy; getting 1 unit PRBC today 4. Hyperkalemia -Resolved. Concern for TLS related versus diet indiscretion. Plan -If patient be discharged today we will continue with regular outpatient dialysis on Thursday. -Strict low potassium diet. - transfuse to maintain HGB >7.0 - remainder of care per primary team Note * Wild TRACEY, Khadra Falcon: PERFORM Event Display: Discharge/Transfer Note Hospital Authored Date: Patient: ??RITESH GARCIA ? Age:??42 Years?Sex:??Male?:??1980?? To whom it may concern, patient received methadone 140 mg today, 03/30, at 10.25 am. * Keerthi Whitehead RN: PERFORM Event Display: Discharge/Transfer Note Hospital Authored Date: Nursing Discharge Note Entered On: 03/30/2022 20:11 EST Performed On: 03/30/2022 19:15 EST by Keerthi Whitehead RN Nursing Discharge Note 2 Discharge Time : 03/30/2022 19:15 EST Discharge Level of Care at Discharge : Home/Nursing Home/Foster Care Patient Left Unit Via : Wheelchair Patient Accompanied Off Unit with : Responsible adult DC Instructions Provided & Signed by Pt : Yes Patient Understands D/C Instructions : Yes Patient Instructions Discharge Signed : Yes Did Pt have Specialty Bed or Wound Vac : No Keerthi Whitehead RN - 03/30/2022 20:11 EST * Josse ROMAN, Goyo Cardoso: PERFORM, MODIFY Event Display: Discharge/Transfer Note Hospital Authored Date: [id number] Patient: ??RITESH GARCIA ? Age:??42 Years?Sex:??Male?:??1980?? Patient Information Discharge Location: [facility] Primary Care Physician: Johan BOND, Nabil Coleman Admit Date/Time: 03/25/22 11:41 Discharge Disposition Discharge Disposition: Home: No Services Discharge Diagnosis Multiple myeloma in relapse (C90.02) End stage renal disease on dialysis (N18.6) Chronic anemia (D64.9) Anxiety (F41.9) Opiate dependence (F11.20) Hyperkalemia (E87.5) ?? _ Discharge Medications Acyclovir (acyclovir 400 mg oral tablet)?1?tab(s)?400?Milligram?By Mouth?2 times a day?for 7?Days Amlodipine (amLODIPine 10 mg oral tablet)?10?Milligram?1?tablet?By Mouth?Daily?for 30?Days Clonazepam (KlonoPIN 1 mg oral tablet)?1?tab(s)?1?Milligram?By Mouth?2 times a day?this is an increase Famotidine (Pepcid 20 mg oral tablet)?1?tab(s)?20?Milligram?By Mouth?Daily Methadone?140?Milligram?By Mouth?Daily Ondansetron (ondansetron 4 mg oral tablet)?1?tab(s)?4?Milligram?By Mouth?Every 8 hours Oxycodone (oxyCODONE 5 mg oral capsule)?1?capsule?5?Milligram?By Mouth?Every 6 hours PROCHLORperazine (prochlorperazine 5 mg oral tablet)?1-2 tablet?By Mouth?Every 6 hours?as needed?Nausea ? Medications Started Acyclovir 400 mg po bid Zofran 4 mg PO q8h prn nausea Medications Discontinued None Doses Changed None Allergies Allergies ?(Active and Proposed Allergies Only) NKA? (Severity: Unknown severity, Onset: Unknown) ? Hospital Course 42-year-old male with history of refractory IgA myeloma with plasmacytoma of the right rib cage s/psurgical resection, ESRD on HD TTS, chronic anemia, anxiety, opiate dependence on methadone directly admitted for cycle 2 of cisplatin which he completed. ?? Objective ?? Multiple myeloma in relapse (C90.02):? DCEP with cisplatin cycle 2 completed. ?? End stage renal disease on dialysis (N18.6):? HD TTS. ?? Chronic anemia (D64.9):? Received 2 units??pRBCs this hospitalization. ?? Opiate dependence (F11.20):? Chronic methadone usage 140 mg daily. ?? Hyperkalemia (E87.5):? No EKG changes. Improved with Calcium gluconate, Lokelma, D5W and insulin followed by hemodialysis. ?? Vital Signs?? Temperature: 97.6 DegF (03/30/22 07:57:00) Temperature Route: Oral (03/30/22 07:57:00) Pulse Rate: 61 bpm (03/30/22 07:57:00) Respiratory Rate: 18 br/min (03/30/22 07:57:00) Systolic Blood Pressure:??143 mm Hg??High (03/30/22 07:57:00) Diastolic Blood Pressure: 82 mm Hg (03/30/22 07:57:00) Blood pressure sites: Arm, right (03/30/22 07:57:00) Mean Arterial Pressure: 102 mm Hg (03/30/22 07:57:00) Pulse Pressure: 61 mm Hg (03/30/22 07:57:00) Oxygen Saturation: 99 % (03/30/22 07:57:00) Mode of Delivery (Oxygen): Room air (03/30/22 07:57:00) Early Warning Score: 2 (03/30/22 07:57:43) ? . Physical Exam Constitutional: Alert, in no distress. Mental Status: Oriented to person, place and time. Respiratory: Clear to auscultation. No wheezing, rales or rhonchi. Cardiovascular: Regular rate and rhythm, no murmurs, rubs or gallops. Abdomen: Soft, non-tender, non-distended.??Normal bowel sounds. Skin: No rashes or lesions. Psychiatric: Normal mood and affect. Extremities: No edema. Consultants Oncology Pending Results ALT ordered on 03/25/2022 AST ordered on 03/25/2022 Add On Lab Order ordered on 03/27/2022 Add On Lab Order ordered on 03/28/2022 BUN ordered on 03/25/2022 Bilirubin Total ordered on 03/25/2022 CBC w/ Differential ordered on 03/25/2022 Comprehensive Metabolic Panel ordered on 03/29/2022 Creatinine ordered on 03/25/2022 Electrolytes ordered on 03/25/2022 LDH ordered on 03/25/2022 Magnesium Level ordered on 03/29/2022 Phosphorus Level ordered on 03/29/2022 Uric Acid ordered on 03/29/2022 Follow-Up Appointments Added Follow Up ?Time Frame ?Comments Johan BOND, Nabil Coleman Post Discharge Care Activity: as tolerated Wound Care: F/U with derm, wound care supplies given to patient Code Status: Full Condition: Good Prognosis: Good Home Health Face to Face ^HomeHealthFTF Results Discharge Labs BLOOD BANK Blood Type B Positive ()?? 03/30/2022 04:57 Antibody Screen Positive ()?? 03/30/2022 07:01 RBC Unit ID [id number] ()?? 03/27/2022 11:58 RBC Available PT ()?? 03/27/2022 11:58 ?? BLOOD COUNT & DIFF WBC 5.7 k/mm3 ()?? 03/30/2022 04:48 RBC 2.42 m/mm3 (Low)?? 03/30/2022 04:48 Hgb 7.5 Gm/dL (Low)?? 03/30/2022 04:48 Hct 22.5 % (Low)?? 03/30/2022 04:48 MCV 93.0 femtoliters ()?? 03/30/2022 04:48 MCH 31.0 pg ()?? 03/30/2022 04:48 MCHC 33.3 g/dL ()?? 03/30/2022 04:48 Platelet Count 169 k/mm3 ()?? 03/30/2022 04:48 RDW-SD 48.5 femtoliters (High)?? 03/30/2022 04:48 MPV 9.6 femtoliters ()?? 03/30/2022 04:48 Nucleated RBC (Automated) 0.0 #/100 WBC'S ()?? 03/30/2022 04:48 Abs. NRBC 0.0 k/mm3 ()?? 03/30/2022 04:48 Abs. Neut 5.4 k/mm3 ()?? 03/30/2022 04:48 Abs. Lymph 0.1 k/mm3 (Low)?? 03/30/2022 04:48 Abs. [place] 0.2 k/mm3 (Low)?? 03/30/2022 04:48 Abs. Eo 0.0 k/mm3 ()?? 03/30/2022 04:48 Abs. Baso 0.0 k/mm3 ()?? 03/30/2022 04:48 Neut % 94.8 % (High)?? 03/30/2022 04:48 Lymph % 1.4 % (Low)?? 03/30/2022 04:48 [place] % 3.3 % (Low)?? 03/30/2022 04:48 Eos % 0.0 % ()?? 03/30/2022 04:48 Baso % 0.0 % ()?? 03/30/2022 04:48 Imm Gran 0.5 % ()?? 03/30/2022 04:48 Abs. Imm Gran 0.0 k/mm3 ()?? 03/30/2022 04:48 ?? CARDIAC CK, Total 235 units/L ()?? 03/28/2022 02:29 CK MB Confirmation - Quant 3.2 ng/mL ()?? 03/28/2022 02:29 ?? CHEM GENERAL Sodium 138 mmol/L ()?? 03/30/2022 04:48 Potassium 4.3 mmol/L ()?? 03/30/2022 04:48 Potassium Plasma 4.5 mmol/L ()?? 03/28/2022 11:15 Chloride 96 mmol/L (Low)?? 03/30/2022 04:48 Bicarbonate Level 24 mmol/L ()?? 03/30/2022 04:48 Anion Gap 18 (High)?? 03/30/2022 04:48 Glucose Level 154 mg/dL (High)?? 03/30/2022 04:48 Glucose, POC 128 mg/dL (High)?? 03/28/2022 16:44 BUN 53 mg/dL (High)?? 03/30/2022 04:48 Creatinine-Blood 5.2 mg/dL (High)?? 03/30/2022 04:48 Estimated GFR Creatinine 13 ML/MIN/1.73 M2 ()?? 03/30/2022 04:48 Calcium 6.7 mg/dL (Low)?? 03/30/2022 04:48 Phosphorus 4.0 mg/dL ()?? 03/30/2022 04:48 Magnesium 1.9 mg/dL ()?? 03/30/2022 04:48 Protein, Total 5.6 Gm/dL (Low)?? 03/30/2022 04:48 Albumin 4.0 Gm/dL ()?? 03/30/2022 04:48 AG Ratio 2.5 ()?? 03/30/2022 04:48 LDH 362 units/L (High)?? 03/30/2022 04:48 Alkaline Phosphatase 114 units/L ()?? 03/30/2022 04:48 AST (SGOT) 15 units/L ()?? 03/30/2022 04:48 ALT (SGPT) 12 units/L ()?? 03/30/2022 04:48 Bilirubin, Total 0.3 mg/dL ()?? 03/30/2022 04:48 Uric Acid 5.0 mg/dL ()?? 03/30/2022 04:48 ? SEROLOGY INF DISEASE Hepatitis B Surface Antigen NEGATIVE (N)?? 03/27/2022 12:06 Hepatitis C Ab NEGATIVE (N)?? 03/27/2022 12:06 Anti-HBS Quant 1.54 mIU/mL ()?? 03/27/2022 12:06 ? VIROLOGY COVID-19 PCR Specimen Source NASAL ()?? 03/27/2022 08:59 COVID-19 PCR Result NEGATIVE ()?? 03/27/2022 08:59 ? I spent a total of??36 minutes today reviewing the chart/medical records, speaking with the patient, formulating and discussing the treatment plan and documenting the findings and encounter. Discussed plan with patient, nursing. ?? Goyo Loaiza II PA-C Hospitalist Medicine PA Pager #[phone] or Cortext ?? [Dragon dictation was??used to transcribe portions of this note and may result in unintentional errors. Please feel free to contact??me with clarification questions.] * Keerthi Whitehead RN: PERFORM Event Display: Patient Education/Instruction Authored Date: [id number] Inpatient Adult Discharge Instructions [address] [address] Name: RITESH GARCIA : 1980 Visit: 03/25/2022 11:41:00 Current Date: 03/30/2022 18:28 Account: [id number] Inpatient Adult Discharge Instructions We would like [...] and their families. Surveys are administered by [employer]. ?? If further treatment with your primary care physician or another doctor is recommended, it is important for you to keep the appointment. Call your primary care physician or return to the Emergency Department immediately if your condition worsens, fails to improve, or new symptoms develop. If you need to find a doctor, you can call [facility] [employer] for a referral at [phone] or toll free at [phone]) or log in to [email or web address] ?? You can view and manage your care through the patient portal or by using a health care anabel of your choosing. [email or web address] is a website that allows you to securely view your medical information including your hospital discharge summary, office visit summaries, medications and follow-up visits. You can also request appointments, renew medications, and request access to your medical information using a health care anabel of your choosing, or just ask a question. You can enroll at [email or web address] or register during your next office visit. You have been discharged from [facility], Patient Care Unit: [id number]. If you have any questions regarding these instructions after you leave, please call us and we will be happy to assist you. [facility] Your Care Team Attending Physician Dakota BOND, Robi Consulting Providers Nicole BOND, Conor; Fausto BOND, Iglesia Ko; Pushpa Cummings MD, Cedrick Olivares; Robi Duncan MD; Angel BOND, Phil Discharging Providers Josse ROMAN, Goyo Cardoso Reason for Admission Direct admit for chemotherapy Your Diagnosis Multiple myeloma in relapse End stage renal disease on dialysis Chronic anemia Anxiety Opiate dependence Hyperkalemia Hyperkalemia Tests Performed Below is a partial list of the tests performed during your hospitalization. You may have had other tests and procedures not included in this list. Please discuss all test results with your provider. ALT AST Bilirubin Total BUN CALCIUM CBC w/ Differential CK (CREATINE KINASE) CKMB CONFIRMATION/QUANT Comprehensive Metabolic Panel COVID-19 (2019 Novel Coronavirus) PCR Creatinine GLUCOSE POC Hepatitis Panel Dial LDH Lytes Magnesium Level Phosphorus Level Potassium Level Potassium Plasma Type and Screen Uric Acid Primary Care Provider Nabil Prado MD Advance Directive Health Care Proxy on File Yes - Health Care Proxy No qualifying data available. Discharge Vitals Temperature: 98 DegF Height: 172 cm Pulse Rate: 66 bpm Weight: 70.8 kg Respiratory Rate: 18 br/min Body Mass Index: 23.93 kg/m2 Systolic Blood Pressure: 115 mm Hg Body surface area: 1.84 Diastolic Blood Pressure: 70 mm Hg ?? Oxygen Saturation: 98 % ?? Studies Pending All tests and labs ordered during this hospital stay have been completed unless listed below. Please discuss all pending results with your provider listed above in these instructions. ?? ALT AST Add On Lab Order BUN Bilirubin Total CBC w/ Differential Comprehensive Metabolic Panel Creatinine Electrolytes (Lytes) LDH Magnesium Level Phosphorus Level Uric Acid What to do next Instructions From Your Doctor Discharge Orders Activity:??as tolerated Wound Care:??F/U with derm, wound care supplies given to patient Code Status:??Full Condition:??Good Prognosis:??Good You Need to Schedule the Following Appointments Follow Up with??Nabil Prado MD When?? Where: [address] [place] [id number]- Discharge Medications RITESH GARCIA :1980 Visit Date:03/25/2022 Medications: Please continue your medications until treatment is completed or stopped by your provider. Medications not listed below should be discontinued. Discuss any questions related to medications with your provider. What How Much When Instructions Next Dose New Acyclovir (acyclovir 400 mg oral tablet) 1 tab(s) Oral Twice a day Duration: 7 Days Pickup at [place] [address] 03/30/22 9pm New Ondansetron (ondansetron 4 mg oral tablet) 1 tab(s) Oral Every 8 hours Pickup at [facility] 3 every 8 hours Unchanged Amlodipine (amLODIPine 10 mg oral tablet) 1 tab(s) Oral Daily Duration: 30 Days 03/31/22 9am Unchanged Clonazepam (KlonoPIN 1 mg oral tablet) 1 tab(s) Oral Twice a day this is an increase ?? 1. 9pm Unchanged Famotidine (Pepcid 20 mg oral tablet) 1 tab(s) Oral Daily 03/31/22 9am Unchanged Methadone 140 Milligram Oral Daily 03/31/22 9am Unchanged Oxycodone (oxyCODONE 5 mg oral capsule) 1 capsule Oral Every 6 hours every 6 hours Unchanged PROCHLORperazine (prochlorperazine 5 mg oral tablet) 1-2 tablet Oral Every 6 hours as needed for Nausea every 6 hours Pharmacy Information [facility] 3: [address] [place], [place] [id number] [phone] ?? What How Much When Comments Stop Taking Lorazepam (LORazepam 0.5 mg oral tablet) 1 tab(s) Oral Daily at Bedtime as needed for Insomnia Stop Taking Melatonin (Melatonin 1 mg oral tablet) See instructions 1 tablet By Mouth Daily at bedtime ?? Test Results Below is a partial list of the most recent Laboratory test results done prior to this discharge. You may have had other tests and procedures not included in this list. Please discuss all test resultswith your provider. Antibody Screen - Positive (03/30/2022) RBC Available - PT (03/27/2022) RBC Unit ID - [id number] (03/27/2022) ALT (03/29/2022) ???ALT (SGPT) - 9 units/L AST (03/29/2022) ???AST (SGOT) - 12 units/L Bilirubin Total (03/29/2022) ???Bilirubin, Total - 0.2 mg/dL BUN (03/29/2022) ???BUN - 67 mg/dL CALCIUM (03/27/2022) ???Calcium - 8.3 mg/dL CBC w/ Differential (03/30/2022) ???WBC - 5.7 k/mm3???RBC - 2.42 m/mm3???Hgb - 7.5 Gm/dL???Hct - 22.5 %???MCV - 93.0 femtoliters???MCH - 31.0 pg???MCHC - 33.3 g/dL???Platelet Count - 169 k/mm3???RDW-SD - 48.5 femtoliters???MPV - 9.6femtoliters???Nucleated RBC (Automated) - 0.0 #/100 WBC'S???Abs. NRBC - 0.0 k/mm3???Abs. Neut - 5.4 k/mm3???Abs. Lymph - 0.1 k/mm3???Abs. Yoakum - 0.2 k/mm3???Abs. Eo - 0.0 k/mm3???Abs. Baso - 0.0 k/mm3???Neut % - 94.8 %???Lymph % - 1.4 %???[place] % - 3.3 %???Eos % - 0.0 %???Baso % - 0.0 %???Imm Gran -0.5 %???Abs. Imm Gran - 0.0 k/mm3 CK (CREATINE KINASE) (03/28/2022) ???CK, Total - 235 units/L CKMB CONFIRMATION/QUANT (03/28/2022) ???CK MB Confirmation - Quant - 3.2 ng/mL Comprehensive Metabolic Panel (03/30/2022) ???Sodium - 138 mmol/L???Potassium - 4.3 mmol/L???Chloride - 96 mmol/L???Bicarbonate Level - 24 mmol/L???Anion Gap - 18???Glucose Level - 154 mg/dL???BUN - 53 mg/dL???Creatinine-Blood - 5.2 mg/dL???Estimated GFR Creatinine - 13 ML/MIN/1.73 M2???Calcium - 6.7 mg/dL???Protein, Total - 5.6 Gm/dL???Albumin - 4.0 Gm/dL???AG Ratio - 2.5???Alkaline Phosphatase - 114 units/L???AST (SGOT) - 15 units/L???ALT (SGPT) - 12 units/L???Bilirubin, Total - 0.3 mg/dL COVID-19 (2019 Novel Coronavirus) PCR (03/27/2022) ???COVID-19 PCR Specimen Source - NASAL???COVID-19 PCR Result - NEGATIVE Creatinine (03/29/2022) ???Creatinine-Blood - 6.9 mg/dL???Estimated GFR Creatinine - 10 ML/MIN/1.73 M2 GLUCOSE POC (03/28/2022) ???Glucose, POC - 128 mg/dL Hepatitis Panel Dial (03/27/2022) ???Hepatitis B Surface Antigen - NEGATIVE???Hepatitis C Ab - NEGATIVE???Anti-HBS Quant - 1.54 mIU/mL LDH (03/30/2022) ???LDH - 362 units/L Lytes (03/29/2022) ???Sodium - 138 mmol/L???Potassium - 5.1 mmol/L???Chloride - 101 mmol/L???Bicarbonate Level - 22 mmol/L???Anion Gap - 15 Magnesium Level (03/30/2022) ???Magnesium - 1.9 mg/dL Phosphorus Level (03/30/2022) ???Phosphorus - 4.0 mg/dL Potassium Level (03/28/2022) ???Potassium - 4.5 mmol/L Potassium Plasma (03/28/2022) ???Potassium Plasma - 4.5 mmol/L Type and Screen (03/30/2022) ???Blood Type - B Positive Uric Acid (03/30/2022) ???Uric Acid - 5.0 mg/dL Allergies (NKA means No Known Allergies) NKA Problems Active Problems??(11) Abscess of chest wall?? Anxiety?? Bacteremia due to Enterococcus?? Chronic anemia?? COVID-19?? End stage renal disease on dialysis?? History of tobacco use?? Multiple myeloma in relapse?? Opiate dependence?? Opioid use disorder?? Plasmacytoma?? Education Materials Below is the list of Educational Leaflet Providered with your Discharge Instructions. Valuables and Belongings I fully understand and agree that [facility] accepts no responsibility for all my personal [...] to send valuables and belongings home. ?? Review of Valuable and Belonging List: With patient, With family Date for Pt to Sign Valuables/Belongings: 03/25/22 12:04:00 ?? Common Emergency Awareness Tips IS IT A [...] are strongly encouraged to quit. Please call [facility] [employer] [facility] at [phone] or [phone]) or log in to [email or web address] for referrals to smoking cessation programs. ?? The National Suicide Prevention Hotline is available 29/09 if you or someone you know needs to find a reason to keep living. By calling 7-503-350-talk (0910) you'll be connected to a skilled, trained counselor at a crisis center in your area. INPATIENT DISCHARGE INSTRUCTIONS SIGNATURE PAGE RITESH GARCIA Location:[facility] Registration Date and Time:03/25/2022 11:41 EST Primary Care Physician: Nabil Prado MD, I RITESH GARCIA, have received the above patient education materials/instructions and have verbalized understanding. If ambulance or transport services are being used I further acknowledge being given a choice of service. ?? If you need to contact me, please call me at this number: . Patient/Title I Assistant Name: Patient/Title I Assistant Signature: Relationship to Patient: Witness Name/Signature: Date: Patient Care team information Care Team Personnel Name: Suzette Jama Position: S Onco RN Member Role: Primary Care Nurse Name: Aracely Rae RN Position: S RN Member Role: Primary Care Nurse Name: Moon Cummings RN Position: S RN Member Role: Primary Care Nurse Name: Errol Hdez RN Position: S RN Member Role: Primary Care Nurse Name: Gladis Viera RN Position: S RN Member Role: Primary Care Nurse Name: Hanh Bruner RN Position: [facility] Onco RN Member Role: Primary Care Nurse Name: Geneva Ayala NP Position: [facility] Associate Professional Member Role: Lifetime Consulting Provider Address: Address: [address] [place] [address] [address] [facility] [place] [address]- Name: Eliseo Ramirez DO Position: [facility] Renal MD Member Role: Lifetime Consulting Physician Address: Address: [address] [place] [address] [address] [facility] [place] [address]- Name: Julieta Richmond RN Position: [facility] Onco RN Member Role: Primary Care Nurse Name: Goyo Moncada III, RN Position: [facility] RN Member Role: Primary Care Nurse Name: Nereyda Nguyễn RN Position: [facility] Onco RN Member Role: Primary Care Nurse Name: Nabil Prado MD Position: Reference Physician Member Role: PCP Address: Address: [address] [place] [address]- Name: Eric Castano RN Position: [facility] RN Member Role: Primary Care Nurse Name: Dinah Kaur RN Position: [facility] RN Member Role: Primary Care Nurse Name: Johnny Romano RN Position: [facility] RN Member Role: Primary Care Nurse Name: Johnson Munoz RN Position: [facility] RN Member Role: Primary Care Nurse Name: Radha Miguel RN Position: [facility] RN Member Role: Primary Care Nurse Name: Shantanu Allan RN Position: [facility] RN Member Role: Primary Care Nurse Name: Laura Narayanan Position: [facility] Onco RN Member Role: Primary Care Nurse Name: Jemma Matos RN Position: [facility] RN Member Role: Primary Care Nurse Name: Dash Olson RN Position: [facility] Onco RN Member Role: Primary Care Nurse Name: Sahara Patel RN Position: [facility] RN Member Role: Primary Care Nurse Name: Dorinda Berry RN Position: [facility] Onco RN Member Role: Primary Care Nurse Name: Lotus Gutierrez RN, I Position: [facility] RN Member Role: Primary Care Nurse Name: Lacey Rodriguez Position: [facility] RN Member Role: Primary Care Nurse Name: Kirsty Avila RN Position: [facility] SN RN Member Role: Primary Care Nurse Care Team Related Persons Name: SUZANNE WALLIS Address: home [address] [place] [address] Name: DASH MATTHEW Address: [place] [address] [place] [address]
--- OUTSIDE RECORDS SUMMARY | 2023-12-23 12:00 | XMS_ITS | Continuity of Care Document ---
Author Organization [facility] Address [address] [place] [address]- Care Team Providers Care Notary Public Name Role Phone Johan BOND, Nabil Coleman Primary Care Physician Encounter [facility] Date(s): 09/29/19 - 10/29/19 [facility] [address] [place] [phone]- [facility] Allergies, Adverse Reactions, Alerts Substance Reaction Severity [...] 3 Refills, Maintenance, 10/24/19 12:35:00 EDT, Tablet, [facility], 173, cm, 10/24/19 10:34:00 EDT, Height, 75, kg, 10/24/19 10:34:00 EDT, Dry Weight Start Date: 10/24/19 Stop Date: 02/21/20 Status: Ordered aspirin 325 mg oral tablet 325 mg, 1, tablet, By Mouth, Daily, # 30 tablet, Refills 3, Tot. Refills 3, Maintenance, 10/24/19 12:35:00 EDT, Route to Pharmacy Electronically, [facility] # [facility], 173, cm, 10/24/19 10:34:00 EDT, Height, 75, kg, 10/24/19 10:34:00 EDT, Dry Weight Start Date: 10/24/19 Status: Ordered Bactrim DS 800 mg-160 mg oral tablet 1 tablet, By Mouth, Every Thursday, Thursday and Thursday, # 15 tablet, 0 Refills, Acute 11/24/19 8:00:00 EDT, 10/24/19 12:36:00 EDT, Tablet, [facility] # [facility], 1 tablet By Mouth Every Thursday, Thursday and Thursday, 173, cm, 10/24/19 10:34:00 EDT, Tato... Start Date: 10/24/19 Stop Date: 11/24/19 Status: Ordered Calcium 600+D oral tablet 1 [...] # 21 capsule, 0 Refills, Hard Stop 11/14/19 12:33:00 EDT, 10/24/19 12:33:00 EDT Start Date: 10/24/19 Stop Date: 11/14/19 Status: Ordered lenalidomide 25 mg oral capsule 1 capsule = 25 mg, By Mouth, Daily, do not break, chew, or open capsules, take 3 weeks ON and 1 week OFF, # 21 capsule, 0 Refills, Maintenance, 11/14/19 12:33:00 EDT Start Date: 11/14/19 Stop Date: 12/05/19 Status: Ordered Methadone By Mouth, 0 Refills, Maintenance, 05/10/18 11:13:13 EST Start Date: 05/10/18 Status: Ordered Problem List Condition Effective Dates Status Health Status Inform ant H/O: substance abuse(Confirmed) 1 Active 1on Methadone maintenance 2005 Social History Social History Type Response Smoking Status 10 or more cigarette s (1/2 pack or more)/day in last 30 days entered on: 06/03/18 Sex
--- OUTSIDE RECORDS SUMMARY | 2023-12-23 12:00 | XMS_ITS | Continuity of Care Document ---
Author Organization [facility] C ancer Care Address [address] [place] [address]- Care Team Providers Care Entry Level Sales Representative Name Role Phone Johan BOND, Nabil Coleman Primary Care Physician Encounter [facility] [place] Date(s): 11/14/21 - 06/10/22 [facility] Care [address] [place] [id number] Discharge Disposition: A-D/C Home Attending Physician: Danny Zurita MD Admitting Physician: Yosvany Sorenson MD Referring Physician: Nabil Prado MD Allergies, Adverse Reactions, Alerts No Known Allergies Immunizations Given and Recorded Vaccine Date Status Refusal Reason pneumococcal 23-valent vaccine 08/17/18 Given pneumococcal 13-valent vaccine 1 06/15/18 Given Not Given Vaccine Date Status Refusal Reason influenza virus vaccine, inactivated 03/28/22 Not Given Patient Refuses 1Early/Late Reason: Wan to Standard Admin Times Medications Acetaminophen Tablet 650 mg, Tablet, By Mouth, Chemo To Be Scheduled, Day 15, Routine, 01/03/22 13:00:00 EDT Start Date: 01/03/22 Stop Date: 01/14/22 Status: Completed Acetaminophen Tablet 650 mg, Tablet, By Mouth, Chemo To Be Scheduled, Day 1, Routine, 01/27/22 12:00:00 EST Start Date: 01/27/22 Stop Date: 02/04/22 Status: Completed Acetaminophen Tablet 650 mg, Tablet, By Mouth, Chemo To Be Scheduled, Day 8, Routine, 02/03/22 12:00:00 EST Start Date: 02/03/22 Stop Date: 02/11/22 Status: Completed acyclovir 400 mg oral tablet 1 tablet [...] # 60 tablet, 0 Refills, Hard Stop :09:00 EDT, 05/13/22 8:09:00 EST, Tablet, [facility], Partial fill upon patient request if the prescription is for a schedule II opioid drug.... Start Date: 05/13/22 Stop Date: 06/12/22 Status: Ordered amLODIPine 10 mg oral tablet 10 mg, 1, tablet, By Mouth, Daily, # 30 tablet, Refills 0, Tot. Refills 0, Maintenance, 03/07/22 14:44:00 EST, Route to Pharmacy Electronically, [facility], Partial fill upon patient request if the prescription is for a schedule II opioi... Start Date: 03/07/22 Stop Date: 04/06/22 Status: Ordered KlonoPIN 1 mg oral tablet 1 tablet = 1 mg, By Mouth, 2 times a day, this is an increase, # 60 tablet, 1 Refills, Maintenance,06/09/22 10:05:00 EDT, [facility], Partial fill upon [...] List Condition Confirmation Course Effective Dates Status [facility] at Informant Abscess of chest wall Confirmed Active [...] Range]: 1 2 3 Height 175 cm (06/09/22 1:49 PM) 175 cm (06/09/22 1:22 PM) 175 cm (06/02/22 1:28 PM) Weight 70.3 kg (06/02/22 1:22 PM) 70.6 kg (05/26/22:24 PM) 73 kg (03/18/22 11:55 AM) Oxygen Saturation [94-100 %] 98 % (06/09/22: PM) 99 % (06/02/22:22 PM) 100 % (05/26/22 1:03 PM) Pulse Rate [55-90 bpm] 81 bpm (06/09/22:22 PM) 102 bpm *H* (06/02/22:22 PM) 82 bpm (05/26/22 1:03 PM) Body Mass Index [18.5-24.99 kg/m2] 22.96 kg/m2 (06/02/22: PM) 23.05 kg/m2 (05/26/22: PM) 23.84 kg/m2 (03/18/22 11:55 AM) Blood Pressure [90-138/55-84 mm Hg] 103/56mm Hg (06/09/22: PM) 110/68mm Hg (06/02/22: PM) 146/86mm Hg *H* (05/26/22 1:03 PM) Respiratory Rate [16-30 br/min] 18 br/min (02/11/22 10:58 AM) 18 br/min (02/04/22 10:53 AM) 18 br/min (01/14/22 11:33 AM) Temperature [96.8-100.4 DegF] 97.8 DegF (06/09/22:22 PM) 97.0 DegF (06/02/22: PM) 98.0 DegF (05/26/22 1:03 PM) Mode of Delivery (Oxygen) Room air (06/09/22 1:22 PM) Room air (06/02/22 1:22 PM) Room air (05/26/22 1:03 PM) Blood pressure sites Arm, left (06/09/22 1:22 PM) Arm, right (06/02/22 1:22 PM) Arm, right (05/26/22 1:03 PM) Temperature Route Temporal (06/09/22 1:49 PM) Temporal (06/09/22 1:22 PM) Temporal (06/02/22 1:28 PM) Dry Weight 70.3 kg (06/02/22 1:22 PM) 70.6 kg (05/26/22 1:24 PM) 73 kg (03/18/22 11:55 AM) Weight Obtained Via Standing scale (06/02/22 1:22 PM) Standing scale (05/26/22 1:24 PM) Standing scale (03/18/22 11:55 AM) Dry Weight Obtained Via Standing scale (06/02/22 1:22 PM) Standing scale (05/26/22 1:24 PM) Standing scale (03/18/22 11:55 AM) Social History Social History Type Response Smoking Status 10 or more cigarette s (1/2 pack or more)/day in last 30 days entered on: 06/03/18 Sex Note * Mau BOND(Hem/Onc), Yves Medley: ENDORSE Event Display: Serological Investigation Report Authored Date: [id number] Patient Name: RITESH GUTIÉRREZ Lab Patient : 1980 (Age: 41) Collection Date: 01/29/2022 Accession Date: 01/29/2022 Sign Out Date: 02/12/2022 Tissue Source: 1:TMS Positive Antibody Screen Final Diagnosis: SEROLOGICAL INVESTIGATION/CONSULTATION REPORT Reason for Report: Antibody Screen and/or Direct Antiglobulin Test Results Clinical Data: Diagnosis: Myeloma Previous History: Serological Testing Problems: No known serological testing problems. Transfusion History: No known transfusion history at [facility] LABORATORY INVESTIGATION Red Cell Studies: ABO and Rh Type: B Positive Direct Antiglobulin Test: Negative Polyspecific: NT ANTI-Ig [id number]: NT Plasma/Serum Studies: Antibody Screen: Positive Antibody Panels(s): Inconclusive Other Laboratory Studies (or Additional Information: Patient is on Darzalex Assessment: Serological investigations revealed the presence of antibodies of undetermined specificity. Weak orvariable reactivity in no particular antibody pattern was observed. The clinical significance of this reactivity cannot be determined at this time. Antibodies to major blood group antigens were excluded. Recommendations: Transfuse as clinically indicated with crossmatch-compatible Red Blood Cells Leukocytes Reduced. Primary Pathologist:Anish Dobson, Ph.D, M.D. electronically signed out by: Anish Dobson, Ph.D, M.Julisa / NICOLE Phone #: [phone], On-Call Pathologist: [id number] * Event Display: Serological Investigation Report Authored Date: Patient Name: RITESH GUTIÉRREZ Lab Patient : 1980 (Age: 41) Collection Date: 01/14/2022 Accession Date: 01/14/2022 Sign Out Date: 02/12/2022 Tissue Source: 1:TMS Positive Antibody Screen Final Diagnosis: SEROLOGICAL INVESTIGATION/CONSULTATION REPORT Reason for Report: Antibody Screen and/or Direct Antiglobulin Test Results Clinical Data: Diagnosis: Myeloma Previous History: Serological Testing Problems: No known serological testing problems. Transfusion History: No known transfusion history at [facility]. LABORATORY INVESTIGATION Red Cell Studies: ABO and Rh Type: B Positive Direct Antiglobulin Test: Negative Polyspecific: NT ANTI-Ig [id number]: NT Plasma/Serum Studies: Antibody Screen: Positive Antibody Panels(s): Inconclusive Other Laboratory Studies (or Additional Information: Patient on Darzalex Assessment: Serological investigations revealed the presence of antibodies of undetermined specificity. Weak orvariable reactivity in no particular antibody pattern was observed. The clinical significance of this reactivity cannot be determined at this time. Antibodies to major blood group antigens were excluded. Recommendations: Transfuse as clinically indicated with crossmatch-compatible Red Blood Cells Leukocytes Reduced. Primary Pathologist:Anish Dobson, Ph.D, M.D. electronically signed out by: Anish Dobson PhJamesD, Terry / NICOLE Phone #: [phone], On-Call Pathologist: [id number] * Event Display: X-Ray Miscellaneous, Non- BH Authored Date: Cytogenetics study * Event Display: Cytogenetics Report Authored Date: Patient Name: RITESH GUTIÉRREZ Lab Accesssion #: [id number] Patient : 1980 (Age: 42) Collection Date: 04/25/2022 Accession Date: 04/25/2022 Sign Out Date: 05/02/2022 Tissue Source: 1: P53 MUTATION ANALYSIS @ [facility] Final Diagnosis: The p53 order placed on this patient has been canceled because acceptable indications for testing established by [facility] are limited to CLL and other mature B-cell neoplasms (not including myeloma). Primary Pathologist: Matty Fabian M.D. Phone #: [phone], On-Call Pathologist: [id number] * Event Display: Cytogenetics Report Authored Date: Patient Name: RITESH GUTIÉRREZ Accesssion #: [id number] Patient : 1980 (Age: 42) Collection Date: 04/25/2022 Accession Date: 04/25/2022 Sign Out Date: 05/13/2022 Tissue Source: 1: CHROMOSOME ANALYSIS BONE MARROW 2: PLASMA CELL FISH Final Diagnosis: TEST: Chromosome analysis (karyotype, GTW banding), Hematologic, BM ([id number]) performed at [facility] Result: NORMAL Nomenclature: 46,XY[20] Interpretation: Normal male chromosome complement observed in all cells examined. There was no evidence of a chromosome abnormality within the limits of the technology utilized. Method: Culture without mitogens. Cells Analyzed: 20 Cells Counted: 20 Cells Karyotyped: 2 Band Level: 450 Note: If a copy of the [facility] report is needed, contact [facility] at . Testing performed at [facility], [address] [place] [address] Report Date: 05/05/2022 TEST: Plasma Cell/Myeloma/MGUS FISH, Hematologic, BM ([id number]) performed at [facility]. Panel includes testing for the following abnormalities using the probes listed: 13q14(DLEU1,DLEU2)/13q34(TFDP1) 17p13(TP53) 1q21(CKS1B)/1p36(SRD) CCND1/IGH t(11;14) FGFR3/IGH t(4;14) IGH/MAF t(14;16) SE15(D15Z4) SE7(D7Z1) SE9(D9Z4) Interpretation: Negative for a t(4;14)/FGFR3-IGH rearrangement. Please note: FISH testing for CCND1/IGH, IGH/MAF, DLEU1/DLEU2/TFDP1, SE7, SE9, SE15, CKS1B, and TP53 was not performed due to insufficient plasma cells recovered after enrichment process. COMMENTS: A procedure using magnetic CD138 cell sorting has been used on this sample to enrich plasma cells based on CD138 expression. Plasma cell enrichment is designed to increase sensitivity of the FISH assay to detect genetic abnormalities in plasma cell neoplasia especially in cases with low percentage of neoplastic plasma cells. Nomenclature: nuc allyson(FGFR3,IGH)x2[100] Note: If a copy of the [facility] report is needed, contact [facility] at . Testing performed at [facility], [address] [place] [address]. Report Date: 04/30/2022 Primary Pathologist: Joao Jones M.D. Phone #: [phone], On-Call Pathologist: [id number] Patient Care team information Care Team Personnel Name: Suzette Jama Position: [facility] Onco RN Member Role: Primary Care Nurse Name: Aracely Rae RN Position: [facility] RN Member Role: Primary Care Nurse Name: Moon Cummings RN Position: S RN Member Role: Primary Care Nurse Name: Errol Hdez RN Position: S RN Member Role: Primary Care Nurse Name: Gladis Viera RN Position: S RN Member Role: Primary Care Nurse Name: Hanh Bruner RN Position: [facility] Onco RN Member Role: Primary Care Nurse Name: Geneva Ayala NP Position: [facility] Associate Professional Member Role: Lifetime Consulting Provider Address: Address: [address] [place] [address] [facility] [place], [place] [address] Name: Phil Ortiz MD Position: [facility] Renal MD Member Role: Lifetime Consulting Physician Address: Address: [address] [facility] [address] [facility] [place], [place] - Name: Eliseo Ramirez DO Position: [facility] Renal MD Member Role: Lifetime Consulting Physician Address: Address: [address] [place] [address] [address] [facility] [place] [place] - Name: Julieta Richmond RN Position: S Onco RN Member Role: Primary Care Nurse Name: Goyo Moncada III, RN Position: [facility] RN Member Role: Primary Care Nurse Name: Nereyda Nguyễn RN Position: [facility] Onco RN Member Role: Primary Care Nurse Name: Nabil Prado MD Position: Reference Physician Member Role: PCP Address: Address: [address] [place] [address]- Name: Eric Castano RN Position: [facility] RN Member Role: Primary Care Nurse Name: Dinah Kaur RN Position: S RN Member Role: Primary Care Nurse Name: Johnny Romano RN Position: [facility] RN Member Role: Primary Care Nurse Name: Johnson Munoz RN Position: [facility] Onco RN Member Role: Primary Care Nurse Name: Suzanne Weber RN Position: [facility] RN Member Role: Primary Care Nurse Name: Radha Miguel RN Position: [facility] RN Member Role: Primary Care Nurse Name: Shantanu Allan RN Position: S RN Member Role: Primary Care Nurse Name: Laura Narayanan Position: [facility] Onco RN Member Role: Primary Care Nurse Name: Jemma Matos RN Position: [facility] RN Member Role: Primary Care Nurse Name: Dash Olson RN Position: [facility] Onco RN Member Role: Primary Care Nurse Name: Sahara Patel RN Position: [facility] RN Member Role: Primary Care Nurse Name: Dorinda Berry RN Position: [facility] Onco RN Member Role: Primary Care Nurse Name: Lotus Gutierrez RN, I Position: [facility] RN Member Role: Primary Care Nurse Name: Lacey Rodriguez RN Position: [facility] RN Member Role: Primary Care Nurse Name: Kirsty Avila RN Position: [facility] SN RN Member Role: Primary Care Nurse Care Team Related Persons Name: SUZANNE WALLIS Address: [address] [place] [address] Name: DASH MATTHEW Address: home [address] [place] [address]
--- OUTSIDE RECORDS SUMMARY | 2023-12-23 12:00 | XMS_ITS | Continuity of Care Document ---
Author Organization [facility] C ancer Care Address [address] [place] [address]- Care Team Providers Care Compliance Counsel Name Role Phone Nabil Prado MD Primary Care Physician [phone] [place] [facility] 06/09/22 - 02/18/23 [facility] Care [address] [place] [address]- Discharge Disposition: A-D/C Home Attending Physician: Mau BOND(Hem/Onc), Yves Medley Admitting Physician: Mau BOND(Hem/Onc), Yves Medley Referring Physician: Nabil Prado MD Allergies, Adverse [...] 03/07/22 14:44:00 EST, Route to Pharmacy Electronically, [facility], Partial fill upon patient [...] 0 Refills, Maintenance, 07/24/22 8:41:00 EDT, Tablet, [facility], Partial fill upon [...] an increase, # 60 tablet, 1 Refills, Maintenance,02/15/23 13:22:00 EST, [facility], Partial fill upon patient request if the prescription is for a schedule II opioid drug., 175, cm, 01/07/23... Start Date: 02/15/23 Stop Date: 04/16/23 Status: Ordered Methadone = 140 mg, By [...] List Condition Confirmation Course Effective Dates Status [facility] Inform[facility] Abscess of chest wall [...] Range]: 1 2 3 Height 175 cm (01/07/23 11:48 AM) 175 cm (01/05/23 11:40 AM) 175 cm (01/02/23 11:47 AM) Weight 68.3 kg (12/10/22 8:19 AM) 68.4 kg (10/16/22 2:13 PM) 71.5 kg (06/30/22 12:19 PM) Oxygen Saturation [94-100 %] 100 % (12/15/22 12:57 PM) 98 % (12/10/22 8: AM) 98 % (10/16/22 2:13 PM) Pulse Rate [55-90 bpm] 77 bpm (12/15/22 12:57 PM) 70 bpm (12/10/22 8:19 AM) 71 bpm (10/16/22 2:13 PM) Body Mass Index [18.5-24.99 kg/m2] 22.3 kg/m2 (12/10/22 8:19 AM) 22.33 kg/m2 (10/16/22 2:13 PM) Blood Pressure [90-138/55-84 mm Hg] 184/102mm Hg *H* (12/15/22 12:57 PM) 178/112mm Hg *H* (12/10/22 8:19 AM) 123/75mm Hg (10/16/22 2:13 PM) Temperature [96.8-100.4 DegF] 98.5 DegF (12/15/22 12:57 PM) 98.7 DegF (12/10/22 8: AM) 98.2 DegF (10/16/22 2:13 PM) Mode of Delivery (Oxygen) Room air (12/15/22 12:57 PM) Room air (12/10/22 8:19 AM) Room air (07/21/22 12:04 PM) Blood pressure sites Arm, right (12/15/22 12:57 PM) Arm, right (12/10/22 8:19 AM) Arm, right (07/21/22 12:04 PM) Temperature Route Oral (01/07/23 11:48 AM) Oral (01/05/23 11:40 AM) Oral (01/02/23 11:47 AM) Dry Weight 68.3 kg (12/10/22 8:19 AM) 68.4 kg (10/16/22 2:13 PM) 71.5 kg (06/30/22 12:19 PM) Weight Obtained Via Standing scale (12/10/22 8:19 AM) Standing scale (06/30/22 12:19 PM) Dry Weight Obtained Via Standing scale (12/10/22 8:19 AM) Standing scale (06/30/22 12:19 PM) Social History Social History Type Response Smoking Status 10 or more cigarette s (1/2 pack or more)/day in last 30 days entered on: 06/03/18 Sex Patient Care team information Care Team Personnel Name: Suzette Jama Position: [facility] Onco RN Member Role: Primary Care Nurse Name: Aracely Rae RN Position: [facility] RN Member Role: Primary Care Nurse Name: Moon Cummings RN Position: [facility] RN Member Role: Primary Care Nurse Name: Kath Weesk RN Position: S RN Member Role: Primary Care Nurse Name: Errol Hdez RN Position: [facility] RN Member Role: Primary Care Nurse Name: Hanh Bruner RN Position: [facility] Onco RN Member Role: Primary Care Nurse Name: Geneva Ayala NP Position: [facility] Associate Professional Member Role: Lifetime Consulting Provider Address: Address: [address] [place], [place] [address] [address] Name: Phil Ortiz MD Position: [facility] Renal MD Member Role: Lifetime Consulting Physician Address: Address: [address] [place], [place] [address] [address] Name: Eliseo Ramirez DO Position: [facility] Renal MD Member Role: Lifetime Consulting Physician Address: Address: [address] [place], [place] [address] [address] Name: Julieta Richmond RN Position: [facility] Onco RN Member Role: Primary Care Nurse Name: Goyo Moncada III, RN Position: [facility] RN Member Role: Primary Care Nurse Name: Nereyda Nguyễn RN Position: [facility] Onco RN Member Role: Primary Care Nurse Name: Nabil rPado MD Position: Reference Physician Member Role: PCP Address: Address: [address] [place] [id number]- Name: Eric Castano RN Position: [facility] RN Member Role: Primary Care Nurse Name: Dinah Kaur NP Position: [facility] PCO Associate Professional Member Role: Primary Care Nurse Name: Johnny Romano RN Position: [facility] RN Member Role: Primary Care Nurse Name: Johnson Munoz RN Position: [facility] Onco RN Member Role: Primary Care Nurse Name: Jaret Mendoza RN Position: [facility] RN Member Role: Primary Care Nurse Name: Shantanu Allan RN Position: [facility] RN Member Role: Primary Care Nurse Name: Laura Narayanan Position: [facility] Onco RN Member Role: Primary Care Nurse Name: Jemma Matos RN Position: [facility] RN Member Role: Primary Care Nurse Name: Dash Olson RN Position: [facility] Onco RN Member Role: Primary Care Nurse Name: Dorinda Berry RN Position: [facility] Onco RN Member Role: Primary Care Nurse Name: Lotus Gutierrez RN, I Position: [facility] RN Member Role: Primary Care Nurse Name: Lacey Rodriguez RN Position: [facility] RN Member Role: Primary Care Nurse Name: Kirsty Avila RN Position: [facility] SN RN Member Role: Primary Care Nurse Care Team Related Persons Name: SUZANNE WALLIS Address: [address] [place] [address] Name: DASH MATTHEW Address: [address] [place] [address]
--- OUTSIDE RECORDS SUMMARY | 2023-12-23 12:00 | XMS_ITS | Continuity of Care Document ---
Author Organization [facility] ter Address [address] [place] [address]- Care Team Providers Care Technical Producer Name Role Phone Johan BOND, Nabil Coleman Primary Care Physician Encounter [facility] [place] Date(s): 03/12/22 - 03/12/[address] [id number] Discharge Disposition: A-D/C Home Attending Physician: [...] 03/07/22 14:44:00 EST, Route to Pharmacy Electronically, [facility], Partial fill upon patient [...] cm, 03/05/22... Start Date: 03/12/22 Status: Ordered LORazepam 0.5 mg oral tablet [...] 3 Refills, Maintenance, 03/11/22 16:38:00 EST, Tablet, [facility], [...] on: 06/03/18 Sex Hospital Progress note * Angel BOND, hPil: SIGN Anegl BOND, Phil: SIGN, MODIFY Phil Ortiz MD: MODIFY, SIGN, VERIFY Event Display: Progress Note Hospital Authored Date: [id number] Patient: RITESH GARCIA Age: 42 years Sex: Male : 1980 Associated Diagnoses: None Author: Jamie CLAIMS ACCOUNT MANAGER, Geneva Pt seen and examined; events noted. Labs and meds reviewed. HD today with 1 unit PRBC. Review of Systems Review of Systems Constitutional: no complaints. Respiratory: no shortness of breath. Cardiovascular: no orthopnea. Gastrointestinal: no abdominal pain. Physical Examination Vitals Today's visit vitals : RENAL FLOWSHEET(Posting Range: 03/09/2022 0:00 EST - 03/12/2022 12:33 EST) 03/12/2022 7:30 EST Sodium 142 mmol/L Potassium 3.9 mmol/L Chloride 99 mmol/L Bicarbonate Level 26 mmol/L Anion Gap 17 Hgb 6.7 Gm/dL L Hct 21.7 % L WBC 14.2 k/mm3 H . General Appearance No apparent distress. HEENT [...] when more stable. 1. ANN MARIE - now ESRD - likely related to relapse of multiple myeloma, serum creatinine rising since the end of November, when IgA started to rise too, kidney biopsy may help rule out other causes and solidify the diagnosis - no signs of hemolysis, TTP less likely - C3, C4 normal, ANCA, anti GBM Ab negative - started HD on 02/25 via [facility] Plan - HD on M// schedule while admitted - pt now ESRD; will transition to outpatient HD - pt going to [facility] at [address] [place] [address] on a T/T/S schedule with 6:15AM arrival for 6:35AM chair time - hematology managing chemo - consider renal biopsy as outpatient Case discussed with Dr. Ortiz. Thank you for allowing us to participate in your patient's care. * Angel BOND, Phil: PERFORM Event Display: Progress Note Hospital Authored Date: RENAL ATTENDING ADDENDUM: I reviewed the patient's history, examined the patient, and confirmed theabove findings as documented by the advanced practitioner. I personally formulated the essential elements of the assessment and plan noted below. * Clara Pickering RN: PERFORM, SIGN, VERIFY Event Display: Progress Note Hospital Authored Date: Patient: RITESH GARCIA Age: 42 years Sex: Male : 1980 Associated Diagnoses: None Author: Clara Pickering RN Findings Narrative/Incidental Patient tolerated 4 hours HD treatment. Blood volume change not applicable as patient got a unit ofPRBCs. BP 106/56 at end of treatment. Pulled 1.6 kg. Right chest permacatheter patent. No s/s infection. Patient got one nit of PRBCs during treatment, tolerated well. had an episode of mild nausea r/t fluid pull, resolved with lowered UFR. CLAIMS ACCOUNT MANAGER Ferozkelpeterson at bedside, plan for patient to continue dialysis outpatient in [place]. Patient stable at end of treatment. . Patient Care team information Care Team Personnel Name: Suzette Jama Position: [facility] RN Member Role: Primary Care Nurse Name: Moon Cummings RN Position: [facility] RN Member Role: Primary Care Nurse Name: Errol Hdez RN Position: S RN Member Role: Primary Care Nurse Name: Hanh Bruner RN Position: [facility] Onco RN Member Role: Primary Care Nurse Name: Geneva Ayala NP Position: [facility] Associate Professional Member Role: Lifetime Consulting Provider Address: Address: [address] [place] [address] [address] [facility] [place] [address]- Name: Eliseo Ramirez DO Position: [facility] Renal MD Member Role: Lifetime Consulting Physician Address: Address: [address] [place] [address] [address] [facility] [place] [address]- Name: Julieta Richmond RN Position: [facility] Onco RN Member Role: Primary Care Nurse Name: Goyo Moncada III, RN Position: [facility] RN Member Role: Primary Care Nurse Name: Nereyda Nguyễn RN Position: [facility] Onco RN Member Role: Primary Care Nurse Name: Nabil Prado MD Position: Reference Physician Member Role: PCP Address: Address: [address] [place] [address]- Name: Eric Castano RN Position: [facility] RN Member Role: Primary Care Nurse Name: Dinah Kaur RN Position: [facility] RN Member Role: Primary Care Nurse Name: Johnny Romano RN Position: [facility] RN Member Role: Primary Care Nurse Name: Suzanne Weber RN Position: [facility] RN Member Role: Primary Care Nurse Name: Radha Miguel RN Position: [facility] RN Member Role: Primary Care Nurse Name: Shantanu Allan RN Position: [facility] RN Member Role: Primary Care Nurse Name: Laura Narayanan Position: [facility] Onco RN Member Role: Primary Care Nurse Name: Mariama Olson RN Position: [facility] Onco RN Member Role: Primary Care Nurse Name: Dorinda Berry RN Position: [facility] Onco RN Member Role: Primary Care Nurse Name: Lotus Gutierrez RN, I Position: [facility] RN Member Role: Primary Care Nurse Name: Lacey Rodriguez Position: [facility] RN Member Role: Primary Care Nurse Name: Kirsty Avila Position: S RN Member Role: Primary Care Nurse Care Team Related Persons Name: SUZANNE WALLIS Address: home [address] [place] [address]
--- OUTSIDE RECORDS SUMMARY | 2023-12-23 12:00 | XMS_ITS | Continuity of Care Document ---
Author Organization [facility] Address [address] [place] [address]- Care Team Providers Care Medical Coding Technician Name Role Phone Johan BOND, Nabil Coleman Primary Care Physician [place] [facility] [place] - 09/07/20 [facility] [address] [place] [id number] Allergies, Adverse Reactions, Alerts Substance Reaction Severity [...] 3 Refills, Maintenance, 10/24/19 12:35:00 EDT, Tablet, [facility], 173, cm, 10/24/19 10:34:00 EDT, Height, 75, kg, 10/24/19 10:34:00 EDT, Dry Weight Start Date: 10/24/19 Stop Date: 02/21/20 Status: Ordered aspirin 325 mg oral tablet 325 mg, 1, tablet, By Mouth, Daily, # 30 tablet, Refills 3, Tot. Refills 3, Maintenance, 10/24/19 12:35:00 EDT, Route to Pharmacy Electronically, [facility], 173, cm, 10/24/19 10:34:00 [...] tablet, 1 Refills, Maintenance, 05/16/20 14:07:00 EST, [facility], Partial fill upon patient request if theprescription is for a schedule II opioid drug., 173... Start Date: 05/16/20 Status: Ordered Zofran 8 mg oral tablet 1 tablet = 8 mg, By Mouth, Every 8 hours, PRN as needed for nausea/vomiting, # 30 tablet, 1 Refills, Maintenance, 05/16/20 14:07:00 EST, [facility] # [facility], Partial fill upon patient [...]
--- OUTSIDE RECORDS SUMMARY | 2023-12-23 12:00 | XMS_ITS | Continuity of Care Document ---
Author Organization [facility] Address [address] [place] [address]- Care Team Providers Care Plate Stacker Name Role Phone Johan BOND, Nabil Coleman Primary Care Physician [place] [facility] [place] 12/12/22 - 01/11/23 [facility] [address] [place] [id number] Allergies, Adverse Reactions, Alerts No Known Allergies Immunizations Given and Recorded Vaccine Date Status Refusal Reason pneumococcal 23-valent vaccine 08/17/18 Given pneumococcal 13-valent vaccine 1 06/15/18 Given 1Early/Late Reason: Wan to Standard Admin Times Medications acyclovir 400 mg oral tablet 1 tablet = 400 mg, By Mouth, 2 times a day, # 60 tablet, 6 Refills, Maintenance, 01/08/23 8:09:00 EDT, Tablet, [facility], Partial fill upon patient request if the prescription is for a schedule II opioid drug., 175, cm, 07/21/22 12:33:00 EDT... Start Date: 01/08/23 Stop Date: 08/06/23 Status: Ordered amLODIPine 10 mg oral tablet 10 mg, 1, tablet, By Mouth, Daily, # 30 tablet, Refills 0, Tot. Refills 0, Maintenance, 03/07/22 14:44:00 EST, Route to Pharmacy Electronically, [facility], Partial fill upon patient request [...] 60 tablet, 1 Refills, Maintenance,12/17/22 13:22:00 EDT, [facility], Partial fill upon [...] List Condition Confirmation Course Effective Dates Status [facility] atus Informant Abscess of chest wall [...] Care Team Personnel Name: Suzette Jama Position: [facility] Onco RN Member Role: Primary Care Nurse Name: Aracely Rae RN Position: [facility] RN Member Role: Primary Care Nurse Name: Moon Cummings RN Position: [facility] RN Member Role: Primary Care Nurse Name: Kath Weeks RN Position: [facility] RN Member Role: Primary Care Nurse Name: Errol Hdez RN Position: [facility] RN Member Role: Primary Care Nurse Name: Hanh Bruner RN Position: [facility] Onco RN Member Role: Primary Care Nurse Name: Geneva Ayala NP Position: [facility] Associate Professional Member Role: Lifetime Consulting Provider Address: Address: [address] [place], [place] [address] [address] Name: Phil Ortiz MD Position: [facility] Renal MD Member Role: Lifetime Consulting Physician Address: Address: [address] [place], [place] [address] [address] Name: Eliseo Ramirez DO Position: [facility] Renal MD Member Role: Lifetime Consulting Physician Address: Address: [address] [place], [place] [address]E [facility] [address] Name: Julieta Richmond RN Position: [facility] Onco RN Member Role: Primary Care Nurse Name: Goyo Moncada III, RN Position: [facility] RN Member Role: Primary Care Nurse Name: Nereyda Nguyễn RN Position: [facility] Onco RN Member Role: Primary Care Nurse Name: Nabil Prado MD Position: Reference Physician Member Role: PCP Address: Address: [address] [place] [address] Name: Eric Castano RN Position: [facility] RN Member Role: Primary Care Nurse Name: Dinah Kaur RN Position: [facility] RN Member Role: Primary Care Nurse Name: Johnny Romano RN Position: [facility] RN Member Role: Primary Care Nurse Name: Johnson Munoz RN Position: [facility] Onco RN Member Role: Primary Care Nurse Name: Jaret Mendoza RN Position: [facility] RN Member Role: Primary Care Nurse Name: Shantanu Allan RN Position: [facility] RN Member Role: Primary Care Nurse Name: Laura Narayanan Position: [facility] Onco RN Member Role: Primary Care Nurse Name: Jemma Matos RN Position: [facility] RN Member Role: Primary Care Nurse Name: Dash Olson RN Position: [facility] Onco RN Member Role: Primary Care Nurse Name: Dorinda Berry RN Position: [facility] Onco RN Member Role: Primary Care Nurse Name: Lotus Gutierrez RN, I Position: [facility] RN Member Role: Primary Care Nurse Name: Lacey Rodriguez RN Position: [facility] RN Member Role: Primary Care Nurse Name: Kirsty Avila RN Position: [facility] SN RN Member Role: Primary Care Nurse Care Team Related Persons Name: SUZANNE WALLIS Address: home [address] [place] [address] Name: DASH MATTHEW Address: [place] [address] [place] [address]
--- OUTSIDE RECORDS SUMMARY | 2023-12-23 12:00 | XMS_ITS | Continuity of Care Document ---
Author Organization [facility] ter Address [address] [place] [address]- Care Team Providers Care Marble Ceiling Installer Name Role Phone Johan BOND, Nabil Coleman Primary Care Physician [place] [facility] [place] Date(s): 12/22/22 - 12/22/[address] [address]- Discharge Disposition: A-D/C Walkout Attending Physician: Not on Staff, Attending MD Admitting Physician: Not on Staff, Admitting MD Referring Physician: Not on Staff, Referring [...] 03/07/22 14:44:00 EST, Route to Pharmacy Electronically, [facility], Partial fill upon patient [...] 60 tablet, 1 Refills, Maintenance,12/17/22 13:22:00 EDT, [facility], Partial [...] 1 Refills, Maintenance, 07/29/22 15:26:00 EDT, Tablet, [facility], Partial fill upon [...] tablet, 0 Refills, Maintenance, 12/02/22 8:58:00 EDT, [facility], Partial fill upon patient request if the prescription is for a schedule II opioid drug., 175, cm, 11/13/22 9:53:00 EDT, Height,... Start Date: 12/02/22 Status: Ordered Problem List Condition Confirmation Course Effective Dates Status [facility] atus Informant Abscess of chest wall [...] Exam Date Time Procedure Performing Provider Status 12/22/22 4:19 PM Chest 2 Views Frontal and Lat Carol Lora; Philip (Verified) Notes: (Chest 2 Views Frontal and Lat) Reason For Exam: Pleuritic Pain RESULT: Chest 2 Views Frontal and Lat PA and lateral chest dated December 22, 2022. Comparison films are from August 13, 2020. HISTORY: Shortness of breath and crackles. Patient has multiple myeloma and is on dialysis. FINDINGS: The cardiac silhouette is at the upper limits of normal for size. A double-lumen central venous line is noted on the right. Using a jugular approach, the tip of the catheter overlies the right atrium. There is blunting of the posterior and lateral costophrenic sulci consistent with small bilateral pleural effusions right greater than left. Some minimal pulmonary vascular congestion is demonstrated. Degenerative changes are noted in the spine. IMPRESSION: Mild pulmonary vascular congestion and bilateral pleural effusions. Central venous line in place. Examination [id number]. Thank you for allowing me to participate in the care of this patient. WSN: [id number] Ordering Physician: Julieta Vides Dictated By: Elpidio Lira MD Dictated Date/Time: 12/22/22 4:30 pm Reviewed By: Elpidio Lira MD Signed By: Elpidio Lira MD Signed Date/Time: 12/22/22 4:30 pm Transcribed By: AASHISH Transcribed Date/Time: 12/22/22 4:30 pm Vital Signs Most recent to oldest [Reference Range]: 1 2 3 Height 175 cm (12/22/22 2:30 PM) 175 cm (12/22/22 12:09 PM) Oxygen Saturation [94-100 %] 98 % (12/22/22 2:30 PM) 97 % (12/22/22 12:09 PM) 99 % (12/22/22 12:08 PM) Pulse Rate [55-90 bpm] 70 bpm (12/22/22 2:30 PM) 69 bpm (12/22/22 12:09 PM) 71 bpm (12/22/22 12:08 PM) Blood Pressure [90-138/55-84 mm Hg] 163/104mm Hg *H* (12/22/22 2:30 PM) 169/103mm Hg *H* (12/22/22 12:09 PM) Respiratory Rate [16-30 br/min] 18 br/min (12/22/22 2:30 PM) 18 br/min (12/22/22 12:09 PM) Temperature [96.8-100.4 DegF] 97.8 DegF (12/22/22 12:09 PM) Mode of Delivery (Oxygen) Room air (12/22/22 2:30 PM) Room air (12/22/22 12:09 PM) Room air (12/22/22 12:08 PM) Blood pressure sites Arm, left (12/22/22 2:30 PM) Arm, right (12/22/22 12:09 PM) Temperature Route Oral (12/22/22 12:09 PM) Dry Weight 68.5 kg (12/22/22 2:30 PM) 68.5 kg (12/22/22 12:09 PM) Social History Social History Type Response Smoking Status 10 or more cigarette s (1/2 pack or more)/day in last 30 days entered on: 06/03/18 Sex EKG study * Event Display: ECG 12-Lead Authored Date: Please click on pdf link to open report * Event Display: ECG 12-Lead Authored Date: Ventricular Rate: 65 BPM Atrial Rate: 65 BPM P-R Interval: 178 ms QRS Duration: 80 ms Q-T Interval: 498 ms QTC Calculation(Bazett): 517 ms P [place]: 13 degrees R [place]: 15 degrees T [place]: 48 degrees Normal sinus rhythm Prolonged QT Abnormal ECG When compared with ECG of 23-JUL-2022 13:09, QT has shortened Confirmed by VERONICA BLISS MD ([id number]) on 12/22/2022 12:52:41 PM Scipio: VERONICA BLISS MD Patient Care team information Care Team Personnel [...] Member Role: Lifetime Consulting Provider Address: Address: [address] [place] [address] [address] [facility] [place] [address]- Name: Phil Ortiz MD Position: [facility] Renal MD Member Role: Lifetime Consulting Physician Address: Address: [address] [place] [address] [address] [facility] [place] [address]- Name: Eliseo Ramirez DO Position: [facility] Renal MD Member Role: Lifetime Consulting Physician Address: Address: [address] [place] [address] [address] [facility] [place] [address]- Name: Julieta Richmond RN Position: [facility] Onco RN Member Role: Primary Care Nurse Name: Goyo Moncada III, RN Position: [facility] RN Member Role: Primary Care Nurse Name: Nereyda Nguyễn RN Position: [facility] Onco RN Member Role: Primary Care Nurse Name: Nabil Prado MD Position: Reference Physician Member Role: PCP Address: Address: [address] [place] [id number] Name: Eric Castano RN Position: [facility] RN Member Role: Primary Care Nurse Name: Dinah Kaur RN Position: [facility] [...] Care Nurse Name: Radha Miguel RN Position: [facility] [...] Nurse Name: Lotus Gutierrez RN, I Position: S RN Member Role: Primary Care Nurse Name: Lacey Rodriguez RN Position: S RN Member Role: Primary Care Nurse Name: Kirsty Avila RN Position: [facility] SN RN Member Role: Primary Care Nurse Care Team Related Persons Name: SUZANNE WALLIS Address: [address] [address] Name: DASH MATTHEW Address: [address] [address]
--- OUTSIDE RECORDS SUMMARY | 2023-12-23 12:00 | XMS_ITS | Continuity of Care Document ---
Author Organization [facility] [place] [address] [address]- Care Team Providers Care Process Developer Name Role Phone Johan BOND, Nabil Coleman Primary Care Physician [place] [facility] [place] 04/30/19 [facility] [address] [address] [place] Attending Physician: Glenda Higginbotham MD Admitting [...]
--- OUTSIDE RECORDS SUMMARY | 2023-12-23 12:01 | XMS_ITS | Continuity of Care Document ---
Author Organization [facility] Address [address] [place] [address]- Care Team Providers Care Wool Sorter Name Role Phone Johan BOND, Nabil Coleman Primary Care Physician [place] [facility] [place] [facility] [place] [id number] Date(s): 10/27/22 - 11/26/22 [facility] [address] [facility] [address] [place] [address]- Attending Physician: Aiden Jackson Admitting Physician: Aiden Jackson Referring Physician: Aiden Jackson Allergies, Adverse Reactions, Alerts No Known Allergies [...] 03/07/22 14:44:00 EST, Route to Pharmacy Electronically, [facility], Partial fill upon [...] Nurse Name: Kath Weeks RN Position: [facility] RN Member Role: Primary Care Nurse Name: Errol Hdez RN Position: [facility] RN Member Role: Primary Care Nurse Name: Hanh Bruner RN Position: [facility] Onco RN Member Role: Primary Care Nurse Name: Geneva Ayala NP Position: [facility] Associate Professional Member Role: Lifetime Consulting Provider Address: Address: [address] [place], [place] [address] [place] [address]- Name: Phil Ortiz MD Position: [facility] Renal MD Member Role: Lifetime Consulting Physician Address: Address: [address] [place], [place] [address]E [facility] [place] [address]- Name: Eliseo Ramirez DO Position: [facility] Renal MD Member Role: Lifetime Consulting Physician Address: Address: [address] [place], [place] [address] [place], [place] [address] Name: Julieta Richmond RN Position: [facility] Onco RN Member Role: Primary Care Nurse Name: Goyo Moncada III, RN Position: [facility] RN Member Role: Primary Care Nurse Name: Nereyda Nguyễn RN Position: [facility] Onco RN Member Role: Primary Care Nurse Name: Nabil Prado MD Position: Reference Physician Member Role: PCP Address: Address: [address] [place] [id number] Name: Eric Castano RN Position: [facility] RN Member Role: Primary Care Nurse Name: Dinah Kaur RN Position: [facility] RN Member Role: Primary Care Nurse Name: Johnny Romano RN Position: [facility] RN Member Role: Primary Care Nurse Name: Johnson Munoz RN Position: [facility] Onco RN Member Role: Primary Care Nurse Name: Jaret Mendoza RN Position: [facility] RN Member Role: Primary Care Nurse Name: Radha Miguel RN Position: [facility] RN Member Role: Primary Care Nurse Name: Shantanu Allan RN Position: [facility] RN Member Role: Primary Care Nurse Name: Laura Narayanan Position: [facility] Onco RN Member Role: Primary Care Nurse Name: Jemma Matos RN Position: [facility] RN Member Role: Primary Care Nurse Name: Dash Olson RN Position: [facility] Onco RN Member Role: Primary Care Nurse Name: Dorinda Berry RN Position: [facility] Onco RN Member Role: Primary Care Nurse Name: Lotus Gutierrez RN, I Position: [facility] RN Member Role: Primary Care Nurse Name: Lacey Rodriguez RN Position: [facility] RN Member Role: Primary Care Nurse Name: Kirsty Avila RN Position: [facility] SN RN Member Role: Primary Care Nurse Care Team Related Persons Name: SUZANNE WALLIS Address: [address] [place] [address] Name: DASH MATTHEW Address: [address] [address]
--- OUTSIDE RECORDS SUMMARY | 2023-12-23 12:01 | XMS_ITS | Continuity of Care Document ---
Author Organization [facility] Address [address] [place] [address]- Care Team Providers Care Husbandry Person Name Role Phone Johan BOND, Nabil Coleman Primary Care Physician [phone] [place] [facility] [place]20 [facility] [address] [place] [address]- [facility] Allergies, Adverse Reactions, Alerts Substance Reaction [...] 3 Refills, Maintenance, 10/24/19 12:35:00 EDT, Tablet, [facility], 173, cm, 10/24/19 10:34:00 EDT, Height, 75, kg, 10/24/19 10:34:00 EDT, Dry Weight Start Date: 10/24/19 Stop Date: 02/21/20 Status: Ordered aspirin 325 mg oral tablet 325 mg, 1, tablet, By Mouth, Daily, # 30 tablet, Refills 3, Tot. Refills 3, Maintenance, 10/24/19 12:35:00 EDT, Route to Pharmacy Electronically, [facility], 173, cm, 10/24/19 10:34:00 [...]
--- OUTSIDE RECORDS SUMMARY | 2023-12-23 12:01 | XMS_ITS | Continuity of Care Document ---
Author Organization [facility] Address [address] [place] [address]- Care Team Providers Care Supervisor Blast Furnace Name Role Phone Jhoan BOND, Nabil Coleman Primary Care Physician [phone] [place] [facility] [place] - 09/09/[address] [id number] Allergies, Adverse Reactions, Alerts Substance Reaction Severity [...] 3 Refills, Maintenance, 10/24/19 12:35:00 EDT, Tablet, [facility] # [facility], 173, cm, 10/24/19 10:34:00 EDT, Height, 75, kg, 10/24/19 10:34:00 EDT, Dry Weight Start Date: 10/24/19 Stop Date: 02/21/20 Status: Ordered aspirin 325 mg oral tablet 325 mg, 1, tablet, By Mouth, Daily, # 30 tablet, Refills 3, Tot. Refills 3, Maintenance, 10/24/19 12:35:00 EDT, Route to Pharmacy Electronically, [facility] # [facility], 173, cm, 10/24/19 10:34:00 [...] tablet, 1 Refills, Maintenance, 05/16/20 14:07:00 EST, [facility] # [facility], Partial fill upon patient request if theprescription is for a schedule II opioid drug., 173... Start Date: 05/16/20 Status: Ordered Zofran 8 mg oral tablet 1 tablet = 8 mg, By Mouth, Every 8 hours, PRN as needed for nausea/vomiting, # 30 tablet, 1 Refills, Maintenance, 05/16/20 14:07:00 EST, [facility] # 50, Partial fill upon patient [...]
--- OUTSIDE RECORDS SUMMARY | 2023-12-23 12:01 | XMS_ITS | Continuity of Care Document ---
Author Organization [facility] Address [address] [place] [address]- Care Team Providers Care Lottery Manager Name Role Phone Johan BOND, Nabil Coleman Primary Care Physician Encounter [facility] Date(s): 12/11/22 - 01/10/23 [facility] [address] [place] [id number] Allergies, Adverse Reactions, Alerts No Known [...] 03/07/22 14:44:00 EST, Route to Pharmacy Electronically, [facility], Partial fill upon patient [...] 60 tablet, 1 Refills, Maintenance,12/17/22 13:22:00 EDT, [facility] # [facility], Partial fill upon [...] List Condition Confirmation Course Effective Dates Status [facility] St atus Informant Abscess of chest wall [...] Care Team Personnel Name: Suzette Jama Position: [facility] Onco RN Member Role: Primary Care Nurse Name: Aracely Rae RN Position: [facility] RN Member Role: Primary Care Nurse Name: Moon Cummings RN Position: [facility] RN Member Role: Primary Care Nurse Name: Kath Weeks RN Position: [facility] RN Member Role: Primary Care Nurse Name: Errol Hdez RN Position: [facility] RN Member Role: Primary Care Nurse Name: Hanh Bruner RN Position: [facility] Onco RN Member Role: Primary Care Nurse Name: Geneva Ayala NP Position: [facility] Associate Professional Member Role: Lifetime Consulting Provider Address: Address: [address] [place], [place] [address] [address] Name: Phil Ortiz MD Position: [facility] Renal MD Member Role: Lifetime Consulting Physician Address: Address: [address] [place], [place] [address] [address] Name: Eliseo Ramirez DO Position: [facility] Renal MD Member Role: Lifetime Consulting Physician Address: Address: [address] [place], [place] [address]E [facility] [address] Name: Julieta Richmond RN Position: [facility] Onco RN Member Role: Primary Care Nurse Name: Goyo Moncada III, RN Position: [facility] RN Member Role: Primary Care Nurse Name: Nereyda Nguyễn RN Position: [facility] Onco RN Member Role: Primary Care Nurse Name: Nabil Prado MD Position: Reference Physician Member Role: PCP Address: Address: [address] [place] [id number] Name: Eric Castano RN Position: [facility] RN Member Role: Primary Care Nurse Name: Dinah Kaur RN Position: [facility] RN Member Role: Primary Care Nurse Name: Johnny Romano RN Position: [facility] RN Member Role: Primary Care Nurse Name: Johnson Munoz RN Position: [facility] Onco RN Member Role: Primary Care Nurse Name: Jaret Mendoza RN Position: [facility] RN Member Role: Primary Care Nurse Name: Shantanu Allan RN Position: [facility] RN Member Role: Primary Care Nurse Name: Laura Narayanan Position: [facility] Onco RN Member Role: Primary Care Nurse Name: Jemma Matos RN Position: [facility] RN Member Role: Primary Care Nurse Name: Dash Olson RN Position: [facility] Onco RN Member Role: Primary Care Nurse Name: Dorinda Berry RN Position: [facility] Onco RN Member Role: Primary Care Nurse Name: Lotus Gutierrez RN, I Position: [facility] RN Member Role: Primary Care Nurse Name: Lacey Rodriguez RN Position: [facility] RN Member Role: Primary Care Nurse Name: Kirsty Avila RN Position: [facility] SN RN Member Role: Primary Care Nurse Care Team Related Persons Name: SUZANNE WALLIS Address: [address] [place] [address] Name: DASH MATTHEW Address: [place] [address] [place] [address]
--- OUTSIDE RECORDS SUMMARY | 2023-12-23 12:01 | XMS_ITS | Continuity of Care Document ---
Author Organization [facility] Address [address] [place] [id number]- Care Team Providers Care Durable Medical Equipment Repairer Name Role Phone Johan BOND, Nabil Coleman Primary Care Physician Encounter [facility] Date(s): 04/08/22 - 04/08/[address] [address]- Discharge Disposition: A-D/C Walkout Attending Physician: Not [...] 0 Refills, Maintenance, 03/30/22 12:41:00 EST, Tablet, [facility], Partial fill upon patient request if the prescription is for a schedule II opioid drug., 172, cm, 03/30/22 7:57:0... Start Date: 03/30/22 Stop Date: 04/06/22 Status: Ordered amLODIPine 10 mg oral tablet 10 mg, 1, tablet, By Mouth, Daily, # 30 tablet, Refills 0, Tot. Refills 0, Maintenance, 03/07/22 14:44:00 EST, Route to Pharmacy Electronically, [facility], Partial fill upon [...] 04/29/22 9:00:00 EST, 03/30/22 12:41:00 EST, Tablet, [facility], Partial fill upon patient request [...] recent to oldest [Reference Range]: 1 2 Height 175 cm (04/08/22 12:18 PM) Weight 78.2 kg (04/08/22 12:18 PM) Oxygen Saturation [94-100 %] 97 % (04/08/22 12:10 PM) Pulse Rate [55-90 bpm] 102 bpm *H* (04/08/22 12:18 PM) 105 bpm *H* (04/08/22 12:10 PM) Respiratory Rate [16-30 br/min] 16 br/mi n (04/08/22 12:18 PM) Temperature [96.8-100.4 DegF] 98.1 DegF (04/08/22 12:18 PM) Temperature Route Oral (04/08/22 12:18 PM) Dry Weight 78.2 kg (04/08/22 12:18 PM) Weight Obtained Via Standing scale (04/08/22 12:18 PM) Dry Weight Obtained Via Standing scale (04/08/22 12:18 PM) Social History Social History Type Response Smoking Status 10 or more cigarette s (1/2 pack or more)/day in last 30 days entered on: 06/03/18 Sex Patient Care team information Care Team Personnel Name: Suzette Jama Position: [facility] Onco RN Member Role: Primary Care Nurse Name: Aracely Rae RN Position: [facility] RN Member Role: Primary Care Nurse Name: Moon Cummings RN Position: S RN Member Role: Primary Care Nurse Name: Errol Hdez RN Position: S RN Member Role: Primary Care Nurse Name: Gladis Viera RN Position: [facility] RN Member Role: Primary Care Nurse Name: Hanh Bruner RN Position: [facility] Onco RN Member Role: Primary Care Nurse Name: Geneva Ayala NP Position: [facility] Associate Professional Member Role: Lifetime Consulting Provider Address: Address: [address] [place] [address] [address] [facility] [place] [place] - Name: Eliseo Ramirez DO Position: [facility] Renal MD Member Role: Lifetime Consulting Physician Address: Address: [address] [place] [address] [address] [facility] [place] [place] - Name: Julieta Richmond RN Position: [facility] Onco RN Member Role: Primary Care Nurse Name: Goyo Moncada III, RN Position: [facility] RN Member Role: Primary Care Nurse Name: Nereyda Nguyễn RN Position: [facility] Onco RN Member Role: Primary Care Nurse Name: Nabil Prado MD Position: Reference Physician Member Role: PCP Address: Address: [address] [place] [id number]- Name: Eric Castano RN Position: [facility] RN Member Role: Primary Care Nurse Name: Dinah Kaur RN Position: [facility] RN Member Role: Primary Care Nurse Name: Johnny Romano RN Position: [facility] RN Member Role: Primary Care Nurse Name: Johnson Munoz RN Position: [facility] RN Member Role: Primary Care Nurse Name: Suzanne Weber RN Position: [facility] RN Member Role: Primary Care Nurse Name: Radha Miguel RN Position: [facility] RN Member Role: Primary Care Nurse Name: Shantanu Allan RN Position: [facility] RN Member Role: Primary Care Nurse Name: Laura Narayanan Position: [facility] Onco RN Member Role: Primary Care Nurse Name: Jemma Matos RN Position: [facility] RN Member Role: Primary Care Nurse Name: Dash Olson RN Position: [facility] Onco RN Member Role: Primary Care Nurse Name: Sahara Patel RN Position: [facility] RN Member Role: Primary Care Nurse Name: Dorinda Berry RN Position: [facility] Onco RN Member Role: Primary Care Nurse Name: Lotus Gutierrez RN, I Position: [facility] RN Member Role: Primary Care Nurse Name: Lacey Rodriguez Position: [facility] RN Member Role: Primary Care Nurse Name: Kirsty Avila RN Position: [facility] SN RN Member Role: Primary Care Nurse Care Team Related Persons Name: SUZANNE WALLIS Address: [address] [place] [address] Name: DASH MATTHEW Address: [place] [address] [place] [address]
== END 2023-12-23 12:38 | disposition home or self-care (01) ==
PROVIDERS: PCP Internal Medicine; Visit Provider Physician Assistant
DX: J22 Unspecified acute lower respiratory infection (principal)

== ENCOUNTER → 2023-12-23 11:57 | Outpatient (BNVA) | payer MEDICARE, MEDICAID, SELFPAY | PROVIDERS: PCP Internal Medicine; Visit Provider Physician Assistant ==

== ENCOUNTER 2023-12-23 12:09 | Outpatient (REF) | payer MEDICARE, MEDICAID, SELFPAY ==
--- NOTE | ~2023-12-23 | XR_ITS ---
EXAMINATION: XR CHEST CLINICAL INFORMATION: Cough COMPARISON: December 15, 2023 TECHNIQUE: 2 views of the chest were obtained. FINDINGS: Lungs are clear, cardiomediastinal silhouette is normal and there is no pleural effusion or infiltrates. The position of duodenal lumen central catheter is stable with the tip over the atriocaval junction XR/XR chest 2V IMPRESSION: No active cardiopulmonary disease Electronically signed by: Ajay Whitney MD 12/23/2023 02:20 PM EDT RP
== END 2023-12-23 12:10 | disposition home or self-care (01) ==
LOC: HO.HMGCX 12:09
PROVIDERS: PCP Internal Medicine; Visit Provider Physician Assistant
DX: J22 Unspecified acute lower respiratory infection (principal); R05.9 Cough, unspecified
CPT/HCPCS: 71046; 99202

== ENCOUNTER 2024-01-19 09:41 | Inpatient (IN) | payer MEDICARE, MEDICAID, SELFPAY ==
[2024-01-19] VITALS (10 sets, daily range): BP systolic 113–141; BP diastolic 58–79; PULSE 85–102; RESP 14–20; TEMP 36.7–38.4; O2SAT 95–99; BMI 22.1
--- NOTE | ~2024-01-19 | IR_ITS ---
CLINICAL HISTORY: End-stage renal disease. The patient presents to interventional radiology for placement of a tunneled central venous catheter for hemodialysis. PROCEDURES: 1. Real-time ultrasound-guided access into the left internal jugular vein after documentation of selected vessel patency, and permanent imaging storing in the patient record. 2. Placement of a 14.5 fr 27 cm tunneled, dual-lumen hemodialysis catheter. MEDICATIONS: -Fentanyl Versed. Lidocaine 1% 10 mL SQ. -Antibiotics: Ancef -For additional details, please see nursing flowsheet. COMPLICATIONS: None. ESTIMATED BLOOD LOSS: <5 ml SPECIMENS: None FLUOROSCOPY TIME: 0.1 min MODERATE SEDATION TIME: 15 min PROCEDURE NOTE: The procedure, risks, benefits, and alternatives were carefully explained to patient, and written informed consent was obtained. The patient was placed supine on the fluoroscopy table. A timeout was performed. The right neck and chest was prepped and draped in usual sterile fashion. Local anesthesia was administered to the access site with lidocaine. Under ultrasound guidance, the right internal jugular vein was accessed with a 5 Fr micropuncture set. A 0.035 in wire was advanced to the IVC to maintain access during the tunneling process. Next, subcutaneous lidocaine was administered to the chest. Using blunt dissection, a subcutaneous tunnel was created that connects from the upper chest to the venotomy site. The dialysis catheter was pulled through the tunnel. The tract in the vein was dilated and a peel-away sheath was advanced over the wire. The catheter was advanced through the sheath, which was subsequently peeled away. The catheter was tested, flushed, and sutured to the skin with its tip in the high right atrium. A permanent fluoroscopic image of the chest was saved to PACS. The catheter ports were packed with heparin per routine protocol. The patient was stable after the procedure and was transferred to the post anesthesia care unit. This procedure was performed under moderate sedation with a dedicated nurse and continuous monitoring of vital signs. FINDINGS: 1. Patent left internal jugular vein. 2. Placement of a tunneled, dual-lumen hemodialysis catheter as above. 3. Catheter flushes and aspirates very well with a 10 mL syringe. No pneumothorax. IR/IR cvc insert central tunnel IMPRESSION: Placement of a tunneled hemodialysis catheter in the left internal jugular vein. PLAN: -The catheter may be used immediately. Electronically signed by: Yosvany Sotelo MD 01/25/2024 04:36 PM [facility]
--- NOTE | ~2024-01-19 | US_ITS ---
EXAMINATION: UNILATERAL TRIPLEX SCANNING OF THE LEFT LOWER EXTREMITY CLINICAL INFORMATION: Left lower extremity swelling. COMPARISON: None. TECHNIQUE: Color-flow triplex imaging with spectral analysis and compression Doppler were performed on the left lower extremity. FINDINGS: Respiratory variation, normal compression and augmented flow are noted throughout the lower extremity. The visualized common femoral vein, superficial femoral vein, profunda femoral vein, popliteal vein and mid calf peroneal and posterior tibial venous segments show no evidence of deep venous thrombosis. There is no Cartwright's cyst. Calf edema. US/US venous duplex LE IMPRESSION: Normal triplex scan without evidence of deep venous thrombosis involving the left lower extremity. Electronically signed by: Randy Walls MD 01/19/2024 12:40 PM [facility]
[2024-01-19 11:18] LABS: MANUAL DIFF FLAG NO
[2024-01-19 11:19] LABS: Basophils Percent Auto 0.2 % (0-2); Hematocrit 33.8 % (42.0-52.0); Hemoglobin 10.2 g/dl (14.0-18.0); Imm Gran Abs Auto 0.03 X10*3/uL (0.00-0.03); Imm Gran Pct Auto 0.6 % (0.0-0.4); Lymphocytes Absolute Auto 0.6 X10*3/uL (1.2-4.9); Lymphocytes Percent Auto 11.4 % (20-40); Mean Corpuscular HGB Conc 30.2 g/dl (31.0-36.0); Mean Corpuscular Hemoglobin 31.3 pg (27.0-33.0); Mean Corpuscular Volume 103.7 fL (80.0-98.0); Mean Platelet Volume 10.4 fL (9.4-12.4); Monocytes Absolute Auto 0.2 X10*3/uL (0.1-1.2); Monocytes Percent Auto 3.7 % (2-11); Neutrophils Absolute Auto 4.5 x10*3/uL (2.0-8.3); Neutrophils Percent Auto 84.1 % (45-73); Platelet Count 120 X10*3/uL (160-400); Red Blood Count 3.26 X10*6/uL (4.60-5.80); Red Cell Distribution Width 16.6 % (11.0-16.0); White Blood Count 5.4 X10*3/uL (4.8-10.8)
[2024-01-19 11:39] LABS: B Type Natriuretic Peptide 1392 pg/mL (<100)
[2024-01-19 11:43] LABS: Alanine Aminotransferase 33 U/L (0-40); Albumin Level 3.9 g/dL (3.5-5.0); Alkaline Phosphatase 73 U/L (39-117); Anion Gap 21 (12-20); Aspartate Amino Transferase 33 U/L (5-37); Bilirubin Total 0.6 mg/dL (0.0-1.0); Blood Urea Nitrogen 53 mg/dL (9-16); Calcium 8.7 mg/dL (8.4-10.2); Carbon Dioxide 21 mmol/L (22-29); Chloride 100 mmol/L (96-108); Creatinine Clr Calc Pharmacy 9.9; Estimated Glomerular Filt Rate 6; Glucose Random 104 mg/dL (60-115); Magnesium 2.1 mg/dL (1.6-2.6); Potassium 5.3 mmol/L (3.3-5.1); Sodium 137 mmol/L (135-145); Total Protein 6.3 g/dL (6.5-8.0)
--- NOTE | 2024-01-19 12:40 | ED.GENADULT ---
HPI - General Adult General Chief complaint: General Medical Stated complaint: L leg swelling Time Seen by Provider: 01/19/24 12:40 History of Present Illness ED Provider: Dr. Fitzpatrick HPI narrative: 43 y/o M patient; PMH ESRD on dialysis (Dr. Gomes), refractory IgA myeloma, on chronic methadone and oxycodone; presents with report of left leg swelling, pain, and warmth for the last 3 days. The patient states he was placed on antibiotic by his renal physician during dialysis on Thursday01/18/2024 but his symptoms have continued to worsen. He now cannot walk due to the pain. Associated with fever on Thursday01/18/2024. Associated with nausea/vomiting on Thursday01/17/2024. He otherwise denies: abdominal pain, chest pain, SOB, cough/congestion. No known injury or trauma. Related Data Home Medications ?Medication ?Instructions ?Recorded ?Confirmed acyclovir 400 mg tablet 400 mg PO BID 05/20/23 hydralazine 50 mg tablet 50 mg PO TID 05/20/23 labetalol 300 mg tablet mg PO TID 06/12/23 methadone 10 mg/mL oral concentrate 140 mg PO DAILY 06/12/23 oxycodone 15 mg tablet mg PO Q4-6H PRN Pain 06/12/23 clonazepam 1 mg tablet 1 mg PO BID 01/19/24 gabapentin 100 mg capsule 300 mg PO TID 01/19/24 losartan 100 mg tablet 100 mg PO DAILY 01/19/24 Previous Rx's ?Medication ?Instructions ?Recorded amlodipine 10 mg tablet 10 mg PO DAILY #90 tabs 10/07/23 Allergies Allergy/AdvReac Type Severity Reaction Status Date / Time No Known Allergies Allergy Verified 01/19/24 10:34 Review of Systems Review of Systems: Yes all other systems are reviewed and are negative PMFSH Past Medical History Attestation statement: The following information was validated with the patient. Source: old records reviewed Medical History Restless legs Anxiety Multiple myeloma Family History Family History Maternal Uncle Cancer Social History Social History Alcohol intake: never Patient Tobacco Use Status: Current everyday Tobacco user Advance Directives: No Advance Directives Information Provided: Yes Do you have a plan to hurt others: No Plan Physical Exam ED Vital Signs: Vital Signs - 24 hr 01/19/24 10:27 01/19/24 12:00 Temperature 98.0 F 99.0 F Pulse Rate 85 97 Respiratory Rate 18 19 Blood Pressure 141/79 H 137/65 Pulse Oximetry 99 96 Oxygen Delivery Method Room Air Room Air BMI result Body Mass Index 22.1 Patient is afebrile and hemodynamically stable. Const General: cooperative HENMT Head: Yes normal to inspection and Yes atraumatic Eyes General: appearance normal, both eyes and all related structures Pupils: Equal, round and reactive pupils present EOM: EOMs intact bilaterally Neck Neck: Yes normal visual inspection, Yes full ROM, Yes supple and No tender Chest Chest palpation & inspection: normal inspection of the chest and normal palpation of entire chest wall Resp Effort & Inspection: normal respiratory effort, able to speak in complete sentences, no cough and no respiratory distress Auscultation: clear to auscultation bilaterally Cardio Rate: regular rate Rhythm: regular rhythm Peripheral pulses: Peripheral pulses 2+ throughout GI Inspection: Yes normal to inspection, No Abdominal wall edema and No distended Palpation (GI): Soft to palpation, not firm, nontender, no guarding and not rigid Auscultation: normal bowel sounds Back/Spine/Pelvis Back: No back tenderness Neuro Cranial nerves: Yes Equal, round and reactive pupils present Extrem Other: Extensive redness, edema, warmth, and tenderness to LLE from mid-thigh to ankle. NVI. Course Course Course Narrative: Patient is afebrile and hemodynamically stable. Will obtain US LLE. Will obtain screening labs. US reviewed and negative for DVT. Labs reviewed. No leukocytosis. Mild baseline anemia. Mild baseline thrombocytopenia. Mild hyperkalemia 5.3. Provided calcium gluconate x1 dose for mildly peaked T waves on EKG. CRP 36.78. ESR 61. LA 1.8. Patient will require admission for cellulitis in immunocompromised state. Left lower extremity involved area highlighted with skin marker. Ordered blood cultures, lactic acid, and broad spectrum antibiotics with Vancomycin and Cefepime. Plan: Admit to hospitalist Condition: Stable Medications Administered Discontinued Medications Generic Name Dose Route Start Last Admin Trade Name Freq PRN Reason Stop Dose Admin Calcium Gluconate 1 gm in 50 mls @ 50 mls/hr 01/19/24 13:10 01/19/24 13:42 Calcium Gluconate IV 01/19/24 14:09 50 mls/hr ONCE ONE Administration Cefepime HCl 1 gm/ Sodium 50 mls @ 100 mls/hr 01/19/24 13:17 01/19/24 13:42 Chloride IV 01/19/24 13:46 100 mls/hr ONCE ONE Administration Medical Decision Making Lab Data 01/19/24 11:10 01/19/24 11:10 Labs: Lab Results 01/19/24 01/19/24 Range/Units 11:10 13:31 WBC 5.4 (4.8-10.8) X10*3/uL RBC 3.26 L (4.60-5.80) X10*6/uL Hgb 10.2 L (14.0-18.0) g/dl Hct 33.8 L (42.0-52.0) % MCV 103.7 H (80.0-98.0) fL MCH 31.3 (27.0-33.0) pg MCHC 30.2 L (31.0-36.0) g/dl RDW 16.6 H (11.0-16.0) % Plt Count 120 L (160-400) X10*3/uL MPV 10.4 (9.4-12.4) fL Immature Gran % (Auto) 0.6 H (0.0-0.4) % Neut % (Auto) 84.1 H (45-73) % Lymph % (Auto) 11.4 L (20-40) % [place] % (Auto) 3.7 (2-11) % Eos % (Auto) 0.0 (0-4) % Baso % (Auto) 0.2 (0-2) % Lymph # (Auto) 0.6 L (1.2-4.9) X10*3/uL [place] # (Auto) 0.2 (0.1-1.2) X10*3/uL Eos # (Auto) 0.0 (0.0-0.4) X10*3/uL Baso # (Auto) 0.0 (0.0-0.2) X10*3/uL Abs Immat Gran (auto) 0.03 (0.00-0.03) X10*3/uL Absolute Neuts (auto) 4.5 (2.0-8.3) x10*3/uL Absolute Nucleated RBC 0.000 (0.0-0.012) X10*3/uL Nucleated RBC % (auto) 0.0 (0.0-0.2) /100WBC ESR 61 H (0-15) MM/HR Hold Purple Top SEE NOTE Sodium 137 (135-145) mmol/L Potassium 5.3 H D (3.3-5.1) mmol/L Chloride 100 (96-108) mmol/L Carbon Dioxide 21 L (22-29) mmol/L Anion Gap 21 H (12-20) BUN 53 H (9-16) mg/dL Creatinine 9.21 H* (0.5-1.4) mg/dL Estim Creat Clear Calc 9.9 Estimated GFR 6 Random Glucose 104 (60-115) mg/dL Lactic Acid 1.8 (0.5-2.0) mmol/L Calcium 8.7 (8.4-10.2) mg/dL Magnesium 2.1 (1.6-2.6) mg/dL Total Bilirubin 0.6 (0.0-1.0) mg/dL AST 33 (5-37) U/L ALT 33 (0-40) U/L Alkaline Phosphatase 73 (39-117) U/L C-Reactive Protein 36.78 H (< or = 0.50) mg/dL B-Natriuretic Peptide 1392 H (<100) pg/mL Total Protein 6.3 L (6.5-8.0) g/dL Albumin 3.9 (3.5-5.0) g/dL Independent Interpretation I performed an independent interpretation of an: EKG Interpretation: NSR 96BPM with peaked T waves in anterolateral leads (V3 - V5) Radiology Impression Discussion of test interpretation with radiology: I have reviewed the radiologist's reading. Radiologist Impression: EXAMINATION: UNILATERAL TRIPLEX SCANNING OF THE LEFT LOWER EXTREMITY CLINICAL INFORMATION: Left lower extremity swelling. COMPARISON: None. TECHNIQUE: Color-flow triplex imaging with spectral analysis and compression Doppler were performed on the left lower extremity. FINDINGS: Respiratory variation, normal compression and augmented flow are noted throughout the lower extremity. The visualized common femoral vein, superficial femoral vein, profunda femoral vein, popliteal vein and mid calf peroneal and posterior tibial venous segments show no evidence of deep venous thrombosis. There is no Cartwright's cyst. Calf edema. US/US venous duplex LE LT IMPRESSION: Normal triplex scan without evidence of deep venous thrombosis involving the left lower extremity. Electronically signed by: Randy Walls MD 01/19/2024 12:[address] [facility] Discharge Plan Discharge Clinical Impression: Cellulitis of left leg Patient Disposition: Admitted As Inpatient Print Language: Turkish
[2024-01-19 13:14] LABS: C Reactive Protein 36.78 mg/dL (< or = 0.50)
[2024-01-19] MEDS: cefEPime HCl 1 GM in 0.9 % Sodium Chloride 50 ML IV (13:42)
[2024-01-19] MEDS: Calcium Gluconate/NaCl,Iso-Osm 1 GM/50 ML PLAST..BAG IV (13:42)
[2024-01-19 13:53] LABS: Erythrocyte Sedimentation Rate 61 MM/HR (0-15)
[2024-01-19 13:55] LABS: Lactic Acid 1.8 mmol/L (0.5-2.0)
--- NOTE | 2024-01-19 14:03 | P.HPHOSP_ITS ---
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 The patient noted erythema over the weekend and was given Antibiotics during dialysis session yesterday but it got worse tis morning. No chest pain, palpitations, SOB, nausea, vomiting, diarrhea or urinary symptoms. He reports fever and pain upon walking. In ED found to have elevated K, CRP and ESR. Started on IV antibiotics and admitted for further work up and treatment. Review of Systems 2 Review of Systems: reporting subjective fever, chills and weakness No chest pain, palpitation No shortness of breath or coughing No abdominal pain, had nausea or vomiting No urinary symptoms LLE erythema and swelling PMFSH Medical History Restless legs Anxiety Multiple myeloma Family History Maternal Uncle Cancer Social History Alcohol intake: never Patient Tobacco Use Status: Current everyday Tobacco user Smoked in Last 30 Days: No Use of substances other than those prescribed or required for medical reasons: No Advance Directives: No Advance Directives Information Provided: Yes Do you have a plan to hurt others: No Plan Meds Allergies Allergy/AdvReac Type Severity Reaction Status Date / Time No Known Allergies Allergy Verified 01/19/24 10:34 Active Medications: Current Medications Calcium Gluconate (Calcium Gluconate) 1 gm in 50 mls @ 50 mls/hr IV ONCE ONE Stop: 01/19/24 14:09 Last Admin: 01/19/24 13:42 Dose: 50 mls/hr Vancomycin HCl 1,500 mg/ (Sodium Chloride) 500 mls @ 333.333 mls/hr IV ONCE ONE Stop: 01/19/24 14:44 Home Medications ?Medication ?Instructions ?Recorded ?Confirmed ?Last Taken ?Type acyclovir 400 mg tablet 400 mg PO BID 05/20/23 01/19/24 01/19/24 08:00 History hydralazine 50 mg tablet 50 mg PO DAILY 05/20/23 01/19/24 01/19/24 08:00 History labetalol 300 mg tablet 600 mg PO BID 06/12/23 01/19/24 01/19/24 08:00 History methadone 10 mg/mL oral concentrate 140 mg PO DAILY 06/12/23 Unknown History vdqexwnvov-xaegsbemjxsyu-olidhukc 2 tab PO Q4H PRN Migraine Headache 01/19/24 01/19/24 01/19/24 08:00 History 50 mg-325 mg-40 mg tablet clonazepam 1 mg tablet 1 mg PO BID 01/19/24 01/19/24 01/19/24 08:00 History gabapentin 100 mg capsule 300 mg PO TID 01/19/24 01/19/24 01/19/24 08:00 History oxycodone 20 mg tablet 20 mg PO 6XD 01/19/24 01/19/24 01/19/24 08:00 History sulfamethoxazole 800 1 tab PO MOWEFR 01/19/24 01/19/24 01/15/24 History mg-trimethoprim 160 mg tablet Physical Exam 2 Vital Signs and Narrative: Vital Signs: Last Vital Signs Temp 99.0 F 01/19/24 12:00 Pulse 97 01/19/24 12:00 Resp 19 01/19/24 12:00 BP 137/65 01/19/24 12:00 Pulse Ox 96 01/19/24 12:00 O2 Del Method Room Air 01/19/24 12:00 BMI result Body Mass Index 22.1 Const: Other: Constitutional : Awake, interactive, not in distress Neck : Normal inspection, Supple Cardiovascular : RRR, no JVP, no lower extremity edema Respiratory : good bilateral air entry, no crackles, wheezes or rhonchi Gastrointestinal: soft, lax, Normal bowel sounds, Non tender Skin : Warm, Dry, left lower extremity erythema, warmth and tenderness with no drainage noted Neurological : Alert & oriented x3, No focal deficit Results Labs 01/19/24 11:10 01/19/24 11:10 Labs: Laboratory Results - last 24 hr 01/19/24 01/19/24 11:10 13:31 MCV 103.7 H MCH 31.3 MCHC 30.2 L RDW 16.6 H Plt Count 120 L MPV 10.4 Immature Gran % (Auto) 0.6 H Neut % (Auto) 84.1 H Lymph % (Auto) 11.4 L [place] % (Auto) 3.7 Eos % (Auto) 0.0 Baso % (Auto) 0.2 Lymph # (Auto) 0.6 L [place] # (Auto) 0.2 Eos # (Auto) 0.0 Baso # (Auto) 0.0 Abs Immat Gran (auto) 0.03 Absolute Neuts (auto) 4.5 Absolute Nucleated RBC 0.000 Nucleated RBC % (auto) 0.0 ESR 61 H Hold Purple Top SEE NOTE Anion Gap 21 H Estim Creat Clear Calc 9.9 Estimated GFR 6 Random Glucose 104 Lactic Acid 1.8 Calcium 8.7 Magnesium 2.1 Total Bilirubin 0.6 AST 33 ALT 33 Alkaline Phosphatase 73 C-Reactive Protein 36.78 H B-Natriuretic Peptide 1392 H Total Protein 6.3 L Albumin 3.9 Imaging Radiologist's Impressions: Impressions Venous Duplex 01/19/24 12:09 IMPRESSION: Normal triplex scan without evidence of deep venous thrombosis involving the left lower extremity. 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 LLE cellulitis in ESRD patient Not septic Marked area of erythema Cultures pending Continue IV Vancomycin and Cefepime post dialysis Vancomycin trough keep leg elevated ESRD on HD Nephrology to follow for dialysis Hx MM, Acyclovir, Bactrim on hold HTN, Amlodipine, Labetalol, Losartan and Hydralazine Mood disorder, Clonazepam Hx opioid abuse, continue Methadone DVT PPx Lovenox The patient will need 2 overnight hospital stay for treatment of cellulitis pending clinical improvement, HD session and blood cultures. Quality Stroke Does the patient have a stroke diagnosis?: No VTE Prior VTE?: No VTE Risk Level:: Medical - moderate - high VTE Device Contraindication: Treatment Not Indicated VTE Drug Contraindication: N/A - Med Ordered
[2024-01-19] MEDS: vancomycin HCL 1,500 MG in 0.9 % Sodium Chloride 500 ML 333.33 MG IV (14:39)
--- NOTE | 2024-01-19 15:05 | PHA.MEDREC ---
Addendum entered by Yosvany Cobb RPh 01/19/24 15:14: Med rec reviewed Original Note: Pharmacy Consult ? Medication Reconciliation Pharmacy has completed the medication reconciliation. Spoke to patient to confirm med list. patient states he has Methadone 140 mg daily from [facility] in [place], last dose was 01/19/24. patient states he takes Hydralaine 50 mg daily, however claims says 50 mg TID, also patient takes Labetalol 600 mg bid, however claims has 600 mg TID. Patient also states he takes Bactrim DS on Mon, WED and Thu, last dose was 01/15/24, however last filled ate was 10/15/23 for 28 days.
[2024-01-19] MEDS: ondansetron HCL 4 MG/2 ML VIAL IVPUSH (15:10)
[2024-01-19] MEDS: Acyclovir 200 MG CAPSULE 400 MG PO ×2 (16:15→23:54)
[2024-01-19] MEDS: oxyCODONE HCl Immed Release 5 MG TABLET 20 MG PO (18:11)
[2024-01-19] MEDS: 0.9 % Sodium Chloride Flush 3 ML SYRINGE IVFLUSH ×2 (18:12→23:57)
--- NOTE | 2024-01-19 18:38 | PC.NURSE ---
heparin portacath order acknowledged and timed due now. order clarification made with ALEXY Wilhelm that it is meant to be given at HD tomorrow. [employer]F [employer]ESSIONAL states yes and HD RN will give.
[2024-01-19] MEDS: Acetaminophen 325 MG TABLET 650 MG PO (19:59)
[2024-01-19 21:03] LABS: Lactic Acid 0.8 mmol/L (0.5-2.0)
[2024-01-19] MEDS: Albumin Human 25 % 100 ML 133.33 ML IV (21:21)
[2024-01-19 21:53] LABS: Glucose, Whole Blood 112 mg/dL (60-115)
--- NOTE | 2024-01-19 22:04 | PC.NURSE ---
Addendum entered by Adams Grimm 01/19/24 22:14: rest of meds held per MD. pt sats 88% on RA while sleeping and awakes to painful stimuli. per MD place pt on o2 NC and monitor at this time. Original Note: pt found diaphoretic and responsive to painful stimuli in room. vitals and poc as documented and wnl. MD called to bedside. pt awoke with painful stimuli and quick to fall asleep, sats 90-92% on RA. security called to bedside to search belongings per pt approval and pt changed over to complete hospital attire, no contrabands found by security belongings remain at bedside. pt remains on continuous cardiac, o2 and bp monitoring. no new orders by MD. upon awaking pt is axox4 calm/cooperative and sats up to 97% on RA. 2100 oxycodone dose held at this time per MD.
[2024-01-19] MEDS: Heparin Sodium,Porcine 5,000 UNIT/ML VIAL 5000 UNIT SUBCUT (23:54)
--- NOTE | 2024-01-20 01:48 | PC.NURSE ---
pt currently sleeping, arousable to tactile stimuli, axox4 upon awaking. sats 96% on RA nad. sameera leon within reach.
[2024-01-20 05:42] LABS: Anion Gap 20 (12-20); Blood Urea Nitrogen 69 mg/dL (9-16); Calcium 8.1 mg/dL (8.4-10.2); Carbon Dioxide 20 mmol/L (22-29); Chloride 100 mmol/L (96-108); Creatinine Clr Calc Pharmacy 8.5; Estimated Glomerular Filt Rate 5; Glucose Random 87 mg/dL (60-115); Potassium 5.4 mmol/L (3.3-5.1); Sodium 135 mmol/L (135-145)
[2024-01-20 06:00] VITALS: BP 121/72; PULSE 82; RESP 16; TEMP 37.3; O2SAT 96
--- NOTE | 2024-01-20 08:15 | P.CONNP_ITS ---
History of Present Illness Reason for Consult Consult date: 01/20/24 Chief Complaint Chief complaint: Cellulitis History of Present Illness Narrative: 43 y/o male with ESRD secondary to IgA multiple myeloma on HD (M, W, F), followed by Dr Gomes, Nephrology, chronic pain with methadone use. 01/18 presented with LLE swelling, pain, warmth of note, positive for gram negative bacilli from both aerobic and anaerobic blood cultures drawn during outpatient HD (pt on ceftriaxone and vanco), collected due to cellulitis concern last Thursday. Pt did not go to hospital as advised at that time. Nephrology consulted for management of ESRD while hospitalized. pt reports other than lower extremity pain/swelling, he does not have any other symptoms/complaints he states he has not missed any HD sessions reports he is anuric at baseline Review of Systems Constitutional: Denies fatigue, Denies headache(s) and Denies malaise Denies dizziness and Denies headache(s) Cardiovascular: Denies chest pain, Reports leg edema (left lower extremity swelling, redness), Denies lightheadedness and Denies dyspnea Respiratory: Denies cough and Denies dyspnea Gastrointestinal: Denies abdominal pain, Denies constipation, Denies diarrhea, Denies nausea and Denies vomiting Genitourinary: Denies flank pain Comments: reports he is anuric Musculoskeletal: Denies arthralgias and Denies muscle cramps Skin/Breast: Reports rash (left lower extremity redness. Denies other rashes/skin issues) Denies dizziness and Denies headache(s) Endocrine: Denies fatigue PMFSH Past Medical History Medical History Restless legs Anxiety Multiple myeloma Family History Family History Maternal Uncle Cancer Social History Social History Alcohol intake: never Patient Tobacco Use Status: Never used Tobacco Smoked in Last 30 Days: No Use of substances other than those prescribed or required for medical reasons: No Advance Directives: No Advance Directives Information Provided: Yes Do you have a plan to hurt others: No Plan Nutrition Risks: No Nutritional Risk service: No Meds Allergies Allergy/AdvReac Type Severity Reaction Status Date / Time No Known Allergies Allergy Verified 01/19/24 10:34 Active Medications: Current Medications Acetaminophen (Acetaminophen 325 Mg Tablet) 650 mg PO Q6H PRN PRN Reason: Pain, Mild (Pain Scale 1-3), fever or headache Last Admin: 01/19/24 19:59 Dose: 650 mg Acetaminophen/Butalbital/Caffeine (Butalb/Acetamin/Caff 50/325/40 Tablet) 2 tab PO Q4H PRN PRN Reason: Migraine Headache Acyclovir (Acyclovir 200 Mg Capsule) 400 mg PO BID COUNTS INCLUDE 234 BEDS AT THE [facility] Last Admin: 01/20/24 08:54 Dose: 400 mg Amlodipine Besylate (Amlodipine Besylate 10 Mg Tablet) 10 mg PO DAILY COUNTS INCLUDE 234 BEDS AT THE [facility]; Protocol Last Admin: 01/20/24 08:43 Dose: 10 mg Calcium Carbonate (Calcium Carbonate 750 Mg Tab.Chew) 750 mg PO Q4H PRN PRN Reason: Heartburn Clonazepam (Clonazepam 1 Mg Tablet) 1 mg PO BID COUNTS INCLUDE 234 BEDS AT THE [facility] Last Admin: 01/20/24 08:43 Dose: 1 mg Gabapentin (Gabapentin 300 Mg Capsule) 300 mg PO TID COUNTS INCLUDE 234 BEDS AT THE [facility] Last Admin: 01/20/24 08:43 Dose: 300 mg Heparin Sodium (Porcine) (Heparin Sodium,Porcine 5,000 Unit/Ml Vial) 5,000 unit SUBCUT Q12H COUNTS INCLUDE 234 BEDS AT THE [facility] Last Admin: 01/20/24 08:44 Dose: 5,000 unit Hydralazine HCl (Hydralazine Hcl 50 Mg Tablet) 50 mg PO DAILY COUNTS INCLUDE 234 BEDS AT THE [facility]; Protocol Last Admin: 01/20/24 08:43 Dose: 50 mg Cefepime HCl 1 gm/ Sodium (Chloride) 50 mls @ 100 mls/hr IV Q48H COUNTS INCLUDE 234 BEDS AT THE [facility] Vancomycin HCl 500 mg/ Sodium (Chloride) 110 mls @ 110 mls/hr IV MoWeFr@1800 COUNTS INCLUDE 234 BEDS AT THE [facility] Labetalol HCl (Labetalol Hcl 100 Mg Tablet) 300 mg PO BID COUNTS INCLUDE 234 BEDS AT THE [facility] Last Admin: 01/20/24 08:43 Dose: 300 mg Magnesium Hydroxide (Milk Of Magnesia 30 Ml Oral.Susp) 30 ml PO DAILY PRN PRN Reason: Constipation Melatonin (Melatonin 3 Mg Tablet) 6 mg PO BEDTIME PRN PRN Reason: Insomnia Methadone HCl (Methadone Hcl 20 Mg/2 Ml Oral.Conc) 140 mg PO DAILY COUNTS INCLUDE 234 BEDS AT THE [facility] Last Admin: 01/20/24 10:35 Dose: 140 mg Ondansetron HCl (Ondansetron Hcl 4 Mg/2 Ml Vial) 4 mg IVPUSH Q8H PRN PRN Reason: Nausea and Vomiting Oxycodone HCl (Oxycodone Hcl Immed Release 5 Mg Tablet) 20 mg PO 6XD COUNTS INCLUDE 234 BEDS AT THE [facility] Last Admin: 01/20/24 08:42 Dose: 20 mg Pharmacy Consult (Consult Rx Vancomycin Dosing) 1 each MISCELLANE DAILY PRN PRN Reason: Consult order Sodium Chloride (0.9 % Sodium Chloride Flush 3 Ml Syringe) [facility] Last Admin: 01/20/24 08:46 Dose: 3 ml Home Medications ?Medication ?Instructions ?Recorded ?Confirmed ?Last Taken ?Type acyclovir 400 mg tablet 400 mg PO BID 05/20/23 01/19/24 01/19/24 08:00 History hydralazine 50 mg tablet 50 mg PO DAILY 05/20/23 01/19/24 01/19/24 08:00 History labetalol 300 mg tablet 600 mg PO BID 06/12/23 01/19/24 01/19/24 08:00 History methadone 10 mg/mL oral concentrate 140 mg PO DAILY 06/12/23 01/20/24 01/19/24 History djifiywyjx-aejkdfrccaqmi-kbxhnehi 2 tab PO Q4H PRN Migraine Headache 01/19/24 01/19/24 01/19/24 08:00 History 50 mg-325 mg-40 mg tablet clonazepam 1 mg tablet 1 mg PO BID 01/19/24 01/19/24 01/19/24 08:00 History gabapentin 100 mg capsule 300 mg PO TID 01/19/24 01/19/24 01/19/24 08:00 History oxycodone 20 mg tablet 20 mg PO 6XD 01/19/24 01/19/24 01/19/24 08:00 History sulfamethoxazole 800 1 tab PO MOWEFR 01/19/24 01/19/24 01/15/24 History mg-trimethoprim 160 mg tablet Physical Exam Vital Signs: Last Vital Signs Temp 99.3 F 01/20/24 08:45 Pulse 85 01/20/24 08:45 Resp 18 01/20/24 08:45 BP 129/79 01/20/24 08:45 Pulse Ox 97 01/20/24 08:45 O2 Del Method Room Air 01/20/24 08:45 BMI result Body Mass Index 22.1 Const General: no acute distress, alert and awake Resp Effort & Inspection: normal respiratory effort and able to speak in complete sentences Auscultation: clear to auscultation bilaterally Cardio Jugular venous distension: no JVD Rate: regular rate Rhythm: regular rhythm Heart sounds: S1 normal heart sound present and S2 normal heart sound present GI Palpation (GI): Soft to palpation and nontender General: Yes no CVA tenderness Back/Spine/Pelvis Back: no CVA tenderness Skin Lesions: no lesions Rashes: no rashes and other (LLE erythema/swelling) Extrem General: Yes edema (left lower extremity swelling, erythema, tenderness) Results Lab Results 01/19/24 11:10 01/20/24 05:07 Lab results: Chemistry 01/19/24 01/20/24 11:10 05:07 Sodium 137 135 Potassium 5.3 H D 5.4 H Carbon Dioxide 21 L 20 L BUN 53 H 69 H Creatinine 9.21 H* 10.73 H* Calcium 8.7 8.1 L D Hematology 01/19/24 11:10 WBC 5.4 Hgb 10.2 L Plt Count 120 L Assessment and Plan (1) Cellulitis of left leg: Status: Acute (2) End stage renal disease on dialysis: Status: Acute (3) Bacteremia: Status: Acute Plan ESRD patient on HD here for management of cellulitis, bacteremia pt had positive blood cultures drawn during outpatient HD on sunday 01/14, grew gram negative bacilli in both aerobic and anaerobic cultures Plan for HD today to continue patient's M, W, F schedule H&H 10 and 33.8, no indication for procrit at this time potassium slightly elevated at 5.4, slightly acidotic with serum bicarb 20 no uremic symptoms calcium low at 8.1; will check phosphorous level (pt chronically elevated due to medication non-compliance) has right IJ permacath in place patient appears clinically euvolemic today (though tends to have high interdyalitic weight gain) blood pressures acceptable Will continue to follow Discussed with Dr Gomes Procedures Date of Service Date of Service: 01/20/24
[2024-01-20] MEDS: oxyCODONE HCl Immed Release 5 MG TABLET 20 MG PO ×3 (08:42→20:56)
[2024-01-20 08:43] VITALS: BP 129/79; PULSE 87
[2024-01-20] MEDS: amLODIPine Besylate 10 MG TABLET PO (08:43)
[2024-01-20] MEDS: clonazePAM 1 MG TABLET PO ×2 (08:43→20:57)
[2024-01-20] MEDS: Gabapentin 300 MG CAPSULE PO ×2 (08:43→20:57)
[2024-01-20] MEDS: Labetalol HCL 100 MG TABLET 300 MG PO ×2 (08:43→20:57)
[2024-01-20] MEDS: hydrALAZINE HCl 50 MG TABLET PO (08:43)
[2024-01-20] MEDS: Heparin Sodium,Porcine 5,000 UNIT/ML VIAL 5000 UNIT SUBCUT ×2 (08:44→20:59)
[2024-01-20 08:45] VITALS: BP 129/79; PULSE 85; RESP 18; TEMP 37.4; O2SAT 97
[2024-01-20] MEDS: 0.9 % Sodium Chloride Flush 3 ML SYRINGE IVFLUSH ×2 (08:46→23:43)
[2024-01-20] MEDS: Acyclovir 200 MG CAPSULE 400 MG PO ×2 (08:54→20:58)
--- NOTE | 2024-01-20 08:55 | PC.NURSE ---
[facility] [place] called for patient last dose, patient get s take home bottles 140mg verified by Nurse Steven.
--- NOTE | 2024-01-20 09:16 | HE.PHANOTE ---
RE: METHADONE DOSING Last dose of methadone 140 mg (take home) was taken on 01/19/24 per Tenisha at [facility] [place] [phone].
--- NOTE | 2024-01-20 10:25 | MHC.CM.PN ---
CM met with Patient at bedside, in the ED and addressed IMM with him ;original was given to Patient and a copy will be placed on the chart. Patient lives in a house with his Parents and he goes to M/W/F @ [facility] in [place]. Patient obtains his Methadone from [facility] in [place]. Home/resume said services is the goal and CM has initiated and will follow for dc planning. PCP is Dr. Nabil Prado and Girlfriend will transport to home.
[2024-01-20] MEDS: methADONE HCl 20 MG/2 ML ORAL.CONC 140 MG PO (10:35)
--- NOTE | 2024-01-20 10:44 | HO.PM.IMPN ---
Subjective Subjective Date of Service: 01/20/24 Interval History: seen and evaluated leg looks much better, pain improved waiting dialysis Review of Systems Review of Systems: Yes all other systems are reviewed and are negative Physical Exam Vital Signs: Vital Signs: Last Vital Signs Temp 99.3 F 01/20/24 08:45 Pulse 85 01/20/24 08:45 Resp 18 01/20/24 08:45 BP 129/79 01/20/24 08:45 Pulse Ox 97 01/20/24 08:45 O2 Del Method Room Air 01/20/24 08:45 BMI result Body Mass Index 22.1 Const: Other: Constitutional : Awake, interactive, not in distress Neck : Normal inspection, Supple Cardiovascular : RRR, no JVP, no lower extremity edema Respiratory : good bilateral air entry, no crackles, wheezes or rhonchi Gastrointestinal: soft, lax, Normal bowel sounds, Non tender Skin : Warm, Dry, significantly improved left lower extremity erythema, warmth and tenderness with no drainage Neurological : Alert & oriented x3, No focal deficit Objective Data Active Medications Acetaminophen (Acetaminophen 325 Mg Tablet) 650 mg PO Q6H PRN PRN Reason: Pain, Mild (Pain Scale 1-3), fever or headache Last Admin: 01/19/24 19:59 Dose: 650 mg Documented By: YASMANI Acetaminophen/Butalbital/Caffeine (Butalb/Acetamin/Caff 50/325/40 Tablet) 2 tab PO Q4H PRN PRN Reason: Migraine Headache Acyclovir (Acyclovir 200 Mg Capsule) 400 mg PO BID COUNT INCLUDES THE [facility] Last Admin: 01/20/24 08:54 Dose: 400 mg Documented By: KIKI Amlodipine Besylate (Amlodipine Besylate 10 Mg Tablet) 10 mg PO DAILY COUNT INCLUDES THE [facility]; Protocol Last Admin: 01/20/24 08:43 Dose: 10 mg Documented By: KIKI Calcium Carbonate (Calcium Carbonate 750 Mg Tab.Chew) 750 mg PO Q4H PRN PRN Reason: Heartburn Clonazepam (Clonazepam 1 Mg Tablet) 1 mg PO BID COUNT INCLUDES THE [facility] Last Admin: 01/20/24 08:43 Dose: 1 mg Documented By: KIKI Gabapentin (Gabapentin 300 Mg Capsule) 300 mg PO TID COUNT INCLUDES THE [facility] Last Admin: 01/20/24 08:43 Dose: 300 mg Documented By: KIKI Heparin Sodium (Porcine) (Heparin Sodium,Porcine 5,000 Unit/Ml Vial) 5,000 unit SUBCUT Q12H COUNT INCLUDES THE [facility] Last Admin: 01/20/24 08:44 Dose: 5,000 unit Documented By: KIKI Hydralazine HCl (Hydralazine Hcl 50 Mg Tablet) 50 mg PO DAILY COUNT INCLUDES THE [facility]; Protocol Last Admin: 01/20/24 08:43 Dose: 50 mg Documented By: KIKI Cefepime HCl 1 gm/ Sodium (Chloride) 50 mls @ 100 mls/hr IV Q48H COUNT INCLUDES THE [facility] Vancomycin HCl 500 mg/ Sodium (Chloride) 110 mls @ 110 mls/hr IV MoWeFr@1800 COUNT INCLUDES THE [facility] Labetalol HCl (Labetalol Hcl 100 Mg Tablet) 300 mg PO BID COUNT INCLUDES THE [facility] Last Admin: 01/20/24 08:43 Dose: 300 mg Documented By: KIKI Magnesium Hydroxide (Milk Of Magnesia 30 Ml Oral.Susp) 30 ml PO DAILY PRN PRN Reason: Constipation Melatonin (Melatonin 3 Mg Tablet) 6 mg PO BEDTIME PRN PRN Reason: Insomnia Methadone HCl (Methadone Hcl 20 Mg/2 Ml Oral.Conc) 140 mg PO DAILY COUNT INCLUDES THE [facility] Last Admin: 01/20/24 10:35 Dose: 140 mg Documented By: KIKI Co-signed By: NILESH Ondansetron HCl (Ondansetron Hcl 4 Mg/2 Ml Vial) 4 mg IVPUSH Q8H PRN PRN Reason: Nausea and Vomiting Oxycodone HCl (Oxycodone Hcl Immed Release 5 Mg Tablet) 20 mg PO 6XD COUNT INCLUDES THE [facility] Last Admin: 01/20/24 08:42 Dose: 20 mg Documented By: KIKI Pharmacy Consult (Consult Rx Vancomycin Dosing) 1 each MISCELLANE DAILY PRN PRN Reason: Consult order Sodium Chloride (0.9 % Sodium Chloride Flush 3 Ml Syringe) 3 ml IVFLUSH QSHIFT COUNT INCLUDES THE [facility] Last Admin: 01/20/24 08:46 Dose: 3 ml Documented By: KIKI Labs 01/19/24 11:10 01/20/24 05:07 Labs: Laboratory Results - last 24 hr 01/19/24 01/19/24 01/19/24 11:10 13:31 20:40 MCV 103.7 H MCH 31.3 MCHC 30.2 L RDW 16.6 H Plt Count 120 L MPV 10.4 Immature Gran % (Auto) 0.6 H Neut % (Auto) 84.1 H Lymph % (Auto) 11.4 L [place] % (Auto) 3.7 Eos % (Auto) 0.0 Baso % (Auto) 0.2 Lymph # (Auto) 0.6 L [place] # (Auto) 0.2 Eos # (Auto) 0.0 Baso # (Auto) 0.0 Abs Immat Gran (auto) 0.03 Absolute Neuts (auto) 4.5 Absolute Nucleated RBC 0.000 Nucleated RBC % (auto) 0.0 ESR 61 H Hold Purple Top SEE NOTE Anion Gap 21 H Estim Creat Clear Calc 9.9 Estimated GFR 6 POC Glucose Random Glucose 104 Lactic Acid 1.8 0.8 Calcium 8.7 Magnesium 2.1 Total Bilirubin 0.6 AST 33 ALT 33 Alkaline Phosphatase 73 C-Reactive Protein 36.78 H B-Natriuretic Peptide 1392 H Total Protein 6.3 L Albumin 3.9 01/19/24 01/19/24 01/20/24 20:45 21:50 05:07 MCV MCH MCHC RDW Plt Count MPV Immature Gran % (Auto) Neut % (Auto) Lymph % (Auto) [place] % (Auto) Eos % (Auto) Baso % (Auto) Lymph # (Auto) [place] # (Auto) Eos # (Auto) Baso # (Auto) Abs Immat Gran (auto) Absolute Neuts (auto) Absolute Nucleated RBC Nucleated RBC % (auto) ESR Hold Purple Top SEE NOTE Anion Gap 20 Estim Creat Clear Calc 8.5 Estimated GFR 5 POC Glucose 112 Random Glucose 87 Lactic Acid Calcium 8.1 L D Magnesium Total Bilirubin AST ALT Alkaline Phosphatase C-Reactive Protein B-Natriuretic Peptide Total Protein Albumin Microbiology Microbiology Results: Microbiology 01/19/24 13:31 Blood Culture - Preliminary Blood - Venous Prelim: GNR Gram Stain only 01/19/24 13:31 Blood Culture - Preliminary Blood - Venous Prelim: GNR Gram Stain only Assessment and Plan (1) Cellulitis of left leg: Status: Acute (2) End stage renal disease on dialysis: Status: Acute (3) Bacteremia: Status: Acute Plan A 43 years old male with PMH of MM, ESRD on HD, Methadone usage who presents to the hospital with LLE swelling, pain and warmth for 3 days 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 LLE cellulitis in ESRD patient with GNR Bacteremia Marked area of erythema improving Cultures growing GNR, reported Bacillus look for infected foreign body ID consult Continue IV Vancomycin and Cefepime post dialysis for now Vancomycin trough keep leg elevated ESRD on HD Nephrology to follow for dialysis Hx MM, Acyclovir, Bactrim on hold HTN, Amlodipine, Labetalol, Losartan and Hydralazine Mood disorder, Clonazepam Hx opioid abuse, continue Methadone DVT PPx Lovenox The patient will need overnight hospital stay for treatment of cellulitis pending clinical improvement, HD session and blood cultures. Quality Stroke Does the patient have a stroke diagnosis?: No VTE Prior VTE?: No VTE Risk Level:: Medical - moderate - high VTE Device Contraindication: Treatment Not Indicated VTE Drug Contraindication: N/A - Med Ordered
[2024-01-20 19:45] VITALS: BP 139/78; PULSE 95; RESP 20; TEMP 36.8; O2SAT 97
[2024-01-20] MEDS: Nicotine 14 MG PATCH.TD24 TRANSDERMA (20:56)
[2024-01-20] MEDS: cefEPime HCl/D5W 2 GM/50 ML PIGGYBACK IV (21:15)
[2024-01-20 22:07] LABS: Vancomycin Random 27.1 mcg/mL (15-20)
--- NOTE | 2024-01-20 23:24 | W.PM.IDCN ---
History of Present Illness Data of Consult Service Date: 01/20/24 Requesting physician: Quinten Hdez Primary Care Provider: Nabil Prado MD HPI Reason for consult: gram negative bacteremia,leg redness He presents with three days redness and swelling left leg and it is itchy. He has IgA myeloma and is on HD through Renal. He has no fever or chills. His right dialysis port is clear. Review of Systems Review of Systems: Yes all other systems are reviewed and are negative PMFSH Past Medical History Medical History Restless legs Anxiety Multiple myeloma Family History Family History Maternal Uncle Cancer Family history: reviewed and not pertinent Social History Social History Household Members: Family Housing: House Do you presently have visiting nurse or other home services: No Alcohol intake: never Patient Tobacco Use Status: Never used Tobacco Tobacco use type: Cigarette Second Hand Smoke Exposure: No Substance Use Type: Marijuana service: No Meds Allergies Allergy/AdvReac Type Severity Reaction Status Date / Time No Known Allergies Allergy Verified 01/19/24 10:34 Active Medications: Current Medications Acetaminophen (Acetaminophen 325 Mg Tablet) 650 mg PO Q6H PRN PRN Reason: Pain, Mild (Pain Scale 1-3), fever or headache Last Admin: 01/19/24 19:59 Dose: 650 mg Acetaminophen/Butalbital/Caffeine (Butalb/Acetamin/Caff 50/325/40 Tablet) 2 tab PO Q4H PRN PRN Reason: Migraine Headache Acyclovir (Acyclovir 200 Mg Capsule) 400 mg PO BID [facility] Last Admin: 01/20/24 20:58 Dose: 400 mg Amlodipine Besylate (Amlodipine Besylate 10 Mg Tablet) 10 mg PO DAILY [facility]; Protocol Last Admin: 01/20/24 08:43 Dose: 10 mg Calcium Carbonate (Calcium Carbonate 750 Mg Tab.Chew) 750 mg PO Q4H PRN PRN Reason: Heartburn Clonazepam (Clonazepam 1 Mg Tablet) 1 mg PO BID [facility] Last Admin: 01/20/24 20:57 Dose: 1 mg Gabapentin (Gabapentin 300 Mg Capsule) 300 mg PO TID [facility] Last Admin: 01/20/24 20:57 Dose: 300 mg Heparin Sodium (Porcine) (Heparin Sodium,Porcine 5,000 Unit/Ml Vial) 5,000 unit SUBCUT Q12H [facility] Last Admin: 01/20/24 20:59 Dose: 5,000 unit Heparin Sodium (Porcine) (Heparin Sodium,Porcine 5,000 Unit/Ml Vial) 5,000 unit INTRACATH MOWEFR@1645 [facility] Last Admin: 01/20/24 20:47 Dose: Not Given Hydralazine HCl (Hydralazine Hcl 50 Mg Tablet) 50 mg PO DAILY [facility]; Protocol Last Admin: 01/20/24 08:43 Dose: 50 mg Cefepime HCl (Maxipime) 2 gm in 50 mls @ 100 mls/hr IV MoWeFr@2100 [facility] Last Infusion: 01/20/24 21:49 Dose: Infused Labetalol HCl (Labetalol Hcl 100 Mg Tablet) 300 mg PO BID [facility] Last Admin: 01/20/24 20:57 Dose: 300 mg Magnesium Hydroxide (Milk Of Magnesia 30 Ml Oral.Susp) 30 ml PO DAILY PRN PRN Reason: Constipation Melatonin (Melatonin 3 Mg Tablet) 6 mg PO BEDTIME PRN PRN Reason: Insomnia Methadone HCl (Methadone Hcl 20 Mg/2 Ml Oral.Conc) 140 mg PO DAILY [facility] Last Admin: 01/20/24 10:35 Dose: 140 mg Ondansetron HCl (Ondansetron Hcl 4 Mg/2 Ml Vial) 4 mg IVPUSH Q8H PRN PRN Reason: Nausea and Vomiting Oxycodone HCl (Oxycodone Hcl Immed Release 5 Mg Tablet) 20 mg PO 6XD [facility] Last Admin: 01/20/24 20:56 Dose: 20 mg Pharmacy Consult (Consult Rx Vancomycin Dosing) 1 each MISCELLANE DAILY PRN PRN Reason: Consult order Sevelamer Carbonate (Sevelamer Carbonate Tablet 800 Mg Tablet) 1,600 mg PO BIDWM [facility] Last Admin: 01/20/24 20:47 Dose: Not Given Sodium Chloride (0.9 % Sodium Chloride Flush 3 Ml Syringe) 3 ml IVFLUSH QSHIFT [facility] Last Admin: 01/20/24 20:46 Dose: Not Given Home Medications ?Medication ?Instructions ?Recorded ?Confirmed ?Last Taken ?Type acyclovir 400 mg tablet 400 mg PO BID 05/20/23 01/19/24 01/19/24 08:00 History hydralazine 50 mg tablet 50 mg PO DAILY 05/20/23 01/19/24 01/19/24 08:00 History labetalol 300 mg tablet 600 mg PO BID 06/12/23 01/19/24 01/19/24 08:00 History methadone 10 mg/mL oral concentrate 140 mg PO DAILY 06/12/23 01/20/24 01/19/24 History [id number] 2 tab PO Q4H PRN Migraine Headache 01/19/24 01/19/24 01/19/24 08:00 History 50 mg-325 mg-40 mg tablet clonazepam 1 mg tablet 1 mg PO BID 01/19/24 01/19/24 01/19/24 08:00 History gabapentin 100 mg capsule 300 mg PO TID 01/19/24 01/19/24 01/19/24 08:00 History oxycodone 20 mg tablet 20 mg PO 6XD 01/19/24 01/19/24 01/19/24 08:00 History sulfamethoxazole 800 1 tab PO MOWEFR 01/19/24 01/19/24 01/15/24 History mg-trimethoprim 160 mg tablet Physical Exam Vital Signs: Vital Signs: Last Vital Signs Temp 98.2 F 01/20/24 19:45 Pulse 95 01/20/24 19:45 Resp 20 01/20/24 19:45 BP 139/78 01/20/24 19:45 Pulse Ox 97 01/20/24 19:45 O2 Del Method Room Air 01/20/24 19:45 BMI result Body Mass Index 22.1 Const: General: cooperative HEENT: Head: Yes normal to inspection Face and sinus: Yes normal facial exam Mouth: Normal oral and palatal mucosa present Teeth and gingiva: dentition normal Eyes: General: appearance normal, both eyes and all related structures Pupils: Equal, round and reactive pupils present Resp: Effort & Inspection: normal respiratory effort Cardio: Rate: regular rate Rhythm: regular rhythm GI: Palpation (GI): Soft to palpation and nontender : General: Yes no CVA tenderness Back/Spine/Pelvis: Back: no CVA tenderness Skin: General skin exam: no rashes or lesions noted Neuro: General: moves all extremities Cranial nerves: Yes Equal, round and reactive pupils present Extrem: Other: slt left redness leg,cellulitis right port clear Psych: Appearance: grossly normal Results Labs 01/19/24 11:10 01/20/24 05:07 Labs: BMP 01/20/24 05:07 Sodium 135 Potassium 5.4 H Chloride 100 Carbon Dioxide 20 L BUN 69 H Creatinine 10.73 H* Calcium 8.1 L D Microbiology Microbiology Results: Microbiology 01/19/24 13:31 Blood - Venous Blood Culture - Preliminary Prelim: GNR Gram Stain only 01/19/24 13:31 Blood - Venous Blood Culture - Preliminary Prelim: GNR Gram Stain only Assessment and Plan (1) Bacteremia: Status: Acute (2) Cellulitis of left leg: Status: Acute Plan Gram negative bacteremia ,either cellulitis or port Port looks clear Leg looks better. Continue Cefepime,duration to be determined. Stop Vancomycin. Await culture and sensitivities.
[2024-01-20] MEDS: ondansetron HCL 4 MG/2 ML VIAL IVPUSH (23:47)
[2024-01-21 03:34] VITALS: BP 134/62; PULSE 83; RESP 20; TEMP 37.3; O2SAT 93
[2024-01-21] MEDS: oxyCODONE HCl Immed Release 5 MG TABLET 20 MG PO ×5 (05:40→20:28)
[2024-01-21 07:37] LABS: Hematocrit 26.2 % (42.0-52.0); Hemoglobin 8.1 g/dl (14.0-18.0); Mean Corpuscular HGB Conc 30.9 g/dl (31.0-36.0); Mean Corpuscular Hemoglobin 31.6 pg (27.0-33.0); Mean Corpuscular Volume 102.3 fL (80.0-98.0); Red Blood Count 2.56 X10*6/uL (4.60-5.80); Red Cell Distribution Width 16.5 % (11.0-16.0)
[2024-01-21 07:53] LABS: Anion Gap 20 (12-20); Blood Urea Nitrogen 55 mg/dL (9-16); Calcium 8.4 mg/dL (8.4-10.2); Carbon Dioxide 24 mmol/L (22-29); Chloride 100 mmol/L (96-108); Creatinine Clr Calc Pharmacy 13.2; Estimated Glomerular Filt Rate 9; Glucose Random 80 mg/dL (60-115); Potassium 4.7 mmol/L (3.3-5.1); Sodium 139 mmol/L (135-145)
[2024-01-21 07:54] VITALS: BP 123/68; PULSE 79; RESP 18; TEMP 37; O2SAT 96
[2024-01-21] MEDS: Gabapentin 300 MG CAPSULE PO ×3 (08:05→20:28)
[2024-01-21] MEDS: Labetalol HCL 100 MG TABLET 300 MG PO ×2 (08:05→20:28)
[2024-01-21] MEDS: clonazePAM 1 MG TABLET PO ×2 (08:05→20:28)
[2024-01-21] MEDS: hydrALAZINE HCl 50 MG TABLET PO (08:05)
[2024-01-21] MEDS: Heparin Sodium,Porcine 5,000 UNIT/ML VIAL 5000 UNIT SUBCUT ×2 (08:05→20:37)
[2024-01-21] MEDS: Acyclovir 200 MG CAPSULE 400 MG PO ×2 (08:05→20:28)
[2024-01-21] MEDS: Sevelamer Carbonate Tablet 800 MG TABLET 1600 MG PO ×2 (08:05→17:02)
[2024-01-21] MEDS: amLODIPine Besylate 10 MG TABLET PO (08:05)
[2024-01-21] MEDS: methADONE HCl 20 MG/2 ML ORAL.CONC 140 MG PO (08:06)
[2024-01-21] MEDS: 0.9 % Sodium Chloride Flush 3 ML SYRINGE IVFLUSH ×3 (08:12→20:38)
[2024-01-21 08:36] LABS: Mean Platelet Volume 10.6 fL (9.4-12.4); Platelet Count 87 X10*3/uL (160-400)
--- NOTE | 2024-01-21 08:45 | P.PNNP_ITS ---
Subjective Subjective Date of Service: 01/21/24 Interval history: 43 y/o male with ESRD secondary to IgA multiple myeloma on HD (M, W, F), followed by Dr Gomes, Nephrology, chronic pain with methadone use. 01/18 presented with LLE swelling, pain, warmth of note, positive for gram negative bacilli from both aerobic and anaerobic blood cultures drawn during outpatient HD (pt on ceftriaxone and vanco), collected due to cellulitis concern 01/17 Nephrology consulted for management of ESRD while hospitalized. pt reports other than lower extremity pain/swelling, which he states is improving, he does not have any other symptoms/complaints received HD yesterday, tolerated well reports he is anuric at baseline Physical Exam 2 Vital Signs: Vital Signs: Last Vital Signs Temp 98.6 F 01/21/24 07:54 Pulse 79 01/21/24 07:54 Resp 18 01/21/24 07:54 BP 123/68 01/21/24 07:54 Pulse Ox 96 01/21/24 07:54 O2 Del Method Room Air 01/21/24 07:54 BMI result Body Mass Index 22.1 Const: General: no acute distress, alert and awake Resp: Effort & Inspection: normal respiratory effort and able to speak in complete sentences Auscultation: clear to auscultation bilaterally Cardio: Jugular venous distension: no JVD Rate: regular rate Rhythm: r egular rhythm Heart sounds: S1 normal heart sound present and S2 normal heart sound present GI: Palpation (GI): Soft to palpation and nontender : General: Yes no CVA tenderness Back/Spine/Pelvis: Back: no CVA tenderness Skin: Lesions: no lesions Rashes: no rashes and other (LLE erythema/swelling) Extrem: General: Yes edema (left lower extremity swelling, erythema, tenderness) Objective Data Labs 01/21/24 05:42 01/21/24 05:42 Labs: Laboratory Results - last 24 hr 01/20/24 01/20/24 01/21/24 20:18 21:38 05:42 WBC 3.0 L RBC 2.56 L D Hgb 8.1 L D Hct 26.2 L D MCV 102.3 H MCH 31.6 MCHC 30.9 L RDW 16.5 H Plt Count 87 L D MPV 10.6 Absolute Nucleated RBC 0.000 Nucleated RBC % (auto) 0.0 Hold Purple Top SEE NOTE Sodium 139 Potassium 4.7 Chloride 100 Carbon Dioxide 24 Anion Gap 20 BUN 55 H Creatinine 6.92 H* Estim Creat Clear Calc 13.2 Estimated GFR 9 Random Glucose 80 Calcium 8.4 Hold Yellow Top See Note Random Vancomycin 27.1 H* Microbiology Microbiology Results: Microbiology 01/19/24 13:31 Blood - Venous Blood Culture - Preliminary Gram negative neal 01/19/24 13:31 Blood - Venous Blood Culture - Preliminary Gram negative neal Procedures Date of Service Date of Service: 01/21/24 Assessment & Plan Assessment and plan (1) End stage renal disease on dialysis: Status: Acute (2) Cellulitis of left leg: Status: Acute (3) Bacteremia: Status: Acute Plan ESRD patient on HD here for management of cellulitis, bacteremia 01/17 outpatient positive blood cultures drawn during outpatient HD grew gram negative bacilli in both aerobic and anaerobic cultures 01/19 peripheral venous blood cultures pending plan for HD 01/21 and then remove permacath after HD session will draw peripheral blood cultures on Thursday; if infection clears will insert temporary catheter 01/24 or 01/25 for continued HD Pt received HD yesterday and tolerated well Will continue patient's M, W, F schedule H&H 8.1 and 26 potassium, calcium within normal limits not acidotic at this time no uremic symptoms pt has chronically elevated phosphorous levels- taking sevelamer 1600mg BID with meals has right IJ permacath in place patient appears clinically euvolemic today (though tends to have high interdyalitic weight gain) blood pressures acceptable anuric at baseline Will continue to follow Discussed with Dr Gomes Time Spent With Patient Time: Total time managing care of this patient today ____ minutes. Progress Note: Quality Stroke Does the patient have a stroke diagnosis?: No
[2024-01-21] MEDS: Nicotine 14 MG PATCH.TD24 TRANSDERMA (10:57)
[2024-01-21] MEDS: Calcium Carbonate 750 MG TAB.CHEW PO (14:08)
--- NOTE | 2024-01-21 15:21 | HO.PM.IMPN ---
Subjective Subjective Date of Service: 01/21/24 Interval History: seen and evaluated blood cultures growing GNR left leg looks better, pain improved waiting dialysis Review of Systems Review of Systems: Yes all other systems are reviewed and are negative Physical Exam Vital Signs: Vital Signs: Last Vital Signs Temp 98.6 F 01/21/24 07:54 Pulse 79 01/21/24 07:54 Resp 18 01/21/24 07:54 BP 123/68 01/21/24 07:54 Pulse Ox 96 01/21/24 07:54 O2 Del Method Room Air 01/21/24 07:54 BMI result Body Mass Index 22.1 Const: Other: Constitutional : Awake, interactive, not in distress Neck : Normal inspection, Supple Cardiovascular : RRR, no JVP, no lower extremity edema Respiratory : good bilateral air entry, no crackles, wheezes or rhonchi Gastrointestinal: soft, lax, Normal bowel sounds, Non tender Skin : Warm, Dry, significantly improved left lower extremity erythema, warmth and tenderness with no drainage Neurological : Alert & oriented x3, No focal deficit Objective Data Active Medications Acetaminophen (Acetaminophen 325 Mg Tablet) 650 mg PO Q6H PRN PRN Reason: Pain, Mild (Pain Scale 1-3), fever or headache Last Admin: 01/19/24 19:59 Dose: 650 mg Documented By: YASMANI Acetaminophen/Butalbital/Caffeine (Butalb/Acetamin/Caff 50/325/40 Tablet) 2 tab PO Q4H PRN PRN Reason: Migraine Headache Acyclovir (Acyclovir 200 Mg Capsule) 400 mg PO BID [facility] Last Admin: 01/21/24 08:05 Dose: 400 mg Documented By: PRICE Amlodipine Besylate (Amlodipine Besylate 10 Mg Tablet) 10 mg PO DAILY [facility]; Protocol Last Admin: 01/21/24 08:05 Dose: 10 mg Documented By: PRICE Calcium Carbonate (Calcium Carbonate 750 Mg Tab.Chew) 750 mg PO Q4H PRN PRN Reason: Heartburn Last Admin: 01/21/24 14:08 Dose: 750 mg Documented By: PRICE Clonazepam (Clonazepam 1 Mg Tablet) 1 mg PO BID [facility] Last Admin: 01/21/24 08:05 Dose: 1 mg Documented By: PRICE Gabapentin (Gabapentin 300 Mg Capsule) 300 mg PO TID [facility] Last Admin: 01/21/24 14:08 Dose: 300 mg Documented By: PRICE Heparin Sodium (Porcine) (Heparin Sodium,Porcine 5,000 Unit/Ml Vial) 5,000 unit SUBCUT Q12H [facility] Last Admin: 01/21/24 08:05 Dose: 5,000 unit Documented By: PRICE Heparin Sodium (Porcine) (Heparin Sodium,Porcine 5,000 Unit/Ml Vial) 5,000 unit INTRACATH MOWEFR@1645 [facility] Last Admin: 01/20/24 20:47 Dose: Not Given Documented By: ALY Non-Admin Reason: Off unit: Dialysis Hydralazine HCl (Hydralazine Hcl 50 Mg Tablet) 50 mg PO DAILY [facility]; Protocol Last Admin: 01/21/24 08:05 Dose: 50 mg Documented By: PRICE Cefepime HCl (Maxipime) 2 gm in 50 mls @ 100 mls/hr IV MoWeFr@2100 [facility] Last Infusion: 01/20/24 21:49 Dose: Infused Documented By: ALY Vancomycin HCl 500 mg/ Sodium (Chloride) 110 mls @ 110 mls/hr IV ONCE ONE Stop: 01/22/24 20:59 Labetalol HCl (Labetalol Hcl 100 Mg Tablet) 300 mg PO BID [facility] Last Admin: 01/21/24 08:05 Dose: 300 mg Documented By: PRICE Magnesium Hydroxide (Milk Of Magnesia 30 Ml Oral.Susp) 30 ml PO DAILY PRN PRN Reason: Constipation Melatonin (Melatonin 3 Mg Tablet) 6 mg PO BEDTIME PRN PRN Reason: Insomnia Methadone HCl (Methadone Hcl 20 Mg/2 Ml Oral.Conc) 140 mg PO DAILY [facility] Last Admin: 01/21/24 08:06 Dose: 140 mg Documented By: PRICE Co-signed By: DABEzekiel Nicotine (Nicotine 14 Mg Patch.Td24) 14 mg TRANSDERMA DAILY [facility] Last Admin: 01/21/24 10:57 Dose: 14 mg Documented By: PRICE Ondansetron HCl (Ondansetron Hcl 4 Mg/2 Ml Vial) 4 mg IVPUSH Q8H PRN PRN Reason: Nausea and Vomiting Last Admin: 01/20/24 23:47 Dose: 4 mg Documented By: ANTOIC Oxycodone HCl (Oxycodone Hcl Immed Release 5 Mg Tablet) 20 mg PO 6XD [facility] Last Admin: 01/21/24 14:08 Dose: 20 mg Documented By: PRICE Pharmacy Consult (Consult Rx Vancomycin Dosing) 1 each MISCELLANE DAILY PRN PRN Reason: Consult order Sevelamer Carbonate (Sevelamer Carbonate Tablet 800 Mg Tablet) 1,600 mg PO BIDWM [facility] Last Admin: 01/21/24 08:05 Dose: 1,600 mg Documented By: PRICE Sodium Chloride (0.9 % Sodium Chloride Flush 3 Ml Syringe) 3 ml IVFLUSH QSHIFT [facility] Last Admin: 01/21/24 08:12 Dose: 3 ml Documented By: PRICE Labs 01/21/24 05:42 01/21/24 05:42 Labs: Laboratory Results - last 24 hr 01/20/24 01/20/24 01/21/24 20:18 21:38 05:42 MCV 102.3 H MCH 31.6 MCHC 30.9 L RDW 16.5 H Plt Count 87 L D MPV 10.6 Absolute Nucleated RBC 0.000 Nucleated RBC % (auto) 0.0 Hold Purple Top SEE NOTE Anion Gap 20 Estim Creat Clear Calc 13.2 Estimated GFR 9 Random Glucose 80 Calcium 8.4 Hold Yellow Top See Note Random Vancomycin 27.1 H* Microbiology Microbiology Results: Microbiology 01/19/24 13:31 Blood Culture - Preliminary Blood - Venous Gram negative neal 01/19/24 13:31 Blood Culture - Preliminary Blood - Venous Gram negative neal Assessment and Plan (1) Bacteremia: Status: Acute (2) Cellulitis of left leg: Status: Acute Plan A 43 years old male with PMH of MM, ESRD on HD, Methadone usage who presents to the hospital with LLE swelling, pain and warmth for 3 days [employer]. LLE cellulitis in ESRD patient with GNR Bacteremia Marked area of erythema improving Cultures growing GNR, pending final cultures Permacath might need to be removed, follow repeat blood cultures ID consult Continue IV Vancomycin and Cefepime post dialysis for now Vancomycin trough keep leg elevated ESRD on HD Nephrology to follow for dialysis Hx MM, Acyclovir, Bactrim on hold HTN, Amlodipine, Labetalol, Losartan and Hydralazine Mood disorder, Clonazepam Hx opioid abuse, continue Methadone DVT PPx Lovenox The patient will need overnight hospital stay for treatment of cellulitis pending clinical improvement, HD session and blood cultures. Quality Stroke Does the patient have a stroke diagnosis?: No VTE Prior VTE?: No VTE Risk Level:: Medical - moderate - high VTE Device Contraindication: Treatment Not Indicated VTE Drug Contraindication: N/A - Med Ordered
[2024-01-21 15:25] VITALS: BP 104/59; PULSE 78; RESP 20; TEMP 37.2; O2SAT 94
[2024-01-21 19:40] VITALS: BP 127/62; PULSE 83; RESP 20; TEMP 36.9; O2SAT 95
[2024-01-22 04:00] VITALS: BP 113/58; PULSE 77; RESP 18; TEMP 36.9; O2SAT 96
[2024-01-22] MEDS: oxyCODONE HCl Immed Release 5 MG TABLET 20 MG PO ×5 (04:55→20:10)
[2024-01-22 07:37] VITALS: BP 121/57; PULSE 80; RESP 16; TEMP 36.9; O2SAT 94
[2024-01-22] MEDS: methADONE HCl 20 MG/2 ML ORAL.CONC 140 MG PO (08:05)
[2024-01-22] MEDS: Labetalol HCL 100 MG TABLET 300 MG PO ×2 (08:06→20:07)
[2024-01-22] MEDS: hydrALAZINE HCl 50 MG TABLET PO (08:06)
[2024-01-22] MEDS: amLODIPine Besylate 10 MG TABLET PO (08:06)
[2024-01-22] MEDS: Acyclovir 200 MG CAPSULE 400 MG PO ×2 (08:06→20:07)
[2024-01-22] MEDS: Nicotine 14 MG PATCH.TD24 TRANSDERMA (08:06)
[2024-01-22] MEDS: Sevelamer Carbonate Tablet 800 MG TABLET 1600 MG PO ×2 (08:06→16:23)
[2024-01-22] MEDS: Gabapentin 300 MG CAPSULE PO ×3 (08:08→20:08)
[2024-01-22] MEDS: 0.9 % Sodium Chloride Flush 3 ML SYRINGE IVFLUSH ×4 (08:12→20:16)
[2024-01-22] MEDS: Heparin Sodium,Porcine 5,000 UNIT/ML VIAL 5000 UNIT SUBCUT ×2 (08:12→20:09)
[2024-01-22] MEDS: clonazePAM 1 MG TABLET PO ×2 (08:12→20:08)
--- NOTE | 2024-01-22 09:45 | W.PM.DNNEP ---
Subjective Subjective Date of Service: 01/22/24 This patient was seen during dialysis. Interval history: 43 y/o male with ESRD secondary to IgA multiple myeloma on HD (M, W, F), followed by Dr Gomes, Nephrology, chronic pain with methadone use. 01/18 presented with LLE swelling, pain, warmth had gram negative bacilli growfrom both aerobic and anaerobic blood cultures drawn during outpatient HD (pt on ceftriaxone and vanco), collected due to cellulitis concern 01/17 Nephrology consulted for management of ESRD while hospitalized. pt reports other than lower extremity pain/swelling, which he states is improving, he does not have any other symptoms/complaints received HD yesterday, tolerated well reports he is anuric at baseline Physical Exam Vital Signs: Vital Signs: Last Vital Signs Temp 98.4 F 01/22/24 07:37 Pulse 80 01/22/24 07:37 Resp 16 01/22/24 07:37 BP 121/57 L 01/22/24 07:37 Pulse Ox 94 01/22/24 07:37 O2 Del Method Room Air 01/22/24 07:37 BMI result Body Mass Index 22.1 Const: General: no acute distress, alert and awake Resp: Effort & Inspection: normal respiratory effort and able to speak in complete sentences Auscultation: clear to auscultation bilaterally Cardio: Jugular venous distension: no JVD Rate: regular rate Rhythm: regular rhythm Heart sounds: S1 normal heart sound present and S2 normal heart sound present GI: Palpation (GI): Soft to palpation and nontender : General: Yes no CVA tenderness Back/Spine/Pelvis: Back: no CVA tenderness Skin: Lesions: no lesions Rashes: no rashes and other (LLE erythema/swelling) Extrem: General: Yes edema (left lower extremity swelling, erythema, tenderness) Assessment & Plan Assessment and plan (1) End stage renal disease on dialysis: Status: Acute (2) Cellulitis of left leg: Status: Acute (3) Bacteremia: Status: Acute Plan ESRD patient on HD here for management of cellulitis, bacteremia 01/17 outpatient positive blood cultures drawn during outpatient HD grew gram negative bacilli in both aerobic and anaerobic cultures 01/19 peripheral venous blood cultures +for gram negative rods plan for HD today 01/21 and then remove permacath after HD session will draw peripheral blood cultures on Thursday; will place temporary catheter on Wednesday 01/24 to allow for HD Thursday when patient is due pt seen in dialysis today Will continue patient's M, W, F schedule H&H 8.1 and 26 - will administer 20,000 units epo (pt is very epo resistant with hx of chemo) potassium, calcium within normal limits not acidotic at this time no uremic symptoms pt has chronically elevated phosphorous levels- taking sevelamer 1600mg BID with meals has right IJ permacath in place (to be removed after HD) patient appears clinically euvolemic today (though tends to have high interdyalitic weight gain) blood pressures acceptable anuric at baseline Will continue to follow Discussed with Dr Gomes Time Spent With Patient Time: Total time managing care of this patient today ____ minutes. Procedures Date of Service Date of Service: 01/22/24
--- NOTE | 2024-01-22 12:16 | MHC.CM.PN ---
Per MD rounds patient not medically cleared for dc. Per MD, if IV abx are required, will be set up w/ HD. CM will continue to follow.
[2024-01-22 12:22] LABS: Hematocrit 29.4 % (42.0-52.0); Hemoglobin 8.8 g/dl (14.0-18.0); Mean Corpuscular HGB Conc 29.9 g/dl (31.0-36.0); Mean Corpuscular Hemoglobin 31.2 pg (27.0-33.0); Mean Corpuscular Volume 104.3 fL (80.0-98.0); Mean Platelet Volume 10.8 fL (9.4-12.4); Platelet Count 100 X10*3/uL (160-400); Red Blood Count 2.82 X10*6/uL (4.60-5.80); Red Cell Distribution Width 16.4 % (11.0-16.0); White Blood Count 2.4 X10*3/uL (4.8-10.8)
[2024-01-22 12:41] LABS: Anion Gap 14 (12-20); Blood Urea Nitrogen 26 mg/dL (9-16); Calcium 8.8 mg/dL (8.4-10.2); Carbon Dioxide 24 mmol/L (22-29); Chloride 104 mmol/L (96-108); Creatinine Clr Calc Pharmacy 27.2; Estimated Glomerular Filt Rate 20; Glucose Random 98 mg/dL (60-115); Phosphorus 2.8 mg/dL (2.7-4.5); Potassium 3.6 mmol/L (3.3-5.1); Sodium 138 mmol/L (135-145)
--- NOTE | 2024-01-22 15:03 | HO.PM.IMPN ---
Subjective Subjective Date of Service: 01/22/24 Interval History: seen and evaluated blood cultures growing Achromobacter xylosoxidans left leg looks better, pain improved waiting dialysis Review of Systems Review of Systems: Yes all other systems are reviewed and are negative Physical Exam Vital Signs: Vital Signs: Last Vital Signs Temp 98.4 F 01/22/24 07:37 Pulse 80 01/22/24 07:37 Resp 16 01/22/24 07:37 BP 121/57 L 01/22/24 07:37 Pulse Ox 94 01/22/24 07:37 O2 Del Method Room Air 01/22/24 07:37 BMI result Body Mass Index 22.1 Const: Other: Constitutional : Awake, interactive, not in distress Neck : Normal inspection, Supple Cardiovascular : RRR, no JVP, still has Left lower extremity edema Respiratory : good bilateral air entry, no crackles, wheezes or rhonchi Gastrointestinal: soft, lax, Normal bowel sounds, Non tender Skin : Warm, Dry, significantly improved left lower extremity erythema, warmth and tenderness with no drainage Neurological : Alert & oriented x3, No focal deficit Objective Data Active Medications Acetaminophen (Acetaminophen 325 Mg Tablet) 650 mg PO Q6H PRN PRN Reason: Pain, Mild (Pain Scale 1-3), fever or headache Last Admin: 01/19/24 19:59 Dose: 650 mg Documented By: YASMANI Acetaminophen/Butalbital/Caffeine (Butalb/Acetamin/Caff 50/325/40 Tablet) 2 tab PO Q4H PRN PRN Reason: Migraine Headache Acyclovir (Acyclovir 200 Mg Capsule) 400 mg PO BID [facility] Last Admin: 01/22/24 08:06 Dose: 400 mg Documented By: HERRERA Amlodipine Besylate (Amlodipine Besylate 10 Mg Tablet) 10 mg PO DAILY [facility]; Protocol Last Admin: 01/22/24 08:06 Dose: 10 mg Documented By: HERRERA Calcium Carbonate (Calcium Carbonate 750 Mg Tab.Chew) 750 mg PO Q4H PRN PRN Reason: Heartburn Last Admin: 01/21/24 14:08 Dose: 750 mg Documented By: PRICE Clonazepam (Clonazepam 1 Mg Tablet) 1 mg PO BID [facility] Last Admin: 01/22/24 08:12 Dose: 1 mg Documented By: HERRERA Gabapentin (Gabapentin 300 Mg Capsule) 300 mg PO TID [facility] Last Admin: 01/22/24 14:10 Dose: 300 mg Documented By: PRICE Heparin Sodium (Porcine) (Heparin Sodium,Porcine 5,000 Unit/Ml Vial) 5,000 unit SUBCUT Q12H [facility] Last Admin: 01/22/24 08:12 Dose: 5,000 unit Documented By: HERRERA Heparin Sodium (Porcine) (Heparin Sodium,Porcine 5,000 Unit/Ml Vial) 5,000 unit INTRACATH MOWEFR@1645 [facility] Last Admin: 01/20/24 20:47 Dose: Not Given Documented By: ALY Non-Admin Reason: Off unit: Dialysis Hydralazine HCl (Hydralazine Hcl 50 Mg Tablet) 50 mg PO DAILY [facility]; Protocol Last Admin: 01/22/24 08:06 Dose: 50 mg Documented By: HERRERA Cefepime HCl (Maxipime) 2 gm in 50 mls @ 100 mls/hr IV MoWeFr@2100 [facility] Last Infusion: 01/20/24 21:49 Dose: Infused Documented By: ALY Vancomycin HCl 500 mg/ Sodium (Chloride) 110 mls @ 110 mls/hr IV ONCE ONE Stop: 01/22/24 20:59 Labetalol HCl (Labetalol Hcl 100 Mg Tablet) 300 mg PO BID [facility] Last Admin: 01/22/24 08:06 Dose: 300 mg Documented By: HERRERA Magnesium Hydroxide (Milk Of Magnesia 30 Ml Oral.Susp) 30 ml PO DAILY PRN PRN Reason: Constipation Melatonin (Melatonin 3 Mg Tablet) 6 mg PO BEDTIME PRN PRN Reason: Insomnia Methadone HCl (Methadone Hcl 20 Mg/2 Ml Oral.Conc) 140 mg PO DAILY [facility] Last Admin: 01/22/24 08:05 Dose: 140 mg Documented By: HERRERA Co-signed By: PRICE Nicotine (Nicotine 14 Mg Patch.Td24) 14 mg TRANSDERMA DAILY [facility] Last Admin: 01/22/24 08:06 Dose: 14 mg Documented By: HERRERA Ondansetron HCl (Ondansetron Hcl 4 Mg/2 Ml Vial) 4 mg IVPUSH Q8H PRN PRN Reason: Nausea and Vomiting Last Admin: 01/20/24 23:47 Dose: 4 mg Documented By: HO.ANTOIC Oxycodone HCl (Oxycodone Hcl Immed Release 5 Mg Tablet) 20 mg PO 6XD [facility] Last Admin: 01/22/24 14:10 Dose: 20 mg Documented By: PRICE Pharmacy Consult (Consult Rx Vancomycin Dosing) 1 each MISCELLANE DAILY PRN PRN Reason: Consult order Sevelamer Carbonate (Sevelamer Carbonate Tablet 800 Mg Tablet) 1,600 mg PO BIDWM [facility] Last Admin: 01/22/24 08:06 Dose: 1,600 mg Documented By: HERRERA Sodium Chloride (0.9 % Sodium Chloride Flush 3 Ml Syringe) 3 ml IVFLUSH QSHIFT [facility] Last Admin: 01/22/24 08:12 Dose: 3 ml Documented By: HERRERA Labs 01/22/24 11:50 01/22/24 11:50 Labs: Laboratory Results - last 24 hr 01/22/24 11:50 MCV 104.3 H MCH 31.2 MCHC 29.9 L RDW 16.4 H Plt Count 100 L MPV 10.8 Absolute Nucleated RBC 0.000 Nucleated RBC % (auto) 0.0 Anion Gap 14 Estim Creat Clear Calc 27.2 Estimated GFR 20 Random Glucose 98 Calcium 8.8 Phosphorus 2.8 Microbiology Microbiology Results: Microbiology 01/20/24 20:18 Blood Culture - Preliminary Blood - Venous Prelim: GNR Gram Stain only 01/20/24 20:18 Blood Culture - Preliminary Blood - Venous Prelim: GNR Gram Stain only 01/19/24 13:31 Blood Culture - Final Blood - Venous Achromobacter xylosoxidans 01/19/24 13:31 Blood Culture - Final Blood - Venous Achromobacter xylosoxidans Assessment and Plan (1) Bacteremia: Status: Acute (2) Cellulitis of left leg: Status: Acute (3) Infection due to Port-A-Cath: Status: Acute Plan A 43 years old male with PMH of MM, ESRD on HD, Methadone usage who presents to the hospital with LLE swelling, pain and warmth for 3 days [employer]. LLE cellulitis in ESRD patient with GNR Bacteremia Marked area of erythema improving Cultures growing Achromobacter xylosoxidans Permacath to be removed, follow repeat blood cultures ID consult DC IV Vancomycin and Cefepime post dialysis for now change to Meropenem post HD keep leg elevated ESRD on HD Nephrology to follow for dialysis Hx MM, Acyclovir, Bactrim on hold HTN, Amlodipine, Labetalol, Losartan and Hydralazine Mood disorder, Clonazepam Hx opioid abuse, continue Methadone DVT PPx Lovenox The patient will need overnight hospital stay for treatment of cellulitis pending clinical improvement, HD session and blood cultures. Quality Stroke Does the patient have a stroke diagnosis?: No VTE Prior VTE?: No VTE Risk Level:: Medical - moderate - high VTE Device Contraindication: Treatment Not Indicated VTE Drug Contraindication: N/A - Med Ordered
--- NOTE | 2024-01-22 15:05 | PM.PROC ---
Brief Operative Note Date of procedure: 01/22/24 Pre-op diagnosis: Bacteremia Post-op diagnosis: same Procedure: Right IJ Permacath removed. Tip sent for culture. No immediate complications. Anesthesia: local
[2024-01-22 15:32] VITALS: BP 116/57; PULSE 80; RESP 20; TEMP 36.9; O2SAT 95
[2024-01-22] MEDS: Meropenem 500 MG VIAL IVPUSH (16:23)
[2024-01-22] MEDS: Calcium Carbonate 750 MG TAB.CHEW PO (16:23)
[2024-01-22 18:54] LABS: Vancomycin Random 17.8 mcg/mL (15-20)
[2024-01-22 19:35] VITALS: BP 117/56; PULSE 87; RESP 20; TEMP 37; O2SAT 95
[2024-01-23] MEDS: oxyCODONE HCl Immed Release 5 MG TABLET 20 MG PO ×6 (06:28→21:18)
[2024-01-23 07:46] VITALS: BP 118/59; PULSE 74; RESP 20; TEMP 36.8; O2SAT 96
[2024-01-23] MEDS: Acyclovir 200 MG CAPSULE 400 MG PO ×2 (08:41→21:18)
[2024-01-23] MEDS: Gabapentin 300 MG CAPSULE PO ×3 (08:41→21:18)
[2024-01-23] MEDS: 0.9 % Sodium Chloride Flush 3 ML SYRINGE IVFLUSH ×3 (08:41→21:19)
[2024-01-23] MEDS: amLODIPine Besylate 10 MG TABLET PO (08:42)
[2024-01-23] MEDS: Heparin Sodium,Porcine 5,000 UNIT/ML VIAL 5000 UNIT SUBCUT ×2 (08:42→21:18)
[2024-01-23] MEDS: Labetalol HCL 100 MG TABLET 300 MG PO ×2 (08:42→21:18)
[2024-01-23] MEDS: Sevelamer Carbonate Tablet 800 MG TABLET 1600 MG PO ×2 (08:43→17:14)
[2024-01-23] MEDS: clonazePAM 1 MG TABLET PO ×2 (08:43→21:18)
[2024-01-23] MEDS: hydrALAZINE HCl 50 MG TABLET PO (08:44)
[2024-01-23] MEDS: methADONE HCl 20 MG/2 ML ORAL.CONC 140 MG PO (08:44)
[2024-01-23] MEDS: Nicotine 14 MG PATCH.TD24 TRANSDERMA (08:45)
--- NOTE | 2024-01-23 11:51 | HO.PM.IMPN ---
Subjective Subjective Date of Service: 01/23/24 Interval History: seen and evaluated left leg looks better, pain improved repeated blood cultures pending perma removed Review of Systems Review of Systems: Yes all other systems are reviewed and are negative Physical Exam Vital Signs: Vital Signs: Last Vital Signs Temp 98.2 F 01/23/24 07:46 Pulse 74 01/23/24 07:46 Resp 20 01/23/24 07:46 BP 118/59 L 01/23/24 07:46 Pulse Ox 96 01/23/24 07:46 O2 Del Method Room Air 01/23/24 07:46 BMI result Body Mass Index 22.1 Const: Other: Constitutional : Awake, interactive, not in distress Neck : Normal inspection, Supple Cardiovascular : RRR, no JVP, decreased Left lower extremity edema Respiratory : good bilateral air entry, no crackles, wheezes or rhonchi Gastrointestinal: soft, lax, Normal bowel sounds, Non tender Skin : Warm, Dry, significantly improved left lower extremity erythema, warmth and tenderness with no drainage Neurological : Alert & oriented x3, No focal deficit Objective Data Active Medications Acetaminophen (Acetaminophen 325 Mg Tablet) 650 mg PO Q6H PRN PRN Reason: Pain, Mild (Pain Scale 1-3), fever or headache Last Admin: 01/19/24 19:59 Dose: 650 mg Documented By: YASMANI Acetaminophen/Butalbital/Caffeine (Butalb/Acetamin/Caff 50/325/40 Tablet) 2 tab PO Q4H PRN PRN Reason: Migraine Headache Acyclovir (Acyclovir 200 Mg Capsule) 400 mg PO BID [facility] Last Admin: 01/23/24 08:41 Dose: 400 mg Documented By: RUSTY Amlodipine Besylate (Amlodipine Besylate 10 Mg Tablet) 10 mg PO DAILY [facility]; Protocol Last Admin: 01/23/24 08:42 Dose: 10 mg Documented By: RUSTY Calcium Carbonate (Calcium Carbonate 750 Mg Tab.Chew) 750 mg PO Q4H PRN PRN Reason: Heartburn Last Admin: 01/22/24 16:23 Dose: 750 mg Documented By: PRICE Clonazepam (Clonazepam 1 Mg Tablet) 1 mg PO BID [facility] Last Admin: 01/23/24 08:43 Dose: 1 mg Documented By: RUSTY Gabapentin (Gabapentin 300 Mg Capsule) 300 mg PO TID [facility] Last Admin: 01/23/24 08:41 Dose: 300 mg Documented By: RUSTY Heparin Sodium (Porcine) (Heparin Sodium,Porcine 5,000 Unit/Ml Vial) 5,000 unit SUBCUT Q12H [facility] Last Admin: 01/23/24 08:42 Dose: 5,000 unit Documented By: RUSTY Heparin Sodium (Porcine) (Heparin Sodium,Porcine 5,000 Unit/Ml Vial) 5,000 unit INTRACATH MOWEFR@1645 [facility] Last Admin: 01/22/24 16:23 Dose: Not Given Documented By: PRICE Non-Admin Reason: No Port Hydralazine HCl (Hydralazine Hcl 50 Mg Tablet) 50 mg PO DAILY [facility]; Protocol Last Admin: 01/23/24 08:44 Dose: 50 mg Documented By: RUSTY Labetalol HCl (Labetalol Hcl 100 Mg Tablet) 300 mg PO BID [facility] Last Admin: 01/23/24 08:42 Dose: 300 mg Documented By: RUSTY Magnesium Hydroxide (Milk Of Magnesia 30 Ml Oral.Susp) 30 ml PO DAILY PRN PRN Reason: Constipation Melatonin (Melatonin 3 Mg Tablet) 6 mg PO BEDTIME PRN PRN Reason: Insomnia Meropenem (Meropenem 500 Mg Vial) 500 mg IVPUSH Q24H [facility] Last Admin: 01/22/24 16:23 Dose: 500 mg Documented By: PRICE Methadone HCl (Methadone Hcl 20 Mg/2 Ml Oral.Conc) 140 mg PO DAILY [facility] Last Admin: 01/23/24 08:44 Dose: 140 mg Documented By: RUSTY Co-signed By: QUINNUSIEzekiel Nicotine (Nicotine 14 Mg Patch.Td24) 14 mg TRANSDERMA DAILY [facility] Last Admin: 01/23/24 08:45 Dose: 14 mg Documented By: RUSTY Ondansetron HCl (Ondansetron Hcl 4 Mg/2 Ml Vial) 4 mg IVPUSH Q8H PRN PRN Reason: Nausea and Vomiting Last Admin: 01/20/24 23:47 Dose: 4 mg Documented By: ANTOIC Oxycodone HCl (Oxycodone Hcl Immed Release 5 Mg Tablet) 20 mg PO 6XD [facility] Last Admin: 01/23/24 08:43 Dose: 20 mg Documented By: RUSTY Sevelamer Carbonate (Sevelamer Carbonate Tablet 800 Mg Tablet) 1,600 mg PO BIDWM [facility] Last Admin: 01/23/24 08:43 Dose: 1,600 mg Documented By: RUSTY Sodium Chloride (0.9 % Sodium Chloride Flush 3 Ml Syringe) 3 ml IVFLUSH QSHIFT [facility] Last Admin: 01/23/24 08:41 Dose: 3 ml Documented By: RUSTY Trimethoprim/Sulfamethoxazole (Sulfamethox/Trimeth 800/160 Tablet) 1 tab PO MoWeFr@1600 [facility] Labs 01/22/24 11:50 01/22/24 11:50 Labs: Laboratory Results - last 24 hr 01/22/24 01/22/24 11:50 18:04 MCV 104.3 H MCH 31.2 MCHC 29.9 L RDW 16.4 H Plt Count 100 L MPV 10.8 Absolute Nucleated RBC 0.000 Nucleated RBC % (auto) 0.0 Anion Gap 14 Estim Creat Clear Calc 27.2 Estimated GFR 20 Random Glucose 98 Calcium 8.8 Phosphorus 2.8 Random Vancomycin 17.8 Microbiology Microbiology Results: Microbiology 01/20/24 20:18 Blood Culture - Preliminary Blood - Venous Gram negative neal 01/20/24 20:18 Blood Culture - Preliminary Blood - Venous Gram negative neal 01/22/24 13:00 Catheter Tip Culture - Preliminary Catheter Tip - Other No growth to date. 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 LLE cellulitis in ESRD patient with GNR Bacteremia Marked area of erythema improving Cultures growing Achromobacter xylosoxidans Permacath removed 01/21 follow repeat blood cultures ID rec Meropenem, 500 mg daily , plan for 2 weeks IV Abx. keep leg elevated will likely place Temp cath\Perma next week and restart dialysis before DC ESRD on HD Nephrology to follow for dialysis Hx MM, Acyclovir, Bactrim on hold HTN, Amlodipine, Labetalol, Losartan and Hydralazine Mood disorder, Clonazepam Hx opioid abuse, continue Methadone DVT PPx Lovenox The patient will need overnight hospital stay for treatment of cellulitis pending clinical improvement, HD session and blood cultures. Quality Stroke Does the patient have a stroke diagnosis?: No VTE Prior VTE?: No VTE Risk Level:: Medical - moderate - high VTE Device Contraindication: Treatment Not Indicated VTE Drug Contraindication: N/A - Med Ordered
[2024-01-23] MEDS: Meropenem 500 MG VIAL IVPUSH (15:01)
[2024-01-23 16:00] VITALS: BP 113/57; PULSE 71; RESP 20; TEMP 36.4; O2SAT 97
[2024-01-23 19:35] VITALS: BP 120/58; PULSE 77; RESP 18; TEMP 37.4; O2SAT 94
[2024-01-24] MEDS: oxyCODONE HCl Immed Release 5 MG TABLET 20 MG PO ×6 (06:10→21:08)
[2024-01-24 07:45] VITALS: BP 121/58; PULSE 74; RESP 20; TEMP 36.7; O2SAT 97
[2024-01-24] MEDS: 0.9 % Sodium Chloride Flush 3 ML SYRINGE IVFLUSH ×3 (08:20→21:09)
[2024-01-24] MEDS: hydrALAZINE HCl 50 MG TABLET PO (08:21)
[2024-01-24] MEDS: methADONE HCl 20 MG/2 ML ORAL.CONC 140 MG PO (08:21)
[2024-01-24] MEDS: clonazePAM 1 MG TABLET PO ×2 (08:21→21:08)
[2024-01-24] MEDS: Heparin Sodium,Porcine 5,000 UNIT/ML VIAL 5000 UNIT SUBCUT ×2 (08:22→21:07)
[2024-01-24] MEDS: Sevelamer Carbonate Tablet 800 MG TABLET 1600 MG PO ×2 (08:22→16:57)
[2024-01-24] MEDS: Acyclovir 200 MG CAPSULE 400 MG PO ×2 (08:23→21:07)
[2024-01-24] MEDS: Gabapentin 300 MG CAPSULE PO ×3 (08:23→21:08)
[2024-01-24] MEDS: Nicotine 14 MG PATCH.TD24 TRANSDERMA (08:23)
[2024-01-24] MEDS: amLODIPine Besylate 10 MG TABLET PO (08:24)
[2024-01-24] MEDS: Calcium Carbonate 750 MG TAB.CHEW PO (10:33)
[2024-01-24 10:42] VITALS: BP 130/59; PULSE 81; RESP 20; TEMP 37.2; O2SAT 96
[2024-01-24] MEDS: Labetalol HCL 100 MG TABLET 300 MG PO ×2 (10:42→21:08)
--- NOTE | 2024-01-24 11:20 | P.PNIM_ITS ---
Subjective Subjective Date of Service: 01/24/24 Interval History: seen and evaluated left leg looks better but still swollen, pain improved repeated blood cultures negative no other complaints Review of Systems Review of Systems: Yes all other systems are reviewed and are negative Physical Exam 2 Vital Signs: Vital Signs: Last Vital Signs Temp 99 F 01/24/24 10:42 Pulse 81 01/24/24 10:42 Resp 20 01/24/24 10:42 BP 130/59 L 01/24/24 10:42 Pulse Ox 96 01/24/24 10:42 O2 Del Method Room Air 01/24/24 10:42 BMI result Body Mass Index 22.1 Const: Other: Constitutional : Awake, interactive, not in distress Neck : Normal inspection, Supple Cardiovascular : RRR, no JVP, decreased Left lower extremity edema Respiratory : good bilateral air entry, no crackles, wheezes or rhonchi Gastrointestinal: soft, lax, Normal bowel sounds, Non tender Skin : Warm, Dry, significantly improved left lower extremity erythema, warmth and tenderness but still mildly edematous Neurological : Alert & oriented x3, No focal deficit Objective Data Active Medications Acetaminophen (Acetaminophen 325 Mg Tablet) 650 mg PO Q6H PRN PRN Reason: Pain, Mild (Pain Scale 1-3), fever or headache Last Admin: 01/19/24 19:59 Dose: 650 mg Documented By: YASMANI Acetaminophen/Butalbital/Caffeine (Butalb/Acetamin/Caff 50/325/40 Tablet) 2 tab PO Q4H PRN PRN Reason: Migraine Headache Acyclovir (Acyclovir 200 Mg Capsule) 400 mg PO BID [facility] Last Admin: 01/24/24 08:23 Dose: 400 mg Documented By: RUSTY Amlodipine Besylate (Amlodipine Besylate 10 Mg Tablet) 10 mg PO DAILY [facility]; Protocol Last Admin: 01/24/24 08:24 Dose: 10 mg Documented By: RUSTY Calcium Carbonate (Calcium Carbonate 750 Mg Tab.Chew) 750 mg PO Q4H PRN PRN Reason: Heartburn Last Admin: 01/24/24 10:33 Dose: 750 mg Documented By: RUSTY Clonazepam (Clonazepam 1 Mg Tablet) 1 mg PO BID [facility] Last Admin: 01/24/24 08:21 Dose: 1 mg Documented By: RUSTY Gabapentin (Gabapentin 300 Mg Capsule) 300 mg PO TID [facility] Last Admin: 01/24/24 08:23 Dose: 300 mg Documented By: RUSTY Heparin Sodium (Porcine) (Heparin Sodium,Porcine 5,000 Unit/Ml Vial) 5,000 unit SUBCUT Q12H [facility] Last Admin: 01/24/24 08:22 Dose: 5,000 unit Documented By: RUSTY Heparin Sodium (Porcine) (Heparin Sodium,Porcine 5,000 Unit/Ml Vial) 5,000 unit INTRACATH MOWEFR@1645 [facility] Last Admin: 01/22/24 16:23 Dose: Not Given Documented By: PRICE Non-Admin Reason: No Port Hydralazine HCl (Hydralazine Hcl 50 Mg Tablet) 50 mg PO DAILY [facility]; Protocol Last Admin: 01/24/24 08:21 Dose: 50 mg Documented By: RUSTY Labetalol HCl (Labetalol Hcl 100 Mg Tablet) 300 mg PO BID [facility] Last Admin: 01/24/24 10:42 Dose: 300 mg Documented By: RUSTY Magnesium Hydroxide (Milk Of Magnesia 30 Ml Oral.Susp) 30 ml PO DAILY PRN PRN Reason: Constipation Melatonin (Melatonin 3 Mg Tablet) 6 mg PO BEDTIME PRN PRN Reason: Insomnia Meropenem (Meropenem 500 Mg Vial) 500 mg IVPUSH Q24H [facility] Last Admin: 01/23/24 15:01 Dose: 500 mg Documented By: RUSTY Methadone HCl (Methadone Hcl 20 Mg/2 Ml Oral.Conc) 140 mg PO DAILY [facility] Last Admin: 01/24/24 08:21 Dose: 140 mg Documented By: RUSTY Co-signed By: DEVIN Nicotine (Nicotine 14 Mg Patch.Td24) 14 mg TRANSDERMA DAILY [facility] Last Admin: 01/24/24 08:23 Dose: 14 mg Documented By: RUSTY Ondansetron HCl (Ondansetron Hcl 4 Mg/2 Ml Vial) 4 mg IVPUSH Q8H PRN PRN Reason: Nausea and Vomiting Last Admin: 01/20/24 23:47 Dose: 4 mg Documented By: ANTOIC Oxycodone HCl (Oxycodone Hcl Immed Release 5 Mg Tablet) 20 mg PO 6XD [facility] Last Admin: 01/24/24 08:22 Dose: 20 mg Documented By: URSTY Sevelamer Carbonate (Sevelamer Carbonate Tablet 800 Mg Tablet) 1,600 mg PO BIDWM [facility] Last Admin: 01/24/24 08:22 Dose: 1,600 mg Documented By: RUSTY Sodium Chloride (0.9 % Sodium Chloride Flush 3 Ml Syringe) 3 ml IVFLUSH QSHIFT [facility] Last Admin: 01/24/24 08:20 Dose: 3 ml Documented By: RUSTY Trimethoprim/Sulfamethoxazole (Sulfamethox/Trimeth 800/160 Tablet) 1 tab PO MoWeFr@1600 [facility] Labs 01/22/24 11:50 01/22/24 11:50 Microbiology Microbiology Results: Microbiology 01/23/24 07:10 Blood Culture - Preliminary Blood - Venous No growth after 24 hours. 01/23/24 06:54 Blood Culture - Preliminary Blood - Venous No growth after 24 hours. 01/22/24 13:00 Catheter Tip Culture - Preliminary Catheter Tip - Other Culture in progress. 01/20/24 20:18 Blood Culture - Final Blood - Venous Achromobacter xylosoxidans 01/20/24 20:18 Blood Culture - Final Blood - Venous Achromobacter xylosoxidans 01/22/24 18:04 Blood Culture - Preliminary Blood - Venous No growth after 24 hours. 01/22/24 18:04 Blood Culture - Preliminary Blood - Venous No growth after 24 hours. 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 LLE cellulitis in ESRD patient with GNR Bacteremia Marked area of erythema improving Cultures growing Achromobacter xylosoxidans Permacath removed 01/21 follow repeat blood cultures negative 24 hrs ID rec Meropenem, 500 mg daily , plan for 2 weeks IV Abx. keep leg elevated will likely place Temp cath\Perma next week and restart dialysis before DC ESRD on HD Nephrology to follow for dialysis Hx MM, Acyclovir, Bactrim on hold HTN, Amlodipine, Labetalol, Losartan and Hydralazine Mood disorder, Clonazepam Hx opioid abuse, continue Methadone DVT PPx Lovenox The patient will need overnight hospital stay for treatment of cellulitis pending clinical improvement, HD session and blood cultures. Quality Stroke Does the patient have a stroke diagnosis?: No VTE Prior VTE?: No VTE Risk Level:: Medical - moderate - high VTE Device Contraindication: Treatment Not Indicated VTE Drug Contraindication: N/A - Med Ordered
[2024-01-24] MEDS: Meropenem 500 MG VIAL IVPUSH (14:49)
[2024-01-24] MEDS: LANTHANUM 750 MG 750 EACH PO (14:54)
[2024-01-24 15:46] VITALS: BP 125/59; PULSE 73; RESP 20; TEMP 36.9; O2SAT 95
[2024-01-24 20:00] VITALS: BP 130/70; PULSE 79; RESP 18; TEMP 36.9; O2SAT 98
[2024-01-25] VITALS (14 sets, daily range): BP systolic 112–145; BP diastolic 59–80; PULSE 74–86; RESP 10–18; TEMP 36.7–37; O2SAT 95–98
--- NOTE | 2024-01-25 | ECG_ITS ---
Test Reason : High Potassium Blood Pressure : / mmHG Vent. Rate : 076 BPM Atrial Rate : 076 BPM P-R Int : 192 ms QRS Dur : 092 ms QT Int : 424 ms P-R-T Axes : 070 000 046 degrees QTc Int : 477 ms Normal sinus rhythm Normal ECG No previous ECGs available Referred By: Quinten Hdez Electronically Signed By:RILEY BARKER MD
[2024-01-25] MEDS: oxyCODONE HCl Immed Release 5 MG TABLET 20 MG PO ×5 (05:36→21:28)
[2024-01-25] MEDS: methADONE HCl 20 MG/2 ML ORAL.CONC 140 MG PO (07:49)
[2024-01-25] MEDS: Sevelamer Carbonate Tablet 800 MG TABLET 1600 MG PO (07:50)
[2024-01-25] MEDS: Acyclovir 200 MG CAPSULE 400 MG PO ×2 (07:51→21:28)
[2024-01-25] MEDS: Labetalol HCL 100 MG TABLET 300 MG PO ×2 (07:51→21:27)
[2024-01-25] MEDS: amLODIPine Besylate 10 MG TABLET PO (07:51)
[2024-01-25] MEDS: Gabapentin 300 MG CAPSULE PO ×3 (07:51→21:28)
[2024-01-25] MEDS: hydrALAZINE HCl 50 MG TABLET PO (07:51)
[2024-01-25] MEDS: Heparin Sodium,Porcine 5,000 UNIT/ML VIAL 5000 UNIT SUBCUT ×2 (07:52→21:33)
[2024-01-25] MEDS: LANTHANUM 750 MG 750 EACH PO ×3 (07:52→21:29)
[2024-01-25] MEDS: 0.9 % Sodium Chloride Flush 3 ML SYRINGE IVFLUSH ×2 (07:52→21:35)
[2024-01-25 09:14] LABS: Hematocrit 27.7 % (42.0-52.0); Hemoglobin 8.4 g/dl (14.0-18.0); Mean Corpuscular HGB Conc 30.3 g/dl (31.0-36.0); Mean Corpuscular Volume 102.2 fL (80.0-98.0); Mean Platelet Volume 11.2 fL (9.4-12.4); Platelet Count 130 X10*3/uL (160-400); Red Blood Count 2.71 X10*6/uL (4.60-5.80); Red Cell Distribution Width 16.7 % (11.0-16.0); White Blood Count 4.1 X10*3/uL (4.8-10.8)
--- NOTE | 2024-01-25 09:30 | P.PNNP_ITS ---
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 01/18 presented with LLE swelling, pain, warmth Nephrology consulted for management of ESRD while hospitalized. blood cultures positive for gram negative bacilli from both aerobic and anaerobic blood cultures drawn during outpatient HD, so permcath removed 01/21 and catheter holiday over the weekend blood cultures drawn thursday a.m. have been 48 hours negative as of this a.m. 01/24 pt reports other than lower extremity pain/swelling, which he states is improving reports some abdominal discomfort which he gets before HD with fluid overload (tends to have high interdialytic weight gain- high PO fluid intake reports he is anuric at baseline Physical Exam 2 Vital Signs: Vital Signs: Last Vital Signs Temp 98.1 F 01/25/24 17:05 Pulse 81 01/25/24 17:05 Resp 14 01/25/24 17:05 BP 139/66 01/25/24 17:05 Pulse Ox 97 01/25/24 17:05 O2 Del Method Room Air 01/25/24 17:05 BMI result Body Mass Index 22.1 Const: General: no acute distress, alert and awake Resp: Effort & Inspection: normal respiratory effort and able to speak in complete sentences Auscultation: clear to auscultation bilaterally Cardio: Jugular venous distension: no JVD Rate: regular rate Rhythm: r egular rhythm Heart sounds: S1 normal heart sound present and S2 normal heart sound present GI: Palpation (GI): Soft to palpation and nontender : General: Yes no CVA tenderness Back/Spine/Pelvis: Back: no CVA tenderness Skin: Lesions: no lesions Rashes: no rashes and other (LLE erythema/swelling) Extrem: General: Yes edema (left lower extremity swelling, erythema, tenderness) Objective Data Labs 01/25/24 08:32 01/25/24 10:57 Labs: Laboratory Results - last 24 hr 01/22/24 01/25/24 01/25/24 11:50 08:32 10:57 WBC 4.1 L RBC 2.71 L Hgb 8.4 L Hct 27.7 L MCV 102.2 H MCH 31.0 MCHC 30.3 L RDW 16.7 H Plt Count 130 L D MPV 11.2 Absolute Nucleated RBC 0.000 Nucleated RBC % (auto) 0.0 Smear Path Review SEE NOTE PT 12.7 H INR 1.1 Sodium 136 138 Potassium 7.0 H* D 6.7 H* Chloride 101 100 Carbon Dioxide 20 L 20 L Anion Gap 22 H 25 H BUN 97 H 100 H Creatinine 11.77 H* 12.39 H* Estim Creat Clear Calc 7.7 7.3 Estimated GFR 5 4 Random Glucose 84 107 Calcium 9.0 9.5 Microbiology Microbiology Results: Microbiology 01/23/24 07:10 Blood - Venous Blood Culture - Preliminary No growth after 48 hours. 01/23/24 06:54 Blood - Venous Blood Culture - Preliminary No growth after 48 hours. 01/22/24 13:00 Catheter Tip - Other Catheter Tip Culture - Preliminary Gram negative neal 01/22/24 18:04 Blood - Venous Blood Culture - Preliminary No growth after 48 hours. 01/22/24 18:04 Blood - Venous Blood Culture - Preliminary No growth after 48 hours. 01/20/24 20:18 Blood - Venous Blood Culture - Final Achromobacter xylosoxidans 01/20/24 20:18 Blood - Venous Blood Culture - Final Achromobacter xylosoxidans 01/19/24 13:31 Blood - Venous Blood Culture - Final Achromobacter xylosoxidans 01/19/24 13:31 Blood - Venous Blood Culture - Final Achromobacter xylosoxidans Procedures Date of Service Date of Service: 01/25/24 Assessment & Plan Assessment and plan (1) End stage renal disease on dialysis: Status: Acute (2) Cellulitis of left leg: Status: Acute (3) Bacteremia: Status: Acute Plan ESRD patient on HD here for management of cellulitis, bacteremia pt has had catheter holiday due to positive blood cultures; permcath placement scheduled for today as peripheral cultures have been negative for 48 hours after catheter removal plan for HD today after permcath placement Will continue patient's M, W, F schedule H&H 8.4 and 27 - administered 20,000 units epo on Sunday 01/21 potassium elevated at 6.7- HD today mild acidotisis at this time no uremic symptoms phosphorous 2.8- taking sevelamer 1600mg BID with meals, calcium within normal limits has right IJ permacath in place (to be removed after HD) patient appears clinically hypervolemic today (though tends to have high interdyalitic weight gain) blood pressures acceptable anuric at baseline Will continue to follow Discussed with Dr Khan Time Spent With Patient Time: Total time managing care of this patient today ____ minutes. Progress Note: Quality Stroke Does the patient have a stroke diagnosis?: No
[2024-01-25 09:48] LABS: Anion Gap 22 (12-20); Blood Urea Nitrogen 97 mg/dL (9-16); Carbon Dioxide 20 mmol/L (22-29); Chloride 101 mmol/L (96-108); Creatinine Clr Calc Pharmacy 7.7; Estimated Glomerular Filt Rate 5; Glucose Random 84 mg/dL (60-115); Sodium 136 mmol/L (135-145)
[2024-01-25] MEDS: Sodium Zirconium Cyclosilicate 10 GM POWD.PACK PO (10:02)
[2024-01-25] MEDS: Insulin Regular, Human 100 UNIT/ML 10 ML VIAL IVPUSH (10:03)
--- NOTE | 2024-01-25 10:38 | HO.PM.IMPN ---
Subjective Subjective Date of Service: 01/25/24 Interval History: seen and evaluated left leg looks better but still swollen, pain improved repeated blood cultures negative Hyperkalemia of 7, feels tired no other complaints Review of Systems Review of Systems: Yes all other systems are reviewed and are negative Physical Exam Vital Signs: Vital Signs: Last Vital Signs Temp 98.6 F 01/25/24 07:39 Pulse 74 01/25/24 07:39 Resp 14 01/25/24 07:39 BP 123/59 L 01/25/24 07:39 Pulse Ox 96 01/25/24 07:39 O2 Del Method Room Air 01/25/24 07:39 BMI result Body Mass Index 22.1 Const: Other: Constitutional : Awake, interactive, not in distress Neck : Normal inspection, Supple Cardiovascular : RRR, no JVP, decreased Left lower extremity edema Respiratory : good bilateral air entry, no crackles, wheezes or rhonchi Gastrointestinal: soft, lax, Normal bowel sounds, Non tender Skin : Warm, Dry, significantly improved left lower extremity erythema, warmth and tenderness but still mildly edematous Neurological : Alert & oriented x3, No focal deficit Objective Data Active Medications Acetaminophen (Acetaminophen 325 Mg Tablet) 650 mg PO Q6H PRN PRN Reason: Pain, Mild (Pain Scale 1-3), fever or headache Last Admin: 01/19/24 19:59 Dose: 650 mg Documented By: YASMANI Acetaminophen/Butalbital/Caffeine (Butalb/Acetamin/Caff 50/325/40 Tablet) 2 tab PO Q4H PRN PRN Reason: Migraine Headache Acyclovir (Acyclovir 200 Mg Capsule) 400 mg PO BID [facility] Last Admin: 01/25/24 07:51 Dose: 400 mg Documented By: HERRERA Amlodipine Besylate (Amlodipine Besylate 10 Mg Tablet) 10 mg PO DAILY [facility]; Protocol Last Admin: 01/25/24 07:51 Dose: 10 mg Documented By: HERRERA Calcium Carbonate (Calcium Carbonate 750 Mg Tab.Chew) 750 mg PO Q4H PRN PRN Reason: Heartburn Last Admin: 01/24/24 10:33 Dose: 750 mg Documented By: RUSTY Gabapentin (Gabapentin 300 Mg Capsule) 300 mg PO TID [facility] Last Admin: 01/25/24 07:51 Dose: 300 mg Documented By: HERRERA Heparin Sodium (Porcine) (Heparin Sodium,Porcine 5,000 Unit/Ml Vial) 5,000 unit SUBCUT Q12H [facility] Last Admin: 01/25/24 07:52 Dose: 5,000 unit Documented By: HERRERA Heparin Sodium (Porcine) (Heparin Sodium,Porcine 5,000 Unit/Ml Vial) 5,000 unit INTRACATH MOWEFR@1645 [facility] Last Admin: 01/22/24 16:23 Dose: Not Given Documented By: PRICE Non-Admin Reason: No Port Hydralazine HCl (Hydralazine Hcl 50 Mg Tablet) 50 mg PO DAILY [facility]; Protocol Last Admin: 01/25/24 07:51 Dose: 50 mg Documented By: HERRERA Calcium Gluconate (Calcium Gluconate) 2 gm in 100 mls @ 50 mls/hr IV ONCE ONE Stop: 01/25/24 11:45 Dextrose (D10) 250 mls @ 750 mls/hr IV Q15M PRN PRN Reason: per Hypoglycemia Standing Ord. Labetalol HCl (Labetalol Hcl 100 Mg Tablet) 300 mg PO BID [facility] Last Admin: 01/25/24 07:51 Dose: 300 mg Documented By: HERRERA Magnesium Hydroxide (Milk Of Magnesia 30 Ml Oral.Susp) 30 ml PO DAILY PRN PRN Reason: Constipation Melatonin (Melatonin 3 Mg Tablet) 6 mg PO BEDTIME PRN PRN Reason: Insomnia Meropenem (Meropenem 500 Mg Vial) 500 mg IVPUSH Q24H [facility] Last Admin: 01/24/24 14:49 Dose: 500 mg Documented By: RUSTY Methadone HCl (Methadone Hcl 20 Mg/2 Ml Oral.Conc) 140 mg PO DAILY [facility] Last Admin: 01/25/24 07:49 Dose: 140 mg Documented By: HERRERA Co-signed By: DONALD Nicotine (Nicotine 14 Mg Patch.Td24) 14 mg TRANSDERMA DAILY [facility] Last Admin: 01/25/24 07:50 Dose: Not Given Documented By: HERRERA Non-Admin Reason: Patient Refused Patient Own ( Lanthanum 750 Mg Tablet,Chewable) 750 mg PO TID [facility] Last Admin: 01/25/24 07:52 Dose: 750 mg Documented By: HERRERA Ondansetron HCl (Ondansetron Hcl 4 Mg/2 Ml Vial) 4 mg IVPUSH Q8H PRN PRN Reason: Nausea and Vomiting Last Admin: 01/20/24 23:47 Dose: 4 mg Documented By: ANTPHANI Oxycodone HCl (Oxycodone Hcl Immed Release 5 Mg Tablet) 20 mg PO 6XD [facility] Last Admin: 01/25/24 07:51 Dose: 20 mg Documented By: HERRERA Sevelamer Carbonate (Sevelamer Carbonate Tablet 800 Mg Tablet) 1,600 mg PO BIDWM [facility] Last Admin: 01/25/24 07:50 Dose: 1,600 mg Documented By: HERRERA Sodium Chloride (0.9 % Sodium Chloride Flush 3 Ml Syringe) 3 ml IVFLUSH QSHIFT [facility] Last Admin: 01/25/24 07:52 Dose: 3 ml Documented By: HERRERA Trimethoprim/Sulfamethoxazole (Sulfamethox/Trimeth 800/160 Tablet) 1 tab PO MoWeFr@1600 [facility] Labs 01/25/24 08:32 01/25/24 08:32 Labs: Laboratory Results - last 24 hr 01/22/24 01/25/24 11:50 08:32 MCV 102.2 H MCH 31.0 MCHC 30.3 L RDW 16.7 H Plt Count 130 L D MPV 11.2 Absolute Nucleated RBC 0.000 Nucleated RBC % (auto) 0.0 Smear Path Review SEE NOTE Anion Gap 22 H Estim Creat Clear Calc 7.7 Estimated GFR 5 Random Glucose 84 Calcium 9.0 Microbiology Microbiology Results: Microbiology 01/23/24 07:10 Blood Culture - Preliminary Blood - Venous No growth after 48 hours. 01/23/24 06:54 Blood Culture - Preliminary Blood - Venous No growth after 48 hours. 01/22/24 13:00 Catheter Tip Culture - Preliminary Catheter Tip - Other Gram negative neal 01/22/24 18:04 Blood Culture - Preliminary Blood - Venous No growth after 48 hours. 01/22/24 18:04 Blood Culture - Preliminary Blood - Venous No growth after 48 hours. 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 (Ertapenem post HD) keep leg elevated To place Temp Perma today and restart dialysis before DC Acute Hyperkalemia K of 7 EKG with no peaked T-wave give Calcium gluconate, Insulin and D10 repeat BMP keep on Tele ESRD on HD Nephrology to follow for dialysis Hx MM, Acyclovir, Bactrim on hold HTN, Amlodipine, Labetalol, Losartan and Hydralazine Mood disorder, Clonazepam Hx opioid abuse, continue Methadone DVT PPx Lovenox The patient will need overnight hospital stay for treatment of cellulitis pending clinical improvement, HD session and blood cultures. Quality Stroke Does the patient have a stroke diagnosis?: No VTE Prior VTE?: No VTE Risk Level:: Medical - moderate - high VTE Device Contraindication: Treatment Not Indicated VTE Drug Contraindication: N/A - Med Ordered
[2024-01-25] MEDS: Calcium Gluconate/NaCl,Iso-Osm 2 GM/100 ML PLAST..BAG IV (10:56)
[2024-01-25 11:20] LABS: INTERNATIONAL NORM RATIO 1.1 (0.9-1.1); Prothrombin Time 12.7 SEC (10.9-12.4)
[2024-01-25 11:34] LABS: Anion Gap 25 (12-20); Blood Urea Nitrogen 100 mg/dL (9-16); Calcium 9.5 mg/dL (8.4-10.2); Carbon Dioxide 20 mmol/L (22-29); Chloride 100 mmol/L (96-108); Creatinine Clr Calc Pharmacy 7.3; Estimated Glomerular Filt Rate 4; Glucose Random 107 mg/dL (60-115); Potassium 6.7 mmol/L (3.3-5.1); Sodium 138 mmol/L (135-145)
--- NOTE | 2024-01-25 12:17 | MHC.CM.PN ---
Per MD rounds patient not medically cleared for dc. IV abx will likely be coordinated w/ nephro post HD. [facility] following if daily IV abx needed. CM will continue to follow.
--- NOTE | 2024-01-25 15:34 | PC.NURSE ---
Pt arrived to IR Suite with t-shirt and juan on. Pt changed into hospital attire.
[2024-01-25] MEDS: fentaNYL citrate/PF 100 MCG/2 ML VIAL 50 MCG IVPUSH (16:20)
[2024-01-25] MEDS: Midazolam HCl/PF 2 MG/2 ML VIAL 1 MG IVPUSH (16:24)
[2024-01-25] MEDS: Meropenem 500 MG VIAL IVPUSH (21:33)
[2024-01-26 03:52] VITALS: BP 118/66; PULSE 73; RESP 20; TEMP 36.8; O2SAT 96
[2024-01-26] MEDS: oxyCODONE HCl Immed Release 5 MG TABLET 20 MG PO ×2 (05:51→08:32)
[2024-01-26 06:59] VITALS: BP 108/58; PULSE 73; RESP 16; TEMP 37; O2SAT 96
[2024-01-26 07:21] LABS: Hematocrit 32.4 % (42.0-52.0); Hemoglobin 9.9 g/dl (14.0-18.0); Mean Corpuscular HGB Conc 30.6 g/dl (31.0-36.0); Mean Corpuscular Hemoglobin 31.3 pg (27.0-33.0); Mean Corpuscular Volume 102.5 fL (80.0-98.0); Mean Platelet Volume 11.2 fL (9.4-12.4); Platelet Count 167 X10*3/uL (160-400); Red Blood Count 3.16 X10*6/uL (4.60-5.80); Red Cell Distribution Width 16.7 % (11.0-16.0); White Blood Count 4.2 X10*3/uL (4.8-10.8)
[2024-01-26 07:43] LABS: Anion Gap 21 (12-20); Blood Urea Nitrogen 47 mg/dL (9-16); Calcium 9.2 mg/dL (8.4-10.2); Carbon Dioxide 19 mmol/L (22-29); Chloride 101 mmol/L (96-108); Creatinine Clr Calc Pharmacy 12.6; Estimated Glomerular Filt Rate 8; Glucose Random 105 mg/dL (60-115); Potassium 5.9 mmol/L (3.3-5.1); Sodium 135 mmol/L (135-145)
[2024-01-26] MEDS: LANTHANUM 750 MG 750 EACH PO (08:32)
[2024-01-26] MEDS: Labetalol HCL 100 MG TABLET 300 MG PO (08:33)
[2024-01-26] MEDS: Gabapentin 300 MG CAPSULE PO (08:33)
[2024-01-26] MEDS: Sevelamer Carbonate Tablet 800 MG TABLET 1600 MG PO (08:33)
[2024-01-26] MEDS: Acyclovir 200 MG CAPSULE 400 MG PO (08:33)
[2024-01-26] MEDS: Heparin Sodium,Porcine 5,000 UNIT/ML VIAL 5000 UNIT SUBCUT (08:34)
[2024-01-26] MEDS: 0.9 % Sodium Chloride Flush 3 ML SYRINGE IVFLUSH (08:34)
[2024-01-26] MEDS: methADONE HCl 20 MG/2 ML ORAL.CONC 140 MG PO (08:35)
--- NOTE | 2024-01-26 09:00 | P.PNNP_ITS ---
Subjective Subjective Date of Service: 01/26/24 Interval history: 43 y/o male with ESRD secondary to IgA multiple myeloma on HD (M, W, F), followed by Dr Gomes, Nephrology, chronic pain with methadone use. 01/18 presented with LLE swelling, pain, warmth Nephrology consulted for management of ESRD while hospitalized. blood cultures positive for gram negative bacilli from both aerobic and anaerobic blood cultures drawn during outpatient HD, so permcath removed 01/21 and catheter holiday over the weekend blood cultures drawn thursday a.m. have been 48 hours negative and new permacath placed 01/24 pt reports other than lower extremity pain/swelling, which he states is improving reports feeling well since HD yesterday, no abdominal discomfort, shortness of breath or other new symptoms/concerns reports he is anuric at baseline Physical Exam 2 Vital Signs: Vital Signs: Last Vital Signs Temp 98.6 F 01/26/24 06:59 Pulse 73 01/26/24 06:59 Resp 16 01/26/24 06:59 BP 108/58 L 01/26/24 06:59 Pulse Ox 96 01/26/24 06:59 O2 Del Method Room Air 01/26/24 06:59 BMI result Body Mass Index 22.1 Const: General: no acute distress, alert and awake Resp: Effort & Inspection: normal respiratory effort and able to speak in complete sentences Auscultation: clear to auscultation bilaterally Cardio: Jugular venous distension: no JVD Rate: regular rate Rhythm: r egular rhythm Heart sounds: S1 normal heart sound present and S2 normal heart sound present GI: Palpation (GI): Soft to palpation and nontender : General: Yes no CVA tenderness Back/Spine/Pelvis: Back: no CVA tenderness Skin: Lesions: no lesions Rashes: no rashes and other (LLE erythema/swelling) Extrem: General: Yes edema (left lower extremity swelling, trace) Objective Data Labs 01/26/24 06:47 01/26/24 06:47 Labs: Laboratory Results - last 24 hr 01/25/24 01/26/24 10:57 06:47 WBC 4.2 L RBC 3.16 L Hgb 9.9 L Hct 32.4 L MCV 102.5 H MCH 31.3 MCHC 30.6 L RDW 16.7 H Plt Count 167 D MPV 11.2 Absolute Nucleated RBC 0.000 Nucleated RBC % (auto) 0.0 PT 12.7 H INR 1.1 Sodium 138 135 Potassium 6.7 H* 5.9 H Chloride 100 101 Carbon Dioxide 20 L 19 L Anion Gap 25 H 21 H BUN 100 H 47 H Creatinine 12.39 H* 7.23 H* Estim Creat Clear Calc 7.3 12.6 Estimated GFR 4 8 Random Glucose 107 105 Calcium 9.5 9.2 Microbiology Microbiology Results: Microbiology 01/23/24 07:10 Blood - Venous Blood Culture - Preliminary No growth after 48 hours. 01/23/24 06:54 Blood - Venous Blood Culture - Preliminary No growth after 48 hours. 01/22/24 18:04 Blood - Venous Blood Culture - Preliminary No growth after 48 hours. 01/22/24 18:04 Blood - Venous Blood Culture - Preliminary No growth after 48 hours. 01/22/24 13:00 Catheter Tip - Other Catheter Tip Culture - Final Achromobacter xylosoxidans 01/20/24 20:18 Blood - Venous Blood Culture - Final Achromobacter xylosoxidans 01/20/24 20:18 Blood - Venous Blood Culture - Final Achromobacter xylosoxidans 01/19/24 13:31 Blood - Venous Blood Culture - Final Achromobacter xylosoxidans 01/19/24 13:31 Blood - Venous Blood Culture - Final Achromobacter xylosoxidans Procedures Date of Service Date of Service: 01/26/24 Assessment & Plan Assessment and plan (1) End stage renal disease on dialysis: Status: Acute (2) Cellulitis of left leg: Status: Acute (3) Bacteremia: Status: Acute Plan ESRD patient on HD here for management of cellulitis, bacteremia new permcath in place with negative blood cultures Will continue patient's M, W, F schedule H&H 9.9 and 32 - administered 20,000 units epo on Sunday 01/21 potassium elevated at 5.9, manas administered this a.m. as pt not to receive HD until tomorrow as scheduled; recommend low potassium diet mild acidotisis at this time no uremic symptoms phosphorous 2.8- taking sevelamer 1600mg BID with meals, calcium within normal limits has right IJ permacath in place patient appears clinically euvolemic today blood pressures acceptable anuric at baseline Will continue to follow, pt ok for discharge and outpatient HD from renal standpoint Discussed with Dr Khan Time Spent With Patient Time: Total time managing care of this patient today ____ minutes. Progress Note: Quality Stroke Does the patient have a stroke diagnosis?: No
--- NOTE | 2024-01-26 10:42 | P.DS_ITS ---
DS: Providers Provider Date of Service: 01/26/24 Date of admission: 01/19/24 15:40 Date of discharge: 01/26/24 Primary care physician: Nabil Prado MD Consults: 01/19/24 15:38 Consult to Nephrology Routine Consulting Provider: [facility] Reason for consultation: need for HD 01/20/24 10:51 Consult to Infectious Diseases Routine Consulting Provider: [facility] Reason for consultation: GNR bacteremia (Bacillus?) DS: Diagnosis Discharge Diagnosis (1) End stage renal disease on dialysis: Status: Acute (2) Cellulitis of left leg: Status: Acute (3) Bacteremia: Status: Acute (4) Acute hyperkalemia: Status: Acute (5) Infection due to Port-A-Cath: Status: Acute DS: Summary Hospital Course Hospital Course: Admission note HPI A 43 years old male with PMH of MM, ESRD on HD, Methadone usage who presents to the hospital with 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 The patient noted erythema over the weekend and was given Antibiotics during dialysis session yesterday but it got worse tis morning. No chest pain, palpitations, SOB, nausea, vomiting, diarrhea or urinary symptoms. He reports fever and pain upon walking. In ED found to have elevated K, CRP and ESR. Started on IV antibiotics and admitted for further work up and treatment. Hospital course The patient was admitted for treatment of Left lower extremity cellulitis in ESRD patient with Achromobacter xylosoxidans Bacteremia. The patient was treated with IV antibiotics of Vancomycin on admission that was later changed to Meropenem, 500 mg daily , plan for 2 weeks IV Abx by Infectious disease specialist as the repeated cultures came negative after removing the Permacath which its tip grew same bacteria. The patient had Marked area of erythema improving significantly with decreased swelling and resolving of the pain as repeated blood cultures negative from 01/21. Placed a new PErmacath on 01/24 and restarted dialysis again with good tolerance. He will be discharged home to finish 10 more days of 500 mg Meropenem daily with VNA care. He was noted to have Acute Hyperkalemia with K of 7 and EKG with no peaked T- wave noted. given Calcium gluconate, Insulin and D10 with repeat BMP showing improvement of K to 5.9. recieved more Lokelma and will be discharged home on daily Lokelma dose. ESRD on HD, Nephrology to follow for dialysis MWF as planned Hx MM, Acyclovir, Bactrim resumed Discharge plan Continue Meropenem for 10 more days Start Lokelma daily for elevated Potassium Nicotine patches daily, avoid smoking Continue Dialysis as planned Time Attestation Discharge Coordination Time (in mins): 38 Quality: Safe Use of Opioids Does Pt have an Active Cancer Diagnosis on the Problem List?: No Quality: Stroke Does the patient have a stroke diagnosis?: No Physical Exam Vital Signs: Vital Signs: Last Vital Signs Temp 98.6 F 01/26/24 06:59 Pulse 73 01/26/24 06:59 Resp 16 01/26/24 06:59 BP 108/58 L 01/26/24 06:59 Pulse Ox 96 01/26/24 06:59 O2 Del Method Room Air 01/26/24 06:59 BMI result Body Mass Index 22.1 Const: Other: Constitutional : Awake, interactive, not in distress Neck : Normal inspection, Supple Cardiovascular : RRR, no JVP, decreased Left lower extremity edema Respiratory : good bilateral air entry, no crackles, wheezes or rhonchi Gastrointestinal: soft, lax, Normal bowel sounds, Non tender Vascular: Permacath in place with no erythema or tenderness Skin : Warm, Dry, significantly improved left lower extremity erythema with no more tenderness Neurological : Alert & oriented x3, No focal deficit DS: Data Data Completed and Pending Labs on day of discharge: Laboratory Results - last 24 hr 01/25/24 01/26/24 10:57 06:47 WBC 4.2 L RBC 3.16 L Hgb 9.9 L Hct 32.4 L MCV 102.5 H MCH 31.3 MCHC 30.6 L RDW 16.7 H Plt Count 167 D MPV 11.2 Absolute Nucleated RBC 0.000 Nucleated RBC % (auto) 0.0 PT 12.7 H INR 1.1 Sodium 138 135 Potassium 6.7 H* 5.9 H Chloride 100 101 Carbon Dioxide 20 L 19 L Anion Gap 25 H 21 H BUN 100 H 47 H Creatinine 12.39 H* 7.23 H* Estim Creat Clear Calc 7.3 12.6 Estimated GFR 4 8 Random Glucose 107 105 Calcium 9.5 9.2 Preliminary micro results at discharge 01/23/24 07:10 Blood Culture - Preliminary Blood - Venous No growth after 48 hours. 01/23/24 06:54 Blood Culture - Preliminary Blood - Venous No growth after 48 hours. 01/22/24 18:04 Blood Culture - Preliminary Blood - Venous No growth after 48 hours. 01/22/24 18:04 Blood Culture - Preliminary Blood - Venous No growth after 48 hours. Imaging Chest x-ray: Radiologist's impression: ITS Impressions Venous Duplex 01/19/24 12:09 IMPRESSION: Normal triplex scan without evidence of deep venous thrombosis involving the left lower extremity. Electronically signed by: Randy Walls MD 01/19/2024 12:40 PM EST RP Insertion Tunneled Catheter 01/25/24 16:00 IMPRESSION: Placement of a tunneled hemodialysis catheter in the left internal jugular vein. PLAN: -The catheter may be used immediately. Electronically signed by: Yosvany Sotelo MD 01/25/2024 04:36 PM EST RP Discharge Plan Discharge Anticipated Discharge Date/Time: 01/26/24 10:38 Patient Disposition: Home Health Service Discharge Diagnosis: Bacteremia Cellulitis Referrals: [facility] [Other] - 1 Day ([facility] will call you to schedule nursing visits) [facility] [Other] - 1 Day ([facility] will provide IV abx) Nabil Prado MD [Primary Care Provider] - 1 Week Discharge Medications: New nicotine 14 mg/24 hr Patch 24 Hour 14 mg transdermal DAILY Qty: 28 0RF Lokelma 5 gram powder in packet 5 g PO DAILY Qty: 90 0RF Continued amlodipine 10 mg tablet 10 mg PO DAILY Qty: 90 4RF clonazepam 1 mg tablet 1 mg PO BID gabapentin 100 mg capsule 300 mg PO TID [id number]-evsm 50-325-40 mg tablet 2 tab PO Q4H PRN (Reason: Migraine Headache) oxycodone 20 mg tablet 20 mg PO 6XD sulfamethoxazole-trimethoprim 800-160 mg tablet 1 tab PO MOWEFR lanthanum 750 mg Tablet,Chewable 750 mg PO TID Rx Instructions: administer with food; chew thoroughly before swallowing hydralazine 50 mg tablet 50 mg PO DAILY acyclovir 400 mg tablet 400 mg PO BID labetalol 300 mg tablet 600 mg PO BID methadone 10 mg/mL concentrate 140 mg PO DAILY Discharge Orders: Discharge Order (Routine); Ordered 01/26/24 Ordered By: Quinten Hdez Diet: Low salt diet Activity on Discharge: As tolerated Stand Alone Forms: Patient Portal Discharge page Print Language: Romanian Care Plan Goals: Continue Meropenem for 10 more days Start Lokelma daily for elevated Potassium Nicotine patches daily, avoid smoking Continue Dialysis as planned Health Concerns: Bacteremia Plan of Treatment: IV antibiotics Assessment: as above
--- NOTE | 2024-01-26 10:55 | HO.MIDLINE_ITS ---
Midline Insertion MIDLINE INSERTION Diagnosis: Cellulitis of left leg and Bacteremia Indication: 14 days of antibx Pertinent Labs: Reviewed Technique: Using sterile technique including cap and mask, glove and drape, the Right arm was prepped and draped in the usual sterile fashion of full barrier technique with CHG. Using ultrasound guidance, Right Brachial vein access was obtained on first atttempt. [id number] Powermidline NON-PASV (Trimed at 12CM) was positioned. The procedure was performed in rm 272. Ultrasound was used to document vein patency and for needle entry. A formal ultrasound picture was recorded. Vascular Boiler/Chiller Technician has released the line for use and it is currently dressed with a StatLock, Tegaderm, and CHG disc. Verification has been performed for blood return and line patency. Arm Circumference: 26CM Equipment: BARD PowerMidline Catheter Catheter Type: [id number] Powermidline NON-PASV (Trimed at 12cm) Lot #: [id number]
--- NOTE | 2024-01-26 11:18 | MHC.CM.PN ---
Addendum entered by Mindi Joel RN 01/26/24 11:28: Resume HD @ [facility]. center aware of dc. Original Note: Per MD patient medically cleared for dc home w/ IV abx - meropenem daily x2wks. [facility] will provide SN, [facility] will provide abx. Midline in place and [facility] RN at bedside for teach. Patient's girlfriend will transport home.
--- NOTE | 2024-01-26 11:29 | W.MHC.F2F ---
Service Date Service Date: 01/26/24 Encounter Date of encounter: 01/26/24 Reasons for Services Signs and symptoms assessed: IV Antibiotics for 10 more days Midline care Reason for care home: administration of IV, SQ, or IM injection and central line care Homebound: Leaving the home is medically contraindicated at this time without the asist of a device and/or another person due th the listed conditions above and below. Reason homebound: unable to drive Certification: Based on the above findings, I certify that this patient is confined to the home and needs intermittent care home care, physical therapy and/or speech therapy, or continues to need occupational therapy. The patient is under my care, and I have initiated the establishment of the plan of care. The patient will be followed by a physician who will periodically review the plan of care. Time Spent With Patient Time: Total time managing care of this patient today ____ minutes.
[2024-01-26] MEDS: Sodium Zirconium Cyclosilicate 10 GM POWD.PACK PO (12:41)
[2024-01-26] MEDS: Meropenem 500 MG VIAL IVPUSH (12:50)
== END 2024-01-26 13:12 | disposition home health service (06) | DRG 314 ==
LOC: HO.ED 14:47 → HO.EDOVER 15:47 → HO.S3 01-20 14:50
PROVIDERS: Nurse Practitioner Family; Physician Assistant Medical; Radiology Vascular & Interventional Radiology; Student in an Organized Health Care Education/Training Program; Admitting Provider Student in an Organized Health Care Education/Training Program; Emergency Provider Emergency Medicine; PCP Internal Medicine; Visit Provider Student in an Organized Health Care Education/Training Program
DX: T80.211A Bloodstream infection due to central venous catheter, initial encounter (principal); N18.6 End stage renal disease; L03.116 Cellulitis of left lower limb; F11.20 Opioid dependence, uncomplicated; I12.0 Hypertensive chronic kidney disease with stage 5 chronic kidney disease or end stage renal disease; C90.00 Multiple myeloma not having achieved remission; B96.89 Other specified bacterial agents as the cause of diseases classified elsewhere; G89.29 Other chronic pain; E87.6 Hypokalemia; F39 Unspecified mood [affective] disorder; G25.81 Restless legs syndrome; Z99.2 Dependence on renal dialysis; Z79.899 Other long term (current) drug therapy
CPT/HCPCS: 36410; 36415; 36558; 36589; 80048; 80053; 80202; 82947; 83605; 83735; 83880; 84100; 85025; 85027; 85610; 85652; 86140; 87040; 87071; 87077; 87186; 87205; 90999; 93005; 93971; 99152; 99285; C1750; C1751; C1769; J0613; J0692; J0885; J1644; J2185; J2250; J2405; J3010; J3371; P9047

== ENCOUNTER → 2024-01-19 12:35 | Outpatient (BNV) | payer MEDICARE, MEDICAID, SELFPAY | PROVIDERS: Emergency Provider Emergency Medicine; PCP Internal Medicine; Visit Provider Student in an Organized Health Care Education/Training Program | DX: L03.116 Cellulitis of left lower limb (principal); R78.81 Bacteremia; N18.6 End stage renal disease; Z99.2 Dependence on renal dialysis | CPT/HCPCS: 99223; 99232; 99239; G0180 ==

== ENCOUNTER 2024-01-19 15:40 | Outpatient (BNV) | payer MEDICARE, MEDICAID, SELFPAY | END 2024-01-25 10:04 | PROVIDERS: Admitting Provider Student in an Organized Health Care Education/Training Program; Emergency Provider Emergency Medicine; PCP Internal Medicine; Visit Provider Internal Medicine Cardiovascular Disease | DX: E87.5 Hyperkalemia (principal) | CPT/HCPCS: 93010 ==

== ENCOUNTER 2024-01-19 15:40 | Outpatient (BNV) | payer MEDICARE, MEDICAID, SELFPAY | END 2024-01-22 13:00 | PROVIDERS: Admitting Provider Student in an Organized Health Care Education/Training Program; Emergency Provider Emergency Medicine; PCP Internal Medicine; Visit Provider Physician Assistant Surgical | DX: R78.81 Bacteremia (principal) | CPT/HCPCS: 36589 ==

== ENCOUNTER 2024-01-19 15:40 | Outpatient (BNV) | payer MEDICARE, MEDICAID, SELFPAY | END 2024-01-25 08:00 | PROVIDERS: Admitting Provider Student in an Organized Health Care Education/Training Program; Emergency Provider Emergency Medicine; PCP Internal Medicine; Visit Provider Student in an Organized Health Care Education/Training Program | DX: N18.6 End stage renal disease (principal) | CPT/HCPCS: 36558; 76937 ==

== ENCOUNTER → 2024-01-19 15:40 | Outpatient (BNV) | payer MEDICARE, MEDICAID, SELFPAY | PROVIDERS: Admitting Provider Student in an Organized Health Care Education/Training Program; Emergency Provider Emergency Medicine; PCP Internal Medicine; Visit Provider Nurse Practitioner Family | DX: N18.6 End stage renal disease (principal); Z99.2 Dependence on renal dialysis; L03.116 Cellulitis of left lower limb; R78.81 Bacteremia | CPT/HCPCS: 90935; 99232 ==

== ENCOUNTER → 2024-01-19 15:40 | Outpatient (BNV) | payer MEDICARE, MEDICAID, SELFPAY | PROVIDERS: Admitting Provider Student in an Organized Health Care Education/Training Program; Emergency Provider Emergency Medicine; PCP Internal Medicine; Visit Provider Internal Medicine | DX: R78.81 Bacteremia (principal); L03.116 Cellulitis of left lower limb | CPT/HCPCS: 99222 ==

== ENCOUNTER 2024-01-29 12:45 | Outpatient (REF) | payer MEDICARE, MEDICAID, SELFPAY ==
[2024-01-29 13:21] LABS: Basophils Percent Auto 1.7 % (0-2); Eosinophils Absolute Auto 0.2 X10*3/uL (0.0-0.4); Eosinophils Percent Auto 8.7 % (0-4); Hematocrit 37.5 % (42.0-52.0); Hemoglobin 11.6 g/dl (14.0-18.0); Imm Gran Abs Auto 0.01 X10*3/uL (0.00-0.03); Imm Gran Pct Auto 0.4 % (0.0-0.4); Lymphocytes Absolute Auto 0.8 X10*3/uL (1.2-4.9); Lymphocytes Percent Auto 35.1 % (20-40); MANUAL DIFF FLAG SCAN; Mean Corpuscular HGB Conc 30.9 g/dl (31.0-36.0); Mean Corpuscular Hemoglobin 31.6 pg (27.0-33.0); Mean Corpuscular Volume 102.2 fL (80.0-98.0); Mean Platelet Volume 10.2 fL (9.4-12.4); Monocytes Absolute Auto 0.3 X10*3/uL (0.1-1.2); Monocytes Percent Auto 12.6 % (2-11); Neutrophils Percent Auto 41.5 % (45-73); PLT CLUMP 1; Red Blood Count 3.67 X10*6/uL (4.60-5.80); Red Cell Distribution Width 16.8 % (11.0-16.0); SCAN SMEAR FLAG 1
[2024-01-29 13:22] LABS: White Blood Count 2.3 X10*3/uL (4.8-10.8)
[2024-01-29 13:26] LABS: Platelet Count 137 X10*3/uL (160-400)
[2024-01-29 13:27] LABS: SLIDE REVIEW VERIFIED
== END 2024-01-29 12:46 | disposition home or self-care (01) ==
LOC: HO.HVNA 12:45
PROVIDERS: Visit Provider Internal Medicine
DX: L03.90 Cellulitis, unspecified (principal); Z79.2 Long term (current) use of antibiotics
CPT/HCPCS: 36415; 85025

== ENCOUNTER 2024-02-06 14:11 | Outpatient (REF) | payer MEDICARE, MEDICAID, SELFPAY ==
[2024-02-06 14:18] LABS: Basophils Absolute Auto 0.1 X10*3/uL (0.0-0.2); Basophils Percent Auto 1.8 % (0-2); Eosinophils Percent Auto 22.8 % (0-4); Hematocrit 36.8 % (42.0-52.0); Hemoglobin 11.3 g/dl (14.0-18.0); Lymphocytes Absolute Auto 1.5 X10*3/uL (1.2-4.9); Lymphocytes Percent Auto 33.8 % (20-40); MANUAL DIFF FLAG SCAN; Mean Corpuscular HGB Conc 30.7 g/dl (31.0-36.0); Mean Corpuscular Hemoglobin 31.9 pg (27.0-33.0); Monocytes Absolute Auto 0.5 X10*3/uL (0.1-1.2); Neutrophils Absolute Auto 1.3 x10*3/uL (2.0-8.3); Neutrophils Percent Auto 30.6 % (45-73); Platelet Count 148 X10*3/uL (160-400); Red Blood Count 3.54 X10*6/uL (4.60-5.80); Red Cell Distribution Width 17.1 % (11.0-16.0); SCAN SMEAR FLAG 1; White Blood Count 4.4 X10*3/uL (4.8-10.8)
[2024-02-06 14:47] LABS: SLIDE REVIEW VERIFIED
== END 2024-02-06 14:12 | disposition home or self-care (01) ==
LOC: HO.HVNA 14:11
PROVIDERS: Visit Provider Internal Medicine
DX: L03.90 Cellulitis, unspecified (principal)
CPT/HCPCS: 36415; 85025

== ENCOUNTER → 2024-03-09 | Outpatient (BNV) | payer MEDICARE, MEDICAID, SELFPAY | PROVIDERS: PCP Internal Medicine; Visit Provider Internal Medicine Nephrology | DX: N18.6 End stage renal disease (principal) | CPT/HCPCS: 90961 ==

== ENCOUNTER → 2024-04-09 | Outpatient (BNV) | payer MEDICARE, MEDICAID, SELFPAY | PROVIDERS: PCP Internal Medicine; Visit Provider Internal Medicine Nephrology | DX: N18.6 End stage renal disease (principal) | CPT/HCPCS: 90961 ==

== ENCOUNTER → 2024-07-07 | Outpatient (BNV) | payer MEDICARE, MEDICAID, SELFPAY | PROVIDERS: PCP Internal Medicine; Visit Provider Internal Medicine Nephrology | DX: N18.6 End stage renal disease (principal) | CPT/HCPCS: 90961 ==

== ENCOUNTER 2024-09-01 17:30 | Inpatient (IN) | payer MEDICARE, MEDICAID, SELFPAY ==
--- NOTE | ~2024-09-01 | XR_ITS ---
CLINICAL HISTORY: SOB 1 view chest x-ray Comparison: CR/SR - XR CHEST 2V - 12/23/23 12:15 EDT Findings: Interval removal of right hemodialysis catheter and placement of left hemodialysis catheter with tip overlying the right atrium. The heart is enlarged. Airspace opacities in left lung. No focal opacities in the right lung. No significant pleural effusion or pneumothorax. No acute fracture. IMPRESSION: 1. Left lung opacities suspicious for pneumonia. Correlate clinically. 2. Cardiomegaly. 3. Left hemodialysis catheter with tip overlying right atrium. This document has been electronically signed by: Rosalind Dick MD on 09/01/2024 19:22:39
--- NOTE | ~2024-09-01 | US_ITS ---
EXAMINATION: US ABDOMEN LIMITED HISTORY: elevated LFTs TBILI and DBILI, fever TECHNIQUE: Real-time grayscale ultrasound imaging of the right upper quadrant was performed and images were reviewed. COMPARISON: There are no prior studies available for comparison. FINDINGS: Liver: The right lobe of the liver measures 17.2 cm in size. The left lobe of the liver measures 11.8 cm in size. The liver demonstrates mildly increased echotexture, consistent with steatosis. No focal mass or intrahepatic biliary ductal dilatation is identified. There is normal hepatopedal flow in the portal vein. Gallbladder and biliary tree: There is a shadowing calculus in the gallbladder. There is no wall thickening. There is no sonographic Martins sign. The common bile duct is normal in caliber measuring 3 mm. Right Kidney: The right kidney measures 6.7 cm in length. There is marked renal cortical thinning and increased echotexture, consistent with the patient's history of end-stage renal disease. There is no hydronephrosis. Pancreas: The pancreatic head, neck, and body are unremarkable. The pancreatic tail is obscured by bowel gas. Abdominal aorta and inferior vena cava: The visualized portions of the abdominal aorta and inferior vena cava are normal in caliber. There is a small amount of ascites in the upper abdomen. US/US abdomen limited IMPRESSION: 1. Hepatomegaly and hepatic steatosis. Small amount of upper abdominal ascites. 2. Cholelithiasis without evidence of acute cholecystitis. 3. Marked renal cortical thinning and increased echotexture, consistent with the patient's history of end-stage renal disease. Electronically signed by: Goyo Jin MD 09/02/2024 07:23 AM EDT
[2024-09-01 18:00] VITALS: BP 110/55; PULSE 80; RESP 18; TEMP 37.1; O2SAT 79; BMI 23.6
--- NOTE | 2024-09-01 18:00 | ED.GENADULT ---
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 bacteremia comes here as for last 3 4 days patient has been having off and on fever and feeling weak patient had dialysis yesterday and had fever that time also comes here for shortness a breath saturating in 70s at room pain all over the body with nausea patient makes minimal urine Related Data Home Medications ?Medication ?Instructions ?Recorded ?Confirmed acyclovir 400 mg tablet 400 mg PO BID 05/20/23 01/19/24 hydralazine 50 mg tablet 50 mg PO DAILY 05/20/23 01/19/24 labetalol 300 mg tablet 600 mg PO BID 06/12/23 01/19/24 methadone 10 mg/mL oral concentrate 140 mg PO DAILY 06/12/23 01/20/24 mrlmhaxafs-ovmkasrnyyloj-vhuhdrke 2 tab PO Q4H PRN Migraine Headache 01/19/24 01/19/24 50 mg-325 mg-40 mg tablet clonazepam 1 mg tablet 1 mg PO BID 01/19/24 01/19/24 gabapentin 100 mg capsule 300 mg PO TID 01/19/24 01/19/24 oxycodone 20 mg tablet 20 mg PO 6XD 01/19/24 01/19/24 sulfamethoxazole 800 1 tab PO MOWEFR 01/19/24 01/19/24 mg-trimethoprim 160 mg tablet lanthanum 750 mg chewable tablet 750 mg PO TID 01/24/24 01/24/24 Previous Rx's ?Medication ?Instructions ?Recorded nicotine 14 mg/24 hr daily 14 mg transdermal DAILY #28 ea 01/26/24 transdermal patch sodium zirconium cyclosilicate 5 5 g PO DAILY #90 ea 01/26/24 gram oral powder packet (Lokelma) amlodipine 10 mg tablet 10 mg PO DAILY #90 tabs 06/02/24 Allergies Allergy/AdvReac Type Severity Reaction Status Date / Time No Known Allergies Allergy Verified 09/01/24 18:02 Review of Systems Review of Systems: Yes all other systems are reviewed and are negative [facility] Past Medical History Medical History (Updated 09/01/24 @ 23:36 by Lee Yee MD) Permanent central venous catheter in place Tobacco dependence Substance use disorder History of intravenous drug abuse End stage renal disease on dialysis Restless legs Anxiety Multiple myeloma Family History Family History Maternal Uncle Cancer Social History Social History (Updated 09/01/24 @ 20:28 by SHAY Cotto) Household Members: Family Housing: House Do you presently have visiting nurse or other home services: No Alcohol intake: never Patient Tobacco Use Status: Current everyday Tobacco user Tobacco use type: Cigarette Cigarette Packs Per Day: 12 Smoked in Last 30 Days: Yes Second Hand Smoke Exposure: No Use of substances other than those prescribed or required for medical reasons: No Substance Use Type: Marijuana Substance Use Frequency Other:: pt states he is on methadone- [facility] [employer] Advance Directives: No Advance Directives Information Provided: No Do you have a plan to hurt others: No Plan service: No Physical Exam ED Vital Signs: Vital Signs - 24 hr 09/01/24 18:00 09/01/24 18:24 09/01/24 18:30 Temperature 98.8 F Pulse Rate 80 78 Respiratory Rate 18 18 Blood Pressure 110/55 L 124/73 Pulse Oximetry 79 L 96 Oxygen Delivery Method Room Air Nasal Cannula Oxygen Flow Rate 2 09/01/24 19:19 Temperature Pulse Rate 81 Respiratory Rate 15 Blood Pressure 132/70 Pulse Oximetry 95 Oxygen Delivery Method Nasal Cannula Oxygen Flow Rate 2 BMI result Body Mass Index 23.6 Appearance: Alert. Oriented X3. Mild distress febrile with Shiley catheter present short of breath Eyes: Pallor+ ENT: Pharynx normal. Oral Mucosa moist Neck: Normal inspection. Neck supple. CVS: Normal heart rate and rhythm. Pulses normal. Respiratory: Mod respiratory distress. Equal air entry bilateral, bilateral crackles at the base Abdomen: Soft and nontender. Bowel sounds are present, no mass palpable, no CVA tenderness Skin: Skin warm and dry. Normal skin color. Normal skin turgor. Extremities: 2+ lower extremity edema. No calf tenderness Neuro: Oriented X 3. No motor deficit. No sensory deficit.No cerebellar signs , cranial nerves II-XII intact Course Course Course Narrative: This is an RME: Additional HPI, ROS, PE not included below will be deferred to primary provider. RME assessment and note performed by: Urvashi Mabry PA-C This is a 89-kn[age]-zvt-male, with a hx of ESRD on dialysis (Dr. Gomes - M/W/F dialysis) refractory IgA myeloma - in remission, on chronic methadone and oxycodone;who presents to the ER with complaints of fevers, chest pain, shortness of breath x 3 days. Reporting nausea, vomiting. No diarrhea. Pt found to be hypoxic at 79% on RA, placed on 6L oxymask in triage. Plan: Labs, ekg, xr, further ER eval needed - pt to be brought back [facility] Medications Administered Generic Name Dose Route Start Last Admin Trade Name Freq PRN Reason Stop Dose Admin Senna 17.2 mg 09/01/24 21:00 09/01/24 21:30 Sennosides 8.6 Mg Tablet PO Not Given BEDTIME AMEENA Discontinued Medications Generic Name Dose Route Start Last Admin Trade Name Freq PRN Reason Stop Dose Admin Acetaminophen 650 mg 09/01/24 18:41 09/01/24 18:52 Acetaminophen 325 Mg Tablet PO 09/01/24 18:42 650 mg ONCE ONE Administration Dextrose 25 gm 09/01/24 18:55 09/01/24 19:16 Dextrose 50 % 25 Gm/50 Ml Syringe IVPUSH 09/01/24 18:56 25 gm ONCE ONE Administration Furosemide 100 mg 09/01/24 18:14 09/01/24 18:30 Furosemide 100 Mg/10 Ml Vial IVPUSH 09/01/24 18:15 100 mg ONCE ONE Administration Protocol Vancomycin HCl 1,250 mg/ 250 mls @ 166.667 mls/hr 09/01/24 18:30 09/01/24 20:36 Sodium Chloride IV 09/01/24 19:59 Infused ONCE ONE Infusion Calcium Gluconate 1 gm in 50 mls @ 50 mls/hr 09/01/24 18:55 09/01/24 20:36 Calcium Gluconate IV 09/01/24 19:54 Infused ONCE ONE Infusion Insulin Human Regular 6 unit 09/01/24 18:55 09/01/24 19:16 Insulin Regular, Human 100 Unit/Ml 10 Ml Vial IVPUSH 09/01/24 18:56 6 unit ONCE ONE Administration Meropenem 500 mg 09/01/24 18:29 09/01/24 18:52 Meropenem 500 Mg Vial IVPUSH 09/01/24 18:30 500 mg ONCE ONE Administration Sodium Zirconium Cyclosilicate 10 gm 09/01/24 19:31 09/01/24 19:55 Sodium Zirconium Cyclosilicate 10 Gm Powd.Pack PO 09/01/24 19:32 Not Given ONCE ONE Medical Decision Making Medical Decision Making MDM Narrative: Patient with end-stage renal disease with fever with history of bacteremia in the past with Shiley catheter in place will admit patient for IV antibiotics rule out bacteremia also noted to have hyperkalemia IV calcium gluconate insulin dextrose in local more was given along with albuterol treatment repeat potassium was 5.7 Differential Diagnosis Differential Diagnoses: The differential diagnosis associated with the presentation includes Admission/Observation Consideration of admission/observation: Escalation of care including admission/observation considered Consult Healthcare Provider Management of the patient was discussed with: Hospitalist Lab Data [facility] Lab Attestation statement: I reviewed the patient's lab results. 09/01/24 18:23 09/01/24 21:14 Labs: Lab Results 09/01/24 09/01/24 09/01/24 Range/Units 18:22 18:23 18:24 WBC 2.8 L (4.8-10.8) X10*3/uL RBC 2.13 L D (4.60-5.80) X10*6/uL Hgb 7.2 L D (14.0-18.0) g/dl Hct 22.2 L D (42.0-52.0) % MCV 104.2 H (80.0-98.0) fL MCH 33.8 H (27.0-33.0) pg MCHC 32.4 (31.0-36.0) g/dl RDW 16.3 H (11.0-16.0) % Plt Count 105 L D (160-400) X10*3/uL MPV 10.3 (9.4-12.4) fL Immature Gran % (Auto) Cancelled Neut % (Auto) Cancelled Lymph % (Auto) Cancelled Custer % (Auto) Cancelled Eos % (Auto) Cancelled Baso % (Auto) Cancelled Lymph # (Auto) Cancelled Custer # (Auto) Cancelled Eos # (Auto) Cancelled Baso # (Auto) Cancelled Abs Immat Gran (auto) Cancelled Absolute Neuts (auto) Cancelled Absolute Nucleated RBC 0.000 (0.0-0.012) X10*3/uL Nucleated RBC % (auto) 0.0 (0.0-0.2) /100WBC Neutrophils % (Manual) 90 H (45-73) % Band Neutrophils % 0 L (3-5) % Lymphocytes % (Manual) 8 L (20-40) % Monocytes % (Manual) 2 (2-11) % Abs Neuts (Manual) 2.5 (2.0-8.3) X10*3/uL Lymphocytes # (Manual) 0.2 L (1.2-4.9) X10*3/uL Monocytes # (Manual) 0.1 (0.1-1.2) X10*3/uL Platelet Estimate NORMAL (NORMAL) Plt Morphology Comment NORMAL RBC Morphology NORMAL VBG pH (7.32-7.43) VBG pCO2 mmHg VBG pO2 mmHg VBG HCO3 (22-26) mmol/L VBG O2 Saturation % VBG Base Excess mmol/L Sodium 136 (135-145) mmol/L Potassium 6.2 H* (3.3-5.1) mmol/L Chloride 99 (96-108) mmol/L Carbon Dioxide 25 (22-29) mmol/L Anion Gap 18 (12-20) BUN 56 H (9-16) mg/dL Creatinine 6.83 H* (0.5-1.4) mg/dL Estim Creat Clear Calc 13.3 Estimated GFR 9 Random Glucose 88 (60-115) mg/dL Lactic Acid 0.9 (0.5-2.0) mmol/L Calcium 8.6 D (8.4-10.2) mg/dL Phosphorus 5.0 H (2.7-4.5) mg/dL Magnesium 2.2 (1.6-2.6) mg/dL Iron 24 L (45-160) mcg/dL TIBC 116 L (228-428) mcg/dL % Saturation 21 (15-50) % Unsat Iron Binding 92 ug/dL Total Bilirubin 1.4 H (0.0-1.0) mg/dL Direct Bilirubin 0.9 H (0.0-0.5) mg/dL AST 158 H (5-37) U/L ALT 87 H (0-40) U/L Alkaline Phosphatase 103 (39-117) U/L Troponin I High Sens 153.1 H* (<3.5-35.0) ng/L Total Protein 5.8 L (6.5-8.0) g/dL Albumin 3.6 (3.5-5.0) g/dL TSH 2.79 (0.32-4.0) uIU/mL Free T4 0.88 (0.71-1.85) ng/dL Influenza Type A (PCR) NEGATIVE (Negative) Influenza Type B (PCR) NEGATIVE (Negative) RSV RNA Qual (PCR) NEGATIVE (Negative) SARS-CoV-2 RNA (RT-PCR) NEGATIVE (Negative) 09/01/24 Range/Units 18:32 WBC (4.8-10.8) X10*3/uL RBC (4.60-5.80) X10*6/uL Hgb (14.0-18.0) g/dl Hct (42.0-52.0) % MCV (80.0-98.0) fL MCH (27.0-33.0) pg MCHC (31.0-36.0) g/dl RDW (11.0-16.0) % Plt Count (160-400) X10*3/uL MPV (9.4-12.4) fL Immature Gran % (Auto) Neut % (Auto) Lymph % (Auto) Custer % (Auto) Eos % (Auto) Baso % (Auto) Lymph # (Auto) Custer # (Auto) Eos # (Auto) Baso # (Auto) Abs Immat Gran (auto) Absolute Neuts (auto) Absolute Nucleated RBC (0.0-0.012) X10*3/uL Nucleated RBC % (auto) (0.0-0.2) /100WBC Neutrophils % (Manual) (45-73) % Band Neutrophils % (3-5) % Lymphocytes % (Manual) (20-40) % Monocytes % (Manual) (2-11) % Abs Neuts (Manual) (2.0-8.3) X10*3/uL Lymphocytes # (Manual) (1.2-4.9) X10*3/uL Monocytes # (Manual) (0.1-1.2) X10*3/uL Platelet Estimate (NORMAL) Plt Morphology Comment RBC Morphology VBG pH 7.55 H (7.32-7.43) VBG pCO2 28 mmHg VBG pO2 222 mmHg VBG HCO3 24 (22-26) mmol/L VBG O2 Saturation 99.0 % VBG Base Excess 2.8 mmol/L Sodium (135-145) mmol/L Potassium (3.3-5.1) mmol/L Chloride (96-108) mmol/L Carbon Dioxide (22-29) mmol/L Anion Gap (12-20) BUN (9-16) mg/dL Creatinine (0.5-1.4) mg/dL Estim Creat Clear Calc Estimated GFR Random Glucose (60-115) mg/dL Lactic Acid (0.5-2.0) mmol/L Calcium (8.4-10.2) mg/dL Phosphorus (2.7-4.5) mg/dL Magnesium (1.6-2.6) mg/dL Iron (45-160) mcg/dL TIBC (228-428) mcg/dL % Saturation (15-50) % Unsat Iron Binding ug/dL Total Bilirubin (0.0-1.0) mg/dL Direct Bilirubin (0.0-0.5) mg/dL AST (5-37) U/L ALT (0-40) U/L Alkaline Phosphatase (39-117) U/L Troponin I High Sens (<3.5-35.0) ng/L Total Protein (6.5-8.0) g/dL Albumin (3.5-5.0) g/dL TSH (0.32-4.0) uIU/mL Free T4 (0.71-1.85) ng/dL Influenza Type A (PCR) (Negative) Influenza Type B (PCR) (Negative) RSV RNA Qual (PCR) (Negative) SARS-CoV-2 RNA (RT-PCR) (Negative) Independent Interpretation I performed an independent interpretation of an: EKG Interpretation: Normal sinus rhythm ventricular rates 78 beats per minute left axis deviation LVH QT interval [address]-T changes no acute ischemia Critical Care Time Critical Care Time Critical Care Time: Yes Total Critical Care Time: 65 Attestation: Time is exclusive of separately billable procedures. Time includes: direct patient care, patient reassessment, coordination of patient care, interpretation of data (laboratory data, pulse oximetry, arterial blood gases and chest xrays), review of patient's medical records, medical consultation and documentation of patient care. Procedures excluded from critical care time: central intravenous line placement and electrocardiography. Discharge Plan Discharge Clinical Impression: Bacteremia, End stage chronic kidney disease, Permanent central venous catheter in place Multiple myeloma Qualifiers: Multiple myeloma remission status: not in remission Qualified Code(s): C90.00 - Multiple myeloma not having achieved remission Patient Disposition: Admitted As Inpatient
--- NOTE | 2024-09-01 18:03 | ECG_ITS ---
Test Reason : CP Blood Pressure : */* mmHG Vent. Rate : 78 BPM Atrial Rate : 78 BPM P-R Int : 164 ms QRS Dur : 90 ms QT Int : 430 ms P-R-T Axes : -1 -32 28 degrees QTcB Int : 490 ms Normal sinus rhythm Left axis deviation Minimal voltage criteria for LVH, may be normal variant ( [place] product ) Nonspecific ST abnormality Prolonged QT Abnormal ECG When compared with ECG of 25-Jan-2024 10:04, QRS axis Shifted left Referred By: Urvashi Mabry Electronically Signed By: SERAFIN BURNETT
--- NOTE | 2024-09-01 18:04 | PC.NURSE ---
pt started on 6L Oxymask and O2 improved to 93% brought back to ER room, RT called
--- NOTE | 2024-09-01 18:21 | PC.NURSE ---
Pt from triage to ED 2, A/O x 2, calm and cooperative. Denies SOB, crackles noted to BLL and edema present on BLE. Placed on 2 L NC, IV placed in RAC. NSR on monitor. Labs obtained and sent. Pt noted to dialysis cath on right chest, uncovered. Pt states he took it off after I showered . Site covered with DSD. ED provider at bedside.
[2024-09-01 18:24] VITALS: PULSE 78; RESP 18; O2SAT 96
[2024-09-01 18:30] VITALS: BP 124/73
[2024-09-01] MEDS: Furosemide 100 MG/10 ML VIAL IVPUSH (18:30)
[2024-09-01 18:32] LABS: Hematocrit 22.2 % (42.0-52.0); Hemoglobin 7.2 g/dl (14.0-18.0); Mean Corpuscular HGB Conc 32.4 g/dl (31.0-36.0); Mean Corpuscular Hemoglobin 33.8 pg (27.0-33.0); Mean Corpuscular Volume 104.2 fL (80.0-98.0); NRBC Abs Auto 0.000 X10*3/uL (0.0-0.012); NRBC Pct Auto 0.0 /100WBC (0.0-0.2); Platelet Count 105 X10*3/uL (160-400); Red Blood Count 2.13 X10*6/uL (4.60-5.80)
[2024-09-01 18:37] LABS: VBG HCO3 24 mmol/L (22-26); VBG O2 % Saturation 99.0 %
[2024-09-01 18:37] LABS: WBC ABN SCTR FOR CBC 1
[2024-09-01 18:38] LABS: Venous Blood Gas Refer to POC result
[2024-09-01 18:51] LABS: Alanine Aminotransferase 87 U/L (0-40); Albumin Level 3.6 g/dL (3.5-5.0); Alkaline Phosphatase 103 U/L (39-117); Anion Gap 18 (12-20); Aspartate Amino Transferase 158 U/L (5-37); Blood Urea Nitrogen 56 mg/dL (9-16); Calcium 8.6 mg/dL (8.4-10.2); Carbon Dioxide 25 mmol/L (22-29); Chloride 99 mmol/L (96-108); Creatinine Clr Calc Pharmacy 13.3; Estimated Glomerular Filt Rate 9; Magnesium 2.2 mg/dL (1.6-2.6); Potassium 6.2 mmol/L (3.3-5.1); Sodium 136 mmol/L (135-145); Total Protein 5.8 g/dL (6.5-8.0)
[2024-09-01 19:02] LABS: Troponin-I High Sensitivity 153.1 ng/L (<3.5-35.0)
[2024-09-01 19:08] LABS: Resp Syncy Virus RNA Qual PCR NEGATIVE (Negative); SARS COV2 PCR INHOUSE NEGATIVE (Negative)
[2024-09-01] MEDS: Calcium Gluconate/NaCl,Iso-Osm 1 GM/50 ML PLAST..BAG IV (19:15)
[2024-09-01 19:19] VITALS: BP 132/70; PULSE 81; RESP 15; O2SAT 95
--- NOTE | 2024-09-01 19:20 | PC.NURSE ---
this rn assume care of pt, pt resting in stretcher, no acute distress noted, 2l nc on pt at this time, pt 95%. pt medicated per mar at this time.
[2024-09-01 19:21] LABS: Lymphocytes Percent Manual 8 % (20-40); Monocytes Percent Manual 2 % (2-11); Neutrophils Percent Manual 90 % (45-73)
[2024-09-01 19:22] LABS: Band Neutrophils Percent 0 % (3-5)
[2024-09-01 19:23] LABS: RBC Morphology NORMAL
--- OUTSIDE RECORDS SUMMARY | 2024-09-01 19:58 | XMS_ITS ---
Author Organization [facility] ([facility]) Address [address] [place] [id number] Care Team Providers [facility] [employer] Name Role Phone Unavailable Unavailable Unavailable Allergies, Adverse Reactions, Alerts This patient has no known allergies or adverse reactions. Problems This patient has no known problems.
--- NOTE | 2024-09-01 20:16 | PM.IMHP ---
History of Present Illness Date of Service: 09/01/24 Attending physician on admission: Peter Farooq Chief Complaint: high fever Patient is a 44-year-old male with past medical history multiple myeloma now on dialysis Thursday and Thursday with [facility] in [facility], opioid/substance use disorder on methadone, history of IV drug abuse with no recent use or Hep C, HTN, tobacco dependence, HSV presents to the emergency room with a fever 103 intermittently over the last 3-4 days. Patient states he has also been having chills and feels cold all the time. Patient denies currently chest pain and shortness of breath at rest. Patient is not having any nausea or vomiting. Patient denies any abdominal pain, diarrhea or constipation issues. Patient did undergo dialysis yesterday and had fever and returned home after treatment was completed. Patient does have infection history of his left PermCath 01/30 and grew achromobacter xylosoxidans. Patient thinks he may have had water exposure to his line in the last 3-4 days. Insertion site of PermCath is covered with a clean dry dressing. No obvious redness or drainage noted. Patient does have open excoriations on right lower arm and scabbed areas on right knee. Patient does complain of constant itching and does use phosphate binders with meals. Phosphorus level pending. Workup in the ED identified left lower lobe pneumonia. Patient was started on meropenem and vancomycin. Patient denies any issues with swallowing or aspiration. Patient states he believes he has had pneumonia in the past. Patient is reporting continued edema in the lower extremities before and after dialysis. Patient makes very little urine at this time. Patient is supposed to be on a fluid restriction but isn't always compliant. Patient's potassium also elevated at 6.2. Patient does not follow low-potassium food guidelines for end-stage renal disease patients. Patient does eat a lot of bananas and peanut butter. Patient received 1 dose of Kcentra in the emergency department. Troponins also elevated, likely related to end-stage renal disease and recent dialysis but cardiomegaly noted on chest x-ray so BNP is pending. If elevated, will order echocardiogram. EKG notes normal sinus rhythm with a prolonged QTC and nonspecific ST changes in lateral leads only. Pt does currently smoke cigaretts, 10-12 per day. Pt does not use inhalers or nebs at home. Pt is requesting nicotine patch. Review of Systems Review of Systems: Patient denies any shortness of breath at rest or with exertion. Patient denies any chest pain. Patient denies any issues swallowing or sore throat. Patient had been having fever and chills but is resting comfortably currently. Patient denies any abdominal pain, constipation or diarrhea issues. Patient reports a going edema in the lower extremities persistent. [facility] Medical History (Updated 09/01/24 @ 20:34 by SHAY Cotto) Permanent central venous catheter in place Tobacco dependence Substance use disorder History of intravenous drug abuse End stage renal disease on dialysis Restless legs Anxiety Multiple myeloma Cognitive capacity: Alert and orientated x3 Functional capacity: independent ambulation Family History Maternal Uncle Cancer Pertinent family history: Mother age 70 and father age 71, both in good health Social History (Updated 09/01/24 @ 20:28 by SHAY Cotto) Household Members: Family Housing: House Do you presently have visiting nurse or other home services: No Alcohol intake: never Patient Tobacco Use Status: Current everyday Tobacco user Tobacco use type: Cigarette Cigarette Packs Per Day: 12 Smoked in Last 30 Days: Yes Second Hand Smoke Exposure: No Use of substances other than those prescribed or required for medical reasons: No Substance Use Type: Marijuana Substance Use Frequency Other:: pt states he is on methadone- [facility] Advance Directives: No Advance Directives Information Provided: No Do you have a plan to hurt others: No Plan service: No Ebola Risk: Travel/Contact With Anyone From Affected Area/s: No Has Patient Experienced Ebola Symptoms: No Meds Allergies Allergy/AdvReac Type Severity Reaction Status Date / Time No Known Allergies Allergy Verified 09/01/24 18:02 Active Medications: Current Medications Acetaminophen (Acetaminophen 325 Mg Tablet) 650 mg PO Q6H PRN PRN Reason: Pain, Mild 1-3,fever,headache Albuterol/Ipratropium (Albuterol/Iprat 2.5/0.5mg 3 Ml Ampul.Neb) 3 ml INHALE Q4H PRN PRN Reason: Shortness of Breath/Wheezing Calcium Carbonate (Calcium Carbonate 750 Mg Tab.Chew) 750 mg PO Q4H PRN PRN Reason: Heartburn Magnesium Hydroxide (Milk Of Magnesia 30 Ml Oral.Susp) 30 ml PO DAILY PRN PRN Reason: Constipation Melatonin (Melatonin 3 Mg Tablet) 6 mg PO BEDTIME PRN PRN Reason: Insomnia Polyethylene Glycol (Polyethylene Glycol 3350 17 Gm Powd.Pack) 17 gm PO DAILY PRN PRN Reason: Constipation Senna (Sennosides 8.6 Mg Tablet) 17.2 mg PO BEDTIME AMEENA Sodium Chloride (0.9 % Sodium Chloride Flush 3 Ml Syringe) 3 ml IVFLUSH QSHIFT [facility] Home Medications ?Medication ?Instructions ?Recorded ?Confirmed ?Last Taken ?Type acyclovir 400 mg tablet 400 mg PO BID 05/20/23 01/19/24 01/19/24 08:00 History hydralazine 50 mg tablet 50 mg PO DAILY 05/20/23 01/19/24 01/19/24 08:00 History labetalol 300 mg tablet 600 mg PO BID 06/12/23 01/19/24 01/19/24 08:00 History methadone 10 mg/mL oral concentrate 140 mg PO DAILY 06/12/23 01/20/24 01/19/24 History jnuufkwefd-awyyzxkvogveg-yjuwmblw 2 tab PO Q4H PRN Migraine Headache 01/19/24 01/19/24 01/19/24 08:00 History 50 mg-325 mg-40 mg tablet clonazepam 1 mg tablet 1 mg PO BID 01/19/24 01/19/24 01/19/24 08:00 History gabapentin 100 mg capsule 300 mg PO TID 01/19/24 01/19/24 01/19/24 08:00 History oxycodone 20 mg tablet 20 mg PO 6XD 01/19/24 01/19/24 01/19/24 08:00 History sulfamethoxazole 800 1 tab PO MOWEFR 01/19/24 01/19/24 01/15/24 History mg-trimethoprim 160 mg tablet lanthanum 750 mg chewable tablet 750 mg PO TID 01/24/24 01/24/24 01/24/24 12:00 History Physical Exam Vital Signs and Narrative: Vital Signs: Last Vital Signs Temp 98.8 F 09/01/24 18:00 Pulse 81 09/01/24 19:19 Resp 15 09/01/24 19:19 BP 132/70 09/01/24 19:19 Pulse Ox 95 09/01/24 19:19 O2 Del Method Nasal Cannula 09/01/24 19:19 O2 Flow Rate 2 09/01/24 19:19 BMI result Body Mass Index 23.6 Alert and orientated X3, able to give good history. At first was very somnolent, but once awake, alert and orientated able to particpate in interview. Neuro: CN II-X11 intact, no deficits, visual acuity intact EYES: PERRLA, EOM intact, sclera non icteric, conjunctiva pale ENT: hearing intact, no issues with swallowing, uvula midline, lips moist, nares patent no epistaxis Cardiac: S1 S2 RRR, no murmur, no JVD, moderate nonpitting edema in Lower ext Pulmonary: lungs diminshed bases, L > R Abdominal: BS active in all 4 quadrants, no guarding, tenderness, rebounding MSK: strength 5/5 upper and lower extremities : no CVA tenderness no bladder distension Extremities: moderate non pitting edema in lower extremities, PT and DP pulses palpable +2 Psych: mood stable, judgement and insight good Skin: pick mustafa R lower arm, healed abrasion R knee, Left arm venipuncture site, healing excoriation with small lump No obvvious herpetic rashes seen Results Labs 09/01/24 18:23 09/01/24 18:23 Labs: Laboratory Results - last 24 hr 09/01/24 09/01/24 09/01/24 18:22 18:23 18:24 MCV 104.2 H MCH 33.8 H MCHC 32.4 RDW 16.3 H Plt Count 105 L D MPV 10.3 Immature Gran % (Auto) Cancelled Neut % (Auto) Cancelled Lymph % (Auto) Cancelled Anson % (Auto) Cancelled Eos % (Auto) Cancelled Baso % (Auto) Cancelled Lymph # (Auto) Cancelled Anson # (Auto) Cancelled Eos # (Auto) Cancelled Baso # (Auto) Cancelled Abs Immat Gran (auto) Cancelled Absolute Neuts (auto) Cancelled Absolute Nucleated RBC 0.000 Nucleated RBC % (auto) 0.0 Neutrophils % (Manual) 90 H Band Neutrophils % 0 L Lymphocytes % (Manual) 8 L Monocytes % (Manual) 2 Plt Morphology Comment NORMAL RBC Morphology NORMAL VBG pH VBG pCO2 VBG pO2 VBG HCO3 VBG O2 Saturation VBG Base Excess Anion Gap 18 Estim Creat Clear Calc 13.3 Estimated GFR 9 Random Glucose 88 Lactic Acid 0.9 Calcium 8.6 D Magnesium 2.2 Total Bilirubin 1.4 H Direct Bilirubin 0.9 H AST 158 H ALT 87 H Alkaline Phosphatase 103 Troponin I High Sens 153.1 H* Total Protein 5.8 L Albumin 3.6 Influenza Type A (PCR) NEGATIVE Influenza Type B (PCR) NEGATIVE RSV RNA Qual (PCR) NEGATIVE SARS-CoV-2 RNA (RT-PCR) NEGATIVE 09/01/24 18:32 MCV MCH MCHC RDW Plt Count MPV Immature Gran % (Auto) Neut % (Auto) Lymph % (Auto) Anson % (Auto) Eos % (Auto) Baso % (Auto) Lymph # (Auto) Anson # (Auto) Eos # (Auto) Baso # (Auto) Abs Immat Gran (auto) Absolute Neuts (auto) Absolute Nucleated RBC Nucleated RBC % (auto) Neutrophils % (Manual) Band Neutrophils % Lymphocytes % (Manual) Monocytes % (Manual) Plt Morphology Comment RBC Morphology VBG pH 7.55 H VBG pCO2 28 VBG pO2 222 VBG HCO3 24 VBG O2 Saturation 99.0 VBG Base Excess 2.8 Anion Gap Estim Creat Clear Calc Estimated GFR Random Glucose Lactic Acid Calcium Magnesium Total Bilirubin Direct Bilirubin AST ALT Alkaline Phosphatase Troponin I High Sens Total Protein Albumin Influenza Type A (PCR) Influenza Type B (PCR) RSV RNA Qual (PCR) SARS-CoV-2 RNA (RT-PCR) ECG Attestation: I personally reviewed and interpreted this ECG as follows: (NSR, prolonged Qtc, non specific ST changes lateral leads ) Prior ECG tracings: available for review Imaging Radiologist's Impressions: CXR IMPRESSION: 1. Left lung opacities suspicious for pneumonia. Correlate clinically. 2. Cardiomegaly. 3. Left hemodialysis catheter with tip overlying right atrium. Assessment and Plan (1) PNA (pneumonia): Status: Acute Plan Patient is a 44-year-old male with past medical history multiple myeloma now on dialysis Thursday and Thursday with [facility] in [facility], opioid/substance use disorder on methadone, history of IV drug abuse with no recent use or Hep C, HTN, tobacco dependence, HSV is being admitted for LLL PNA without evidence of aspiration. Pt does have perm cath line in place, DAVI and site appears stable. Pt has hx of infcection of perm cath (likely previous line) 01/2024. LLL PNA -Pt started on meropenem 500 Q12 based on Creat Cleatance and vanco in the ED, based on previous postive cultures of previos perm cath 01/30 -Pharmacy consulted for VANCO dosing that likely will be given on dialysis days only -Perm cath site appears stable -PNA found on CT scan, no evidence of aspiration potential, precautions ordered -Pt unable to provide sputum -BC X2 pending -Pt does not meet criteria for Sepsis, afebrile since arrival, HD stable -DUoe nebs prn -Supportive care ESRD -Nephrology consulted -Patient's estimated dry weight is 68 kg, patient is oliguric -Attempting UA with reflex -Noted hyperkalemia and patient reported noncompliance with renal diet - eats bananas and peanut butter, nutritional consult placed -Telemetry -Dialysis days are Wednesdays and patient's brick or block maker is Dr. Gomes -Med rec pending -Avoid hypotension -Low phosphorus low-potassium diet ordered -Dialysis days are Fridays, patient states estimated dry weight is 68 kg Elevated troponin, ECG with nonspecific ST changes lateral leads -Patient is asymptomatic -Repeat troponins 2100 -BNP added noting cardiomegaly on chest x-ray -EKG will be repeated in the a.m. -Telemetry -Echo will be ordered if BNP is abnormal Hyperkalemia -Patient's potassium on arrival 6.2, T-waves normal on EKG -Patient received 1 dose of Kcentra in the ED -Repeat potassium 2100 -BMP daily -Low-potassium diet ordered Anemia -Chronic anemia secondary to end-stage renal disease -Patient is not sure if he receives Epogen but does receive iron infusions with dialysis -Epogen per Nephrology -Stool for occult as H&H is 7.2 and 22.2 -CBC daily -PPI ordered -Holding heparin subQ for DVT prophylaxis at this time Thrombocytopenia -Chronic, Level 105K -No issues with spontaneous bleeding -LFTs are elevated HYperphosphatemia -Phosphorus 5.0 -Patient states he takes PhosLo binder is at home with meals but may be noncompliant -Binders are not currently on his med rec -Review requested by Nephrology -Intact PTH ordered Transaminitis/ elevated Tbili, D Bili -Lactic acid level normal -Maybe reactive to infection/fever -Recheck CMP in the a.m. -GI consult if indicated -Ultrasound of the abdomen ordered History of substance use disorder on methadone/ IV drug abuse history -Methadone daily -Patient denies any recent drug use -Avoid narcotics -Patient is oliguric, will try to collect urine drug screen Tobacco dependent Nicotine patch requested and ordered as patient is currently chest pain-free DVT prophylaxis: Held due to low H&H, for your review a.m. labs before starting heparin PPI prophylaxis: Protonix Med rec pending Full Code status Quality Stroke Does the patient have a stroke diagnosis?: No Reason for No Anti-thrombotic by Day Two: Contraindicated VTE Prior VTE?: No VTE Risk Level:: Medical - moderate - high VTE Device Contraindication: N/A - Device Ordered VTE Drug Contraindication: Treatment Not Indicated
[2024-09-01 20:26] LABS: Iron 24 mcg/dL (45-160); Percent Iron Saturation 21 % (15-50); Total Iron Binding Capacity 116 mcg/dL (228-428); Unsaturated Iron Binding 92 ug/dL
[2024-09-01 20:36] LABS: Lymphocytes Absolute Manual 0.2 X10*3/uL (1.2-4.9); Monocytes Absolute Manual 0.1 X10*3/uL (0.1-1.2); Neutrophils Absolute Manual 2.5 X10*3/uL (2.0-8.3); White Blood Count 2.8 X10*3/uL (4.8-10.8)
[2024-09-01 21:05] LABS: Free T4 (Free Thyroxine) 0.88 ng/dL (0.71-1.85); Thyroid Stimulating Hormone 2.79 uIU/mL (0.32-4.0)
--- NOTE | 2024-09-01 21:16 | PHA.PROG ---
Admission Date/Time: September 01, 2024 19:36 Indication: Respiratory Infection Weight in k.307 kg Adjusted body weight in K kg [place] body weight in K.4 kg Obesity Dosing Indication % IBW:N/A Serum Creatinine - Last 168 Hours 09/01/24 18:23 Creatinine 6.83 H* Estimated CrCl and GFR - Last 168 Hours 09/01/24 18:23 Estim Creat Clear Calc 13.3 Estimated GFR 9 Vancomycin Loading Dose: 1250 mg Current Vancomycin Dosing Regimen: dose per post dialysis level Date and Time for next Vancomycin Level to be drawn: 09/02 @ 1800 (will adjust based on time of dialysis) Pharmacist Comments on Vancomycin Plan: Patient ESRD get outpatient dialysis MWF Patient received an adjusted load dose of vancomycin 1250 mg in the ER on 09/01 Plan to get vancomycin level post diaylsis on 09/01. Angela Ferraro, JohnD Vancomycin dosing will take advantage of Embedded ChatX as a clinical decision support tool that uses Bayesian modeling to calculate individual patient's pharmacokinetic parameters and forecast the patient's drug concentration time course with the target goal AUC 24 range of 400 - 600 mg/L/hr.
[2024-09-01 21:31] LABS: Potassium 5.7 mmol/L (3.3-5.1)
[2024-09-01 21:44] LABS: B Type Natriuretic Peptide 2604 pg/mL (<100)
[2024-09-01 21:49] LABS: Troponin-I High Sensitivity 144.4 ng/L (<3.5-35.0)
[2024-09-01 23:10] VITALS: BP 145/76; PULSE 72; RESP 11; O2SAT 93
[2024-09-02] VITALS (12 sets, daily range): BP systolic 133–169; BP diastolic 72–95; PULSE 66–80; RESP 16–31; TEMP 36.1–37.1; O2SAT 91–98; BMI 23.9; BMI 21.1
[2024-09-02 04:10] LABS: Mean Corpuscular HGB Conc 32.5 g/dl (31.0-36.0); Mean Corpuscular Hemoglobin 33.7 pg (27.0-33.0); Mean Corpuscular Volume 103.5 fL (80.0-98.0); NRBC Abs Auto 0.000 X10*3/uL (0.0-0.012); NRBC Pct Auto 0.0 /100WBC (0.0-0.2); Red Blood Count 2.02 X10*6/uL (4.60-5.80)
[2024-09-02 04:23] LABS: Platelet Count 95 X10*3/uL (160-400); WBC ABN SCTR FOR CBC 1; White Blood Count 2.1 X10*3/uL (4.8-10.8)
[2024-09-02 04:29] LABS: Hematocrit 20.9 % (42.0-52.0); Hemoglobin 6.8 g/dl (14.0-18.0)
[2024-09-02 04:35] LABS: Uric Acid 5.7 mg/dL (3.4-7.0)
[2024-09-02 04:39] LABS: Alanine Aminotransferase 85 U/L (0-40); Albumin Level 3.2 g/dL (3.5-5.0); Alkaline Phosphatase 118 U/L (39-117); Anion Gap 19 (12-20); Aspartate Amino Transferase 152 U/L (5-37); Blood Urea Nitrogen 63 mg/dL (9-16); Calcium 8.2 mg/dL (8.4-10.2); Carbon Dioxide 25 mmol/L (22-29); Chloride 98 mmol/L (96-108); Creatinine Clr Calc Pharmacy 12.0; Estimated Glomerular Filt Rate 8; Potassium 5.6 mmol/L (3.3-5.1); Sodium 136 mmol/L (135-145); Total Protein 5.1 g/dL (6.5-8.0)
[2024-09-02 04:42] LABS: Band Neutrophils Percent 8 % (3-5); Eosinophils Percent Manual 1 % (0-4); Lymphocytes Absolute Manual 0.2 X10*3/uL (1.2-4.9); Lymphocytes Percent Manual 11 % (20-40); Monocytes Absolute Manual 0.1 X10*3/uL (0.1-1.2); Monocytes Percent Manual 4 % (2-11); Neutrophils Absolute Manual 1.8 X10*3/uL (2.0-8.3); Neutrophils Percent Manual 76 % (45-73); Parathyroid Hormone Intact 493.2 pg/mL (8.7-77.1)
[2024-09-02 04:45] LABS: Burr Cells 1+ (0-2) /OIF; Macrocytosis 1+ (5-14) /OIF; Ovalocytes 1+ (5-14) /OIF; RBC Morphology NOTED; Schistocytes 1+ (0-2) /OIF
--- NOTE | 2024-09-02 04:45 | PC.NURSE ---
pt noted to not have made any urine, confirmed with pt that he does not make urine, reports he went to dialysis on Thursday. provider aware of critical results
[2024-09-02 04:46] LABS: Dohle Bodies PRESENT; Toxic Granulation PRESENT
--- NOTE | 2024-09-02 06:36 | PC.NURSE ---
per Erin field marketing lead, pt to receive blood transfusion during dialysis
--- NOTE | 2024-09-02 07:00 | CA_ITS ---
Transthoracic Echocardiogram Patient (Last, First, Middle): Brandin Garcia, Gender: Male Date of : 1980 Age: 44 Procedure Date: 09/02/2024 Procedure Type: Transthoracic Echocardiogram Location: ER Height: 172.72 cm Weight: 70.31 kg BSA: 1.83 m2 Heart Rate: bpm BP: 133 / 81 mmHg Entry Level Electrician: TO Referring MD: Erin Rothman [employer]- Symptoms: elevated BNP, CM on dialysis Study Quality: Adequate ECG Rhythm: Sinus Conclusions: - The left ventricular systolic function is mildly decreased. The calculated ejection fraction is 45% by biplane method. - Evidence suggests grade II (moderate) diastolic dysfunction. - The left atrium is severely dilated. - There is mild mitral valve regurgitation. - There is mild to moderate tricuspid valve regurgitation. - Moderate pulmonary hypertension is present. Findings Left Ventricle Mildly increased left ventricular cavity size. There is normal left ventricular wall thickness. The left ventricular systolic function is mildly decreased. The calculated ejection fraction is 45% by biplane method. There is mild global hypokinesis. Evidence suggests grade II (moderate) diastolic dysfunction. LV peak GLS -15.7%. Right Ventricle Moderately increased right ventricular cavity size. There is normal right ventricular systolic function. Atria The left atrium is severely dilated. The right atrium is moderately dilated. Aortic Valve There is a normal trileaflet aortic valve. There is no aortic valve stenosis. There is no aortic valve regurgitation. Mitral Valve The mitral valve appears normal. There is mild mitral valve regurgitation. There is no mitral valve stenosis. Pulmonic Valve The pulmonic valve is likely normal. Tricuspid Valve There is mild to moderate tricuspid valve regurgitation. Moderate pulmonary hypertension is present. Great Vessels The asc aorta is normal in size. Venous The inferior vena cava is normal in size and collapses less than 50% with inspiration. Pericardium/Pleural There is a small loculated pericardial effusion overlying the left ventricle. Prior Study Comparison No prior study available for comparison. Measurements 2D Linear Measurements IVSd: 0.99 0.6-0.9/0.6-1.0 cm LVIDd: 5.82 3.9-5.3/4.2-5.9 cm LVIDd Index: 3.18 2.4-3.2/2.2-3.1 cm/m2 LVIDs: 4.47 2.0-3.6 cm LVPWd: 1.00 0.7-1.1 cm LA Diam: 4.40 2.7-3.8/3.0-4.0 cm LAIDs Index: 2.40 1.5-2.3 cm/m2 LV Mass: 289.46 67-162/88-224 g LV Mass Index: 158.18 43-95/49-115 g/m2 LVOT Diam: 2.10 3.0+(-)1.3 cm 2D Systolic Function EF 4C: 40.40 >55% EF 2C: 50.10 >55% EF BiP: 45.10 >55% Mitral Valve MV Pk E: 1.03 MV PK A: 0.40 MV Decel Time: 156.00 E/A: 2.60 E'Lateral: 6.96 E'Medial: 5.11 E/E' Med: 20.20 E/E' Lat: 14.80 PHT: 46.00 MVA PHT: 4.78 Decel [place]: 6.60 Aortic Valve AoV Pk Luc: 1.69 AoV Mn Luc: 1.17 AoV VTI: 0.37 AoV Pk Grad: 11.00 Aov Mn Grad: 6.00 CEFERINO Cont.VTI: 2.05 LVOT LVOT Pk Luc: 1.06 LVOT Mn Luc: 0.70 LVOT VTI: 0.22 LVOT Pk Grad: 4.00 LVOT Mn Grad: 2.00 LVOT Diam: 2.10 LVOT Area: 3.46 Diastolic Function MV Pk E: 1.03 MV Pk A: 0.40 E/A: 2.60 E'Medial: 5.11 E/E' Med: 20.20 E' Laterial: 6.96 E/E' Lat: 14.80 Right Ventricle TAPSE (mm): 28.20 TVS' Luc: 10.30 Tricuspid Valve TR Pk Luc: 3.33 TR Pk Grad: 44.00 RA Press: 15.00 RVSP: 59.00 Great Vessels Aorta Sinus of Valsalva: 3.03 2.0-3.5 cm Ao Asc: 2.90 2.1-3.4 cm Updated in Other Vendor System with Status of Final Harvey Brown MD electronically signed on 09/02/2024 12:15:14 PM with status of Final
--- NOTE | 2024-09-02 08:00 | ECG_ITS ---
Test Reason : abnormal ekg Blood Pressure : */* mmHG Vent. Rate : 68 BPM Atrial Rate : 68 BPM P-R Int : 180 ms QRS Dur : 90 ms QT Int : 450 ms P-R-T Axes : 2 -36 30 degrees QTcB Int : 478 ms Normal sinus rhythm Left axis deviation Minimal voltage criteria for LVH, may be normal variant ( [place] product ) Abnormal ECG When compared with ECG of 01-Sep-2024 18:25, No significant change was found Referred By: Erni Rothman Electronically Signed By: SERAFIN BURNETT
--- NOTE | 2024-09-02 08:10 | PC.NURSE ---
Lab notified patient will receive blood transfusion during dialysis
[2024-09-02] MEDS: Nicotine 21 MG PATCH.TD24 TRANSDERMA (08:13)
[2024-09-02] MEDS: 0.9 % Sodium Chloride Flush 3 ML SYRINGE IVFLUSH ×3 (08:13→20:19)
--- NOTE | 2024-09-02 08:16 | PC.NURSE ---
EKG performed. ED provider signed, tigered admitting provider
--- NOTE | 2024-09-02 08:40 | PM.CNNEP ---
History of Present Illness Reason for Consult Consult date: 09/02/24 Chief Complaint Chief complaint: fever/body aches History of Present Illness Narrative: 44 y/o male with ESRD secondary to IgA multiple myeloma on HD (M, W, F), followed by Dr Gomes, Nephrology, chronic pain with methadone use. 09/01 presented with intermittent fevers up to 103 x3-4 days, chills. Reports has not missed HD sessions, last was as scheduled on Thursday, 08/31. imaging suggests possible left lower lobe PNA. pt reports he is feeling better at bedside. Denies current complaints, states chills have subsided. Denies chest pain, abdominal pain, dizziness, fevers/chills, urinary symptoms. Reports oliguria is at baseline for him. reports he does think his HD catheter may have been exposed to water a few days ago. Review of Systems Constitutional: Reports no additional constitutional complaints Cardiovascular: Denies chest pain, Denies leg edema, Denies lightheadedness and Denies dyspnea Respiratory: Denies dyspnea Gastrointestinal: Denies abdominal pain, Denies diarrhea, Denies nausea and Denies vomiting Genitourinary: Denies hematuria, Denies oliguria, Denies dysuria and Denies flank pain Musculoskeletal: Denies back pain and Denies joint swelling Skin/Breast: Denies rash PMFSH Past Medical History Medical History End stage renal disease on dialysis Permanent central venous catheter in place Tobacco dependence Substance use disorder History of intravenous drug abuse Restless legs Anxiety Multiple myeloma Family History Family History Maternal Uncle Cancer Social History Social History Household Members: Family Housing: House Do you presently have visiting nurse or other home services: No Alcohol intake: never Patient Tobacco Use Status: Current everyday Tobacco user Tobacco use type: Cigarette Cigarette Packs Per Day: 0.5 Cigarettes Per Day: 10.0 Second Hand Smoke Exposure: No Substance Use Type: Marijuana service: No Travel History Ebola Risk: Travel/Contact With Anyone From Affected Area/s: No Has Patient Experienced Ebola Symptoms: No Meds Allergies Allergy/AdvReac Type Severity Reaction Status Date / Time No Known Allergies Allergy Verified 09/01/24 18:02 Active Medications: Current Medications Acetaminophen (Acetaminophen 325 Mg Tablet) 650 mg PO Q6H PRN PRN Reason: Pain, Mild 1-3,fever,headache Albuterol/Ipratropium (Albuterol/Iprat 2.5/0.5mg 3 Ml Ampul.Neb) 3 ml INHALE Q4H PRN PRN Reason: Shortness of Breath/Wheezing Calcium Carbonate (Calcium Carbonate 750 Mg Tab.Chew) 750 mg PO Q4H PRN PRN Reason: Heartburn Vancomycin HCl 500 mg/ Sodium (Chloride) 110 mls @ 110 mls/hr IV ONCE ONE Stop: 09/02/24 21:59 Magnesium Hydroxide (Milk Of Magnesia 30 Ml Oral.Susp) 30 ml PO DAILY PRN PRN Reason: Constipation Melatonin (Melatonin 3 Mg Tablet) 6 mg PO BEDTIME PRN PRN Reason: Insomnia Meropenem (Meropenem 500 Mg Vial) 500 mg IVPUSH Q12H [facility] Last Admin: 09/02/24 06:14 Dose: 500 mg Nicotine (Nicotine 21 Mg Patch.Td24) 21 mg TRANSDERMA DAILY [facility] Last Admin: 09/02/24 08:13 Dose: 21 mg Pantoprazole Sodium (Pantoprazole Sodium 40 Mg/10 Ml Vial) 40 mg IVPUSH BID@0630,1630 [facility] Last Admin: 09/02/24 06:14 Dose: 40 mg Pharmacy Consult (Consult Rx Vancomycin Dosing) 1 each MISCELLANE DAILY PRN PRN Reason: Consult order Polyethylene Glycol (Polyethylene Glycol 3350 17 Gm Powd.Pack) 17 gm PO DAILY PRN PRN Reason: Constipation Senna (Sennosides 8.6 Mg Tablet) 17.2 mg PO BEDTIME [facility] Last Admin: 09/01/24 21:30 Dose: Not Given Sodium Chloride (0.9 % Sodium Chloride Flush 3 Ml Syringe) 3 ml IVFLUSH QSHIFT [facility] Last Admin: 09/02/24 08:13 Dose: 3 ml Home Medications ?Medication ?Instructions ?Recorded ?Confirmed ?Last Taken ?Type acyclovir 400 mg tablet 400 mg PO DAILY PRN FLARE UP 05/20/23 09/02/24 01/19/24 08:00 History hydralazine 50 mg tablet 50 mg PO BID 05/20/23 09/02/24 09/01/24 History labetalol 300 mg tablet 600 mg PO BID PRN HTN 06/12/23 09/02/24 01/19/24 08:00 History methadone 10 mg/mL oral concentrate 140 mg PO DAILY 06/12/23 09/02/24 09/01/24 History clonazepam 1 mg tablet 1 mg PO BID 01/19/24 09/02/24 09/01/24 History gabapentin 100 mg capsule 400 mg PO BID 01/19/24 09/02/24 09/01/24 History sulfamethoxazole 800 1 tab PO MOWEFR 01/19/24 09/02/24 08/31/24 History mg-trimethoprim 160 mg tablet oxycodone 30 mg tablet 30 mg PO 5XD 09/02/24 09/02/24 09/01/24 History sodium zirconium cyclosilicate 5 5 g PO SUTUTHSA 09/02/24 09/02/24 09/01/24 History gram oral powder packet (Lokelma) Physical Exam Vital Signs: Last Vital Signs Temp 97.7 F 09/02/24 09:00 Pulse 67 09/02/24 09:30 Resp 18 09/02/24 09:30 BP 139/89 09/02/24 09:30 Pulse Ox 97 09/02/24 09:30 O2 Del Method Nasal Cannula 09/02/24 09:30 O2 Flow Rate 2 09/02/24 09:30 BMI result Body Mass Index 23.9 Const General: no acute distress, alert and awake Resp Effort & Inspection: normal respiratory effort and able to speak in complete sentences Auscultation: clear to auscultation bilaterally Cardio Rate: regular rate Heart sounds: S1 normal heart sound present and S2 normal heart sound present GI Palpation (GI): Soft to palpation and nontender Skin Rashes: no rashes Neuro Other: no tremor, no asterixis. Extrem General: Yes edema (+2 bilateral LE swelling, pitting) Results Lab Results 09/02/24 03:52 09/02/24 03:52 Lab results: Chemistry 09/01/24 09/01/24 09/02/24 18:23 21:14 03:52 Sodium 136 136 Potassium 6.2 H* 5.7 H 5.6 H Carbon Dioxide 25 25 BUN 56 H 63 H Creatinine 6.83 H* 7.57 H* Calcium 8.6 D 8.2 L Phosphorus 5.0 H Hematology 09/01/24 09/02/24 18:23 03:52 WBC 2.8 L 2.1 L Hgb 7.2 L D 6.8 L* Plt Count 105 L D 95 L Assessment and Plan (1) End stage renal disease on dialysis: Status: Acute Plan ESRD patient on HD here with fevers, chills blood cultures pending Will continue patient's M, W, F schedule H&H 6.8 & 20.9 - RBCs administered this a.m. procirt 20,000 units tomorrow. *if hgb is less than 9.0 on Tuesday 09/05, then should transfuse with another unit of RBCs. potassium elevated at 5.6- will be getting HD today no acidosis at this time no uremic symptoms phosphorous 5.0- has left permcath in place- blood cultures pending, will need to replace catheter if positive. patient appears clinically hypervolemic today with lower extremity swelling blood pressures elevated- hypervolemic and will receive HD today. oliguria at baseline pt denies changes in urine output Discussed with Dr Gomes Procedures Date of Service Date of Service: 09/02/24
--- NOTE | 2024-09-02 09:01 | PC.NURSE ---
Addendum entered by Jakub Harden RN 09/02/24 09:05: Pump switched to maintenance settings blood infusing at 180ml/hr. Original Note: Blood transfusion started, no adverse reaction noted. VSS and up to date
--- NOTE | 2024-09-02 10:02 | PC.NURSE ---
Patient transferred to dialysis with this RN and tech. Patient on telepack, VSS before transfer. Blood continues to infuse, notified Dannielle MORENO to message this flex o writer operator when pump finishes
--- NOTE | 2024-09-02 10:25 | PHA.MEDREC ---
Pharmacy Consult ? Medication Reconciliation Pharmacy has completed the medication reconciliation. Spoke with pt and he confirmed his medications. Pt stated he uses Acyclovir and Labetalol as needed when his Bp spikes and takes Amlodipine 10mg 1 QD and Hydralazine 50mg tabs 1 BID scheduled for his Bp. Pt states he now takes his Gabapentin 100mg cap, 4 caps (400mg) BID instead of 3 caps ( 300mg) TID. Pt confirmed he takes Lokelma on non Dialysis days (SuTuThSa); confirming he took it last (09/01) and Sulfamethoxazole-Trimethoprim on Dialysis days (MoWeFr); confirming he took one last (08/31).
--- NOTE | 2024-09-02 10:32 | PHA.MEDREC ---
Addendum entered by Kushal Yanes RPh 09/02/24 10:43: Reviewed by [facility]. Updated oxycodone based on PDMP 30mg 5XD. Pharmacy claims states both acyclovir and labetolol are scheduled medication but patient takes both PRN. Original Note: Pharmacy Consult ? Medication Reconciliation Pharmacy has completed the medication reconciliation. Spoke with pt and he confirmed his medications. Pt stated he uses Acyclovir and Labetalol as needed when his Bp spikes and takes Amlodipine 10mg 1 QD and Hydralazine 50mg tabs 1 BID scheduled for his Bp. Pt states he now takes his Gabapentin 100mg cap, 4 caps (400mg) BID instead of 3 caps ( 300mg) TID. Pt confirmed he takes Lokelma on non Dialysis days (SuTuThSa); confirming he took it last (09/01) and Sulfamethoxazole-Trimethoprim on Dialysis days (MoWeFr); confirming he took one last (08/31). Pt confirmed his Methadone, confirming he takes 140mg daily.
--- NOTE | 2024-09-02 11:42 | MHC.CLN ---
NUTRITION CONSULT FOR LOSING WEIGHT ON RENAL DIET. REVIEW OF WEIGHT HX SHOWS WEIGHT ESSENTIALLY STABLE X 7 MONTHS. RECEIVES HD 3 TIMES WEEKLY. DIALYSIS FACILITY MONITORS LABS AND PROVIDES NUTRITION GUIDANCE. WHEN ABLE TO ADVANCE DIET, RECOMMEND 2 GRAM SODIUM, LOW PHOSPHORUS, LOW POTASSIUM DIET.
--- NOTE | 2024-09-02 12:28 | PM.GICN ---
History of Present Illness Data of Consult Service Date: 09/02/24 Primary Care Provider: Nabil Prado MD HPI Reason for consult: anemia 44-year-old with past medical history multiple myeloma in remission and associated ESRF on dialysis Thursday and Thursday with [facility] in [facility], opioid/substance use disorder on methadone, history of IV drug abuse, HTN, tobacco dependence, who I am seeing for assessment for anemia. he initially presented with fever and chills. He denies SOB, cough, abdominal pain. No nausea or vomiting. No diarrhea or constipation. He denies melena, rectal bleeding, nose bleeds but noted bleeding gums for last 3-4 days. Imaging revealed Left lower lobe pneumonia. LABS revealed anemia with HGB approx 7 g/dl as well as elevated troponin and hyper K. per previous trends from 2023 HGB has been between 8-11 g/dl Review of Systems Review of Systems: Constitutional : No Weight loss, No Fever, No Chills ENT/Mouth : No sore throat, No Rhinorrhea Eyes: No Swelling, No Redness Cardiovascular : No Chest Pain, No SOB, No Edema Respiratory : No Cough, No Sputum, No Wheezing Gastrointestinal : see HPI Genitourinary : NO Dysuria, No Urinary Frequency, No Hematuria, No Urgency Musculoskeletal : no joint pain, No Myalgias, No Joint Swelling Skin : No Skin Lesions, No rash Neuro : No Weakness, No Numbness, No Dizziness, No Headache Psych : No Anxiety/Panic, No Depression Heme/Lymph: No Bruising, No Lymphadenopathy Endocrine : No Polyuria, No Polydipsia All other systems reviewed and are negative. [facility] Past Medical History Medical History End stage renal disease on dialysis Permanent central venous catheter in place Tobacco dependence Substance use disorder History of intravenous drug abuse Restless legs Anxiety Multiple myeloma Family History Family History Maternal Uncle Cancer Pertinent family history: no Fh of CRC Social History Social History Household Members: Family Housing: House Do you presently have visiting nurse or other home services: No Alcohol intake: never Patient Tobacco Use Status: Current everyday Tobacco user Tobacco use type: Cigarette Cigarette Packs Per Day: 0.5 Cigarettes Per Day: 10.0 Second Hand Smoke Exposure: No Substance Use Type: Marijuana service: No Travel History Ebola Risk: Travel/Contact With Anyone From Affected Area/s: No Has Patient Experienced Ebola Symptoms: No Meds Allergies Allergy/AdvReac Type Severity Reaction Status Date / Time No Known Allergies Allergy Verified 09/01/24 18:02 Active Medications: Current Medications Acetaminophen (Acetaminophen 325 Mg Tablet) 650 mg PO Q6H PRN PRN Reason: Pain, Mild 1-3,fever,headache Albuterol/Ipratropium (Albuterol/Iprat 2.5/0.5mg 3 Ml Ampul.Neb) 3 ml INHALE Q4H PRN PRN Reason: Shortness of Breath/Wheezing Calcium Carbonate (Calcium Carbonate 750 Mg Tab.Chew) 750 mg PO Q4H PRN PRN Reason: Heartburn Vancomycin HCl 500 mg/ Sodium (Chloride) 110 mls @ 110 mls/hr IV ONCE ONE Stop: 09/02/24 21:59 Magnesium Hydroxide (Milk Of Magnesia 30 Ml Oral.Susp) 30 ml PO DAILY PRN PRN Reason: Constipation Melatonin (Melatonin 3 Mg Tablet) 6 mg PO BEDTIME PRN PRN Reason: Insomnia Meropenem (Meropenem 500 Mg Vial) 500 mg IVPUSH Q12H [facility] Last Admin: 09/02/24 06:14 Dose: 500 mg Nicotine (Nicotine 21 Mg Patch.Td24) 21 mg TRANSDERMA DAILY [facility] Last Admin: 09/02/24 08:13 Dose: 21 mg Pantoprazole Sodium (Pantoprazole Sodium 40 Mg/10 Ml Vial) 40 mg IVPUSH BID@0630,1630 [facility] Last Admin: 09/02/24 06:14 Dose: 40 mg Pharmacy Consult (Consult Rx Vancomycin Dosing) 1 each MISCELLANE DAILY PRN PRN Reason: Consult order Polyethylene Glycol (Polyethylene Glycol 3350 17 Gm Powd.Pack) 17 gm PO DAILY PRN PRN Reason: Constipation Senna (Sennosides 8.6 Mg Tablet) 17.2 mg PO BEDTIME [facility] Last Admin: 09/01/24 21:30 Dose: Not Given Sodium Chloride (0.9 % Sodium Chloride Flush 3 Ml Syringe) 3 ml IVFLUSH QSHIFT [facility] Last Admin: 09/02/24 08:13 Dose: 3 ml Home Medications ?Medication ?Instructions ?Recorded ?Confirmed ?Last Taken ?Type acyclovir 400 mg tablet 400 mg PO DAILY PRN FLARE UP 05/20/23 09/02/24 01/19/24 08:00 History hydralazine 50 mg tablet 50 mg PO BID 05/20/23 09/02/24 09/01/24 History labetalol 300 mg tablet 600 mg PO BID PRN HTN 06/12/23 09/02/24 01/19/24 08:00 History methadone 10 mg/mL oral concentrate 140 mg PO DAILY 06/12/23 09/02/24 09/01/24 History clonazepam 1 mg tablet 1 mg PO BID 01/19/24 09/02/24 09/01/24 History gabapentin 100 mg capsule 400 mg PO BID 01/19/24 09/02/24 09/01/24 History sulfamethoxazole 800 1 tab PO MOWEFR 01/19/24 09/02/24 08/31/24 History mg-trimethoprim 160 mg tablet oxycodone 30 mg tablet 30 mg PO 5XD 09/02/24 09/02/24 09/01/24 History sodium zirconium cyclosilicate 5 5 g PO SUTUTHSA 09/02/24 09/02/24 09/01/24 History gram oral powder packet (Lokelma) Physical Exam Vital Signs: Vital Signs: Last Vital Signs Temp 97.5 F 09/02/24 10:52 Pulse 66 09/02/24 10:52 Resp 18 09/02/24 10:52 BP 169/95 H 09/02/24 10:52 Pulse Ox 97 09/02/24 09:30 O2 Del Method Nasal Cannula 09/02/24 09:30 O2 Flow Rate 2 09/02/24 09:30 BMI result Body Mass Index 23.9 EXAM: GENERAL: The patient is well developed and nontoxic. VITAL SIGNS:see workflow HEENT: Nonicteric sclerae, PERRLA, EOMI. Oropharynx clear. Moist mucous membranes. Conjunctivae appear well perfused. No thyroid mass. CHEST: Chest wall is nontender. HEART: Regular rate and rhythm without murmurs. LUNGS: Clear to auscultation bilaterally. ABDOMEN: Soft, positive bowel sounds, nontender, no organomegaly.no flank tenderness SKIN: No rash, no excessive bruising, petechiae, or purpura. NEUROLOGIC: Cranial nerves II-XII intact without motor/sensory deficit. Psych: normal affect Results Labs 09/02/24 03:52 09/02/24 03:52 Labs: Short CBC 09/01/24 09/02/24 Range/Units 18:23 03:52 WBC 2.8 L 2.1 L (4.8-10.8) X10*3/uL Hgb 7.2 L D 6.8 L* (14.0-18.0) g/dl Hct 22.2 L D 20.9 L* (42.0-52.0) % Plt Count 105 L D 95 L (160-400) X10*3/uL BMP 09/01/24 09/01/24 09/02/24 18:23 21:14 03:52 Sodium 136 136 Potassium 6.2 H* 5.7 H 5.6 H Chloride 99 98 Carbon Dioxide 25 25 BUN 56 H 63 H Creatinine 6.83 H* 7.57 H* Calcium 8.6 D 8.2 L Liver Function 09/01/24 09/02/24 Range/Units 18:23 03:52 Total Bilirubin 1.4 H 1.3 H (0.0-1.0) mg/dL Direct Bilirubin 0.9 H (0.0-0.5) mg/dL AST 158 H 152 H (5-37) U/L ALT 87 H 85 H (0-40) U/L Alkaline Phosphatase 103 118 H (39-117) U/L Albumin 3.6 3.2 L (3.5-5.0) g/dL Assessment and Plan (1) Anemia: Qualifiers: Anemia type: unspecified type Qualified Code(s): D64.9 - Anemia, unspecified Status: Acute Plan 1/ Anemia acute on chronic in setting of ESRF and pneumonia, He also has raised MCV and low plats so could be a bone marrow issue. PLAN: 1/ consider heme consult, check for MDS etc 2/ o/p egd and colo, allow him to recover from his pneumonia. if has overt bleeding in house then in pt testing 3/ ok to use PPI e.g pantopraole 40 mg daily 4/ check hematinics Procedures Date of Service Date of Service: 09/02/24
--- NOTE | 2024-09-02 13:18 | W.PM.IDCN ---
History of Present Illness Data of Consult Service Date: 09/02/24 Requesting physician: Giovanni Blanchard Primary Care Provider: Nabil Prado MD HPI Reason for consult: fever of unknown origin He presents with weakness and chills for two days. I had seen him 01/2024 with right leg wound and found achromobacter xylosoxidans bacteremia,and cath tip. Review of Systems Review of Systems: Yes all other systems are reviewed and are negative [facility] Past Medical History Medical History End stage renal disease on dialysis Permanent central venous catheter in place Tobacco dependence Substance use disorder History of intravenous drug abuse Restless legs Anxiety Multiple myeloma Family History Family History Maternal Uncle Cancer Family history: reviewed and not pertinent Social History Social History Household Members: Family Housing: House Do you presently have visiting nurse or other home services: No Alcohol intake: never Patient Tobacco Use Status: Never used Tobacco Tobacco use type: Cigarette Cigarette Packs Per Day: 12 Second Hand Smoke Exposure: No Substance Use Type: Marijuana service: No Travel History Ebola Risk: Travel/Contact With Anyone From Affected Area/s: No Has Patient Experienced Ebola Symptoms: No Meds Allergies Allergy/AdvReac Type Severity Reaction Status Date / Time No Known Allergies Allergy Verified 09/01/24 18:02 Active Medications: Current Medications Acetaminophen (Acetaminophen 325 Mg Tablet) 650 mg PO Q6H PRN PRN Reason: Pain, Mild 1-3,fever,headache Albuterol/Ipratropium (Albuterol/Iprat 2.5/0.5mg 3 Ml Ampul.Neb) 3 ml INHALE Q4H PRN PRN Reason: Shortness of Breath/Wheezing Calcium Carbonate (Calcium Carbonate 750 Mg Tab.Chew) 750 mg PO Q4H PRN PRN Reason: Heartburn Vancomycin HCl 500 mg/ Sodium (Chloride) 110 mls @ 110 mls/hr IV ONCE ONE Stop: 09/02/24 21:59 Magnesium Hydroxide (Milk Of Magnesia 30 Ml Oral.Susp) 30 ml PO DAILY PRN PRN Reason: Constipation Melatonin (Melatonin 3 Mg Tablet) 6 mg PO BEDTIME PRN PRN Reason: Insomnia Meropenem (Meropenem 500 Mg Vial) 500 mg IVPUSH Q12H [facility] Last Admin: 09/02/24 06:14 Dose: 500 mg Nicotine (Nicotine 21 Mg Patch.Td24) 21 mg TRANSDERMA DAILY [facility] Last Admin: 09/02/24 08:13 Dose: 21 mg Pantoprazole Sodium (Pantoprazole Sodium 40 Mg/10 Ml Vial) 40 mg IVPUSH BID@0630,1630 [facility] Last Admin: 09/02/24 06:14 Dose: 40 mg Pharmacy Consult (Consult Rx Vancomycin Dosing) 1 each MISCELLANE DAILY PRN PRN Reason: Consult order Polyethylene Glycol (Polyethylene Glycol 3350 17 Gm Powd.Pack) 17 gm PO DAILY PRN PRN Reason: Constipation Senna (Sennosides 8.6 Mg Tablet) 17.2 mg PO BEDTIME [facility] Last Admin: 09/01/24 21:30 Dose: Not Given Sodium Chloride (0.9 % Sodium Chloride Flush 3 Ml Syringe) 3 ml IVFLUSH QSHIFT [facility] Last Admin: 09/02/24 08:13 Dose: 3 ml Home Medications ?Medication ?Instructions ?Recorded ?Confirmed ?Last Taken ?Type acyclovir 400 mg tablet 400 mg PO DAILY PRN FLARE UP 05/20/23 09/02/24 01/19/24 08:00 History hydralazine 50 mg tablet 50 mg PO BID 05/20/23 09/02/24 09/01/24 History labetalol 300 mg tablet 600 mg PO BID PRN HTN 06/12/23 09/02/24 01/19/24 08:00 History methadone 10 mg/mL oral concentrate 140 mg PO DAILY 06/12/23 01/20/24 01/19/24 History clonazepam 1 mg tablet 1 mg PO BID 01/19/24 09/02/24 09/01/24 History gabapentin 100 mg capsule 400 mg PO BID 01/19/24 09/02/24 09/01/24 History sulfamethoxazole 800 1 tab PO MOWEFR 01/19/24 09/02/24 08/31/24 History mg-trimethoprim 160 mg tablet oxycodone 30 mg tablet 30 mg PO 5XD 09/02/24 09/02/24 09/01/24 History sodium zirconium cyclosilicate 5 5 g PO SUTUTHSA 09/02/24 09/02/2425 History gram oral powder packet (Lokelma) Physical Exam Vital Signs: Vital Signs: Last Vital Signs Temp 97.5 F 09/02/24 10:52 Pulse 66 09/02/24 10:52 Resp 18 09/02/24 10:52 BP 169/95 H 09/02/24 10:52 Pulse Ox 97 09/02/24 09:30 O2 Del Method Nasal Cannula 09/02/24 09:30 O2 Flow Rate 2 09/02/24 09:30 BMI result Body Mass Index 23.9 Const: General: cooperative HEENT: Head: Yes normal to inspection Face and sinus: Yes normal facial exam Mouth: Normal oral and palatal mucosa present Teeth and gingiva: dentition normal Eyes: General: appearance normal, both eyes and all related structures Pupils: Equal, round and reactive pupils present Resp: Other: rhonchi bases Cardio: Rate: regular rate Rhythm: regular rhythm GI: Palpation (GI): Soft to palpation and nontender : General: Yes no CVA tenderness Back/Spine/Pelvis: Back: no CVA tenderness Skin: General skin exam: no rashes or lesions noted Neuro: General: moves all extremities Cranial nerves: Yes Equal, round and reactive pupils present Extrem: General: Yes normal to inspection Psych: Appearance: grossly normal Results Labs 09/02/24 03:52 09/02/24 03:52 Labs: Short CBC 09/01/24 09/02/24 Range/Units 18:23 03:52 WBC 2.8 L 2.1 L (4.8-10.8) X10*3/uL Hgb 7.2 L D 6.8 L* (14.0-18.0) g/dl Hct 22.2 L D 20.9 L* (42.0-52.0) % Plt Count 105 L D 95 L (160-400) X10*3/uL BMP 09/01/24 09/01/24 09/02/24 18:23 21:14 03:52 Sodium 136 136 Potassium 6.2 H* 5.7 H 5.6 H Chloride 99 98 Carbon Dioxide 25 25 BUN 56 H 63 H Creatinine 6.83 H* 7.57 H* Calcium 8.6 D 8.2 L Liver Function 09/01/24 09/02/24 Range/Units 18:23 03:52 Total Bilirubin 1.4 H 1.3 H (0.0-1.0) mg/dL Direct Bilirubin 0.9 H (0.0-0.5) mg/dL AST 158 H 152 H (5-37) U/L ALT 87 H 85 H (0-40) U/L Alkaline Phosphatase 103 118 H (39-117) U/L Albumin 3.6 3.2 L (3.5-5.0) g/dL Assessment and Plan (1) End stage renal disease on dialysis: Status: Acute Plan Concern over bacteremia Lung may be cause. Stop Vancomycin if no gram positive bacteremia. Would continue Merem for now,duration to be determined. Obtain sputum if able.
--- NOTE | 2024-09-02 13:34 | MHC.CM.PN ---
IMM 09/02/24, Pt lives with his mother, PCP is Dr. Prado, pt. to contact new provider in [facility] to sign up with them, Dr. Prado is retiring. Pt. does not have home health services or use DME. He goes to [facility] in [place] for Methadone, and to in [facility] in [facility]. He can arrange transport home at [place]. DCP: home, self care, CM to follow for DC needs.
--- NOTE | 2024-09-02 14:29 | HE.PHANOTE ---
RE: METHADONE DOSING Last dose of methadone 140 mg was given on 09/01/24 @0610 (with 2 take home bottles) per Rula LEI at [facility] [place] [phone].
--- NOTE | 2024-09-02 14:40 | MHC.CM.PN ---
EMR REVIEWED, PT REMAINS HYPOVALEMIC AND PLAN FOR HD TODAY AND POSSIBLY TOMORROW 09/03 WELL, BC'S PENDING AND MAY NEED IV ABX IF CULTURES COME BACK GRAM +, CM WILL CONT TO FOLLOW DC NEEDS.
[2024-09-02] MEDS: methADONE HCl 20 MG/2 ML ORAL.CONC 140 MG PO (16:58)
[2024-09-02] MEDS: oxyCODONE HCl Immed Release 15 MG TABLET 30 MG PO ×2 (18:10→20:17)
[2024-09-02 18:43] LABS: Hematocrit 25.3 % (42.0-52.0); Hemoglobin 8.4 g/dl (14.0-18.0); Mean Corpuscular HGB Conc 33.2 g/dl (31.0-36.0); Mean Corpuscular Hemoglobin 33.5 pg (27.0-33.0); Mean Corpuscular Volume 100.8 fL (80.0-98.0); NRBC Abs Auto 0.000 X10*3/uL (0.0-0.012); NRBC Pct Auto 0.0 /100WBC (0.0-0.2); Platelet Count 118 X10*3/uL (160-400); Red Blood Count 2.51 X10*6/uL (4.60-5.80); White Blood Count 3.3 X10*3/uL (4.8-10.8)
--- NOTE | 2024-09-02 19:35 | P.PNIM_ITS ---
Subjective Subjective Date of Service: 09/03/24 Interval History: Received dialysis earlier today H&H improved s/p dialysis and transfusion of 1 unit PRBCs Feels better than before Some SOB and productive cough, though improved Slight headache Chest tightness with deep inspiration Reports regularly gets transfused every 6-8 months, last transfusion 8 months ago Review of Systems Review of Systems: Yes all other systems are reviewed and are negative Physical Exam 2 Vital Signs: Vital Signs: Last Vital Signs Temp 98.5 F 09/02/24 15:07 Pulse 79 09/02/24 15:07 Resp 17 09/02/24 15:07 BP 158/83 H 09/02/24 15:07 Pulse Ox 94 09/02/24 15:07 O2 Del Method Nasal Cannula 09/02/24 15:07 O2 Flow Rate 2 09/02/24 15:07 BMI result Body Mass Index 21.1 General: AOx3, no acute distress Resp: Coarse breath sounds bilaterally CVS: S1, S2, RRR Chest: PermCath in place without clear signs of infection GI: +BS, NT, no distention Skin: Warm, dry Neuro: Cranial nerves II-XII grossly intact bilaterally. Motor grossly intact bilaterally Extremities: No edema Psych: Appropriate affect Objective Data Active Medications Acetaminophen (Acetaminophen 325 Mg Tablet) 650 mg PO Q6H PRN PRN Reason: Pain, Mild 1-3,fever,headache Acyclovir (Acyclovir 200 Mg Capsule) 400 mg PO DAILY PRN PRN Reason: FLARE UP Albuterol/Ipratropium (Albuterol/Iprat 2.5/0.5mg 3 Ml Ampul.Neb) 3 ml INHALE Q4H PRN PRN Reason: Shortness of Breath/Wheezing Amlodipine Besylate (Amlodipine Besylate 10 Mg Tablet) 10 mg PO DAILY [facility]; Protocol Calcium Carbonate (Calcium Carbonate 750 Mg Tab.Chew) 750 mg PO Q4H PRN PRN Reason: Heartburn Clonazepam (Clonazepam 1 Mg Tablet) 1 mg PO BID [facility] Epoetin Amish-epbx (Epoetin Amish-Epbx 10,000 Unit/Ml Vial) 20,000 unit SUBCUT ONCE ONE Stop: 09/03/24 08:01 Gabapentin (Gabapentin 400 Mg Capsule) 400 mg PO BID [facility] Hydralazine HCl (Hydralazine Hcl 50 Mg Tablet) 50 mg PO BID [facility]; Protocol Vancomycin HCl 500 mg/ Sodium (Chloride) 110 mls @ 110 mls/hr IV ONCE ONE Stop: 09/02/24 21:59 Vancomycin HCl 500 mg/ Sodium (Chloride) 110 mls @ 110 mls/hr IV ONCE ONE Stop: 09/02/24 19:59 Labetalol HCl (Labetalol Hcl 200 Mg Tablet) 600 mg PO BID PRN PRN Reason: SBP >170 Magnesium Hydroxide (Milk Of Magnesia 30 Ml Oral.Susp) 30 ml PO DAILY PRN PRN Reason: Constipation Melatonin (Melatonin 3 Mg Tablet) 6 mg PO BEDTIME PRN PRN Reason: Insomnia Meropenem (Meropenem 500 Mg Vial) 500 mg IVPUSH Q12H [facility] Last Admin: 09/02/24 18:11 Dose: 500 mg Documented By: WON Methadone HCl (Methadone Hcl 20 Mg/2 Ml Oral.Conc) 140 mg PO DAILY [facility] Last Admin: 09/02/24 16:58 Dose: 140 mg Documented By: WON Co-signed By: KATRIN Nicotine (Nicotine 21 Mg Patch.Td24) 21 mg TRANSDERMA DAILY [facility] Last Admin: 09/02/24 08:13 Dose: 21 mg Documented By: MARY Oxycodone HCl (Oxycodone Hcl Immed Release 15 Mg Tablet) 30 mg PO 5XD [facility] Last Admin: 09/02/24 18:10 Dose: 30 mg Documented By: WON Pantoprazole Sodium (Pantoprazole Sodium 40 Mg/10 Ml Vial) 40 mg IVPUSH BID@0630,1630 [facility] Last Admin: 09/02/24 17:03 Dose: 40 mg Documented By: WON Pharmacy Consult (Consult Rx Vancomycin Dosing) 1 each MISCELLANE DAILY PRN PRN Reason: Consult order Polyethylene Glycol (Polyethylene Glycol 3350 17 Gm Powd.Pack) 17 gm PO DAILY PRN PRN Reason: Constipation Senna (Sennosides 8.6 Mg Tablet) 17.2 mg PO BEDTIME [facility] Last Admin: 09/01/24 21:30 Dose: Not Given Documented By: VISHAL Non-Admin Reason: Patient Refused Sodium Chloride (0.9 % Sodium Chloride Flush 3 Ml Syringe) 3 ml IVFLUSH QSHIFT [facility] Last Admin: 09/02/24 17:04 Dose: 3 ml Documented By: WON Sodium Zirconium Cyclosilicate (Sodium Zirconium Cyclosilicate 5 Gm Powd.Pack) 5 gm PO SUTUTHSA [facility] Labs 09/02/24 18:13 09/02/24 03:52 Labs: Laboratory Results - last 24 hr 09/01/24 09/01/24 09/02/24 18:23 21:14 03:52 MCV 103.5 H MCH 33.7 H MCHC 32.5 RDW 16.5 H Plt Count 95 L MPV 10.1 Immature Gran % (Auto) Cancelled Neut % (Auto) Cancelled Lymph % (Auto) Cancelled [place] % (Auto) Cancelled Eos % (Auto) Cancelled Baso % (Auto) Cancelled Lymph # (Auto) Cancelled [place] # (Auto) Cancelled Eos # (Auto) Cancelled Baso # (Auto) Cancelled Abs Immat Gran (auto) Cancelled Absolute Neuts (auto) Cancelled Absolute Nucleated RBC 0.000 Nucleated RBC % (auto) 0.0 Neutrophils % (Manual) 76 H Band Neutrophils % 8 H Lymphocytes % (Manual) 11 L Monocytes % (Manual) 4 Eosinophils % (Manual) 1 Abs Neuts (Manual) 2.5 1.8 L Lymphocytes # (Manual) 0.2 L 0.2 L Monocytes # (Manual) 0.1 0.1 Toxic Granulation PRESENT Dohle Bodies PRESENT Platelet Estimate NORMAL DECREASED Plt Morphology Comment NORMAL RBC Morphology NOTED Macrocytosis 1+ (5-14) Ovalocytes 1+ (5-14) Madhu Cells 1+ (0-2) Schistocytes 1+ (0-2) Anion Gap 19 Estim Creat Clear Calc 12.0 Estimated GFR 8 Random Glucose 81 Uric Acid 5.7 Calcium 8.2 L Phosphorus 5.0 H Iron 24 L TIBC 116 L % Saturation 21 Unsat Iron Binding 92 Total Bilirubin 1.3 H AST 152 H ALT 85 H Alkaline Phosphatase 118 H Troponin I High Sens 144.4 H* B-Natriuretic Peptide 2604 H Total Protein 5.1 L Albumin 3.2 L TSH 2.79 Free T4 0.88 PTH Intact 493.2 H Random Vancomycin Blood Type Antibody Screen Crossmatch 09/02/24 09/02/24 04:48 18:13 MCV 100.8 H MCH 33.5 H MCHC 33.2 RDW 17.0 H Plt Count 118 L MPV 10.5 Immature Gran % (Auto) Neut % (Auto) Lymph % (Auto) [place] % (Auto) Eos % (Auto) Baso % (Auto) Lymph # (Auto) [place] # (Auto) Eos # (Auto) Baso # (Auto) Abs Immat Gran (auto) Absolute Neuts (auto) Absolute Nucleated RBC 0.000 Nucleated RBC % (auto) 0.0 Neutrophils % (Manual) Band Neutrophils % Lymphocytes % (Manual) Monocytes % (Manual) Eosinophils % (Manual) Abs Neuts (Manual) Lymphocytes # (Manual) Monocytes # (Manual) Toxic Granulation Dohle Bodies Platelet Estimate Plt Morphology Comment RBC Morphology Macrocytosis Ovalocytes Madhu Cells Schistocytes Anion Gap Estim Creat Clear Calc Estimated GFR Random Glucose Uric Acid Calcium Phosphorus Iron TIBC % Saturation Unsat Iron Binding Total Bilirubin AST ALT Alkaline Phosphatase Troponin I High Sens B-Natriuretic Peptide Total Protein Albumin TSH Free T4 PTH Intact Random Vancomycin 13.6 L Blood Type B Positive Antibody Screen NEGATIVE Crossmatch See Detail Assessment and Plan (1) PNA (pneumonia): Status: Acute Plan Patient is a 44-year-old male with past medical history multiple myeloma now on dialysis Thursday and Thursday with [facility] in [facility], opioid/substance use disorder on methadone, history of IV drug abuse with no recent use or Hep C, HTN, tobacco dependence, HSV presents to the emergency room with reported fever 103 intermittently over the last 3-4 days. The pt admitted to the hospital for left lower lobe pneumonia and acute on chronic anemia. LLL PNA PNA found on CT scan, no evidence of aspiration potential, precautions ordered Pt does not meet criteria for Sepsis, afebrile since arrival, HD stable Pt started on meropenem 500 Q12 based on Creat Cleatance and vanco in the ED, based on previous postive cultures of previos perm cath 01/30 Perm cath site appears stable Duonebs prn ID consulted, continue abx as above, follow blood cx ESRD on HD M// Noted hyperkalemia and patient reported noncompliance with renal diet - eats bananas and peanut butter, nutritional consult placed Nephrology consult, follows with Dr. Reyez Renal diet Follow BMP Elevated troponin, ECG with nonspecific ST changes lateral leads Serial troponins elevated but flat at 153.1 with repeat 144.4 Likely type 2 in the setting of increased demand Patient is asymptomatic, EKG without ischemic changes Telemetry Hyperkalemia Patient's potassium on arrival 6.2, T-waves normal on EKG Patient received 1 dose of Kcentra in the ED BMP daily, Low-potassium diet ordered Anemia Chronic anemia secondary to end-stage renal disease H&H 7.2 and 22.2 Likely secondary to ESRD, not GIB Reports gets transfused every 6-8 months; last transfusion 8 months ago CBC daily Holding heparin subQ for DVT prophylaxis at this time Thrombocytopenia -Chronic, Level 105K -No issues with spontaneous bleeding -LFTs are elevated HYperphosphatemia -Phosphorus 5.0 -Patient states he takes PhosLo binder is at home with meals but may be noncompliant -Binders are not currently on his med rec -Review requested by Nephrology -Intact PTH elevated Transaminitis/ elevated Tbili, D Bili -Lactic acid level normal -Maybe reactive to infection/fever -Recheck CMP in the a.m. -GI consult if indicated -Ultrasound of the abdomen ordered History of substance use disorder on methadone/ IV drug abuse history -Methadone daily -Patient denies any recent drug use -Avoid narcotics -Patient is oliguric, will try to collect urine drug screen Tobacco dependent Nicotine patch requested and ordered as patient is currently chest pain-free DVT prophylaxis: Held due to low H&H, for your review a.m. labs before starting heparin PPI prophylaxis: Protonix Med rec pending Full Code status Pt will require continued hospitalization for treatment of pneumonia with IV abx, and ESRD requiring close monitoring of labs. Quality Stroke Does the patient have a stroke diagnosis?: No Reason for No Anti-thrombotic by Day Two: Contraindicated VTE Prior VTE?: No VTE Risk Level:: Medical - moderate - high VTE Device Contraindication: N/A - Device Ordered VTE Drug Contraindication: Treatment Not Indicated
[2024-09-03] VITALS (7 sets, daily range): BP systolic 150–175; BP diastolic 93–104; PULSE 66–87; RESP 16–20; TEMP 36.8–37.1; O2SAT 92–96
[2024-09-03] MEDS: oxyCODONE HCl Immed Release 15 MG TABLET 30 MG PO ×4 (05:42→21:20)
[2024-09-03 07:02] LABS: Hematocrit 24.4 % (42.0-52.0); Hemoglobin 8.0 g/dl (14.0-18.0); Mean Corpuscular HGB Conc 32.8 g/dl (31.0-36.0); Mean Corpuscular Hemoglobin 32.4 pg (27.0-33.0); Mean Corpuscular Volume 98.8 fL (80.0-98.0); NRBC Abs Auto 0.000 X10*3/uL (0.0-0.012); NRBC Pct Auto 0.0 /100WBC (0.0-0.2); Platelet Count 108 X10*3/uL (160-400); Red Blood Count 2.47 X10*6/uL (4.60-5.80); White Blood Count 3.4 X10*3/uL (4.8-10.8)
[2024-09-03 07:23] LABS: Alanine Aminotransferase 69 U/L (0-40); Albumin Level 3.0 g/dL (3.5-5.0); Alkaline Phosphatase 151 U/L (39-117); Anion Gap 18 (12-20); Aspartate Amino Transferase 90 U/L (5-37); Blood Urea Nitrogen 49 mg/dL (9-16); Calcium 8.7 mg/dL (8.4-10.2); Carbon Dioxide 24 mmol/L (22-29); Chloride 98 mmol/L (96-108); Creatinine Clr Calc Pharmacy 14.1; Estimated Glomerular Filt Rate 10; Potassium 4.7 mmol/L (3.3-5.1); Sodium 135 mmol/L (135-145); Total Protein 5.0 g/dL (6.5-8.0)
[2024-09-03] MEDS: methADONE HCl 20 MG/2 ML ORAL.CONC 140 MG PO (11:19)
--- NOTE | 2024-09-03 11:31 | PM.HEMONCCN ---
Subjective - Subjective Chief complaint: pancytopenia Patient: new to practice Consult date: 09/03/24 Primary Care Provider: Nabil Prado MD Horticulture Teacher Utilized?: No - Maltese Speaking HPI - Consult Narrative Reason for consult: pancytopenis Narrative: Brandin Garcia is a 44 year old male admitted with pneumonia who is on regular hemodialysis for ESRD. He has a history of myeloma treated in [place] at [facility] now in remission. He is not now receiving cytotoxic chemotherapy. He is being treated for pneumonia and was being dialyzed during the interview. Review of Systems - Constitutional Reports anorexia - Eyes Reports sensitivity to light - ENT Reports system reviewed and no additional complaints, except as documented - Cardiovascular Reports excessive sweating, Reports rapid, pounding, or irregular heartbeat - Respiratory Reports change in phlegm color - Gastrointestinal Reports constipation PMFSH Medical History: Medical History (Last Reviewed 09/02/24 @ 13:20 by Jennyfer Nunez MD) Anxiety End stage renal disease on dialysis History of intravenous drug abuse Multiple myeloma Permanent central venous catheter in place Restless legs Substance use disorder Tobacco dependence Functional capacity: independent ambulation Family History: Family History (Last Reviewed 09/02/24 @ 13:20 by Jennyfer Nunez MD) Maternal Uncle Cancer Family history: reviewed and not pertinent Social History: Social History (Last Reviewed 09/02/24 @ 13:20 by Jennyfer Nunez MD) Living Situation History: Household Members: Family Housing: House Do you presently have visiting nurse or other home services: No Tobacco History: Patient Tobacco Use Status: Current everyday Tobacco Tobacco use type: Cigarette Cigarette Packs Per Day: 0.5 Cigarettes Per Day: 10.0 Second Hand Smoke Exposure: No Substance Use History: Substance Use Type: Marijuana Occupation Assessmet: service: No - Travel History Ebola Risk: Travel/Contact With Anyone From Affected Area/s: No Has Patient Experienced Ebola Symptoms: No Home Medications and Allergies Current Medications: Current Medications Acetaminophen (Acetaminophen 325 Mg Tablet) 650 mg PO Q6H PRN PRN Reason: Pain, Mild 1-3,fever,headache Acyclovir (Acyclovir 200 Mg Capsule) 400 mg PO DAILY PRN PRN Reason: FLARE UP Albuterol/Ipratropium (Albuterol/Iprat 2.5/0.5mg 3 Ml Ampul.Neb) 3 ml INHALE Q4H PRN PRN Reason: Shortness of Breath/Wheezing Amlodipine Besylate (Amlodipine Besylate 10 Mg Tablet) 10 mg PO DAILY [facility]; Protocol Last Admin: 09/03/24 11:17 Dose: 10 mg Calcium Carbonate (Calcium Carbonate 750 Mg Tab.Chew) 750 mg PO Q4H PRN PRN Reason: Heartburn Clonazepam (Clonazepam 1 Mg Tablet) 1 mg PO BID [facility] Last Admin: 09/03/24 11:18 Dose: 1 mg Gabapentin (Gabapentin 400 Mg Capsule) 400 mg PO BID [facility] Last Admin: 09/03/24 11:19 Dose: 400 mg Hydralazine HCl (Hydralazine Hcl 50 Mg Tablet) 50 mg PO BID [facility]; Protocol Last Admin: 09/03/24 11:18 Dose: 50 mg Vancomycin HCl 500 mg/ Sodium (Chloride) 110 mls @ 110 mls/hr IV ONCE ONE Stop: 09/02/24 21:59 Labetalol HCl (Labetalol Hcl 200 Mg Tablet) 600 mg PO BID PRN PRN Reason: SBP >170 Magnesium Hydroxide (Milk Of Magnesia 30 Ml Oral.Susp) 30 ml PO DAILY PRN PRN Reason: Constipation Melatonin (Melatonin 3 Mg Tablet) 6 mg PO BEDTIME PRN PRN Reason: Insomnia Meropenem (Meropenem 500 Mg Vial) 500 mg IVPUSH Q12H [facility] Last Admin: 09/03/24 05:43 Dose: 500 mg Methadone HCl (Methadone Hcl 20 Mg/2 Ml Oral.Conc) 140 mg PO DAILY [facility] Last Admin: 09/03/24 11:19 Dose: 140 mg Nicotine (Nicotine 21 Mg Patch.Td24) 21 mg TRANSDERMA DAILY [facility] Last Admin: 09/02/24 08:13 Dose: 21 mg Oxycodone HCl (Oxycodone Hcl Immed Release 15 Mg Tablet) 30 mg PO 5XD [facility] Last Admin: 09/03/24 05:42 Dose: 30 mg Pharmacy Consult (Consult Rx Vancomycin Dosing) 1 each MISCELLANE DAILY PRN PRN Reason: Consult order Polyethylene Glycol (Polyethylene Glycol 3350 17 Gm Powd.Pack) 17 gm PO DAILY PRN PRN Reason: Constipation Senna (Sennosides 8.6 Mg Tablet) 17.2 mg PO BEDTIME [facility] Last Admin: 09/02/24 20:19 Dose: Not Given Sodium Chloride (0.9 % Sodium Chloride Flush 3 Ml Syringe) [facility] Last Admin: 09/02/24 20:19 Dose: 3 ml Sodium Zirconium Cyclosilicate (Sodium Zirconium Cyclosilicate 5 Gm Powd.Pack) 5 [facility]m [facility] Home Medications ?Medication ?Instructions ?Recorded ?Confirmed ?Type acyclovir 400 mg tablet 400 mg PO DAILY PRN FLARE UP 05/20/23 09/02/24 History hydralazine 50 mg tablet 50 mg PO BID 05/20/23 09/02/24 History labetalol 300 mg tablet 600 mg PO BID PRN HTN 06/12/23 09/02/24 History methadone 10 mg/mL oral concentrate 140 mg PO DAILY 06/12/23 09/02/24 History clonazepam 1 mg tablet 1 mg PO BID 01/19/24 09/02/24 History gabapentin 100 mg capsule 400 mg PO BID 01/19/24 09/02/24 History sulfamethoxazole 800 1 tab PO MOWEFR 01/19/24 09/02/24 History mg-trimethoprim 160 mg tablet oxycodone 30 mg tablet 30 mg PO 5XD 09/02/24 09/02/24 History sodium zirconium cyclosilicate 5 5 g PO SUTUTHSA 09/02/24 09/02/24 History gram oral powder packet (Lokelma) Allergies Allergy/AdvReac Type Severity Reaction Status Date / Time No Known Allergies Allergy Verified 09/01/24 18:02 Physical Exam Vital signs: Vital Signs Temp 98.3 F 09/03/24 07:52 Pulse 76 09/03/24 07:52 Resp 18 09/03/24 07:52 BP 175/104 H 09/03/24 11:18 Pulse Ox 93 09/03/24 07:52 O2 Del Method Room Air 09/03/24 07:52 O2 Flow Rate 2 09/03/24 03:52 Intake & Output 09/02/24 09/03/24 09/03/24 18:59 06:59 18:59 Intake Total 790 / 1140 350 / 1140 Output Total 0 / 0 Balance 790 / 1140 350 / 1140 Urine Output (Average ml/kg/hr) 0.00 Intake: Intake, Oral Amount 440 / 680 240 / 680 Intake (Blood Product) Amount 350 / 350 Red Blood Cells (E0336) Unit 350 / 350 [id number] Intake, IV Amount 110 / 110 vancomycin HCL 500 mg In 0.9 % 110 / 110 Sodium Chloride 100 ml @ 110 mls/hr IV ONCE ONE Rx#: [id number] Output: Output, Urine Amount 0 / 0 Other: Lunch % Eaten 100% Eating (Feeding) Ability Independent Number of Unmeasured Voids 0 Urine Urinal Last Bowel Movement 09/01/24 09/01/24 Weight 63 kg Weight 63 kg - Constitutional Present: no acute distress - Routine HEENT Exam Head: Present: atraumatic, normal inspection - Routine Neck Exam Present: supple - Routine Respiratory Exam Present: decreased breath sounds, rhonchi - Routine Cardiovascular Exam Cardiovascular: Present: RRR - Routine Abdominal Exam Present: diminished bowel sounds - Routine Extremities Exam Present: nontender - Routine Skin Exam Present: intact - Routine Neurological Exam Present: alert Hem/Onc Consult Result - Labs CBC & Chem 7: 09/03/24 06:29 09/03/24 06:29 Labs: Short CBC 09/02/24 09/03/24 Range/Units 18:13 06:29 WBC 3.3 L 3.4 L (4.8-10.8) X10*3/uL Hgb 8.4 L D 8.0 L (14.0-18.0) g/dl Hct 25.3 L D 24.4 L (42.0-52.0) % Plt Count 118 L 108 L (160-400) X10*3/uL BMP 09/03/24 06:29 Sodium 135 Potassium 4.7 Chloride 98 Carbon Dioxide 24 BUN 49 H Creatinine 5.94 H* Calcium 8.7 D Liver Function 09/03/24 Range/Units 06:29 Total Bilirubin 0.7 (0.0-1.0) mg/dL AST 90 H (5-37) U/L ALT 69 H (0-40) U/L Alkaline Phosphatase 151 H (39-117) U/L Albumin 3.0 L (3.5-5.0) g/dL Assessment and Plan Patient Active problem list reviewed?: Yes (1) Multiple myeloma Status: Acute Assessment and plan: The pancytopenia seems to be a result of his sepsis from pneumonia and previous marrow toxicity of myeloma therapies with stem cell damage. The cbc values are improving. Recommend good nurtition and observation of CBC. Will follow. Treat pneumonia as you are doing. - Time Spent With Patient Time Spent with Patient (in minutes): 15
[2024-09-03] MEDS: Nicotine 21 MG PATCH.TD24 TRANSDERMA (11:35)
[2024-09-03] MEDS: 0.9 % Sodium Chloride Flush 3 ML SYRINGE IVFLUSH ×3 (11:38→21:22)
--- NOTE | 2024-09-03 15:27 | P.PNIM_ITS ---
Subjective Subjective Date of Service: 09/03/24 Interval History: cough improved and in general feels better undergoing HD today Review of Systems Review of Systems: Yes all other systems are reviewed and are negative Physical Exam 2 Vital Signs: Vital Signs: Last Vital Signs Temp 98.5 F 09/03/24 12:00 Pulse 66 09/03/24 12:00 Resp 20 09/03/24 12:00 BP 167/96 H 09/03/24 12:00 Pulse Ox 96 09/03/24 12:00 O2 Del Method Room Air 09/03/24 12:00 O2 Flow Rate 2 09/03/24 03:52 BMI result Body Mass Index 21.1 Gen: in no acute distress HEENT: sclera anicteric, moist mucus membranes Neck: supple, LIJ tunneled HD catheter without signs of infection Lungs: clear to auscultation bilaterally Heart: regular rate and rhythm, no murmurs Abd: soft, non-tender, non-distended Ext: no edema Skin: warm/well-perfused Neuro: alert and oriented x3, no focal findings Psych: appropriate affect Objective Data Active Medications Acetaminophen (Acetaminophen 325 Mg Tablet) 650 mg PO Q6H PRN PRN Reason: Pain, Mild 1-3,fever,headache Acyclovir (Acyclovir 200 Mg Capsule) 400 mg PO DAILY PRN PRN Reason: FLARE UP Albuterol/Ipratropium (Albuterol/Iprat 2.5/0.5mg 3 Ml Ampul.Neb) 3 ml INHALE Q4H PRN PRN Reason: Shortness of Breath/Wheezing Amlodipine Besylate (Amlodipine Besylate 10 Mg Tablet) 10 mg PO DAILY [facility]; Protocol Last Admin: 09/03/24 11:17 Dose: 10 mg Documented By: SOPHIA Calcium Carbonate (Calcium Carbonate 750 Mg Tab.Chew) 750 mg PO Q4H PRN PRN Reason: Heartburn Clonazepam (Clonazepam 1 Mg Tablet) 1 mg PO BID [facility] Last Admin: 09/03/24 11:18 Dose: 1 mg Documented By: SOPHIA Comments: refused prior to hemodialysis. Gabapentin (Gabapentin 400 Mg Capsule) 400 mg PO BID [facility] Last Admin: 09/03/24 11:19 Dose: 400 mg Documented By: SOPHIA Hydralazine HCl (Hydralazine Hcl 50 Mg Tablet) 50 mg PO BID [facility]; Protocol Last Admin: 09/03/24 11:18 Dose: 50 mg Documented By: SOPHIA Comments: Patient refused prior to HD. Vancomycin HCl 500 mg/ Sodium (Chloride) 110 mls @ 110 mls/hr IV ONCE ONE Stop: 09/02/24 21:59 Labetalol HCl (Labetalol Hcl 200 Mg Tablet) 600 mg PO BID PRN PRN Reason: SBP >170 Magnesium Hydroxide (Milk Of Magnesia 30 Ml Oral.Susp) 30 ml PO DAILY PRN PRN Reason: Constipation Melatonin (Melatonin 3 Mg Tablet) 6 mg PO BEDTIME PRN PRN Reason: Insomnia Meropenem (Meropenem 500 Mg Vial) 500 mg IVPUSH Q12H [facility] Last Admin: 09/03/24 05:43 Dose: 500 mg Documented By: JOVAN Methadone HCl (Methadone Hcl 20 Mg/2 Ml Oral.Conc) 140 mg PO DAILY [facility] Last Admin: 09/03/24 11:19 Dose: 140 mg Documented By: SOPHIA Co-signed By: WON Comments: refused prior to hemodialysis. Nicotine (Nicotine 21 Mg Patch.Td24) 21 mg TRANSDERMA DAILY [facility] Last Admin: 09/03/24 11:35 Dose: 21 mg Documented By: SOPHIA Oxycodone HCl (Oxycodone Hcl Immed Release 15 Mg Tablet) 30 mg PO 5XD [facility] Last Admin: 09/03/24 11:33 Dose: 30 mg Documented By: SOPHIA Pharmacy Consult (Consult Rx Vancomycin Dosing) 1 each MISCELLANE DAILY PRN PRN Reason: Consult order Polyethylene Glycol (Polyethylene Glycol 3350 17 Gm Powd.Pack) 17 gm PO DAILY PRN PRN Reason: Constipation Senna (Sennosides 8.6 Mg Tablet) 17.2 mg PO BEDTIME [facility] Last Admin: 09/02/24 20:19 Dose: Not Given Documented By: CASTRO Non-Admin Reason: Patient Refused Sodium Chloride (0.9 % Sodium Chloride Flush 3 Ml Syringe) 3 ml IVFLUSH QSHIFT [facility] Last Admin: 09/03/24 11:38 Dose: 3 ml Documented By: SOPHIA Sodium Zirconium Cyclosilicate (Sodium Zirconium Cyclosilicate 5 Gm Powd.Pack) 5 gm PO SUTUTHSA [facility] Last Admin: 09/03/24 11:39 Dose: Not Given Documented By: SOPHIA Non-Admin Reason: Patient Refused Comments: K 4.7 Labs 09/03/24 06:29 09/03/24 06:29 Labs: Laboratory Results - last 24 hr 09/02/24 09/03/24 18:13 06:29 MCV 100.8 H 98.8 H MCH 33.5 H 32.4 MCHC 33.2 32.8 RDW 17.0 H 17.2 H Plt Count 118 L 108 L MPV 10.5 10.5 Absolute Nucleated RBC 0.000 0.000 Nucleated RBC % (auto) 0.0 0.0 Anion Gap 18 Estim Creat Clear Calc 14.1 Estimated GFR 10 Random Glucose 99 Calcium 8.7 D Phosphorus 5.1 H Total Bilirubin 0.7 AST 90 H ALT 69 H Alkaline Phosphatase 151 H Lactate Dehydrogenase 386 H Total Protein 5.0 L Albumin 3.0 L Random Vancomycin 13.6 L Microbiology Microbiology Results: Microbiology 09/01/24 18:23 Blood Culture - Preliminary Blood - Venous No growth after 24 hours. 09/01/24 18:23 Blood Culture - Preliminary Blood - Venous No growth after 24 hours. Assessment and Plan (1) PNA (pneumonia): Status: Acute Plan d3 for 44yo M with hx IgA multiple myeloma resulting in ESRD on HD MWF, OUD on methadone, HTN presenting with 3-4d of fever and found to have LLL PNA LLL PNA - vanco + meropenem 09/01- due to prior Permacath infection per ID, follow BCx ESRD with hyperK - HD MWF, noncompliant with low-K diet; K normalized; continue Lokelmo chronic anemia of ESRD - transfused 1u PRBCs 09/02 with HD - recheck CBC, per Nephrology goal of Hb 9 by 09/05 troponin indeterminate/flat - likely due to demand/ESRD, no ischemic EKG changes or anginal symptoms pancytopenia - likely due to prior multiple myeloma but B12 level pending transaminasemia - suspect due to PNA, improving OUD - continue methadone tobacco abuse - NRT HTN - amlodipine, hydralazine mood disorder - clonazepam peripheral neuropathy - continue gabapentin VTE ppx - UFH dispo - eventually home In my clinical judgment, the patient requires continued inpatient hospitalization for the following reasons: IV ABX Total time managing care of this patient today: 35 minutes. Quality Stroke Does the patient have a stroke diagnosis?: No Reason for No Anti-thrombotic by Day Two: Contraindicated VTE Prior VTE?: No VTE Risk Level:: Medical - moderate - high VTE Device Contraindication: N/A - Device Ordered VTE Drug Contraindication: Treatment Not Indicated
[2024-09-04] VITALS (8 sets, daily range): BP systolic 147–164; BP diastolic 83–100; PULSE 75–87; RESP 16–20; TEMP 36.3–37.1; O2SAT 92–97
[2024-09-04] MEDS: oxyCODONE HCl Immed Release 15 MG TABLET 30 MG PO ×5 (05:52→22:40)
[2024-09-04 07:08] LABS: Hematocrit 25.0 % (42.0-52.0); Hemoglobin 8.4 g/dl (14.0-18.0); Mean Corpuscular HGB Conc 33.6 g/dl (31.0-36.0); Mean Corpuscular Hemoglobin 32.7 pg (27.0-33.0); Mean Corpuscular Volume 97.3 fL (80.0-98.0); NRBC Abs Auto 0.000 X10*3/uL (0.0-0.012); NRBC Pct Auto 0.0 /100WBC (0.0-0.2); Platelet Count 121 X10*3/uL (160-400); Red Blood Count 2.57 X10*6/uL (4.60-5.80); White Blood Count 3.0 X10*3/uL (4.8-10.8)
[2024-09-04] MEDS: 0.9 % Sodium Chloride Flush 3 ML SYRINGE IVFLUSH ×3 (08:13→22:42)
[2024-09-04 08:22] LABS: Alanine Aminotransferase 49 U/L (0-40); Albumin Level 3.1 g/dL (3.5-5.0); Alkaline Phosphatase 138 U/L (39-117); Anion Gap 20 (12-20); Aspartate Amino Transferase 48 U/L (5-37); Blood Urea Nitrogen 77 mg/dL (9-16); Calcium 9.0 mg/dL (8.4-10.2); Carbon Dioxide 23 mmol/L (22-29); Chloride 97 mmol/L (96-108); Creatinine Clr Calc Pharmacy 10.5; Estimated Glomerular Filt Rate 7; Potassium 4.4 mmol/L (3.3-5.1); Sodium 136 mmol/L (135-145); Total Protein 5.1 g/dL (6.5-8.0)
[2024-09-04] MEDS: methADONE HCl 20 MG/2 ML ORAL.CONC 140 MG PO (09:05)
[2024-09-04] MEDS: Nicotine 21 MG PATCH.TD24 TRANSDERMA (09:06)
[2024-09-04 09:09] LABS: Folate 3.7 ng/mL (> or = 4.0); Vitamin B12 617 pg/mL (200-900)
--- NOTE | 2024-09-04 11:48 | P.PNIM_ITS ---
Subjective Subjective Date of Service: 09/04/24 Interval History: cough and dyspnea improved afebrile Review of Systems Review of Systems: Yes all other systems are reviewed and are negative Physical Exam 2 Vital Signs: Vital Signs: Last Vital Signs Temp 98.2 F 09/04/24 11:12 Pulse 78 09/04/24 11:12 Resp 18 09/04/24 11:12 BP 157/94 H 09/04/24 11:12 Pulse Ox 97 09/04/24 11:12 O2 Del Method Nasal Cannula 09/04/24 11:12 O2 Flow Rate 2 09/04/24 11:12 BMI result Body Mass Index 21.1 Gen: in no acute distress HEENT: sclera anicteric, moist mucus membranes Neck: supple, LIJ tunneled HD catheter without signs of infection Lungs: clear to auscultation bilaterally Heart: regular rate and rhythm, no murmurs Abd: soft, non-tender, non-distended Ext: no edema Skin: warm/well-perfused Neuro: alert and oriented x3, no focal findings Psych: appropriate affect Objective Data Active Medications Acetaminophen (Acetaminophen 325 Mg Tablet) 650 mg PO Q6H PRN PRN Reason: Pain, Mild 1-3,fever,headache Acyclovir (Acyclovir 200 Mg Capsule) 400 mg PO DAILY PRN PRN Reason: FLARE UP Albuterol/Ipratropium (Albuterol/Iprat 2.5/0.5mg 3 Ml Ampul.Neb) 3 ml INHALE Q4H PRN PRN Reason: Shortness of Breath/Wheezing Amlodipine Besylate (Amlodipine Besylate 10 Mg Tablet) 10 mg PO DAILY [facility]; Protocol Last Admin: 09/04/24 09:05 Dose: 10 mg Documented By: SOPHIA Calcium Carbonate (Calcium Carbonate 750 Mg Tab.Chew) 750 mg PO Q4H PRN PRN Reason: Heartburn Clonazepam (Clonazepam 1 Mg Tablet) 1 mg PO BID [facility] Last Admin: 09/04/24 09:05 Dose: 1 mg Documented By: SOPHIA Folic Acid (Folic Acid 1 Mg Tablet) 1 mg PO DAILY [facility] Last Admin: 09/04/24 11:01 Dose: 1 mg Documented By: SOPHIA Gabapentin (Gabapentin 400 Mg Capsule) 400 mg PO BID [facility] Last Admin: 09/04/24 09:05 Dose: 400 mg Documented By: SOPHIA Heparin Sodium (Porcine) (Heparin Sodium,Porcine 5,000 Unit/Ml Vial) 5,000 unit SUBCUT Q12H [facility] Last Admin: 09/04/24 05:00 Dose: 5,000 unit Documented By: ANTPHANI Hydralazine HCl (Hydralazine Hcl 50 Mg Tablet) 50 mg PO BID [facility]; Protocol Last Admin: 09/04/24 09:05 Dose: 50 mg Documented By: SOPHIA Labetalol HCl (Labetalol Hcl 200 Mg Tablet) 600 mg PO BID PRN PRN Reason: SBP >170 Magnesium Hydroxide (Milk Of Magnesia 30 Ml Oral.Susp) 30 ml PO DAILY PRN PRN Reason: Constipation Melatonin (Melatonin 3 Mg Tablet) 6 mg PO BEDTIME PRN PRN Reason: Insomnia Meropenem (Meropenem 500 Mg Vial) 500 mg IVPUSH Q12H [facility] Last Admin: 09/04/24 05:51 Dose: 500 mg Documented By: LOIDA Methadone HCl (Methadone Hcl 20 Mg/2 Ml Oral.Conc) 140 mg PO DAILY [facility] Last Admin: 09/04/24 09:05 Dose: 140 mg Documented By: SOPHIA Co-signed By: ASHVIN Nicotine (Nicotine 21 Mg Patch.Td24) 21 mg TRANSDERMA DAILY [facility] Last Admin: 09/04/24 09:06 Dose: 21 mg Documented By: SOPHIA Omeprazole (Omeprazole 20 Mg Capsule.Dr) 20 mg PO BID@0630,1630 [facility] Last Admin: 09/04/24 08:12 Dose: 20 mg Documented By: SOPHIA Oxycodone HCl (Oxycodone Hcl Immed Release 15 Mg Tablet) 30 mg PO 5XD [facility] Last Admin: 09/04/24 11:00 Dose: 30 mg Documented By: SOPHIA Polyethylene Glycol (Polyethylene Glycol 3350 17 Gm Powd.Pack) 17 gm PO DAILY PRN PRN Reason: Constipation Senna (Sennosides 8.6 Mg Tablet) 17.2 mg PO BEDTIME [facility] Last Admin: 09/03/24 21:22 Dose: Not Given Documented By: DIANA Non-Admin Reason: Patient Refused Sodium Chloride (0.9 % Sodium Chloride Flush 3 Ml Syringe) 3 ml IVFLUSH QSHIFT [facility] Last Admin: 09/04/24 08:13 Dose: 3 ml Documented By: SOPHIA Sodium Zirconium Cyclosilicate (Sodium Zirconium Cyclosilicate 5 Gm Powd.Pack) 5 gm PO SUTUTHSA [facility] Last Admin: 09/04/24 09:17 Dose: Not Given Documented By: SOPHIA Non-Admin Reason: Patient Refused Comments: Pt refused. K+ 4.4 Labs 09/04/24 06:38 09/04/24 06:38 Labs: Laboratory Results - last 24 hr 09/04/24 06:38 MCV 97.3 MCH 32.7 MCHC 33.6 RDW 16.6 H Plt Count 121 L MPV 10.6 Absolute Nucleated RBC 0.000 Nucleated RBC % (auto) 0.0 Anion Gap 20 Estim Creat Clear Calc 10.5 Estimated GFR 7 Random Glucose 95 Calcium 9.0 Total Bilirubin 0.7 AST 48 H ALT 49 H Alkaline Phosphatase 138 H Total Protein 5.1 L Albumin 3.1 L Vitamin B12 617 Folate 3.7 L Microbiology Microbiology Results: Microbiology 09/01/24 18:23 Blood Culture - Preliminary Blood - Venous No growth after 48 hours. 09/01/24 18:23 Blood Culture - Preliminary Blood - Venous No growth after 48 hours. Assessment and Plan (1) PNA (pneumonia): Status: Acute Plan d4 for 44yo M with hx IgA multiple myeloma resulting in ESRD on HD MWF, OUD on methadone, HTN presenting with 3-4d of fever and found to have LLL PNA acute hypoxia due to LLL PNA - d/c vancomycin [started 09/01] as BCx negative, continue meropenem 09/01-. Prior Permacath infection but no bacteremia this admission. Discuss PO ABX with ID. - wean O2 as tolerated ESRD with hyperK - HD MWF, noncompliant with low-K diet; K normalized; continue Lokelma; HD tomorrow chronic anemia of ESRD - transfused 1u PRBCs 09/02 with HD - recheck CBC, per Nephrology goal of Hb 9 by 09/05; recheck tomorrow troponin indeterminate/flat - likely due to demand/ESRD, no ischemic EKG changes or anginal symptoms pancytopenia - likely due to prior multiple myeloma folate deficiency - start repletion transaminasemia - suspect due to PNA, improving OUD - continue methadone tobacco abuse - NRT HTN - amlodipine, hydralazine mood disorder - clonazepam peripheral neuropathy - continue gabapentin VTE ppx - UFH dispo - eventually home hopefully tomorrow; PT eval pending; try to wean off O2 In my clinical judgment, the patient requires continued inpatient hospitalization for the following reasons: IV ABX Total time managing care of this patient today: 35 minutes. Quality Stroke Does the patient have a stroke diagnosis?: No Reason for No Anti-thrombotic by Day Two: Contraindicated VTE Prior VTE?: No VTE Risk Level:: Medical - moderate - high VTE Device Contraindication: N/A - Device Ordered VTE Drug Contraindication: Treatment Not Indicated
[2024-09-05] VITALS (12 sets, daily range): BP systolic 143–173; BP diastolic 72–112; PULSE 72–103; RESP 16–19; TEMP 36.8–37.6; O2SAT 92–95
[2024-09-05] MEDS: oxyCODONE HCl Immed Release 15 MG TABLET 30 MG PO ×5 (05:43→21:44)
[2024-09-05 07:02] LABS: Hematocrit 24.3 % (42.0-52.0); Hemoglobin 8.2 g/dl (14.0-18.0); Mean Corpuscular HGB Conc 33.7 g/dl (31.0-36.0); Mean Corpuscular Hemoglobin 32.8 pg (27.0-33.0); Mean Corpuscular Volume 97.2 fL (80.0-98.0); NRBC Abs Auto 0.000 X10*3/uL (0.0-0.012); NRBC Pct Auto 0.0 /100WBC (0.0-0.2); Platelet Count 129 X10*3/uL (160-400); Red Blood Count 2.50 X10*6/uL (4.60-5.80); White Blood Count 3.2 X10*3/uL (4.8-10.8)
[2024-09-05 07:31] LABS: Alanine Aminotransferase 34 U/L (0-40); Albumin Level 3.0 g/dL (3.5-5.0); Alkaline Phosphatase 125 U/L (39-117); Anion Gap 21 (12-20); Aspartate Amino Transferase 34 U/L (5-37); Blood Urea Nitrogen 102 mg/dL (9-16); Calcium 9.1 mg/dL (8.4-10.2); Carbon Dioxide 22 mmol/L (22-29); Chloride 95 mmol/L (96-108); Creatinine Clr Calc Pharmacy 8.7; Estimated Glomerular Filt Rate 6; Potassium 5.0 mmol/L (3.3-5.1); Sodium 133 mmol/L (135-145); Total Protein 5.1 g/dL (6.5-8.0)
--- NOTE | 2024-09-05 10:03 | P.PNNPD_ITS ---
Subjective Subjective Date of Service: 09/05/24 This patient was seen during dialysis. Interval history: following for ESRD on dialysis - here with pneumonia blood cultures negative patient denies complaints Physical Exam Vital Signs: Vital Signs: Last Vital Signs Temp 98.2 F 09/05/24 07:59 Pulse 76 09/05/24 07:59 Resp 18 09/05/24 07:59 BP 173/96 H 09/05/24 07:59 Pulse Ox 92 09/05/24 07:59 O2 Del Method Room Air 09/05/24 07:59 O2 Flow Rate 2 09/04/24 11:12 BMI result Body Mass Index 21.1 Assessment & Plan Assessment and plan (1) End stage renal disease on dialysis: Status: Acute (2) Anemia: Status: Acute Plan ESRD patient on HD here with fevers, chills blood cultures negative. Left permcath in place without swelling/erythema/tiera inage. Will continue patient's M, W, F schedule H&H 8.2 and 24.3- will transfuse due to Hgb<9 no acidosis at this time no uremic symptoms phosphorous 5.1- continue binders with meals fluid status improving- patient has only trace LE swelling, greatly improved since extra ultrafiltration session this weekend blood pressures elevated- hypervolemic and will receive HD today. Will start labetolol 200mg PO BID scheduled. oliguria at baseline pt denies changes in urine output Discussed with Dr Khan Time Spent With Patient Time: Total time managing care of this patient today ____ minutes. Procedures Date of Service Date of Service: 09/05/24
[2024-09-05] MEDS: methADONE HCl 20 MG/2 ML ORAL.CONC 140 MG PO (11:24)
[2024-09-05] MEDS: 0.9 % Sodium Chloride Flush 3 ML SYRINGE IVFLUSH ×3 (11:26→21:50)
--- NOTE | 2024-09-05 11:27 | P.DS_ITS ---
DS: Providers Provider Date of Service: 09/05/24 Date of admission: 09/01/24 19:36 Date of discharge: 09/05/24 Primary care physician: Nabil Prado MD Consults: 09/01/24 19:50 Consult to Nephrology Routine Consulting Provider: [facility] Reason for consultation: ESRD on dilaysis, hyperkalemia, PNA Has provider been notified: No 09/02/24 04:35 Consult to Gastroenterology Routine Consulting Provider: Radha Mosley Reason for consultation: major drop in H/H ? GIB 09/02/24 08:24 Consult to Infectious Diseases Routine Consulting Provider: [facility] [place] Reason for consultation: ESRD hx of achromobacter xylosoxidans permacath infection; now w/pneumonia 09/03/24 08:07 Consult to Hematology / Oncology Routine Consulting Provider: [facility] [place] [facility] Reason for consultation: pancytopaenia DS: Diagnosis Discharge Diagnosis (1) End stage renal disease on dialysis: Status: Acute (2) Anemia: Status: Acute (3) Folate deficiency: Status: Acute (4) PNA (pneumonia): Status: Acute (5) Acute respiratory failure with hypoxia: Status: Acute DS: Summary Hospital Course Hospital Course: From the history and physical by the admitting hospitalist, Magaly garvey FOOD PREPARATION KITCHEN AIDE, 09/01/24: Patient is a 44-year-old male with past medical history multiple myeloma now on dialysis Thursday and Thursday with [facility] in [facility], opioid/substance use disorder on methadone, history of IV drug abuse with no recent use or Hep C, HTN, tobacco dependence, HSV presents to the emergency room with a fever 103 intermittently over the last 3-4 days. Patient states he has also been having chills and feels cold all the time. Patient denies currently chest pain and shortness of breath at rest. Patient is not having any nausea or vomiting. Patient denies any abdominal pain, diarrhea or constipation issues. Patient did undergo dialysis yesterday and had fever and returned home after treatment was completed. Patient does have infection history of his left PermCath 01/30 and grew achromobacter xylosoxidans. Patient thinks he may have had water exposure to his line in the last 3-4 days. Insertion site of PermCath is covered with a clean dry dressing. No obvious redness or drainage noted. Patient does have open excoriations on right lower arm and scabbed areas on right knee. Patient does complain of constant itching and does use phosphate binders with meals. Phosphorus level pending. Workup in the ED identified left lower lobe pneumonia. Patient was started on meropenem and vancomycin. Patient denies any issues with swallowing or aspiration. Patient states he believes he has had pneumonia in the past. Patient is reporting continued edema in the lower extremities before and after dialysis. Patient makes very little urine at this time. Patient is supposed to be on a fluid restriction but isn't always compliant. Patient's potassium also elevated at 6.2. Patient does not follow low-potassium food guidelines for end-stage renal disease patients. Patient does eat a lot of bananas and peanut butter. Patient received 1 dose of Kcentra in the emergency department. Troponins also elevated, likely related to end-stage renal disease and recent dialysis but cardiomegaly noted on chest x-ray so BNP is pending. If elevated, will order echocardiogram. EKG notes normal sinus rhythm with a prolonged QTC and nonspecific ST changes in lateral leads only. Pt does currently smoke cigaretts, 10-12 per day. Pt does not use inhalers or nebs at home. Pt is requesting nicotine patch. 44yo M with hx IgA multiple myeloma resulting in ESRD on HD MWF, OUD on methadone, HTN presenting with 3-4d of fever and found to have LLL PNA and admitted to the telemetry unit. Hospital course by problem: acute hypoxic respiratory failure due to LLL PNA - started on vancomycin plus meropenem 09/01 due to history of bacteremia/Permacath infection. Not bacteremic this admission. Weaned off oxygen. Vancomycin discontinued 09/04. Discharged on 2 grams of cefepime after hemodialysis MWF for 10 days per Infectious Disease consultation. ESRD with hyperkalemia - HD MWF. K normalized after HD and giving Lokelma chronic anemia of ESRD - transfused 1u pRBCs 09/02 with HD, and another 1u pRBCs 09/05 with HD. pancytopenia - likely due to prior multiple myeloma folate deficiency - started on repletion PO HTN - continued amlodipine and hydralazine; started labetalol He was discharged home with VNA services. Time Attestation Discharge Coordination Time (in mins): 40 Quality: Safe Use of Opioids Does Pt have an Active Cancer Diagnosis on the Problem List?: No Quality: Stroke Does the patient have a stroke diagnosis?: No Physical Exam Vital Signs: Vital Signs: Last Vital Signs Temp 98.2 F 09/05/24 07:59 Pulse 76 09/05/24 07:59 Resp 18 09/05/24 07:59 BP 173/96 H 09/05/24 07:59 Pulse Ox 92 09/05/24 07:59 O2 Del Method Room Air 09/05/24 07:59 O2 Flow Rate 2 09/04/24 11:12 BMI result Body Mass Index 21.1 Gen: in no acute distress HEENT: sclera anicteric, moist mucus membranes Neck: supple, LIJ tunneled HD catheter without signs of infection Lungs: clear to auscultation bilaterally Heart: regular rate and rhythm, no murmurs Abd: soft, non-tender, non-distended Ext: no edema Skin: warm/well-perfused Neuro: alert and oriented x3, no focal findings Psych: appropriate affect DS: Data Data Completed and Pending Completed studies during hospitalization [Text1]: Laboratory Results WBC 3.2 X10*3/uL (4.8-10.8) L 09/05/24 06:35 RBC 2.50 X10*6/uL (4.60-5.80) L 09/05/24 06:35 Hgb 8.2 g/dl (14.0-18.0) L 09/05/24 06:35 Hct 24.3 % (42.0-52.0) L 09/05/24 06:35 MCV 97.2 fL (80.0-98.0) 09/05/24 06:35 MCH 32.8 pg (27.0-33.0) 09/05/24 06:35 MCHC 33.7 g/dl (31.0-36.0) 09/05/24 06:35 RDW 16.4 % (11.0-16.0) H 09/05/24 06:35 Plt Count 129 X10*3/uL (160-400) L 09/05/24 06:35 MPV 10.3 fL (9.4-12.4) 09/05/24 06:35 Immature Gran % (Auto) Cancelled 09/02/24 03:52 Neut % (Auto) Cancelled 09/02/24 03:52 Lymph % (Auto) Cancelled 09/02/24 03:52 [place] % (Auto) Cancelled 09/02/24 03:52 Eos % (Auto) Cancelled 09/02/24 03:52 Baso % (Auto) Cancelled 09/02/24 03:52 Lymph # (Auto) Cancelled 09/02/24 03:52 [place] # (Auto) Cancelled 09/02/24 03:52 Eos # (Auto) Cancelled 09/02/24 03:52 Baso # (Auto) Cancelled 09/02/24 03:52 Abs Immat Gran (auto) Cancelled 09/02/24 03:52 Absolute Neuts (auto) Cancelled 09/02/24 03:52 Absolute Nucleated RBC 0.000 X10*3/uL (0.0-0.012) 09/05/24 06:35 Nucleated RBC % (auto) 0.0 /100WBC (0.0-0.2) 09/05/24 06:35 Neutrophils % (Manual) 76 % (45-73) H 09/02/24 03:52 Band Neutrophils % 8 % (3-5) H 09/02/24 03:52 Lymphocytes % (Manual) 11 % (20-40) L 09/02/24 03:52 Monocytes % (Manual) 4 % (2-11) 09/02/24 03:52 Eosinophils % (Manual) 1 % (0-4) 09/02/24 03:52 Abs Neuts (Manual) 1.8 X10*3/uL (2.0-8.3) L 09/02/24 03:52 Lymphocytes # (Manual) 0.2 X10*3/uL (1.2-4.9) L 09/02/24 03:52 Monocytes # (Manual) 0.1 X10*3/uL (0.1-1.2) 09/02/24 03:52 Toxic Granulation PRESENT 09/02/24 03:52 Dohle Bodies PRESENT 09/02/24 03:52 Platelet Estimate DECREASED (NORMAL) 09/02/24 03:52 Plt Morphology Comment NORMAL 09/02/24 03:52 RBC Morphology NOTED 09/02/24 03:52 Macrocytosis 1+ (5-14) /OIF 09/02/24 03:52 Ovalocytes 1+ (5-14) /OIF 09/02/24 03:52 [place] Cells 1+ (0-2) /OIF 09/02/24 03:52 Schistocytes 1+ (0-2) /OIF 09/02/24 03:52 VBG pH 7.55 (7.32-7.43) H 09/01/24 18:32 VBG pCO2 28 mmHg 09/01/24 18:32 VBG pO2 222 mmHg 09/01/24 18:32 VBG HCO3 24 mmol/L (22-26) 09/01/24 18:32 VBG O2 Saturation 99.0 % 09/01/24 18:32 VBG Base Excess 2.8 mmol/L 09/01/24 18:32 Sodium 133 mmol/L (135-145) L 09/05/24 06:35 Potassium 5.0 mmol/L (3.3-5.1) 09/05/24 06:35 Chloride 95 mmol/L (96-108) L 09/05/24 06:35 Carbon Dioxide 22 mmol/L (22-29) 09/05/24 06:35 Anion Gap 21 (12-20) H 09/05/24 06:35 BUN 102 mg/dL (9-16) H 09/05/24 06:35 Creatinine 9.56 mg/dL (0.5-1.4) H* 09/05/24 06:35 Estim Creat Clear Calc 8.7 09/05/24 06:35 Estimated GFR 6 09/05/24 06:35 Random Glucose 86 mg/dL (60-115) 09/05/24 06:35 Lactic Acid 0.9 mmol/L (0.5-2.0) 09/01/24 18:24 Uric Acid 5.7 mg/dL (3.4-7.0) 09/02/24 03:52 Calcium 9.1 mg/dL (8.4-10.2) 09/05/24 06:35 Phosphorus 5.1 mg/dL (2.7-4.5) H 09/03/24 06:29 Magnesium 2.2 mg/dL (1.6-2.6) 09/01/24 18:23 Iron 24 mcg/dL (45-160) L 09/01/24 18:23 TIBC 116 mcg/dL (228-428) L 09/01/24 18:23 % Saturation 21 % (15-50) 09/01/24 18:23 Unsat Iron Binding 92 ug/dL 09/01/24 18:23 Total Bilirubin 0.6 mg/dL (0.0-1.0) 09/05/24 06:35 Direct Bilirubin 0.3 mg/dL (0.0-0.5) 09/05/24 06:35 AST 34 U/L (5-37) 09/05/24 06:35 ALT 34 U/L (0-40) 09/05/24 06:35 Alkaline Phosphatase 125 U/L (39-117) H 09/05/24 06:35 Lactate Dehydrogenase 386 U/L (118-273) H 09/03/24 06:29 Troponin I High Sens 144.4 ng/L (<3.5-35.0) H* 09/01/24 21:14 B-Natriuretic Peptide 2604 pg/mL (<100) H 09/01/24 21:14 Total Protein 5.1 g/dL (6.5-8.0) L 09/05/24 06:35 Albumin 3.0 g/dL (3.5-5.0) L 09/05/24 06:35 Vitamin B12 617 pg/mL (200-900) 09/04/24 06:38 Folate 3.7 ng/mL (> or = 4.0) L 09/04/24 06:38 TSH 2.79 uIU/mL (0.32-4.0) 09/01/24 18:23 Free T4 0.88 ng/dL (0.71-1.85) 09/01/24 18:23 PTH Intact 493.2 pg/mL (8.7-77.1) H 09/02/24 03:52 Random Vancomycin 13.6 mcg/mL (15-20) L 09/02/24 18:13 Influenza Type A (PCR) NEGATIVE (Negative) 09/01/24 18:22 Influenza Type B (PCR) NEGATIVE (Negative) 09/01/24 18:22 RSV RNA Qual (PCR) NEGATIVE (Negative) 09/01/24 18:22 SARS-CoV-2 RNA (RT-PCR) NEGATIVE (Negative) 09/01/24 18:22 Blood Type B Positive 09/05/24 08:17 Antibody Screen NEGATIVE 09/05/24 08:17 Crossmatch See Detail 09/05/24 08:17 Impressions Abdomen Ultrasound 09/01/24 21:16 IMPRESSION: 1. Hepatomegaly and hepatic steatosis. Small amount of upper abdominal ascites. 2. Cholelithiasis without evidence of acute cholecystitis. 3. Marked renal cortical thinning and increased echotexture, consistent with the patient's history of end-stage renal disease. Electronically signed by: Goyo Jin MD 09/02/2024 07:23 AM EDT RP Discharge Plan Discharge Anticipated Discharge Date/Time: 09/05/24 23:23 Patient Disposition: Home Health Service Discharge Diagnosis: pneumonia ESRD on HD anemia of ESRD folate deficiency hypertension Referrals: Nabil Prado MD [Primary Care Provider, Internal Medicine] - 1 Week Discharge Medications: New labetalol 200 mg Tablet 200 mg PO BID Qty: 60 0RF nicotine 21 mg/24 hr Patch 24 Hour 21 mg transdermal DAILY Qty: 30 0RF folic acid 1 mg Tablet 1 mg PO DAILY Qty: 30 0RF cefepime 2 gram recon soln 2 g IV MOWEFR 10 Days Rx Instructions: after dialysis Continued amlodipine 10 mg tablet 10 mg PO DAILY Qty: 90 4RF clonazepam 1 mg tablet 1 mg PO BID gabapentin 100 mg capsule 400 mg PO BID sulfamethoxazole-trimethoprim 800-160 mg tablet 1 tab PO MOWEFR Lokelma 5 gram powder in packet 5 g PO SUTUTHSA oxycodone 30 mg tablet 30 mg PO 5XD hydralazine 50 mg tablet 50 mg PO BID acyclovir 400 mg tablet 400 mg PO DAILY PRN (Reason: FLARE UP) methadone 10 mg/mL concentrate 140 mg PO DAILY Discontinued labetalol 300 mg tablet 600 mg PO BID PRN (Reason: HTN) Discharge Orders: Discharge Order (Routine); Ordered 09/06/24 Ordered By: Victor Manuel Hankins Diet: low potassium Activity on Discharge: As tolerated Stand Alone Forms: Patient Portal Discharge page Print Language: Guatemalan Care Plan Goals: recovery from pneumonia renal health Health Concerns: pneumonia ESRD on HD anemia of ESRD folate deficiency hypertension Plan of Treatment: cefepime 2 grams after dialysis on MWF 09/06-09/15 continue dialysis MWF take folic acid 1 mg daily take labetalol 200 mg twice daily Please follow up with your primary care doctor within 1 week. Return to the hospital if you experience recurrent or worsening symptoms. Assessment: See Discharge Summary. Discharge Date/Time: 09/06/24 13:59
[2024-09-05] MEDS: Nicotine 21 MG PATCH.TD24 TRANSDERMA (11:35)
--- NOTE | 2024-09-05 11:50 | MHC.CM.PN ---
EMR REVIEWED, PER HOSPITALIST PLAN FOR OT/PT, TRANSFUSION AND POSSIBLE DC HOME, CM WILL CONT TO FOLLOW DC NEEDS.
--- NOTE | 2024-09-05 16:00 | P.PNIM_ITS ---
Subjective Subjective Date of Service: 09/05/24 Interval History: cough improved off o2 to dialysis today Review of Systems Review of Systems: Yes all other systems are reviewed and are negative Physical Exam 2 Vital Signs: Vital Signs: Last Vital Signs Temp 98.9 F 09/05/24 15:23 Pulse 74 09/05/24 15:23 Resp 18 09/05/24 15:23 BP 148/96 H 09/05/24 15:23 Pulse Ox 95 09/05/24 15:23 O2 Del Method Room Air 09/05/24 15:23 O2 Flow Rate 2 09/04/24 11:12 BMI result Body Mass Index 21.1 Gen: in no acute distress HEENT: sclera anicteric, moist mucus membranes Neck: supple, LIJ tunneled HD catheter without signs of infection Lungs: clear to auscultation bilaterally Heart: regular rate and rhythm, no murmurs Abd: soft, non-tender, non-distended Ext: no edema Skin: warm/well-perfused Neuro: alert and oriented x3, no focal findings Psych: appropriate affect Objective Data Active Medications Acetaminophen (Acetaminophen 325 Mg Tablet) 650 mg PO Q6H PRN PRN Reason: Pain, Mild 1-3,fever,headache Acyclovir (Acyclovir 200 Mg Capsule) 400 mg PO DAILY PRN PRN Reason: FLARE UP Albuterol/Ipratropium (Albuterol/Iprat 2.5/0.5mg 3 Ml Ampul.Neb) 3 ml INHALE Q4H PRN PRN Reason: Shortness of Breath/Wheezing Amlodipine Besylate (Amlodipine Besylate 10 Mg Tablet) 10 mg PO DAILY [facility]; Protocol Last Admin: 09/05/24 11:26 Dose: 10 mg Documented By: NICOLE Calcium Carbonate (Calcium Carbonate 750 Mg Tab.Chew) 750 mg PO Q4H PRN PRN Reason: Heartburn Clonazepam (Clonazepam 1 Mg Tablet) 1 mg PO BID [facility] Last Admin: 09/05/24 11:26 Dose: 1 mg Documented By: NICOLE Folic Acid (Folic Acid 1 Mg Tablet) 1 mg PO DAILY [facility] Last Admin: 09/05/24 11:26 Dose: 1 mg Documented By: NICOLE Gabapentin (Gabapentin 400 Mg Capsule) 400 mg PO BID [facility] Last Admin: 09/05/24 11:26 Dose: 400 mg Documented By: NICOLE Heparin Sodium (Porcine) (Heparin Sodium,Porcine 5,000 Unit/Ml Vial) 5,000 unit SUBCUT Q12H [facility] Last Admin: 09/05/24 15:44 Dose: 5,000 unit Documented By: MATHEUS Hydralazine HCl (Hydralazine Hcl 50 Mg Tablet) 50 mg PO BID [facility]; Protocol Last Admin: 09/05/24 11:25 Dose: 50 mg Documented By: NICOLE Labetalol HCl (Labetalol Hcl 200 Mg Tablet) 200 mg PO BID [facility] Last Admin: 09/05/24 11:25 Dose: 200 mg Documented By: NICOLE Magnesium Hydroxide (Milk Of Magnesia 30 Ml Oral.Susp) 30 ml PO DAILY PRN PRN Reason: Constipation Melatonin (Melatonin 3 Mg Tablet) 6 mg PO BEDTIME PRN PRN Reason: Insomnia Methadone HCl (Methadone Hcl 20 Mg/2 Ml Oral.Conc) 140 mg PO DAILY [facility] Last Admin: 09/05/24 11:24 Dose: 140 mg Documented By: NICOLE Co-signed By: MELA Nicotine (Nicotine 21 Mg Patch.Td24) 21 mg TRANSDERMA DAILY [facility] Last Admin: 09/05/24 11:35 Dose: 21 mg Documented By: NICOLE Omeprazole (Omeprazole 20 Mg Capsule.Dr) 20 mg PO BID@0630,1630 [facility] Last Admin: 09/05/24 15:44 Dose: 20 mg Documented By: MATHEUS Oxycodone HCl (Oxycodone Hcl Immed Release 15 Mg Tablet) 30 mg PO 5XD [facility] Last Admin: 09/05/24 15:18 Dose: 30 mg Documented By: MATHEUS Polyethylene Glycol (Polyethylene Glycol 3350 17 Gm Powd.Pack) 17 gm PO DAILY PRN PRN Reason: Constipation Senna (Sennosides 8.6 Mg Tablet) 17.2 mg PO BEDTIME [facility] Last Admin: 09/04/24 22:41 Dose: Not Given Documented By: DIANA Non-Admin Reason: Pt declined reports BM today Sodium Chloride (0.9 % Sodium Chloride Flush 3 Ml Syringe) 3 ml IVFLUSH QSHIFT [facility] Last Admin: 09/05/24 15:19 Dose: 3 ml Documented By: MATHEUS Sodium Zirconium Cyclosilicate (Sodium Zirconium Cyclosilicate 5 Gm Powd.Pack) 5 gm PO SUTUTHSA [facility] Last Admin: 09/04/24 09:17 Dose: Not Given Documented By: SOPHIA Non-Admin Reason: Patient Refused Comments: Pt refused. K+ 4.4 Labs 09/05/24 06:35 09/05/24 06:35 Labs: Laboratory Results - last 24 hr 09/05/24 09/05/24 06:35 08:17 MCV 97.2 MCH 32.8 MCHC 33.7 RDW 16.4 H Plt Count 129 L MPV 10.3 Absolute Nucleated RBC 0.000 Nucleated RBC % (auto) 0.0 Anion Gap 21 H Estim Creat Clear Calc 8.7 Estimated GFR 6 Random Glucose 86 Calcium 9.1 Total Bilirubin 0.6 Direct Bilirubin 0.3 AST 34 ALT 34 Alkaline Phosphatase 125 H Total Protein 5.1 L Albumin 3.0 L Blood Type B Positive Antibody Screen NEGATIVE Crossmatch See Detail Assessment and Plan (1) PNA (pneumonia): Status: Acute Plan d5 for 44yo M with hx IgA multiple myeloma resulting in ESRD on HD MWF, OUD on methadone, HTN presenting with 3-4d of fever and found to have LLL PNA acute hypoxia due to LLL PNA - d/c'ed vancomycin [started 09/01] as BCx negative, change meropenem 09/01-09/05 to cefepime 09/05-09/15 [ertapenem not available at pt's HD unit per Nephrology]; plan cefepime 2g after HD MWF. Prior Permacath infection but no bacteremia this admission. Discussed with ID. - weaned off O2, ordered home O2 eval prior to d/c ESRD with hyperK - HD MWF, noncompliant with low-K diet; K normalized chronic anemia of ESRD - transfused 1u PRBCs 09/02 with HD - another unit transfusing now as per Nephrology goal Hb 9; recheck CBC tomorrow troponin indeterminate/flat - likely due to demand/ESRD, no ischemic EKG changes or anginal symptoms pancytopenia - likely due to prior multiple myeloma folate deficiency - started repletion transaminasemia - suspect due to PNA, improving OUD - continue methadone tobacco abuse - NRT HTN - amlodipine, hydralazine mood disorder - clonazepam peripheral neuropathy - continue gabapentin VTE ppx - UFH dispo - eventually home hopefully tomorrow; PT and home O2 evals pending In my clinical judgment, the patient requires continued inpatient hospitalization for the following reasons: transfusing Total time managing care of this patient today: 35 minutes. Quality Stroke Does the patient have a stroke diagnosis?: No Reason for No Anti-thrombotic by Day Two: Contraindicated VTE Prior VTE?: No VTE Risk Level:: Medical - moderate - high VTE Device Contraindication: N/A - Device Ordered VTE Drug Contraindication: Treatment Not Indicated
[2024-09-05] MEDS: cefEPime HCl/D5W 2 GM/50 ML PIGGYBACK IV (16:54)
[2024-09-06 03:39] VITALS: BP 163/80; PULSE 76; RESP 16; TEMP 36.1; O2SAT 93
[2024-09-06] MEDS: oxyCODONE HCl Immed Release 15 MG TABLET 30 MG PO ×2 (05:19→10:40)
[2024-09-06 07:21] LABS: Hematocrit 27.3 % (42.0-52.0); Hemoglobin 9.2 g/dl (14.0-18.0); Mean Corpuscular HGB Conc 33.7 g/dl (31.0-36.0); Mean Corpuscular Hemoglobin 32.4 pg (27.0-33.0); Mean Corpuscular Volume 96.1 fL (80.0-98.0); NRBC Abs Auto 0.000 X10*3/uL (0.0-0.012); NRBC Pct Auto 0.0 /100WBC (0.0-0.2); Platelet Count 141 X10*3/uL (160-400); Red Blood Count 2.84 X10*6/uL (4.60-5.80); White Blood Count 3.6 X10*3/uL (4.8-10.8)
[2024-09-06 07:31] VITALS: BP 170/97; PULSE 70; RESP 17; TEMP 36.9; O2SAT 94
[2024-09-06 07:36] LABS: Anion Gap 19 (12-20); Blood Urea Nitrogen 66 mg/dL (9-16); Calcium 9.2 mg/dL (8.4-10.2); Carbon Dioxide 25 mmol/L (22-29); Chloride 97 mmol/L (96-108); Creatinine Clr Calc Pharmacy 12.1; Estimated Glomerular Filt Rate 9; Potassium 4.9 mmol/L (3.3-5.1); Sodium 136 mmol/L (135-145)
[2024-09-06] MEDS: 0.9 % Sodium Chloride Flush 3 ML SYRINGE IVFLUSH (08:19)
[2024-09-06 08:20] VITALS: BP 170/97; PULSE 70
[2024-09-06] MEDS: Nicotine 21 MG PATCH.TD24 TRANSDERMA (08:20)
[2024-09-06] MEDS: methADONE HCl 20 MG/2 ML ORAL.CONC 140 MG PO (08:21)
--- NOTE | 2024-09-06 08:45 | P.PNNP_ITS ---
Subjective Subjective Date of Service: 09/06/24 Interval history: following for ESRD on dialysis - here with pneumonia blood cultures negative patient denies complaints Physical Exam 2 Vital Signs: Vital Signs: Last Vital Signs Temp 98.4 F 09/06/24 07:31 Pulse 65 09/06/24 10:39 Resp 17 09/06/24 07:31 BP 157/88 H 09/06/24 10:39 Pulse Ox 94 09/06/24 07:31 O2 Del Method Room Air 09/06/24 07:31 O2 Flow Rate 2 09/04/24 11:12 BMI result Body Mass Index 21.1 Const: General: no acute distress, alert and awake Resp: Effort & Inspection: normal respiratory effort and able to speak in complete sentences Auscultation: clear to auscultation bilaterally Cardio: Rate: regular rate Rhythm: regular rhythm Heart sounds: S1 normal heart sound present and S2 normal heart sound present GI: Palpation (GI): Soft to palpation and nontender Skin: Rashes: no rashes Extrem: General: No edema Objective Data Labs 09/06/24 07:03 09/06/24 07:03 Labs: Laboratory Results - last 24 hr 09/05/24 09/06/24 08:17 07:03 WBC 3.6 L RBC 2.84 L Hgb 9.2 L Hct 27.3 L MCV 96.1 MCH 32.4 MCHC 33.7 RDW 16.3 H Plt Count 141 L MPV 10.1 Absolute Nucleated RBC 0.000 Nucleated RBC % (auto) 0.0 Sodium 136 Potassium 4.9 Chloride 97 Carbon Dioxide 25 Anion Gap 19 BUN 66 H Creatinine 6.91 H* Estim Creat Clear Calc 12.1 Estimated GFR 9 Random Glucose 87 Calcium 9.2 Blood Type B Positive Antibody Screen NEGATIVE Crossmatch See Detail Microbiology Microbiology Results: Microbiology 09/01/24 18:23 Blood - Venous Blood Culture - Preliminary No growth after 48 hours. 09/01/24 18:23 Blood - Venous Blood Culture - Preliminary No growth after 48 hours. Procedures Date of Service Date of Service: 09/06/24 Assessment & Plan Assessment and plan (1) End stage renal disease on dialysis: Status: Acute (2) Anemia: Status: Acute Plan ESRD patient on HD here with fevers, chills blood cultures negative. Left permcath in place without swelling/erythema/drainage. HD M, W, F schedule, last session yesterday 09/05 H&H 9.2 and 27- will administer procrit 20,000 units no acidosis at this time no uremic symptoms phosphorous 5.1- continue binders with meals fluid status improved- patient has only trace LE swelling, greatly improved since extra ultrafiltration session this weekend blood pressures elevated- increase hydralazine to 50mg PO TID, continue amlodipine 10mg daily, labetolol 200mg BID oliguria at baseline pt denies changes in urine output Pt needs IV cefepime 2gm MWF after dialysis 09/06-09/15. [facility] ([phone]). Discussed with Dr Khan Time Spent With Patient Time: Total time managing care of this patient today ____ minutes. Progress Note: Quality Stroke Does the patient have a stroke diagnosis?: No Reason for No Anti-thrombotic by Day Two: Contraindicated
[2024-09-06 10:14] VITALS: PULSE 68; PULSE 69; PULSE 70; O2SAT 92; O2SAT 93; O2SAT 94
--- NOTE | 2024-09-06 10:37 | MHC.CM.PN ---
S/P L TKA Lives with his . He is independent with all functional mobility. HCP and Molst copies received and scanned into EMR. DP Home therapy, [facility]. Patient will transition to [facility] for Out Patient therapy.
[2024-09-06 10:39] VITALS: BP 157/88; PULSE 65
--- NOTE | 2024-09-06 10:41 | MHC.CM.PN ---
Addendum entered by Katelynn Bro 09/06/24 11:08: IMM 09/06/24 Patient has arranged for private transport to home. Original Note: Per MD rounds patient is ready to discharge today. [facility], has been notified. A Last dose letter has been provided to the patient.
== END 2024-09-06 13:59 | disposition home health service (06) | DRG 193 ==
LOC: HO.ED 18:21 → HO.EDOVER 20:51 → HO.IMC 09-02 07:42 → HO.S3 09-05 10:46
PROVIDERS: Family Medicine; Nurse Practitioner Family; Physician Assistant Medical; Student in an Organized Health Care Education/Training Program; Admitting Provider Student in an Organized Health Care Education/Training Program; Emergency Provider Internal Medicine; PCP Internal Medicine; Visit Provider Hospitalist
DX: J18.9 Pneumonia, unspecified organism (principal); N18.6 End stage renal disease; F11.20 Opioid dependence, uncomplicated; I12.0 Hypertensive chronic kidney disease with stage 5 chronic kidney disease or end stage renal disease; C90.01 Multiple myeloma in remission; D61.818 Other pancytopenia; E53.8 Deficiency of other specified B group vitamins; F17.210 Nicotine dependence, cigarettes, uncomplicated; R09.02 Hypoxemia; Z71.6 Tobacco abuse counseling; Z99.2 Dependence on renal dialysis; G62.9 Polyneuropathy, unspecified; E87.5 Hyperkalemia; D63.1 Anemia in chronic kidney disease; E83.39 Other disorders of phosphorus metabolism; Z91.119 Patient's noncompliance with dietary regimen due to unspecified reason; Z20.822 Contact with and (suspected) exposure to COVID-19; Z79.899 Other long term (current) drug therapy
CPT/HCPCS: 0241U; 36415; 71045; 76705; 80048; 80053; 80076; 80202; 82607; 82746; 82803; 83540; 83605; 83615; 83735; 83880; 83970; 84100; 84132; 84439; 84443; 84484; 84550; 85007; 85027; 86850; 86900; 86901; 86923; 87040; 90999; 93005; 93306; 97161; 99285; J0613; J0692; J1335; J1644; J1938; J2185; J2470; J3370; J3371; P9016; Q5106

== ENCOUNTER → 2024-09-01 18:02 | Outpatient (BNV) | payer MEDICARE, MEDICAID, SELFPAY | PROVIDERS: Emergency Provider Internal Medicine; PCP Internal Medicine; Visit Provider Specialist | DX: R18.8 Other ascites (principal) | CPT/HCPCS: 76705 ==

== ENCOUNTER → 2024-09-01 18:03 | Outpatient (BNV) | payer MEDICARE, MEDICAID, SELFPAY | PROVIDERS: Admitting Provider Student in an Organized Health Care Education/Training Program; Emergency Provider Internal Medicine; PCP Internal Medicine; Visit Provider Internal Medicine | DX: R94.31 Abnormal electrocardiogram [ECG] [EKG] (principal); R07.9 Chest pain, unspecified | CPT/HCPCS: 93010 ==

== ENCOUNTER 2024-09-01 19:36 | Outpatient (BNV) | payer MEDICARE, MEDICAID, SELFPAY | END 2024-09-02 07:00 | PROVIDERS: Admitting Provider Student in an Organized Health Care Education/Training Program; Emergency Provider Internal Medicine; PCP Internal Medicine; Visit Provider Internal Medicine | DX: I27.20 Pulmonary hypertension, unspecified (principal); I34.0 Nonrheumatic mitral (valve) insufficiency; I36.1 Nonrheumatic tricuspid (valve) insufficiency; I51.7 Cardiomegaly; R94.31 Abnormal electrocardiogram [ECG] [EKG] | CPT/HCPCS: 93010; 93306; 93356 ==

== ENCOUNTER → 2024-09-01 19:36 | Outpatient (BNV) | payer MEDICARE, MEDICAID, SELFPAY | PROVIDERS: Admitting Provider Student in an Organized Health Care Education/Training Program; Emergency Provider Internal Medicine; PCP Internal Medicine; Visit Provider Internal Medicine Gastroenterology | DX: D64.9 Anemia, unspecified (principal) | CPT/HCPCS: 99232 ==

== ENCOUNTER → 2024-09-01 19:36 | Outpatient (BNV) | payer MEDICARE, MEDICAID, SELFPAY | PROVIDERS: Admitting Provider Student in an Organized Health Care Education/Training Program; Emergency Provider Internal Medicine; PCP Internal Medicine; Visit Provider Nurse Practitioner Family | DX: J18.9 Pneumonia, unspecified organism (principal) | CPT/HCPCS: 99223; 99232; 99233 ==

== ENCOUNTER → 2024-09-01 19:36 | Outpatient (BNV) | payer MEDICARE, MEDICAID, SELFPAY | PROVIDERS: Admitting Provider Student in an Organized Health Care Education/Training Program; Emergency Provider Internal Medicine; PCP Internal Medicine; Visit Provider Internal Medicine | DX: N18.6 End stage renal disease (principal); Z99.2 Dependence on renal dialysis; R50.9 Fever, unspecified | CPT/HCPCS: 99232 ==

== ENCOUNTER → 2024-09-01 19:36 | Outpatient (BNV) | payer MEDICARE, MEDICAID, SELFPAY | PROVIDERS: Admitting Provider Student in an Organized Health Care Education/Training Program; Emergency Provider Internal Medicine; PCP Internal Medicine; Visit Provider Nurse Practitioner Family | DX: N18.6 End stage renal disease (principal); Z99.2 Dependence on renal dialysis; D64.9 Anemia, unspecified | CPT/HCPCS: 90935; 99222 ==

== ENCOUNTER → 2024-09-06 23:59 | Outpatient (BNV) | payer MEDICARE, MEDICAID, SELFPAY | PROVIDERS: PCP Internal Medicine; Visit Provider Internal Medicine Nephrology | DX: N18.6 End stage renal disease (principal) | CPT/HCPCS: 90961 ==

== ENCOUNTER 2024-09-27 09:38 | Outpatient (AMB) | payer MEDICARE, MEDICAID, SELFPAY ==
--- NOTE | 2024-09-27 09:35 | MHC.PC.OV ---
Vital Signs 09/27/24 09:40 09/27/24 13:36 Height 5 ft 7.13 in Weight 150 lb BMI 23.4 BP 182/90 H 160/90 H Blood Pressure Location Rt brachial Position Sitting Respiration 16 Pulse 86 Pulse Source Pulse Oximeter Temp 98.2 F Temp Source Oral Pulse Oximetry (%) 96 Oxygen Delivery Method Room Air Intake Visit Reasons: establish care Grievance And Appeals Specialist Required: No Accompanied by: Self / Same As Patient Allergies No Known Allergies Allergy (Verified 09/27/24 10:08) Medication List - Last Reconciled 09/27/24 by Bess Hernandez PA-C acyclovir 400 mg PO DAILY PRN amlodipine 10 mg PO DAILY cefepime 2 grams IV MOWEFR 10 days clonazepam 1 mg PO BID folic acid 1 mg PO DAILY gabapentin 400 mg PO BID hydralazine 50 mg PO BID labetalol 200 mg PO BID methadone 140 mg PO DAILY oxycodone 30 mg PO 5XD sodium zirconium cyclosilicate (Lokelma) 5 grams PO SUTUTHSA sulfamethoxazole-trimethoprim 800-160 mg 1 tab PO MOWEFR Tobacco use date assessed: 09/27/24 Dental Screening Dental Screen Date: 09/27/24 Did you have a dental visit in the last 12 months?: Yes Did you have a dental problem in the last 6 months where you did not have access to dental care?: No Was dental information given to patient?: Patient has dentist HPI establish care HPI Details The patient is a 44-year-old male presenting for a new patient appointment and management of multiple chronic conditions. The patient has a history of end-stage renal disease and is currently on dialysis. He follows up with a full stack software engineer in [facility], although he could not recall the name of the physician. He has been on dialysis for an unspecified duration. The patient has a history of multiple myeloma, which has resulted in painful lesions on his spine and pelvis. Patient was treated in [place] at [facility] now in remission being followed by Oncology Dr. Goyo Cannon. He experiences significant pain, requiring high doses of oxycodone for pain management. He has a history of cardiomegaly, with a recent echocardiogram showing a decreased ejection fraction of 45% and moderate diastolic dysfunction. The patient also has mitral and tricuspid valve regurgitation and moderate pulmonary hypertension. The patient has a history of substance use disorder and is currently on methadone maintenance therapy, which he has been stable on since 2005. He also has a history of tobacco dependence and restless leg syndrome, for which he takes gabapentin. He was recently hospitalized for pneumonia and acute respiratory failure with hypoxia. During this hospitalization, he was treated for folate deficiency and anemia, and he continues to have chronic low white blood cell and platelet counts. The patient reports a history of hypertension and herpes simplex virus. He is currently on multiple medications, including amlodipine, hydralazine, and labetalol for blood pressure management. He is on acyclovir for herpes simplex virus. Preventative care measures discussed include a colon cancer screening with a stool test, as the patient is approaching the age of 45 and has no family history of colon cancer or symptoms such as black or bloody stools. Social History - Substance use: History of intravenous drug use, currently on methadone maintenance therapy since 2005. - Tobacco use: History of tobacco dependence. [facility] Medical History (Updated 09/27/24 @ 14:19 by Bess Hernandez PA-C) Moderate pulmonary hypertension Moderate tricuspid valve regurgitation Mitral valve regurgitation Left atrial dilation Diastolic dysfunction History of echocardiogram Methadone dependence Colon cancer screening Hypertension Establishing care with new doctor, encounter for Bacteremia End stage renal disease on dialysis Permanent central venous catheter in place Tobacco dependence Substance use disorder History of intravenous drug abuse Restless legs Anxiety Multiple myeloma Family History Maternal Uncle Cancer Mother No problems noted. Social History Household Members: Family Housing: House Do you presently have visiting nurse or other home services: No Alcohol intake: current Alcohol intake frequency: holidays/special occasions only Patient Tobacco Use Status: Current someday Tobacco user Tobacco use type: Cigarette Substance Use Type: Marijuana service: No Current occupational status: disabled Cognitive needs: No Hearing needs: No Vision needs: No Questionnaire PHQ-9 Over the last 2 weeks, how often have you been bothered by any of the following problems? 1. Little interest or pleasure in doing things: not at all 2. Feeling down, depressed, or hopeless: not at all 3. Trouble falling or staying asleep, or sleeping too much: not at all 4. Feeling tired or having little energy: not at all 5. Poor appetite or overeating: not at all 6. Feeling bad about yourself - or that you are a failure or have let yourself or your family down: not at all 7. Trouble concentrating on things, such as reading the newspaper or watching television: not at all 8. Moving or speaking so slowly that other people could have noticed. Or the opposite - being so fidgety or restless that you have been moving around a lot more than usual: not at all 9. Thoughts that you would be better off or of hurting yourself in some way: not at all Total score: 0 Depression Screening Interpretation: Negative Depression Screening Done: Yes 70045 - PHQ-9 Billing: Yes Source: Developed by Drs. Goyo Schofield, Gabbie Berry, Jairo Barriga and colleagues, with an educational tosin from [employer]. Thrive Questionnaire Date Thrive assessed: 09/27/24 I am a: Patient What is your living situation today?: I have a steady place to live Within the past 12 months, did the food you bought not last and you didn't have the money to get more?: Never true Within the past 12 months, did you worry whether your food would run out before you got money to buy more?: Never true Do you have trouble paying for medicines?: No Do you have trouble getting transportation to medical appointments?: No Do you have trouble paying your heating and electricity bill?: No Do you have trouble taking care of your child, family member or friend?: No Do you have trouble with day-to-day activities such as bathing, preparing meals, shopping, managing finances, etc.?: No Are you currently unemployed and looking for a job?: No Are you interested in more education?: No Please select the resources that you would like help with: None THRIVE Score: 0 AUDIT C Alcohol Use Questionnaire (AUDIT-C) 1. How often do you have a drink containing alcohol?: Monthly or less 2. How many drinks containing alcohol do you have on a typical day when you are drinking?: 1 or 2 3. How often do you have six or more drinks on one occasion?: Never Total Score: 1 Score Reviewed/Action Taken: No INOCENCIO-7 AMB Questionnaire INOCENCIO-7 Date INOCENCIO - 7 assessed: 09/27/24 Feeling nervous, anxious, or on edge: 0 = Not at all Not being able to stop or control worryin = Not at all Worrying too much about different things: 0 = Not at all Trouble relaxin = Not at all Being so restless that it is hard to sit still: 0 = Not at all Becoming easily annoyed or irritable: 0 = Not at all Feeling afraid as if something awful might happen: 0 = Not at all Total INOCENCIO-7 score (0-4 normal; 5-9 mild; 10-14 moderate; 15-21 severe): 0 Source: Developed by Drs. Goyo Schofield, Gabbie Berry, Jairo Barriga and colleagues, with an educational tosin from [employer]. INOCENCIO-7 Assessment Billing INOCENCIO-7 Assessment Tool: INOCENCIO-7 Assessment 61337 Review of Systems Const Details: - Cardiovascular: Reports history of cardiomegaly. Denies chest pain or palpitations. - Respiratory: Reports recent pneumonia and acute respiratory failure with hypoxia. Denies current dyspnea or cough. - Neurological: Reports restless leg syndrome. Denies headaches or dizziness. - Musculoskeletal: Reports pain due to multiple myeloma lesions on spine and pelvis. - Hematologic: Reports chronic anemia and low platelet count. - Gastrointestinal: Denies black or bloody stools. Physical exam (Primary Care) Vital Signs: Last Vital Signs Temp 98.2 F 09/27/24 09:40 Pulse 86 09/27/24 09:40 Resp 16 09/27/24 09:40 BP 182/90 H 09/27/24 09:40 Pulse Ox 96 09/27/24 09:40 Oxygen Delivery Method Room Air 09/27/24 09:40 Care Plan Goal for BP management: <140/90 patient to monitor his blood pressure and bring back blood pressure diary when he returns at his next visit BMI result Body Mass Index 23.4 Tobacco/Smoking Status: Tobacco use Status Tobacco use date assessed 09/27/24 09/27/24 09:38 Patient Tobacco Use Status Current someday Tobacco 09/27/24 09:48 Tobacco use type Cigarette 09/27/24 09:47 PHQ-9: PHQ-9 Score PHQ-9: Total score 0 09/27/24 09:38 Depression Screening Interpretation: Negative Thrive Assessment: Date of Thrive Assessment Date Thrive assessed 09/27/24 09/27/24 09:38 Const Other: Appearance: Alert. Oriented X3. No acute distress. Head: Normal external exam. Normocephalic. Atraumatic. Eyes: Pupils are equal, round, and reactive to light. Extraocular movements intact. Conjunctiva and sclera normal. Eyelids normal. Ears: External auditory canal normal. Tympanic membranes normal. Throat: Pharynx normal. Uvula midline. Moist mucous membranes. Neck: Normal inspection. Neck supple. Full range of motion. No adenopathy. No meningeal signs. Cardiovascular: Heart rate and rhythm abnormal. Heart murmur noted. Decreased ejection fraction of 45%. Grade 2 moderate diastolic dysfunction. Left atrium severely dilated. Mitral valve regurgitation. Mild to moderate tricuspid valve regurgitation. Moderate pulmonary hypertension. Blood pressure 160/90. Respiratory: No respiratory distress. Breath sounds normal. No wheezes/rales/rhonchi noted. Chest nontender. No accessory muscle usage noted or decreased air movement noted. Abdomen: Soft and nontender. Back: No costovertebral angle tenderness. Full range of motion noted. Skin: Skin warm and dry. Normal skin color. Normal skin turgor. No rashes/lesions/lacerations noted. Extremities: Lower extremity edema noted. Extremities exhibit normal range of motion. Neuro: Oriented X 3. No motor deficit. No sensory deficit. Reflexes normal. Results Reviewed Results Reviewed: - Labs: Sodium and potassium levels normal as of September 06. BUN 66 mg/dL, creatinine 6.91 mg/dL, GFR 9 mL/min/1.73m?. - Echocardiogram: Decreased ejection fraction of 45%, moderate diastolic dysfunction, mitral and tricuspid valve regurgitation, moderate pulmonary hypertension. Coding Level of Care Code New Pt Level 5 (65227) Complex EM visit Add On G2211 Diagnoses Establishing care with new doctor, encounter for Z76.89 End stage renal disease on dialysis N18.6; Z99.2 Multiple myeloma not having achieved remission C90.00 Multiple myeloma remission status: not in remission Cardiomegaly I51.7 Hypertension I10 Colon cancer screening Z12.11 Additional Codes PHQ-9 - 34395 - PHQ-9 Billing: Yes ([id number]) INOCENCIO-7 Assessment Billing - INOCENCIO-7 Assessment Tool: INOCENCIO-7 Assessment 49195 ([id number]) Time Spent (min) 60 Assessment & Plan Assessment & Plan (1) Establishing care with new doctor, encounter for: Code(s): Z76.89 - Persons encountering health services in other specified circumstances Category: Medical (2) End stage renal disease on dialysis: Code(s): N18.6 - End stage renal disease; Z99.2 - Dependence on renal dialysis Category: Medical Plan: The patient will continue dialysis treatment and follow up with his full stack software engineer in [place]. Regular monitoring of renal function and electrolyte levels will be maintained. Condition is chronic and stable continue to monitor. (3) Multiple myeloma: Code(s): C90.00 - Multiple myeloma not having achieved remission Category: Medical Qualifiers: Multiple myeloma remission status: not in remission Qualified Code(s): C90.00 - Multiple myeloma not having achieved remission Plan: The patient is currently in remission. Being followed by Dr. Goyo Cannon. Patient to continue being followed by oncologist Dr. Goyo Cannon. Pain management includes high doses of oxycodone, which will be gradually tapered as part of a new pain management plan. He was currently on 30 mg 5 times a day we will reduced to 30 mg to 4 times a day for this month. We explained to him that we may continue decreasing this dose to wean him on a lower safe for dose. We will have the help of pain management for this. We will continue prescribing him gabapentin 400 mg b.i.d.. He will continue receiving methadone from the methadone clinic. He will continue receiving clonazepam from his oncologist. Patient to return every 30 days for re-evaluation. (4) Cardiomegaly: Code(s): I51.7 - Cardiomegaly Category: Medical Plan: The patient will be monitored for cardiac function, with a focus on managing blood pressure and addressing any symptoms of heart failure. Follow-up with a feather maker is recommended. Condition is chronic and stable continue to monitor. (5) Hypertension: Code(s): I10 - Essential (primary) hypertension Category: Medical Plan: The patient's blood pressure medications include amlodipine, hydralazine, and labetalol. Hydralazine dosage will be increased to 50 mg three times daily to better control blood pressure. Condition is chronic and stable continue to monitor. (6) Colon cancer screening: Code(s): Z12.11 - Encounter for screening for malignant neoplasm of colon Category: Medical Plan: The patient will undergo a stool test for colon cancer screening, given his age and lack of family history or symptoms. If the test is positive, a referral to gastroenterology for a colonoscopy will be made. Plan Plan Patient was informed and verbally consented to the use of an ambient scribe for clinic note documentation during this visit. 1. End-Stage Renal Disease The patient will continue dialysis treatment and follow up with his full stack software engineer in [place]. Regular monitoring of renal function and electrolyte levels will be maintained. 2. Multiple Myeloma The patient will continue receiving treatment in [place]. Pain management includes high doses of oxycodone, which will be gradually tapered as part of a new pain management plan. 3. Cardiomegaly The patient will be monitored for cardiac function, with a focus on managing blood pressure and addressing any symptoms of heart failure. Follow-up with a feather maker is recommended. 4. Hypertension The patient's blood pressure medications include amlodipine, hydralazine, and labetalol. Hydralazine dosage will be increased to 50 mg three times daily to better control blood pressure. 5. Preventative Care: Colon Cancer Screening With Stool Test The patient will undergo a stool test for colon cancer screening, given his age and lack of family history or symptoms. If the test is positive, a referral to gastroenterology for a colonoscopy will be made. During the visit, we discussed the patient's multiple chronic conditions, including end-stage renal disease, multiple myeloma, and cardiomegaly. We reviewed his current medication regimen and the need for adjustments, particularly in pain management and blood pressure control. The patient was informed about the importance of regular follow-ups with his full stack software engineer and feather maker. We also discussed the plan to taper his oxycodone dosage and the necessity of attending a pain management clinic. Preventative care measures, such as colon cancer screening, were also addressed, and the patient was advised on the procedure for the stool test. Orders: Referrals Cologuard Test Z12.11 - Encounter for screening for malignant neoplasm of colon, Z12.12 - Encounter for screening for malignant neoplasm of rectum Pain Management Referral C90.00 - Multiple myeloma not having achieved remission, F11.20 - Opioid dependence, uncomplicated, F19.90 - Other psychoactive substance use, unspecified, uncomplicated, I51.7 - Cardiomegaly, N18.6 - End stage renal disease, Z95.828 - Presence of other vascular implants and grafts, Z99.2 - Dependence on renal dialysis Cardiology Referral I07.1 - Rheumatic tricuspid insufficiency, I27.20 - Pulmonary hypertension, unspecified, I34.0 - Nonrheumatic mitral (valve) insufficiency, I51.7 - Cardiomegaly, I51.89 - Other ill-defined heart diseases, Z92.89 - Personal history of other medical treatment Medications: New sulfamethoxazole-trimethoprim 800-160 mg 1 tab PO MOWEFR 90 tabs 3RF Changed From gabapentin 400 mg PO BID To gabapentin 400 mg (4 x 100 mg) PO BID 240 caps 0RF 30 days From hydralazine 50 mg PO BID To hydralazine 50 mg PO TID 270 tabs 1RF 90 days From oxycodone 30 mg PO 5XD To oxycodone 30 mg PO Q6H 120 tabs 0RF 30 days Patient Instructions: - Continue dialysis as scheduled and follow up with your full stack software engineer. - Take your blood pressure medications as prescribed. Hydralazine dosage has been increased to 50 mg three times daily. - Attend the pain management clinic as discussed to help manage your pain and adjust medication as needed. - Complete the stool test for colon cancer screening and mail it within 30 days. - Schedule follow-up appointments with your feather maker and full stack software engineer. - Contact the clinic at least five days before running out of medications for refills.
[2024-09-27 09:40] VITALS: BP 182/90; PULSE 86; RESP 16; TEMP 36.8; O2SAT 96; BMI 23.4
--- OUTSIDE RECORDS SUMMARY | 2024-09-27 10:19 | XMS_ITS | Clinical Summary ---
Author Organization [facility], Address [address] [place] [address] Phone Care Team Providers Care Clerk Secretary Name Role Phone Nabil Prado MD Primary Care Provider [phone] Allergies No known active allergies Medications lenalidomide (REVLIMID) 25 MG capsule Take 25 mg by mouth 1 (one) time each day Take whole with water. Do not break, chew, or open. Active acyclovir (ZOVIRAX) 400 MG tablet Take 400 mg by mouth twice a day Active METHADONE HCL PO Take 140 mg by mouth Active DEXAMETHASONE PO Take 20 mg by mouth Active ondansetron (ZOFRAN) 8 MG tablet Take 8 mg by mouth every 8 (eight) hours if needed for nausea or vomiting Active calcium carbonate-vitam in D 600-200 MG-UNIT per tablet Take 1 tablet by mouth 1 (one) time each day Active Neomycin-Bacitr acin-Polymyxin (HCA TRIPLE ANTIBIOTIC OINTMENT EX) Apply 1 application topically 3 times a day Active albuterol HFA (PROVENTIL HFA;VENTOLIN HFA) 108 (90 Base) MCG/ACT inhaler 3 Active clonazePAM (KlonoPIN) 1 MG tablet 3 Active famotidine (PEPCID) 20 MG tablet 3 Active ondansetron (ZOFRAN) 4 MG tablet 3 Active oxyCODONE (ROXICODONE) 10 MG immediate release tablet 3 Active prochlorperazin e (COMPAZINE) 5 MG tablet Take by mouth 2 Active methadone in dextrose solution Take 140 mg by mouth 9 Active Active Problems Problem Noted Date Diagnosed Date Dependence on renal dialysis 05/06/2022 End stage renal disease 05/06/2022 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 Restless leg syndrome 04/27/2020 Hypogonadism 04/27/2020 Addiction 04/27/2020 Overview (04/27/2020): OPIATE/NARCOTIC SINCE 2005, ON METHADONE Social History Tobacco Use Types Packs/Day Years Used Date Smoking Tobacco: Every Day Cigarettes Alcohol Use Standard Drinks/Week Comments Not Currently 0 (1 standard drink = 0.6 oz pur e alcohol) Sex and Gender Information Value Date Recorded Sex Assigned at Not on file Legal Sex Male 1:22 PM EST Gender Identity Not on file Sexual Orientation Not on file Last Filed Vital Signs Vital Sign Reading Time Taken Comments Blood Pressure 101/68 05/07/2022 10:57 AM EST Pulse 63 05/07/2022 10:57 AM EST Temperature 36.8 C (98.2 F) 05/07/2022 10:57 AM EST Respiratory Rate 16 05/01/2020 2:24 PM EST Oxygen Saturation 100% 05/07/2022 10:57 AM EST Inhaled Oxygen Concentration - - Weight 74.8 kg (165 lb) 05/07/2022 10:57 AM EST Height 172.7 cm (5' 8 ) 05/07/2022 10:57 AM EST Body Mass Index 25.09 05/07/2022 10:57 AM EST Plan of Treatment Health Maintenance Due Date Last Done Comments Hepatitis B Vaccine (1 of 3 - 19+ 3-dose series) 02/27/1999 Pneumococcal Vaccine: Peds ( 0 to 5 Years) and At-Risk Patients (6 to 49 Years) (3 of 3 - PCV20 or PCV21) 08/18/2023 08/17/2018, 06/15/2018 Influenza Vaccine (#1) 2024 Pneumococcal Vaccine: 50+ Years Discontinued 9, 06/15/2018 Insurance [place] Care Teams Clerk Secretary Relationship Specialty Start Date End Date Nabil Prado MD [address] [place] [address] [place] PCP - General Internal Medicine 04/27/20
--- OUTSIDE RECORDS SUMMARY | 2024-09-27 10:19 | XMS_ITS | Clinical Summary ---
Author Organization [facility] Address [address] [place] [address] Care Team Providers Care Parts Specialist Name Role Phone Unavailable Primary Care Provider Unavailabl e Social History Tobacco Use Types Packs/Day Years Used Date Smoking Tobacco: Never Assessed Sex and Gender Information Value Date Recorded Sex Assigned at Male 05/19/2023 9:49 AM EDT Legal Sex Male 12:07 PM EDT Gender Identity Male 05/19/2023 9:49 AM EDT Sexual Orientation Choose not to disclose 2023 9:49 AM EDT Plan of Treatment Health Maintenance Due Date Last Done Comments Hepatitis C Virus Screening 1980 HIV Screening 02/27/1993 DTaP/Tdap/Td Vaccines (1 - Tdap) 02/27/1999 Hepatitis B Vaccines (1 of 3 - 19+ 3-dose series) 02/27/1999 COVID-19 Vaccine ( - 2023-2 5 season) 2023 Influenza Vaccine 10/07/2024 HPV Vaccines Aged Out No longer eligi ble based on patient's age to complete this topic Pneumococcal Vaccine: Pediat jelena (0-5 Years) and At-Risk Patients (6 to 49 Years) Aged Out No longer eligible b ased on patient's age to complete this topic Insurance MEDICARE PART A MEDICARE PART A & B [facility]
--- OUTSIDE RECORDS SUMMARY | 2024-09-27 10:19 | XMS_ITS ---
Author Name [facility] Organization Unknown Results Test Name/Text Value Interpretation Date Range Source CREATININE 10.2 MG/DL Critical 05/15/2023 0.7 - 1.2 [facility] GLUCOSE, FASTING 103.0 MG/DL Normal 05/15/2023 74 - 106 [facility] ANION GAP 23.0 MMOL/L Above high normal 05/15/2023 - [facility] BUN/CREATININE RATIO 2.9 Normal 05/15/2023 [facility] EST. GLOMERULAR FILTRATION 6.0 Normal 05/15/2023 [facility] CALCIUM 8.0 MG/DL Below low normal 05/15/2023 8.6 - 10.4 [facility] PHOSPHORUS 6.5 MG/DL Above high normal 05/15/2023 2.5 - 4.5 [facility] CHLORIDE 99.0 MMOL/L Normal 05/15/2023 98 - 107 [facility] SODIUM 141.0 MMOL/L Normal 05/15/2023 136 - 145 [facility] MAGNESIUM 2.1 MG/DL Normal 05/15/2023 1.6 - 2.6 [facility] CO2 23.0 MMOL/L Normal 05/15/2023 22 - 29 [facility] POTASSIUM 3.5 MMOL/L Normal 05/15/2023 3.5 - 4.9 [facility] EST CREATININE CLEARANCE CALC 8.2 mL/min Normal 05/15/2023 [facility] BLOOD UREA NITROGEN 30.0 MG/DL Above high normal 05/15/2023 6 - 20 [facility] PLATELET COUNT 119.0 K/UL Below low normal 05/15/2023 150 - 450 [facility] EOSINOPHILS 9.4 % Normal 05/15/2023 [facility] HEMOGLOBIN 9.7 GM/DL Below low normal 05/15/2023 13.5 - 18 [facility] HEMATOCRIT 30.5 % Below low normal 05/15/2023 40 - 54 [facility] NEUTROPHILS 66.8 % Normal 05/15/2023 [facility] BASOPHILS 1.1 % Normal 05/15/2023 [facility] RBC 3.03 M/UL Below low normal 05/15/2023 4.7 - 6 [facility] MCHC 31.8 GM/DL Below low normal 05/15/2023 32 - 36 [facility] ABSOLUTE MONOS 0.3 K/UL Normal 05/15/2023 0 - 0.8 [facility] MCV 100.7 FL Above high normal 05/15/2023 78 - 100 [facility] ABSOLUTE NEUTROPHILS 2.5 K/UL Normal 05/15/2023 1.8 - 7. 8 [facility] IMMATURE GRANULOCYTE PERCENT 0.8 % Normal 05/15/2023 0 - 0.8 [facility] MCH 32.0 PG Above high normal 05/15/2023 27 - 31 [facility] MONOCYTES 8.8 % Normal 05/15/2023 [facility] ABSOLUTE LYMPHS 0.5 K/UL Below low normal 05/15/2023 1 - 4. 8 [facility] ABSOLUTE IMMATURE GRANULOCYTE 0.03 K/UL Normal 05/15/2023 0 - 0.08 [facility] RDW 14.5 % Normal 05/15/2023 11.5 - 14.5 [facility] MEAN PLATELET VOLUME 9.4 fL Normal 05/15/2023 8.8 - 13 .6 [facility] LYMPHOCYTES 13.1 % Normal 05/15/2023 [facility] ABSOLUTE BASOS 0.0 K/UL Normal 05/15/2023 0 - 0.2 [facility] WBC 3.7 K/UL Below low normal 05/15/2023 4 - 10.5 [facility] ABSOLUTE EOS 0.4 K/UL Normal 05/15/2023 0 - 0.5 [facility] POLYCHROM OCCASIONAL Normal 05/14/2023 [facility] TOXIC GRANULATION PRESENT Normal 05/14/2023 [facility] ANISOCYTOSIS 1+ Normal 05/14/2023 [facility] PLATELET MORPH DECREASED Normal 05/14/2023 [facility] EOSINOPHILS 6.0 % Normal 05/14/2023 0 - 6 [facility] MONOCYTES 6.0 % Normal 05/14/2023 2 - 12 [facility] BANDS 2.0 % Normal 05/14/2023 0 - 15 [facility] NEUTROPHILS 77.0 % Above high normal 05/14/2023 25 - 62 [facility] LYMPHOCYTES 9.0 % Below low normal 05/14/2023 20 - 48 [facility] CELLS COUNTED 100.0 Normal 05/14/2023 [facility] NEUTROPHILS 72.8 % Normal 05/14/2023 [facility] MCHC 31.9 GM/DL Below low normal 05/14/2023 32 - 36 [facility] ABSOLUTE MONOS 0.4 K/UL Normal 05/14/2023 0 - 0.8 [facility] HEMATOCRIT 32.3 % Below low normal 05/14/2023 40 - 54 [facility] RBC 3.19 M/UL Below low normal 05/14/2023 4.7 - 6 [facility] WBC 5.6 K/UL Normal 05/14/2023 4 - 10.5 [facility] LYMPHOCYTES 8.4 % Normal 05/14/2023 [facility] HEMOGLOBIN 10.3 GM/DL Below low normal 05/14/2023 13.5 - 18 [facility] ABSOLUTE BASOS 0.1 K/UL Normal 05/14/2023 0 - 0.2 [facility] MCH 32.3 PG Above high normal 05/14/2023 27 - 31 [facility] MEAN PLATELET VOLUME 9.4 fL Normal 05/14/2023 8.8 - 13 .6 [facility] ABSOLUTE EOS 0.2 K/UL Normal 05/14/2023 0 - 0.5 [facility] MCV 101.3 FL Above high normal 05/14/2023 78 - 100 [facility] ABSOLUTE IMMATURE GRANULOCYTE 0.41 K/UL Above high normal 05/14/2023 0 - 0.08 [facility] IMMATURE GRANULOCYTE PERCENT 7.3 % Above high normal 05/14/2023 0 - 0.8 [facility] PLATELET COUNT 118.0 K/UL Below low normal 05/14/2023 150 - 450 [facility] ABSOLUTE NEUTROPHILS 4.1 K/UL Normal 05/14/2023 1.8 - 7. 8 [facility] MONOCYTES 6.9 % Normal 05/14/2023 [facility] ABSOLUTE LYMPHS 0.5 K/UL Below low normal 05/14/2023 1 - 4. 8 [facility] EOSINOPHILS 3.7 % Normal 05/14/2023 [facility] BASOPHILS 0.9 % Normal 05/14/2023 [facility] RDW 14.0 % Normal 05/14/2023 11.5 - 14.5 [facility] CREATININE 8.0 MG/DL Critical 05/14/2023 0.7 - 1.2 [facility] PHOSPHORUS 5.8 MG/DL Above high normal 05/14/2023 2.5 - 4.5 [facility] ANION GAP 22.0 MMOL/L Above high normal 05/14/2023 - [facility] POTASSIUM 3.4 MMOL/L Below low normal 05/14/2023 3.5 - 4.9 [facility] CO2 24.0 MMOL/L Normal 05/14/2023 22 - 29 [facility] GLUCOSE, FASTING 102.0 MG/DL Normal 05/14/2023 74 - 106 [facility] MAGNESIUM 1.9 MG/DL Normal 05/14/2023 1.6 - 2.6 [facility] BUN/CREATININE RATIO 2.8 Normal 05/14/2023 [facility] CHLORIDE 97.0 MMOL/L Below low normal 05/14/2023 98 - 107 [facility] SODIUM 140.0 MMOL/L Normal 05/14/2023 136 - 145 [facility] CALCIUM 8.2 MG/DL Below low normal 05/14/2023 8.6 - 10.4 [facility] EST. GLOMERULAR FILTRATION 7.0 Normal 05/14/2023 [facility] BLOOD UREA NITROGEN 23.0 MG/DL Above high normal 05/14/2023 6 - 20 [facility] EST CREATININE CLEARANCE CALC 10.5 mL/min Normal 05/14/2023 [facility] EPINEPHRINE 18.0 pg/mL Normal 05/29/2023 [facility] NOREPINEPHRINE 287.0 pg/mL Normal 05/29/2023 [facility] CATECHOLAMINES, TOTAL 334.0 pg/mL Normal 05/29/2023 [facility] DOPAMINE 29.0 pg/mL Above high normal 05/29/2023 [facility] NORMETANEPHRINE,FREE 63.0 pg/mL Normal 05/19/2023 - [facility] TOTAL, FREE (MN NMN) 100.0 pg/mL Normal 05/19/2023 - [facility] METANEPHRINE,FREE 37.0 pg/mL Normal 05/19/2023 - [facility] ALDOSTERONE TNP Normal 06/08/2023 [facility] VERO/PRA RATIO see note Normal 05/31/2023 [facility] PRA, LC/MS/MS 0.05 ng/mL/h Below low normal 05/31/2023 0.25 - 5.82 [facility] HEPATITIS Bs AB, QUANT 20.54 Normal 05/13/2023 - [facility] HEPATITIS Bs AG W/RFLX CONF NONREACTIVE Normal 05/13/2023 - [facility] CREATININE 10.4 MG/DL Critical 05/13/2023 0.7 - 1.2 [facility] PHOSPHORUS 6.6 MG/DL Above high normal 05/13/2023 2.5 - 4.5 [facility] GLUCOSE, FASTING 92.0 MG/DL Normal 05/13/2023 74 - 106 [facility] POTASSIUM 4.1 MMOL/L Normal 05/13/2023 3.5 - 4.9 [facility] BLOOD UREA NITROGEN 42.0 MG/DL Above high normal 05/13/2023 6 - 20 [facility] ANION GAP 24.0 MMOL/L Above high normal 05/13/2023 - [facility] EST CREATININE CLEARANCE CALC 8.0 mL/min Normal 05/13/2023 [facility] CHLORIDE 101.0 MMOL/L Normal 05/13/2023 98 - 107 [facility] BUN/CREATININE RATIO 4.0 Normal 05/13/2023 [facility] CALCIUM 8.1 MG/DL Below low normal 05/13/2023 8.6 - 10.4 [facility] CO2 19.0 MMOL/L Below low normal 05/13/2023 22 - 29 [facility] SODIUM 140.0 MMOL/L Normal 05/13/2023 136 - 145 [facility] EST. GLOMERULAR FILTRATION 5.0 Normal 05/13/2023 [facility] MAGNESIUM 2.2 MG/DL Normal 05/13/2023 1.6 - 2.6 [facility] MONOCYTES 6.9 % Normal 05/13/2023 [facility] MCHC 32.0 GM/DL Normal 05/13/2023 32 - 36 [facility] HEMATOCRIT 31.6 % Below low normal 05/13/2023 40 - 54 [facility] ABSOLUTE EOS 0.3 K/UL Normal 05/13/2023 0 - 0.5 [facility] BASOPHILS 1.2 % Normal 05/13/2023 [facility] HEMOGLOBIN 10.1 GM/DL Below low normal 05/13/2023 13.5 - 18 [facility] NEUTROPHILS 71.7 % Normal 05/13/2023 [facility] RDW 13.8 % Normal 05/13/2023 11.5 - 14.5 [facility] RBC 3.18 M/UL Below low normal 05/13/2023 4.7 - 6 [facility] ABSOLUTE BASOS 0.1 K/UL Normal 05/13/2023 0 - 0.2 [facility] IMMATURE GRANULOCYTE PERCENT 6.7 % Above high normal 05/13/2023 0 - 0.8 [facility] PLATELET COUNT 113.0 K/UL Below low normal 05/13/2023 150 - 450 [facility] MCH 31.8 PG Above high normal 05/13/2023 27 - 31 [facility] ABSOLUTE NEUTROPHILS 4.0 K/UL Normal 05/13/2023 1.8 - 7. 8 [facility] ABSOLUTE MONOS 0.4 K/UL Normal 05/13/2023 0 - 0.8 [facility] LYMPHOCYTES 7.8 % Normal 05/13/2023 [facility] MCV 99.4 FL Normal 05/13/2023 78 - 100 [facility] EOSINOPHILS 5.7 % Normal 05/13/2023 [facility] ABSOLUTE IMMATURE GRANULOCYTE 0.38 K/UL Above high normal 05/13/2023 0 - 0.08 [facility] MEAN PLATELET VOLUME 8.6 fL Below low normal 05/13/2023 8 .8 - 13.6 [facility] WBC 5.6 K/UL Normal 05/13/2023 4 - 10.5 [facility] ABSOLUTE LYMPHS 0.4 K/UL Below low normal 05/13/2023 1 - 4. 8 [facility] INTERPRETATION: SEE NOTE Normal 05/15/2023 [facility] INTERPRETATION: Normal 05/15/2023 [facility] BETA 2 GLOBULIN 0.1 g/dL Below low normal 05/14/2023 0.2 - 0.5 [facility] GAMMA GLOBULIN 0.1 g/dL Below low normal 05/14/2023 0.8 - 1 .7 [facility] BETA 1 GLOBULIN 0.2 g/dL Below low normal 05/14/2023 0.4 - 0.6 [facility] ALBUMIN SPE 4.2 g/dL Normal 05/14/2023 3.8 - 4.8 [facility] ABNORMAL PROTEIN BAND 1 SEE NOTE Normal 05/14/2023 - [facility] ALPHA 2 GLOBULIN 0.4 g/dL Below low normal 05/14/2023 0.5 - 0.9 [facility] ALPHA 1 GLOBULINS 0.2 g/dL Normal 05/14/2023 0.2 - 0.3 [facility] TOTAL PROTEIN SPE 5.3 g/dL Below low normal 05/13/2023 6.1 - 8.1 [facility] IMMUNOGLOBULIN G 81.0 MG/DL Below low normal 05/12/2023 700 - 1600 [facility] IMMUNOGLOBULIN A < 5 Below low normal 05/12/2023 70 - 400 [facility] IMMUNOGLOBULIN M < 5 Below low normal 05/12/2023 40 - 230 [facility] CREATININE 8.5 MG/DL Critical 05/12/2023 0.7 - 1.2 [facility] MAGNESIUM 2.0 MG/DL Normal 05/12/2023 1.6 - 2.6 [facility] CHLORIDE 102.0 MMOL/L Normal 05/12/2023 98 - 107 [facility] BUN/CREATININE RATIO 4.4 Normal 05/12/2023 [facility] SODIUM 141.0 MMOL/L Normal 05/12/2023 136 - 145 [facility] POTASSIUM 4.3 MMOL/L Normal 05/12/2023 3.5 - 4.9 [facility] CALCIUM 8.1 MG/DL Below low normal 05/12/2023 8.6 - 10.4 [facility] ANION GAP 22.0 MMOL/L Above high normal 05/12/2023 - [facility] BLOOD UREA NITROGEN 38.0 MG/DL Above high normal 05/12/2023 6 - 20 [facility] EST. GLOMERULAR FILTRATION 7.0 Normal 05/12/2023 [facility] PHOSPHORUS 4.9 MG/DL Above high normal 05/12/2023 2.5 - 4.5 [facility] GLUCOSE, FASTING 130.0 MG/DL Above high normal 05/12/2023 74 - 106 [facility] EST CREATININE CLEARANCE CALC 9.8 mL/min Normal 05/12/2023 [facility] CO2 21.0 MMOL/L Below low normal 05/12/2023 22 - 29 [facility] RDW 13.5 % Normal 05/12/2023 11.5 - 14.5 [facility] HEMATOCRIT 32.6 % Below low normal 05/12/2023 40 - 54 [facility] WBC 9.0 K/UL Normal 05/12/2023 4 - 10.5 [facility] MCV 99.4 FL Normal 05/12/2023 78 - 100 [facility] RBC 3.28 M/UL Below low normal 05/12/2023 4.7 - 6 [facility] MCHC 31.9 GM/DL Below low normal 05/12/2023 32 - 36 [facility] HEMOGLOBIN 10.4 GM/DL Below low normal 05/12/2023 13.5 - 18 [facility] PLATELET COUNT 113.0 K/UL Below low normal 05/12/2023 150 - 450 [facility] MEAN PLATELET VOLUME 9.0 fL Normal 05/12/2023 8.8 - 13 .6 [facility] MCH 31.7 PG Above high normal 05/12/2023 27 - 31 [facility] BACTERIA Neg Normal 05/12/2023 - [facility] WBC 0-5 Normal 05/12/2023 0 - 5 [facility] HYALINE CASTS 0-2 Normal 05/12/2023 - [facility] RBC 21-50 Abnormal 05/12/2023 - [facility] pH 8.5 Normal 05/12/2023 5 - 9 [facility] GLUCOSE 250.0 MG/DL Abnormal 05/12/2023 - [facility] URINE CLARITY Cloudy Normal 05/12/2023 [facility] URINE COLOR Yellow Normal 05/12/2023 [facility] KETONE Negative Normal 05/12/2023 - [facility] NITRITE Negative Normal 05/12/2023 - [facility] BLOOD Moderate Abnormal 05/12/2023 - [facility] PROTEIN 300.0 MG/DL Abnormal 05/12/2023 - [facility] SPECIFIC GRAVITY 1.006 Normal 05/12/2023 1 - 1.099 [facility] LEUKOCYTE ESTERASE Negative Normal 05/12/2023 - [facility] OPIATES, URINE, QUAL NEGATIVE Normal 05/12/2023 - [facility] COCAINE, URINE, QUAL NEGATIVE Normal 05/12/2023 - [facility] AMPHETAMINES, URINE, QUAL NEGATIVE Normal 05/12/2023 - [facility] BARBITUATES, URINE, QUAL POSITIVE Abnormal 05/12/2023 - [facility] BENZODIAZEPINE, URINE, QUAL NEGATIVE Normal 05/12/2023 - [facility] CANNABINOIDS, URINE, QUAL NEGATIVE Normal 05/12/2023 - [facility] ENTEROVIRUS RNA SOURCE CSF Normal 05/16/2023 [facility] ENTEROVIRUS RNA PCR RESULT Not Detected Normal 05/16/2023 - [facility] HSV 1 DNA, QL PCR, CSF Not Detected Normal 05/15/2023 - [facility] HSV 2 DNA, QL PCR, CSF Not Detected Normal 05/15/2023 - [facility] HSV 1/2 SOURCE CSF Normal 05/15/2023 [facility] CSF PATH REVIEW Normal 05/12/2023 [facility] CSF NUCLEATED CELLS 0.0 uL Normal 05/12/2023 [facility] CSF TUBE NUMBER 4.0 Normal 05/12/2023 [facility] CSF APPEARANCE CLEAR Normal 05/12/2023 - [facility] CSF XANTHOCHROMIA NOT PRESENT Normal 05/12/2023 - [facility] CSF RBCS 0.0 uL Normal 05/12/2023 [facility] CSF SOURCE LUMBAR Normal 05/12/2023 [facility] CSF PATH REVIEW Normal 05/12/2023 [facility] CSF XANTHOCHROMIA NOT PRESENT Normal 05/12/2023 - [facility] CSF NUCLEATED CELLS 0.0 uL Normal 05/12/2023 [facility] CSF RBCS 1.0 uL Normal 05/12/2023 [facility] CSF SOURCE LUMBAR Normal 05/12/2023 [facility] CSF APPEARANCE CLEAR Normal 05/12/2023 - [facility] CSF TUBE NUMBER 1.0 Normal 05/12/2023 [facility] GLUCOSE,CSF 64.0 MG/DL Normal 05/12/2023 40 - 70 [facility] PROTEIN,CSF 31.0 MG/DL Normal 05/12/2023 15 - 45 [facility] TROPONIN T 43.0 NG/L Above high normal 05/12/2023 - [facility] BILIRUBIN, DIRECT < 0.2 Below low normal 05/12/2023 0.2 - 0.3 [facility] ALT 38.0 U/L 05/12/2023 5 - 41 [facility] GLOBULIN 2.1 Normal 05/12/2023 2.1 - 3.5 [facility] TOTAL PROTEIN 7.7 G/DL Normal 05/12/2023 6.6 - 8.7 [facility] AST 58.0 U/L 05/12/2023 6 - 40 [facility] BILIRUBIN, TOTAL 0.5 MG/DL Normal 05/12/2023 0.3 - 1.2 [facility] ALBUMIN 5.6 G/DL Above high normal 05/12/2023 3.5 - 5.2 [facility] ALKALINE PHOSPHATASE 104.0 U/L Normal 05/12/2023 40 - 130 [facility] PROCALCITONIN 0.27 ug/L Above high normal 05/12/2023 - 0.25 [facility] CREATININE 7.0 MG/DL Critical 05/12/2023 0.7 - 1.2 [facility] ANION GAP 32.0 MMOL/L Above high normal 05/12/2023 - [facility] EST CREATININE CLEARANCE CALC 12.0 mL/min Normal 05/12/2023 [facility] CHLORIDE 98.0 MMOL/L Normal 05/12/2023 98 - 107 [facility] POTASSIUM 5.8 MMOL/L Above high normal 05/12/2023 3.5 - 4.9 [facility] SODIUM 141.0 MMOL/L Normal 05/12/2023 136 - 145 [facility] GLUCOSE, RANDOM 105.0 MG/DL Normal 05/12/2023 70 - 139 [facility] CALCIUM 9.5 MG/DL Normal 05/12/2023 8.6 - 10.4 [facility] BUN/CREATININE RATIO 4.4 Normal 05/12/2023 [facility] BLOOD UREA NITROGEN 31.0 MG/DL Above high normal 05/12/2023 6 - 20 [facility] CO2 17.0 MMOL/L Below low normal 05/12/2023 22 - 29 [facility] EST. GLOMERULAR FILTRATION 9.0 Normal 05/12/2023 [facility] MAN DIFF PATH REVIEW Normal 05/12/2023 [facility] PLATELET MORPH NORMAL Normal 05/12/2023 [facility] ECHINOCYTES 1+ Normal 05/12/2023 [facility] OVALOCYTES 1+ Normal 05/12/2023 [facility] TEAR DROP CELLS OCCASIONAL Normal 05/12/2023 [facility] POIKILOCYTOSIS 2+ Normal 05/12/2023 [facility] NEUTROPHILS 66.0 % Above high normal 05/12/2023 25 - 62 [facility] TOXIC GRANULATION PRESENT Normal 05/12/2023 [facility] EOSINOPHILS 4.0 % Normal 05/12/2023 0 - 6 [facility] MACROCYTOSIS OCCASIONAL Normal 05/12/2023 [facility] LYMPHOCYTES 10.0 % Below low normal 05/12/2023 20 - 48 [facility] MONOCYTES 15.0 % Above high normal 05/12/2023 2 - 12 [facility] BANDS 5.0 % Normal 05/12/2023 0 - 15 [facility] POLYCHROM OCCASIONAL Normal 05/12/2023 [facility] CELLS COUNTED 200.0 Normal 05/12/2023 [facility] BASOS 1.0 % Normal 05/12/2023 0 - 2 [facility] MCV 105.3 FL Above high normal 05/12/2023 78 - 100 [facility] RDW 13.4 % Normal 05/12/2023 11.5 - 14.5 [facility] ABSOLUTE IMMATURE GRANULOCYTE 3.57 K/UL Above high normal 05/12/2023 0 - 0.08 [facility] WBC 26.2 K/UL Above high normal 05/12/2023 4 - 10.5 [facility] LYMPHOCYTES 8.8 % Normal 05/12/2023 [facility] ABSOLUTE BASOS 0.2 K/UL Normal 05/12/2023 0 - 0.2 [facility] ABSOLUTE NEUTROPHILS 17.1 K/UL Above high normal 05/12/2023 1.8 - 7.8 [facility] PLATELET COUNT 207.0 K/UL Normal 05/12/2023 150 - 450 [facility] NEUTROPHILS 65.1 % Normal 05/12/2023 [facility] HEMOGLOBIN 13.3 GM/DL Below low normal 05/12/2023 13.5 - 18 [facility] RBC 4.12 M/UL Below low normal 05/12/2023 4.7 - 6 [facility] MCH 32.3 PG Above high normal 05/12/2023 27 - 31 [facility] HEMATOCRIT 43.4 % Normal 05/12/2023 40 - 54 [facility] MEAN PLATELET VOLUME 9.7 fL Normal 05/12/2023 8.8 - 13 .6 [facility] MONOCYTES 9.8 % Normal 05/12/2023 [facility] EOSINOPHILS 2.0 % Normal 05/12/2023 [facility] MCHC 30.6 GM/DL Below low normal 05/12/2023 32 - 36 [facility] BASOPHILS 0.6 % Normal 05/12/2023 [facility] IMMATURE GRANULOCYTE PERCENT 13.7 % Above high normal 05/12/2023 0 - 0.8 [facility] ABSOLUTE MONOS 2.6 K/UL Above high normal 05/12/2023 0 - 0. 8 [facility] ABSOLUTE LYMPHS 2.3 K/UL Normal 05/12/2023 1 - 4.8 [facility] ABSOLUTE EOS 0.5 K/UL Normal 05/12/2023 0 - 0.5 [facility] PROTHROMBIN TIME (PT) 12.3 SEC Normal 05/12/2023 10 - 13 .2 [facility] INR 1.1 Normal 05/12/2023 0.8 - 1.2 [facility] PTT(APTT), PLASMA 37.3 SEC Normal 05/12/2023 24 - 43 [facility] TROPONIN T 45.0 NG/L Above high normal 05/12/2023 - [facility] BUN/CREATININE RATIO 2.2 Normal 12/16/2022 [facility] CHLORIDE 102.0 MMOL/L Normal 12/16/2022 98 - 107 [facility] EST CREATININE CLEARANCE CALC 16.2 mL/min Normal 12/16/2022 [facility] EST. GLOMERULAR FILTRATION 11.0 Normal 12/16/2022 [facility] CO2 26.0 MMOL/L Normal 12/16/2022 22 - 29 [facility] GLUCOSE, RANDOM 96.0 MG/DL Normal 12/16/2022 70 - 139 [facility] CALCIUM 9.3 MG/DL Normal 12/16/2022 8.6 - 10.4 [facility] SODIUM 141.0 MMOL/L Normal 12/16/2022 136 - 145 [facility] ANION GAP 17.0 MMOL/L Above high normal 12/16/2022 - [facility] POTASSIUM 3.5 MMOL/L Normal 12/16/2022 3.5 - 4.9 [facility] BLOOD UREA NITROGEN 13.0 MG/DL Normal 12/16/2022 6 - 20 [facility] CREATININE 5.7 MG/DL Above high normal 12/16/2022 0.7 - 1.2 [facility] MEAN PLATELET VOLUME 10.1 fL Normal 12/16/2022 8.8 - 13 .6 [facility] ABSOLUTE BASOS 0.1 K/UL Normal 12/16/2022 0 - 0.2 [facility] HEMOGLOBIN 10.0 GM/DL Below low normal 12/16/2022 13.5 - 18 [facility] EOSINOPHILS 8.0 % Normal 12/16/2022 [facility] MCHC 32.8 GM/DL Normal 12/16/2022 32 - 36 [facility] MCH 31.9 PG Above high normal 12/16/2022 27 - 31 [facility] LYMPHOCYTES 9.7 % Normal 12/16/2022 [facility] MCV 97.4 FL Normal 12/16/2022 78 - 100 [facility] ABSOLUTE EOS 0.4 K/UL Normal 12/16/2022 0 - 0.5 [facility] HEMATOCRIT 30.5 % Below low normal 12/16/2022 40 - 54 [facility] ABSOLUTE IMMATURE GRANULOCYTE 0.04 K/UL Normal 12/16/2022 0 - 0.08 [facility] PLATELET COUNT 123.0 K/UL Below low normal 12/16/2022 150 - 450 [facility] ABSOLUTE NEUTROPHILS 3.7 K/UL Normal 12/16/2022 1.8 - 7. 8 [facility] MONOCYTES 12.8 % Normal 12/16/2022 [facility] BASOPHILS 1.5 % Normal 12/16/2022 [facility] WBC 5.5 K/UL Normal 12/16/2022 4 - 10.5 [facility] ABSOLUTE LYMPHS 0.5 K/UL Below low normal 12/16/2022 1 - 4. 8 [facility] ABSOLUTE MONOS 0.7 K/UL Normal 12/16/2022 0 - 0.8 [facility] RBC 3.13 M/UL Below low normal 12/16/2022 4.7 - 6 [facility] RDW 16.2 % Above high normal 12/16/2022 11.5 - 14.5 [facility] IMMATURE GRANULOCYTE PERCENT 0.7 % Normal 12/16/2022 0 - 0.8 [facility] NEUTROPHILS 67.3 % Normal 12/16/2022 [facility] ACCU CHEK GLUCOSE 94.0 MG/DL Normal 12/16/2022 70 - 99 [facility] History of Medication Use Medication Directions Dispensed Refills Start Date End Date Stat Levetiracetam 05/15/2023 active Losartan Potassium 05/12/2023 05/15/2023 completed Butalb/Acetaminophen/Caf feine (Tlwuaq-Rkidvydr-Wwlx 50-325-40) 1 EACH Tablet 05/12/2023 active Filgrastim-Sndz (Zarxio) 300 MCG/0.5 ML Syringe 05/12/2023 ac tive Lanthanum Carbonate (Fosrenol) 750 MG Tab.Chew 05/12/2023 active Sulfamethoxazole/Trimeth oprim (Sulfamethoxazole-Tmp Ds Tablet) 1 EACH Tablet 05/12/2023 act bladimir Doxycycline Monohydrate 01/20/202204/13 completed Famotidine 01/18/2022 05/12/2023 active Ondansetron (Zofran Odt) 8 MG Tab.Rapdis 01/18/2022 05/12/2023 completed Lorazepam 01/18/2022 04/13/2022 complete d Allergies Allergen Reaction Severity Comment Documented Date Source Statu s SULFA (SULFONAMIDE ANTIBIOTICS) [facility] Problems Problem Status Onset Date Problem Type Date of Resoluti on Source Proteinuria active ProblemAct [facility] Elevated transaminase measurement active ProblemAct [facility] Renal failure active ProblemAct [facility] Sepsis active ProblemAct [facility] End stage chronic kidney disease active ProblemAct [facility] Acute respiratory failure with hypoxia active ProblemAct [facility] Hospital-acquired pneumonia active ProblemAct [facility] Pancytopenia active ProblemAct [facility] Anemia of chronic disease active ProblemAct [facility] Leukocytosis active ProblemAct [facility] Fever active ProblemAct [facility] Acute kidney injury active ProblemAct [facility] Multiple myeloma not having achieved remission active ProblemAct [facility] Cough active ProblemAct [facility] Abdominal pain active ProblemAct [facility] Seizures active ProblemAct [facility] Posterior reversible encephalopathy syndrome active ProblemAct [facility] Headache active ProblemAct [facility] Uncontrolled hypertension active ProblemAct [facility] Anemia in chronic kidney disease active ProblemAct [facility] Encounters Encounter Type Encounter Reason Primary Diagnosis Location Date Inpatient SEIZURE, UNCONTROLLED HYPERTENSION POSTERIOR REVERSIBLE ENCEPHALOPATHY SYNDROME [facility] 05/11/2023 Emergency high bp ESSENTIAL (PRIMA RY) HYPERTENSION [facility] 12/15/2022 Inpatient PNEUMONIA SEPSIS, UNSPECIF IED ORGANISM [facility] 04/12/2022 Inpatient FEVER ACUTE KIDNEY INJURY PANCYTOPENIA AND MULTIPLE MYELOMA NOT HAVING ACHIEVED REMISSION [facility] 01/18/2022 Emergency PAIN IN L LEG, HURTS WALKING PAIN IN LEFT HIP [facility] 11/04/2021 Emergency Leg pain [facility] 11/04/2021 Care Team Organization Name Specialty Phone Email Start Date End Da te [facility] NO,PHYSICIAN Primary Care 023 09/20/2024 [facility] PHYSICIAN NO Primary Care 023 04/12/2022 [facility] VERIFY,PCP Primary Care 2 09/20/2024 [facility] PCP VERIFY Primary Care 2 01/18/2022 [facility] 11/04/2021 11/04/2021 [facility] 11/04/2021
--- OUTSIDE RECORDS SUMMARY | 2024-09-27 10:19 | XMS_ITS | Clinical Summary ---
Author Organization [employer] Address [address] [place] [address] Care Team Providers Care Logging Superintendent Name Role Phone PcpSalome Unassigned Primary Care Provider U navailable Allergies No known active allergies Medications Calcium Carbonate-Vitam in D 600-5 MG-MCG tablet Take 1 tablet by mouth. Active clonazePAM (KlonoPIN) 1 MG tablet Take 1 mg by mouth. 03/31/2022 Active lanthanum (Fosrenol) 750 MG chewable tablet CHEW AND SWALLOW 2 TABLETS THREE TIMES A DAY WITH MEALS 05/08/2022 Active ondansetron (Zofran) 4 MG tablet 04/22/2022 Active oxyCODONE (Roxicodone) 10 MG immediate release tablet 04/21/2022 Acti ve pomalidomide (Pomalyst) 4 MG chemo capsule Take 4 mg by mouth. 06/30/2022 Active prochlorperazin e (Compazine) 5 MG tablet Take by mouth. 02/12/2022 Active triamcinolone (Kenalog) 0.1 % cream 12/26/2021 Active ondansetron (Zofran) 8 MG tablet 11/26/2021 Active LORazepam (Ativan) 0.5 MG tablet 01/08/2022 Active levoFLOXacin (Levaquin) 250 MG tablet 04/21/2022 Active lenalidomide (Revlimid) 25 MG capsule Take 25 mg by mouth. Active famotidine (Pepcid) 20 MG tablet 07/29/2022 Active dexAMETHasone (Decadron) 4 MG tablet 07/24/2022 Active amLODIPine (Norvasc) 5 MG tablet 05/28/2022 Active allopurinol (Zyloprim) 100 MG tablet 01/07/2022 Active albuterol 108 (90 Base) MCG/ACT inhaler 04/21/2022 Act bladimir acyclovir (Zovirax) 400 MG tablet 08/07/2022 Active Immunizations Immunization Administration Dates Next Due Pneumococcal Conjugate PCV 13 06/15/2018 Pneumococcal Polysaccharide PPSV23 08/17/2018 Social History Tobacco Use Types Packs/Day Years Used Date Smoking Tobacco: Every Day Cigarettes 0.5 40.2 Started: 07/21/1984 Passive Smoke Exposure: Never Smokeless Tobacco: Never Alcohol Use Standard Drinks/Week Comments Never 0 (1 standard drink = 0.6 oz pur e alcohol) Comments Unknown Sex and Gender Information Value Date Recorded Sex Assigned at Choose not to disclose 9:38 AM EDT Legal Sex Male 5:36 PM EDT Gender Identity Choose not to disclose 9:38 AM EDT Sexual Orientation Choose not to disclose 2022 9:38 AM EDT Plan of Treatment Health Maintenance Due Date Last Done Comments Depression Screening 1980 HIV Screening 1980 Lipid Panel 1980 SDOH Screening 1980 Disability Screening 1980 COVID-19 Vaccine (#1) 02/27/1985 Alcohol/Substance Use Screening 1992 Family Planning (PISQ) 02/27/1995 HPV Vaccines (1 - 3-dose series) 02/27/1995 Hepatitis C Screening 02/27/1998 DTaP/Tdap/Td Vaccines (1 - Tdap) 02/27/1999 Hepatitis B Vaccines (1 of 3 - 19+ 3-dose series) 02/27/1999 Zoster Vaccines (1 of 2) 02/27/1999 Dental X-Ray: Full Mouth 12/25/2020 12/24/2017 Pneumococcal Vaccine: Pediatrics (0 to 5 Years) and At-Risk Patients (6 to 49) Years (3 of 3 - PPSV23, PCV20 or PCV21) 08/18/2023 08/17/2018, 06/15/2018 Dental Oral Exam 03/20/2024 09/17/2023, 06/2022, 2021, Additional history exists Dental Prophylaxis 03/20/2024 09/17/2023, 0 07/10/2022, 01/11/2021, Additional history exists Tobacco Screening 09/16/2024 09/17/2023 Dental X-Ray: Bitewings 09/17/2024 09/17/19 24, 07/10/2022, 2021, Additional history exists Influenza Vaccine (#1) 2024 RSV Patients and Patients Aged 60 years or older (1 - 1-dose 75+ series) 02/27/2055 HIB Vaccines Aged Out No longer eligi ble based on patient's age to complete this topic Hepatitis A Vaccines Aged Out No long er eligible based on patient's age to complete this topic IPV Vaccines Aged Out No longer eligi ble based on patient's age to complete this topic Meningococcal B Vaccine Aged Out No l onger eligible based on patient's age to complete this topic Meningococcal Vaccine Aged Out No manoj manuela eligible based on patient's age to complete this topic RSV under 20 months Aged Out No longe r eligible based on patient's age to complete this topic Rotavirus Vaccines Aged Out No longer eligible based on patient's age to complete this topic Procedures Procedure Name Priority Date/Time Associated Diagnosis Comments Full PROPHYLAXIS - ADULT Routine 024 10:10 AM EDT BITEWINGS - 4 RADIOGRAPHIC IMAGES Routine 09/17/2023 10:10 AM EDT PERIODIC ORAL EVALUATION - ESTABLISHED PATIENT Routine 09/17/2023 10:10 AM EDT INTRAORAL - COMPLETE SERIES OF RADIOGRAPHIC IMAGES Routine 12/24/2017 12:00 AM EDT from Last 3 Months or Most Recently Relevant to Health Maintenance Insurance [facility] MEDICAID STAND ADULT DENTAL - HSN FULL (MEDICAID) Care Teams Logging Superintendent Relationship Specialty Start Date End Date PcpSalome Unassigned PCP - General Family Medicine 07/07/22
--- OUTSIDE RECORDS SUMMARY | 2024-09-27 10:19 | XMS_ITS | Encounter Summary ---
Author Organization [facility] [place] [address] Care Team Providers Care Hotel General Manager Name Role Phone Nabil Prado MD Primary Care Provider [phone] Encounter Details Date Type Department Care Team (Late st Contact Info) Description 03/16/2024 Lab Requisition [facility] [address] [place] [address] Efrain Mukherjee MD [address] [place] [phone] Hyperkalemia Social History Tobacco Use Types Packs/Day Years Used Date Smoking Tobacco: Never Assessed Sex and Gender Information Value Date Recorded Sex Assigned at Not on file Legal Sex Male 6:38 PM EST Gender Identity Not on file Sexual Orientation Not on file documented as of this encounter Plan of Treatment Not on file documented as of this encounter Procedures Procedure Name Priority Date/Time Associated Diagnosis Comments POTASSIUM STAT 03/16/2024 6:10 AM EST Hyperkalemia documented in this encounter Results * (ABNORMAL) Potassium (03/16/2024 6:10 AM EST) Potassium 6.0(H) 3.5 - 5.5 mmol/L LAB CHEMISTRY METHOD 03/16/2024 8:46 AM EST [facility] Blood Venous blood specimen / Unknown 03/16/2024 6:10 AM EST 03/16/2024 8:24 AM EST us Efrain Mukherjee MD LAB BLOOD ORDERABLES Final R esult [facility] [address] [place] [address], documented in this encounter Visit Diagnoses Diagnosis Hyperkalemia Hyperpotassemia documented in this encounter Care Teams Hotel General Manager Relationship Specialty Start Date End Date Nabil Prado MD [address] [place] [address] PCP - General 12/19/21 documented as of this encounter
[2024-09-27 13:36] VITALS: BP 160/90
== END 2024-09-27 10:24 | disposition home or self-care (01) ==
LOC: HO.HMCSH 09:38
PROVIDERS: PCP Internal Medicine; Visit Provider Physician Assistant Medical
DX: I12.0 Hypertensive chronic kidney disease with stage 5 chronic kidney disease or end stage renal disease (principal); N18.6 End stage renal disease; C90.00 Multiple myeloma not having achieved remission; Z99.2 Dependence on renal dialysis; I51.7 Cardiomegaly; Z12.11 Encounter for screening for malignant neoplasm of colon

== ENCOUNTER → 2024-09-27 09:38 | Outpatient (BNVA) | payer MEDICARE, MEDICAID, SELFPAY | PROVIDERS: PCP Internal Medicine; Visit Provider Physician Assistant Medical | DX: Z76.89 Persons encountering health services in other specified circumstances (principal); I12.0 Hypertensive chronic kidney disease with stage 5 chronic kidney disease or end stage renal disease; N18.6 End stage renal disease; Z99.2 Dependence on renal dialysis; C90.00 Multiple myeloma not having achieved remission; I51.7 Cardiomegaly | CPT/HCPCS: 96127; 99202 ==

== ENCOUNTER → 2024-11-07 23:59 | Outpatient (BNV) | payer MEDICARE, MEDICAID, SELFPAY | PROVIDERS: PCP Internal Medicine; Visit Provider Internal Medicine Nephrology | DX: N18.6 End stage renal disease (principal) | CPT/HCPCS: 90961 ==

== ENCOUNTER → 2024-12-07 23:59 | Outpatient (BNV) | payer MEDICARE, MEDICAID, SELFPAY | PROVIDERS: PCP Physician Assistant Medical; Visit Provider Internal Medicine Nephrology | DX: N18.6 End stage renal disease (principal) | CPT/HCPCS: 90961 ==

== ENCOUNTER 2025-01-07 15:42 | Inpatient (IN) | payer MEDICARE, MEDICAID, SELFPAY ==
--- NOTE | ~2025-01-07 | XR_ITS ---
CLINICAL HISTORY: sob 1 view chest x-ray Comparison: CR - XR CHEST 1V - 09/01/24 18:45 EDT Findings: Heterogeneous airspace opacities within the bilateral lungs. Limited evaluation for pleural fluid. No definite pleural effusion. There is a left-sided port-A-Cath with its tip within the right atrium of the heart, without change. No acute fracture. IMPRESSION: Extensive bilateral lung infiltrates. This document has been electronically signed by: Sadie Nelson MD on 01/07/2025 17:38:01
--- NOTE | ~2025-01-07 | XR_ITS ---
EXAMINATION: XR CHEST CLINICAL INFORMATION: ? abnormal xray -? fluid overlad vs pneumonia COMPARISON: From 2 days ago TECHNIQUE: Frontal view of the chest was obtained. FINDINGS: Left IJ central line terminating in the right atrium is unchanged. Heart size remains normal. Airspace opacities in the right greater than left lung have decreased and nearly resolved. There is no sign of pleural effusion. XR/XR chest 1V IMPRESSION: Near resolution of bilateral airspace disease. Electronically signed by: Estrada Barbosa MD 01/09/2025 04:14 PM SHAHAB
[2025-01-07 15:58] VITALS: BP 184/85; PULSE 80; RESP 20; TEMP 36.7; O2SAT 81; BMI 22.5
--- NOTE | 2025-01-07 15:58 | ED.GENADULT ---
HPI - General Adult General Chief complaint: Recheck/Abnormal Lab/Rx Stated complaint: potassium high/abd labs- on dialysis Time Seen by Provider: 01/07/25 16:07 Source: patient and old records reviewed Mode of arrival: ambulatory Limitations: no limitations History of Present Illness ED Provider: KAMINI OLIVEIRA narrative: 44 yo male with sig PMH HTN, ESRD on HD MWF last session was half session on Thursday due to palpitations, opiate use disorder, dCHF, anemia, pneumonia, pulm HTN he notes he was called Thursday and told to go to the hospital from home with a K of 7.0. He started to have worsening trouble breathing came in hypoxic to mid 80s. He is swollen in legs as well. He has no chest pain. He has no fevers. He is coughing up white sputum. He notes he has not taken lokelma in a month. He follows with Dr. Gomes. He notes he has some muscle aches in his swollen legs as well. MD complaint: edema, diff breathing, elevated K Onset (ago): day(s) (3) Location: chest, left, right, upper extremity and lower extremity Radiation: non-radiation Severity: mild Quality: aching Pain Consistency: intermittent Relieving factors: none Exacerbating factors: movement and other Associated symptoms: cough, shortness of breath and weakness Treatments prior to arrival: none Related Data Home Medications ?Medication ?Instructions ?Recorded ?Confirmed acyclovir 400 mg tablet 400 mg PO DAILY PRN FLARE UP 05/20/23 01/07/25 methadone 10 mg/mL oral concentrate 135 mg PO DAILY 06/12/23 09/27/24 clonazepam 1 mg tablet 1 mg PO BID 01/19/24 01/07/25 hydralazine 50 mg tablet 100 mg PO BID 01/07/25 01/07/25 labetalol 300 mg tablet 300 mg PO BID 01/07/25 01/07/25 Previous Rx's ?Medication ?Instructions ?Recorded amlodipine 10 mg tablet 10 mg PO DAILY #90 tabs 06/02/24 sulfamethoxazole 800 1 tab PO MOWEFR #90 tabs 09/27/24 mg-trimethoprim 160 mg tablet gabapentin 100 mg capsule 400 mg (4 x 100 mg) PO BID 30 days 12/30/24 #240 caps oxycodone 30 mg tablet 30 mg PO BID 7 days #14 tabs 12/30/24 Allergies Allergy/AdvReac Type Severity Reaction Status Date / Time No Known Allergies Allergy Verified 01/07/25 16:03 Review of Systems Review of Systems: Constitutional : No Fever, No Chills ENT/Mouth : No sore throat, No Rhinorrhea, No Swallowing Difficulty Eyes: No Eye Pain, No Swelling, No Redness Cardiovascular : No Chest Pain, positive SOB, pos Orthopnea, positive Edema Respiratory : pos Cough, pos Sputum, No Wheezing, positive dyspnea Gastrointestinal : No Nausea, No Vomiting, No Diarrhea, No abdominal Pain, No Hematochezia, No Melena Genitourinary : No Dysuria, No Urinary Frequency, No Hematuria Musculoskeletal : No joint pain, No Myalgias Skin : No Skin Lesions, No rash Neuro :pos Weakness, No Numbness, No Dizziness, No Headache All other systems reviewed and are negative PMFSH Past Medical History Attestation statement: The following information was validated with the patient. Source: old records reviewed Medical History Moderate pulmonary hypertension Moderate tricuspid valve regurgitation Mitral valve regurgitation Left atrial dilation Diastolic dysfunction History of echocardiogram Methadone dependence Colon cancer screening Hypertension Establishing care with new doctor, encounter for Bacteremia End stage renal disease on dialysis Permanent central venous catheter in place Tobacco dependence Substance use disorder History of intravenous drug abuse Restless legs Anxiety Multiple myeloma Family History Family History Maternal Uncle Cancer Mother No problems noted. Social History Social History Household Members: Family Housing: House Do you presently have visiting nurse or other home services: No Alcohol intake: current Alcohol intake frequency: holidays/special occasions only Patient Tobacco Use Status: Current someday Tobacco user Tobacco use type: Cigarette Smoked in Last 30 Days: Yes Use of substances other than those prescribed or required for medical reasons: No Substance Use Type: Marijuana Advance Directives: No Advance Directives Information Provided: Yes Do you have a plan to hurt others: No Plan service: No Current occupational status: disabled Cognitive needs: No Hearing needs: No Vision needs: No Physical Exam ED Vital Signs: Vital Signs - 24 hr 01/07/25 15:58 01/07/25 16:03 01/07/25 16:33 Temperature 98.1 F 98.1 F Pulse Rate 80 76 Respiratory Rate 20 17 Blood Pressure 184/85 H Pulse Oximetry 81 L 94 91 L Oxygen Delivery Method Room Air Room Air Nasal Cannula Oxygen Flow Rate 2 2 01/07/25 17:12 Temperature Pulse Rate 72 Respiratory Rate 18 Blood Pressure 179/87 H Pulse Oximetry 95 Oxygen Delivery Method Aerosol Mask Oxygen Flow Rate BMI result Body Mass Index 22.5 Appearance: Alert. Oriented X3. mild acute distress. Eyes: Pupils equal, round and reactive to light. ENT: Pharynx normal. Neck: Normal inspection. Neck supple. CVS: Normal heart rate and rhythm. Pulses normal. Respiratory: Mild respiratory distress short phrases, tachypnea. Breath sounds rales both bases Abdomen: Soft and nontender. Skin: Skin warm and dry. pale skin color. Extremities: 2+ symmetric pitting edema Neuro: Oriented X 3. No motor deficit. No sensory deficit. CN2-12 intact Course Course Course Narrative: This is a Rapid Medical Exam performed in triage by Danae Mendez PA-C. Full HPI, ROS and PE to be performed by primary ED provider. 44 yo M w/PMHx HTN, ESRD on HD (M/W/F) last dialized Thursday, anxiety, Multiple Myeloma presenting to the ED c/o hyperkalemia & SOB x yesterday. States went to HD yesterday however was told they could not dialize him due to his potassium being too high and was told to come to the ED however he did not. States his K+ was 7 yesterday. PE: short of breath. ambulating w/slow gait. Plan: EKG, labs, CXR, viral testing Medications Administered Generic Name Dose Route Start Last Admin Trade Name Freq PRN Reason Stop Dose Admin Acetaminophen 650 mg 01/07/25 17:23 01/07/25 19:12 Acetaminophen 325 Mg Tablet PO 650 mg Q6H PRN Administration Pain, Mild 1-3,fever,headache Discontinued Medications Generic Name Dose Route Start Last Admin Trade Name Freq PRN Reason Stop Dose Admin Albuterol Sulfate 10 mg 01/07/25 16:01 01/07/25 17:08 Albuterol Sulfate (0.083%) 2.5 Mg/3 Ml Vial.Neb INHALE 01/07/25 16:02 10 mg ONCE ONE Administration Dextrose 25 gm 01/07/25 16:54 01/07/25 17:07 Dextrose 50 % 25 Gm/50 Ml Syringe IVPUSH 01/07/25 16:55 25 gm ONCE ONE Administration Calcium Gluconate 2 gm in 100 mls @ 50 mls/hr 01/07/25 16:06 01/07/25 18:22 Calcium Gluconate IV 01/07/25 18:05 Infused ONCE ONE Infusion Insulin Human Regular 5 unit 01/07/25 16:54 01/07/25 17:09 Insulin Regular, Human 100 Unit/Ml 10 Ml Vial IVPUSH 01/07/25 16:55 5 unit ONCE ONE Administration Sodium Bicarbonate 50 meq 01/07/25 16:30 01/07/25 17:08 Sodium Bicarbonate 8.4% 50 Meq/50 Ml Syringe IVPUSH 01/07/25 16:31 50 meq ONCE ONE Administration Sodium Zirconium Cyclosilicate 5 gm 01/07/25 16:10 01/07/25 17:06 Sodium Zirconium Cyclosilicate 5 Gm Powd.Pack PO 01/07/25 16:11 5 gm ONCE ONE Administration Medical Decision Making Medical Decision Making MDM Narrative: 44 yo male with sig PMH HTN, ESRD on HD MWF last session was half session on Thursday due to palpitations, opiate use disorder, dCHF, anemia, pneumonia, pulm HTN now here with volume overload, peaked t waves on EKG and rales on exam - he is getting albuterol, IV calcium, HCO3, insulin/dextrose, lokelma. He is going to get EKG and STAT CXR. He denies infectious symptoms and denies chest pain. At this time will discuss concerns with Dr. Gomes and get patient admitted Differential Diagnosis Differential Diagnoses: The differential diagnosis associated with the presentation includes hyperkalemia, non compliance, pulm edema Admission/Observation Consideration of admission/observation: Escalation of care including admission/observation considered admit for hyperkalemia, pulm edema Consult Healthcare Provider Management of the patient was discussed with: Hospitalist (will admit) Dr Gomes will get HD MARI Lab Data [facility] Lab Attestation statement: I reviewed the patient's lab results. 01/07/25 16:25 01/07/25 16:25 Labs: Lab Results 01/07/25 01/07/25 01/07/25 Range/Units 16:17 16:24 16:25 WBC 4.4 L (4.8-10.8) X10*3/uL RBC 2.77 L (4.60-5.80) X10*6/uL Hgb 8.9 L (14.0-18.0) g/dl Hct 28.6 L (42.0-52.0) % MCV 103.2 H (80.0-98.0) fL MCH 32.1 (27.0-33.0) pg MCHC 31.1 (31.0-36.0) g/dl RDW 16.6 H (11.0-16.0) % Plt Count 94 L D (160-400) X10*3/uL MPV 9.1 L (9.4-12.4) fL Immature Gran % (Auto) 0.2 (0.0-0.4) % Neut % (Auto) 60.6 (45-73) % Lymph % (Auto) 14.0 L (20-40) % Banks % (Auto) 8.9 (2-11) % Eos % (Auto) 15.8 H (0-4) % Baso % (Auto) 0.5 (0-2) % Lymph # (Auto) 0.6 L (1.2-4.9) X10*3/uL Banks # (Auto) 0.4 (0.1-1.2) X10*3/uL Eos # (Auto) 0.7 H (0.0-0.4) X10*3/uL Baso # (Auto) 0.0 (0.0-0.2) X10*3/uL Abs Immat Gran (auto) 0.01 (0.00-0.03) X10*3/uL Absolute Neuts (auto) 2.7 (2.0-8.3) x10*3/uL Absolute Nucleated RBC 0.000 (0.0-0.012) X10*3/uL Nucleated RBC % (auto) 0.0 (0.0-0.2) /100WBC Sodium 141 (135-145) mmol/L Potassium 7.0 H* D (3.3-5.1) mmol/L Chloride 103 (96-108) mmol/L Carbon Dioxide 18 L (22-29) mmol/L Anion Gap 27 H (12-20) BUN 112 H (9-16) mg/dL Creatinine 13.35 H* (0.5-1.4) mg/dL Estim Creat Clear Calc 6.8 Estimated GFR 4 POC Glucose 150 H (60-115) mg/dL Random Glucose 151 H (60-115) mg/dL Calcium 8.1 L D (8.4-10.2) mg/dL Magnesium 3.1 H (1.6-2.6) mg/dL Total Bilirubin 0.5 (0.0-1.0) mg/dL Direct Bilirubin 0.2 (0.0-0.5) mg/dL AST 36 (5-37) U/L ALT 24 (0-40) U/L Alkaline Phosphatase 103 (39-117) U/L Troponin I High Sens 32.4 D (<3.5-35.0) ng/L Total Protein 5.4 L (6.5-8.0) g/dL Albumin 3.8 (3.5-5.0) g/dL Influenza Type A (PCR) NEGATIVE (Negative) Influenza Type B (PCR) NEGATIVE (Negative) RSV RNA Qual (PCR) NEGATIVE (Negative) SARS-CoV-2 RNA (RT-PCR) NEGATIVE (Negative) Blood Type B Positive Antibody Screen NEGATIVE 01/07/25 Range/Units 17:07 WBC (4.8-10.8) X10*3/uL RBC (4.60-5.80) X10*6/uL Hgb (14.0-18.0) g/dl Hct (42.0-52.0) % MCV (80.0-98.0) fL MCH (27.0-33.0) pg MCHC (31.0-36.0) g/dl RDW (11.0-16.0) % Plt Count (160-400) X10*3/uL MPV (9.4-12.4) fL Immature Gran % (Auto) (0.0-0.4) % Neut % (Auto) (45-73) % Lymph % (Auto) (20-40) % Banks % (Auto) (2-11) % Eos % (Auto) (0-4) % Baso % (Auto) (0-2) % Lymph # (Auto) (1.2-4.9) X10*3/uL Banks # (Auto) (0.1-1.2) X10*3/uL Eos # (Auto) (0.0-0.4) X10*3/uL Baso # (Auto) (0.0-0.2) X10*3/uL Abs Immat Gran (auto) (0.00-0.03) X10*3/uL Absolute Neuts (auto) (2.0-8.3) x10*3/uL Absolute Nucleated RBC (0.0-0.012) X10*3/uL Nucleated RBC % (auto) (0.0-0.2) /100WBC Sodium (135-145) mmol/L Potassium (3.3-5.1) mmol/L Chloride (96-108) mmol/L Carbon Dioxide (22-29) mmol/L Anion Gap (12-20) BUN (9-16) mg/dL Creatinine (0.5-1.4) mg/dL Estim Creat Clear Calc Estimated GFR POC Glucose 132 H (60-115) mg/dL Random Glucose (60-115) mg/dL Calcium (8.4-10.2) mg/dL Magnesium (1.6-2.6) mg/dL Total Bilirubin (0.0-1.0) mg/dL Direct Bilirubin (0.0-0.5) mg/dL AST (5-37) U/L ALT (0-40) U/L Alkaline Phosphatase (39-117) U/L Troponin I High Sens (<3.5-35.0) ng/L Total Protein (6.5-8.0) g/dL Albumin (3.5-5.0) g/dL Influenza Type A (PCR) (Negative) Influenza Type B (PCR) (Negative) RSV RNA Qual (PCR) (Negative) SARS-CoV-2 RNA (RT-PCR) (Negative) Blood Type Antibody Screen Independent Interpretation I performed an independent interpretation of an: EKG and Plain X-Ray (pulm edema) Interpretation: Rate: 80 Rhythm: NSR with 1st degree AVB [place]: left Normal P waves. 1st degree AVB Normal QRS complex. ST T wave : peaked t waves, no FELY qTC: 459 prior studies: changed from prior The study has been interpreted contemporaneously by me. . Radiology Impression Discussion of test interpretation with radiology: I have reviewed the radiologist's reading. External Record Review External record reviewed: Inpatient record and Outpatient record Social Determinants Patient?s care significantly limited by Social Determinants of Health including: Problems related to primary support group Critical Care Time Critical Care Time Critical Care Time: Yes Total Critical Care Time: 60 Attestation: Time is exclusive of separately billable procedures. Time includes: direct patient care, patient reassessment, coordination of patient care, interpretation of data (laboratory data, pulse oximetry, chest xrays), review of patient's medical records, medical consultation and documentation of patient care. IV insulin, HCO3, dextrose, calcium to prevent life threatening arrhythmia. Procedures excluded from critical care time: and electrocardiography. I attest to this time spent taking care of the patient Discharge Plan Discharge Clinical Impression: Acute hyperkalemia, Hypoxia Volume overload Qualifiers: Hypervolemia type: unspecified Qualified Code(s): E87.70 - Fluid overload, unspecified Patient Disposition: Admitted As Inpatient Interventions: Admission Worksheet (ED) Last Done: 01/07/25 18:11 Discharge Date/Time: 01/07/25 18:22
--- NOTE | 2025-01-07 16:01 | ECG_ITS ---
Test Reason : hyperk Blood Pressure : */* mmHG Vent. Rate : 80 BPM Atrial Rate : 80 BPM P-R Int : 214 ms QRS Dur : 90 ms QT Int : 398 ms P-R-T Axes : 20 -31 18 degrees QTcB Int : 459 ms Artifact in tracing Sinus rhythm with 1st degree A-V block Due to artifact, cannot interpret further When compared with ECG of 02-Sep-2024 07:50, GA interval has increased Referred By: Danae Mendez Electronically Signed By: SERAFIN BURNETT
[2025-01-07 16:03] VITALS: O2SAT 94
[2025-01-07 16:22] LABS: Glucose, Whole Blood 150 mg/dL (60-115)
[2025-01-07 16:30] LABS: MANUAL DIFF FLAG NO
[2025-01-07] MEDS: Calcium Gluconate/NaCl,Iso-Osm 2 GM/100 ML PLAST..BAG IV (16:31)
[2025-01-07 16:32] LABS: Hematocrit 28.6 % (42.0-52.0); Hemoglobin 8.9 g/dl (14.0-18.0); Imm Gran Abs Auto 0.01 X10*3/uL (0.00-0.03); Imm Gran Pct Auto 0.2 % (0.0-0.4); Lymphocytes Absolute Auto 0.6 X10*3/uL (1.2-4.9); Mean Corpuscular HGB Conc 31.1 g/dl (31.0-36.0); Mean Corpuscular Hemoglobin 32.1 pg (27.0-33.0); Mean Corpuscular Volume 103.2 fL (80.0-98.0); NRBC Abs Auto 0.000 X10*3/uL (0.0-0.012); NRBC Pct Auto 0.0 /100WBC (0.0-0.2); Red Blood Count 2.77 X10*6/uL (4.60-5.80); White Blood Count 4.4 X10*3/uL (4.8-10.8)
--- OUTSIDE RECORDS SUMMARY | 2025-01-07 16:32 | XMS_ITS | Encounter Summary ---
Author Organization [facility] Address [address] [place] [address] Phone Care Team Providers Care Blending Machine Operator Name Role Phone Nabil Prado MD Primary Care Provider [phone] Encounter Details Date Type Department Care Team (Late st Contact Info) Description 03/11/2022 Documentation Only [facility], [address] [place] [address] [place] Ayala, REFRIGERATION PLANT OPERATOR [address] [place] [address] Social History Tobacco Use Types Packs/Day Years [...] on file documented as of this encounter Visit Diagnoses Not on filedocumented in this encounter Care Teams Blending Machine Operator Relationship Specialty Start Date End Date Nabil Prado MD [address] [place] [address] PCP - General Internal Medicine 04/27/20 documented as of this encounter
--- OUTSIDE RECORDS SUMMARY | 2025-01-07 16:32 | XMS_ITS | Encounter Summary ---
Author Organization [facility] [place] [address] Care Team Providers Care Director Of Transportation Name Role Phone Nabil Prado MD Primary Care Provider [phone] Encounter Details Date Type Department Care Team (Late st Contact Info) Description 03/16/2024 Lab Requisition [facility] [address] [place] [address] Efrain Mukherjee MD [address] [place] [phone] Hyperkalemia Social History Tobacco Use Types Packs/Day [...] LAB CHEMISTRY METHOD 03/16/2024 8:46 AM EST [facility] Blood Venous blood specimen / Unknown 03/16/2024 6:10 AM EST 03/16/2024 8:24 AM EST us Efrain Mukherjee MD LAB BLOOD ORDERABLES Final R esult [facility] [address] [place] [address], documented in this encounter Visit Diagnoses Diagnosis Hyperkalemia Hyperpotassemia documented in this encounter Care Teams Director Of Transportation Relationship Specialty Start Date End Date Nabil Prado MD [address] [place] [address] PCP - General 12/19/21 documented as of this encounter
--- OUTSIDE RECORDS SUMMARY | 2025-01-07 16:32 | XMS_ITS | Clinical Summary ---
Author Organization [facility] Address [address] [place] [address] Care Team Providers Care Die Machine Operator Name Role Phone Unavailable Primary Care Provider [...] of 3 - 19+ 3-dose series) 02/27/1999 Influenza Vaccine 10/07/2024 COVID-19 Vaccine (1 - 2023-2 5 season) 2024 HPV Vaccines (No Doses Required) Completed Pneumococcal Vaccine: Pediat jelena (0-5 Years) and At-Risk Patients (6 to 49 Years) Aged Out No longer eligible b ased on patient's age to complete this topic Insurance MEDICARE PART A MEDICARE PART A & B [facility]
--- OUTSIDE RECORDS SUMMARY | 2025-01-07 16:32 | XMS_ITS | Clinical Summary ---
Author Organization [address] Address [address] [place] [address] Phone Care Team Providers Care Trial Judge Name Role Phone Nabil Prado MD Primary Care Provider [phone] Social History Tobacco Use Types Packs/Day Years Used Date Smoking Tobacco: Never Assessed Sex and Gender Information Value Date Recorded Sex Assigned at Not on file Legal Sex Male 6:38 PM EST Gender Identity Not on file Sexual Orientation Not on file Plan of Treatment Health Maintenance Due Date Last Done Comments Hepatitis B Vaccines (1 of 3 - 19+ 3-dose series) 02/27/1999 HPV Vaccines (1 - 3-dose SCD M series) 02/27/2007 Cholesterol Screening (Lipid Panel) 02/08/2022 HIV Screening 02/08/2022 Hepatitis C Screening 02/08/2022 Medicare Annual Wellness Visit 02/08/2022 Social Influencers of Health Screening 02/08/2022 DTaP,Tdap,and Td Vaccines (2 - Td or Tdap) 12/02/2022 12/02/2012 Depression Screening 03/09/2024 COVID-19 Vaccine (1 - 2023-2 5 season) 2024 Influenza Vaccine (#1) 2024 RSV Immunization Adult Patie nts (1 - 1-dose 75+ series) 02/27/2055 HIB Vaccines Aged Out No longer eligi ble based on patient's age to complete this topic Hepatitis A Vaccines Aged Out No long er eligible based on patient's age to complete this topic IPV Vaccines Aged Out No longer eligi ble based on patient's age to complete this topic MMR Vaccines Aged Out No longer eligi ble based on patient's age to complete this topic Meningococcal ACWY Vaccine Aged Out N o longer eligible based on patient's age to complete this topic Meningococcal B Vaccine Aged Out No l onger eligible based on patient's age to complete this topic Pneumococcal Vaccine: Pediat rics (0 to 5 Years) and At-Risk Patients (6 to 49 Years) Aged Out No longer eligi ble based on patient's age to complete this topic RSV Immunization Patients Un mahendra 20 months Aged Out No longer eligible b ased on patient's age to complete this topic Varicella Vaccines Aged Out No longer eligible based on patient's age to complete this topic Insurance MEDICAID - [place] MEDICARE Advance Directives Documents on File Type Date Recorded Patient Gluing Machine Offbearer Expl anation Health Care Decision (hx) 03/17/2018 AD STAUFFER DIRECTIVE Health Care Decision (hx) 03/17/2018 AD STAUFEFR DIRECTIVE Care Teams Trial Judge Relationship Specialty Start Date End Date Nabil Prado MD [address] [facility] [place] PCP - General 12/19/21
--- OUTSIDE RECORDS SUMMARY | 2025-01-07 16:32 | XMS_ITS | Encounter Summary ---
Author Organization [facility] [place] [address] Care Team Providers Care Director Digital Catalogue Name Role Phone Nabil Prado MD Primary Care Provider [phone] Encounter Details Date Type Department Care Team (Late st Contact Info) Description 05/13/2024 Lab Requisition [facility] - Main Lab [address] [place] [address] Valerio Rodrigues MD [address] [place] [address] [place] [address] Hyperkalemia Social History Tobacco Use Types Packs/Day [...] Priority Date/Time Associated Diagnosis Comments POTASSIUM STAT 05/13/2024 6:25 AM EST Hyperkalemia documented in this encounter Results * (ABNORMAL) Potassium (05/13/2024 6:25 AM EST) Potassium 6.7(HH) 3.5 - 5.5 mmol/L LAB CHEMISTRY METHOD 05/13/2024 9:26 AM EST [facility] ([facility] LAB Blood Venous blood specimen / Unknown 05/13/2024 6:25 AM EST 05/13/2024 8:24 AM EST us Valerio Rodrigues MD LAB BLOOD ORDERABLES Final Result [facility] ([facility] LAB [address] [place] [address], documented in this encounter Visit Diagnoses Diagnosis Hyperkalemia Hyperpotassemia documented in this encounter Care Teams Director Digital Catalogue Relationship Specialty Start Date End Date Nabil Prado MD [address] [place] [address] PCP - General 12/19/21 documented as of this encounter
--- OUTSIDE RECORDS SUMMARY | 2025-01-07 16:32 | XMS_ITS | Encounter Summary ---
Author Organization [facility] Address [address] [place] [address] Phone Care Team Providers Care Sales Account Specialist Name Role Phone Nabil Prado MD Primary Care Provider Encounter Details Date Type Department Care Team (Late st Contact Info) Description 12/25/2022 Documentation Only [facility], [address] [facility] [place] [address] Valerio Rodrigues MD [address] [facility] [place] [address] Social History Tobacco Use Types Packs/Day Years [...] on filedocumented in this encounter Care Teams Sales Account Specialist Relationship Specialty Start Date End Date Nabil Prado MD [address] [place] [address] PCP - General Internal Medicine 04/27/20 documented as of this encounter
--- OUTSIDE RECORDS SUMMARY | 2025-01-07 16:32 | XMS_ITS | Encounter Summary ---
Author Organization [facility] [place] [address] Care Team Providers Care Chief Of Production Name Role Phone Nabil Prado MD Primary Care Provider [phone] Encounter Details Date Type Department Care Team (Late st Contact Info) Description 05/09/2024 Lab Requisition [facility] - Main Lab [address] [place] [address] Valerio Rodrigues MD [address] [place] [address] [place] [address] Anemia in other chronic diseases classified elsewhere Social History Tobacco Use Types Packs/Day Years [...] Procedure Name Priority Date/Time Associated Diagnosis Comments HEMOGLOBIN STAT 05/09/2024 6:20 AM EST Anemia in other chronic diseases classified elsewhere documented in this encounter Results * (ABNORMAL) Hemoglobin (05/09/2024 6:20 AM EST) Hemoglobin 7.7(L) 13.5 - 17.5 g/dL LAB HEMETOLOGY METHOD 05/09/2024 8:20 AM EST [facility] ([facility]) [facility] LAB Blood Venous blood specimen / Unknown 05/09/2024 6:20 AM EST 05/09/2024 8:16 AM EST us Valerio Rodrigues MD LAB BLOOD ORDERABLES Final Result [facility] LAB [address] [place] [address], documented in this encounter Visit Diagnoses Diagnosis Anemia in other chronic diseases classified elsewhere documented in this encounter Care Teams Chief Of Production Relationship Specialty Start Date End Date Nabil Prado MD [address] [place] [address] PCP - General 12/19/21 documented as of this encounter
--- OUTSIDE RECORDS SUMMARY | 2025-01-07 16:32 | XMS_ITS | Encounter Summary ---
Author Organization [facility] [place] [address] Care Team Providers Care Pricing Specialist Name Role Phone Nabil Prado MD Primary Care Provider [phone] Encounter Details Date Type Department Care Team (Late st Contact Info) Description 05/16/2024 Lab Requisition [facility] - Main Lab [address] [place] [address] Valerio Rodrigues MD [address] [place] [address] [place] [address] Hyperkalemia Social History Tobacco Use Types Packs/Day [...] Priority Date/Time Associated Diagnosis Comments POTASSIUM STAT 05/16/2024 5:45 AM EDT Hyperkalemia documented in this encounter Results * (ABNORMAL) Potassium (05/16/2024 5:45 AM EDT) Potassium 5.9(H) 3.5 - 5.5 mmol/L LAB CHEMISTRY METHOD 05/16/2024 7:51 AM EDT [facility] ([facility]) [facility] LAB Blood Venous blood specimen / Unknown 05/16/2024 5:45 AM EDT 05/16/2024 7:28 AM EDT us Valerio Rodrigues MD LAB BLOOD ORDERABLES Final Result [facility]) [facility] LAB [address] [place] [address], documented in this encounter Visit Diagnoses Diagnosis Hyperkalemia Hyperpotassemia documented in this encounter Care Teams Pricing Specialist Relationship Specialty Start Date End Date Nabil Prado MD [address] [place] [address] PCP - General 12/19/21 documented as of this encounter
--- OUTSIDE RECORDS SUMMARY | 2025-01-07 16:32 | XMS_ITS | Clinical Summary ---
Author Organization [facility], Address [address] [place] [address] Phone Care Team Providers Care Central Service Supply Distributor Name Role Phone Nabil Prado MD Primary Care Provider [phone] Allergies No known active allergies Medications lenalidomide [...] 06/15/2018 [place] Care Teams Central Service Supply Distributor Relationship Specialty Start Date End Date Nabil Prado MD [address] [place] [address] [place] PCP - General Internal Medicine 04/27/20
--- OUTSIDE RECORDS SUMMARY | 2025-01-07 16:32 | XMS_ITS | Encounter Summary ---
Author Organization [facility] [place] [address] Care Team Providers Care Dispatcher Tow Truck Name Role Phone Nabil Prado MD Primary Care Provider [phone] Encounter Details Date Type Department Care Team (Late st Contact Info) Description 09/30/2024 Lab Requisition [facility] - Main Lab [address] [place] [address] Dhaval Gomes MD [address] [facility] [address] [place] [address] Hyperkalemia Social History Tobacco Use Types Packs/Day [...] Priority Date/Time Associated Diagnosis Comments POTASSIUM STAT 09/30/2024 6:00 AM EDT Hyperkalemia documented in this encounter Results * Potassium (09/30/2024 6:00 AM EDT) Potassium 4.8 3.5 - 5.5 mmol/L LAB CHEMISTRY METHOD 09/30/2024 7:52 AM EDT [facility] ([facility]) [facility] LAB Blood Venous blood specimen / Unknown 09/30/2024 6:00 AM EDT 09/30/2024 7:12 AM EDT us Dhaval Gomes MD LAB BLOOD ORDERABLES Final Resul t [facility] LAB [address] [place] [address], documented in this encounter Visit Diagnoses Diagnosis Hyperkalemia Hyperpotassemia documented in this encounter Care Teams Dispatcher Tow Truck Relationship Specialty Start Date End Date Nabil Prado MD [address] [place] [address] PCP - General 12/19/21 documented as of this encounter
--- OUTSIDE RECORDS SUMMARY | 2025-01-07 16:32 | XMS_ITS | Encounter Summary ---
Author Organization [facility] [address] Care Team Providers Care Bobbin Washer Name Role Phone Nabil Prado MD Primary Care Provider [phone] Encounter Details Date Type Department Care Team (Late st Contact Info) Description 06/15/2024 Lab Requisition [facility] - Main Lab [address] [place] [address] Dhaval Gomes MD [address] [facility] [address] [place] [address] Hyperkalemia Social History Tobacco Use [...] Priority Date/Time Associated Diagnosis Comments POTASSIUM STAT 06/15/2024 7:01 AM EDT Hyperkalemia documented in this encounter Results * Potassium (06/15/2024 7:01 AM EDT) Potassium 4.8 3.5 - 5.5 mmol/L LAB CHEMISTRY METHOD 06/15/2024 8:41 AM EDT [facility] ([facility]) [facility] LAB Blood Venous blood specimen / Unknown 06/15/2024 7:01 AM EDT 06/15/2024 7:50 AM EDT us Dhaval Gomes MD LAB BLOOD ORDERABLES Final Resul t [facility] LAB [address] [place] [address], documented in this encounter Visit Diagnoses Diagnosis Hyperkalemia Hyperpotassemia documented in this encounter Care Teams Bobbin Washer Relationship Specialty Start Date End Date Nabil Prado MD [address] [place] [address] PCP - General 12/19/21 documented as of this encounter
--- OUTSIDE RECORDS SUMMARY | 2025-01-07 16:32 | XMS_ITS | Encounter Summary ---
Author Organization [facility] Address [address] [place] [address] Care Team Providers Care Technology Administrator Name Role Phone Unavailable Primary Care Provider Unavailabl e Encounter Details Date Type Department Care Team (Late st Contact Info) Description 05/20/2023 Scanned Document [facility] of Nephrology [place] [address] [place] [address] Mira Alves MD [address] [place] [address] Social History Tobacco Use Types Packs/Day Years Used Date Smoking Tobacco: Never Assessed Sex and Gender Information Value Date Recorded Sex Assigned at Male 05/19/2023 9:49 AM EDT Legal Sex Male 12:07 PM EDT Gender Identity Male 05/19/2023 9:49 AM EDT Sexual Orientation Choose not to disclose 2023 9:49 AM EDT documented as of this encounter Plan of Treatment Not on file documented as of this encounter Visit Diagnoses Not on filedocumented in this encounter
[2025-01-07 16:33] VITALS: PULSE 76; RESP 17; TEMP 36.7; O2SAT 91
[2025-01-07 16:50] LABS: Platelet Count 94 X10*3/uL (160-400)
[2025-01-07 16:56] LABS: Alanine Aminotransferase 24 U/L (0-40); Albumin Level 3.8 g/dL (3.5-5.0); Alkaline Phosphatase 103 U/L (39-117); Anion Gap 27 (12-20); Aspartate Amino Transferase 36 U/L (5-37); Blood Urea Nitrogen 112 mg/dL (9-16); Calcium 8.1 mg/dL (8.4-10.2); Carbon Dioxide 18 mmol/L (22-29); Chloride 103 mmol/L (96-108); Creatinine Clr Calc Pharmacy 6.8; Estimated Glomerular Filt Rate 4; Magnesium 3.1 mg/dL (1.6-2.6); Potassium 7.0 mmol/L (3.3-5.1); Sodium 141 mmol/L (135-145); Total Protein 5.4 g/dL (6.5-8.0); Troponin-I High Sensitivity 32.4 ng/L (<3.5-35.0)
[2025-01-07] MEDS: Albuterol Sulfate (0.083%) 2.5 MG/3 ML VIAL.NEB 10 MG INHALE (17:08)
[2025-01-07 17:12] VITALS: BP 179/87; PULSE 72; RESP 18; O2SAT 95
[2025-01-07 17:15] LABS: Resp Syncy Virus RNA Qual PCR NEGATIVE (Negative); SARS COV2 PCR INHOUSE NEGATIVE (Negative)
[2025-01-07 17:15] LABS: Glucose, Whole Blood 132 mg/dL (60-115)
--- NOTE | 2025-01-07 17:20 | PC.NURSE ---
Pt presented through triage with low SPO2, sob and general malaise. Pt is a dialysis pt, THU/THU/THU. Did NOT get diaylsis thursday, said his last treatment was thursday, was turned away on thursday due to high K. Was told he needed to go to ED. Not on home O2 normally. Spo2 low in 80s RA. >90% on 2L NC. Pt noted to be swollen in face and arms. Dialysis port on left chest. Pt also reporting general body aches and malaise. Alert and oriented. Access obtained, meds followed per MAY for hyperK
--- NOTE | 2025-01-07 17:27 | PM.IMHP ---
History of Present Illness Date of Service: 01/07/25 Attending physician on admission: Dary Terry Chief Complaint: sob This is a 44-year-old male with a history of ESRD on hemodialysis who presents to the emergency department with shortness of breath. On Thursday patient only had partial session of dialysis reportedly due to palpitations. On Thursday he presented to dialysis but states that they would not dialyze him because his potassium levels were too high. They recommended that he come to the hospital but he was not feeling well so he did not come to the hospital. He has been having increasing generalized edema and worsening shortness of breath and today he came to the emergency department for evaluation. On arrival he was noted to be hypoxic with an oxygen saturation of 81% on room air. Lab work was significant for creatinine of 13.35 and potassium of 7. EKG showed peaked T-waves. He received a dose of Lokelma, IV sodium bicarb, insulin, dextrose, albuterol and calcium gluconate. The case was discussed with the on-call weigher packing who recommended urgent dialysis. Patient will be admitted for the same Review of Systems Review of Systems: Yes all other systems are reviewed and are negative Constitutional: Constitutional: Denies chills and Denies fever(s) Cardiovascular: Cardiovascular: Denies chest pain and Reports dyspnea Respiratory: Respiratory: Reports dyspnea PMFSH Medical History Moderate pulmonary hypertension Moderate tricuspid valve regurgitation Mitral valve regurgitation Left atrial dilation Diastolic dysfunction History of echocardiogram Methadone dependence Colon cancer screening Hypertension Establishing care with new doctor, encounter for Bacteremia End stage renal disease on dialysis Permanent central venous catheter in place Tobacco dependence Substance use disorder History of intravenous drug abuse Restless legs Anxiety Multiple myeloma Family History Maternal Uncle Cancer Mother No problems noted. Social History Household Members: Family Housing: House Do you presently have visiting nurse or other home services: No Alcohol intake: current Alcohol intake frequency: holidays/special occasions only Patient Tobacco Use Status: Current someday Tobacco user Tobacco use type: Cigarette Smoked in Last 30 Days: Yes Use of substances other than those prescribed or required for medical reasons: No Substance Use Type: Marijuana Advance Directives: No Advance Directives Information Provided: Yes Do you have a plan to hurt others: No Plan service: No Current occupational status: disabled Cognitive needs: No Hearing needs: No Vision needs: No Meds Allergies Allergy/AdvReac Type Severity Reaction Status Date / Time No Known Allergies Allergy Verified 01/07/25 16:03 Active Medications: Current Medications Heparin Sodium (Porcine) (Heparin Sodium,Porcine 5,000 Unit/Ml Vial) 5,000 unit INTRACATH ONCE ONE Stop: 01/07/25 17:12 Heparin Sodium (Porcine) (Heparin Sodium,Porcine 5,000 Unit/Ml Vial) 5,000 unit INTRACATH MOWEFR@1645 AMEENA Calcium Gluconate (Calcium Gluconate) 2 gm in 100 mls @ 50 mls/hr IV ONCE ONE Stop: 01/07/25 18:05 Last Admin: 01/07/25 16:31 Dose: 50 mls/hr Home Medications ?Medication ?Instructions ?Recorded ?Confirmed ?Last Taken ?Type acyclovir 400 mg tablet 400 mg PO DAILY PRN FLARE UP 05/20/23 09/27/24 01/19/24 08:00 History methadone 10 mg/mL oral concentrate 140 mg PO DAILY 06/12/23 09/27/24 09/01/24 History clonazepam 1 mg tablet 1 mg PO BID 01/19/24 09/27/24 09/01/24 History sodium zirconium cyclosilicate 5 5 g PO SUTUTHSA 09/02/24 09/27/24 09/01/24 History gram oral powder packet (Lokelma) Physical Exam Vital Signs and Narrative: Vital Signs: Last Vital Signs Temp 98.1 F 01/07/25 16:33 Pulse 72 01/07/25 17:12 Resp 18 01/07/25 17:12 BP 179/87 H 01/07/25 17:12 Pulse Ox 95 01/07/25 17:12 O2 Del Method Aerosol Mask 01/07/25 17:12 O2 Flow Rate 2 01/07/25 16:33 BMI result Body Mass Index 22.5 Const: Other: generalized edema to face, arms and legs General: cooperative, alert, awake and poor hygiene Nutritional Appearance: average body habitus Orientation/consciousness: patient oriented x3 Chest: Other: left side permcath right side s/p rib resection Resp: Other: dyspnea, crackles Cardio: Rate: regular rate GI: Inspection: No distended Neuro: General: patient oriented x3, moves all extremities and CN's II-XI intact bilaterally Results Labs 01/07/25 16:25 01/07/25 16:25 Labs: Laboratory Results - last 24 hr 01/07/25 01/07/25 01/07/25 16:17 16:25 17:07 MCV 103.2 H MCH 32.1 MCHC 31.1 RDW 16.6 H Plt Count 94 L D MPV 9.1 L Immature Gran % (Auto) 0.2 Neut % (Auto) 60.6 Lymph % (Auto) 14.0 L Shackelford % (Auto) 8.9 Eos % (Auto) 15.8 H Baso % (Auto) 0.5 Lymph # (Auto) 0.6 L Shackelford # (Auto) 0.4 Eos # (Auto) 0.7 H Baso # (Auto) 0.0 Abs Immat Gran (auto) 0.01 Absolute Neuts (auto) 2.7 Absolute Nucleated RBC 0.000 Nucleated RBC % (auto) 0.0 Anion Gap 27 H Estim Creat Clear Calc 6.8 Estimated GFR 4 POC Glucose 150 H 132 H Random Glucose 151 H Calcium 8.1 L D Magnesium 3.1 H Total Bilirubin 0.5 Direct Bilirubin 0.2 AST 36 ALT 24 Alkaline Phosphatase 103 Troponin I High Sens 32.4 D Total Protein 5.4 L Albumin 3.8 Influenza Type A (PCR) NEGATIVE Influenza Type B (PCR) NEGATIVE RSV RNA Qual (PCR) NEGATIVE SARS-CoV-2 RNA (RT-PCR) NEGATIVE Assessment and Plan (1) End stage renal disease on dialysis: Status: Acute (2) Hypoxia: Status: Acute Plan This is a 44-year-old male with history of multiple myeloma resulting in ESRD on HD MWF, or UTI methadone, hypertension who presented to the emergency department with shortness of breath found to have severe hyperkalemia after missing dialysis ESRD with Hyperkalemia with peaked T-waves Due to missing dialysis; h/o noncompliance with HD Received sodium bicarb, calcium gluconate, albuterol, Lokelma, insulin/dextrose in ED Plan for urgent dialysis low k diet nephrology consultation Acute respiratory failure with hypoxia Due to fluid overload in the setting of missed dialysis Plan for dialysis Continue supplemental oxygen, wean as tolerated chronic anemia of ESRD H/H near baseline pancytopenia ikely due to prior multiple myeloma folate deficiency continue supplementation OUD continue methadone when med rec completed tobacco abuse smoking cessation advised NRT HTN amlodipine, hydralazine when med rec completed mood disorder clonazepam peripheral neuropathy continue gabapentin VTE ppx - heparin Patient will likely require 2 midnight stay in the hospital for management of her hyperkalemia, hypoxia, fluid overload due to missed dialysis requiring urgent dialysis, specialist evaluation and close monitoring Quality Stroke Does the patient have a stroke diagnosis?: No VTE Prior VTE?: No VTE Risk Level:: Medical - moderate - high VTE Device Contraindication: N/A - Device Ordered VTE Drug Contraindication: N/A - Med Ordered
--- NOTE | 2025-01-07 18:10 | HO.NURTONUR ---
PER : This is a 44-year-old male with a history of ESRD on hemodialysis who presents to the emergency department with shortness of breath. On Thursday patient only had partial session of dialysis reportedly due to palpitations. On Thursday he presented to dialysis but states that they would not dialyze him because his potassium levels were too high. They recommended that he come to the hospital but he was not feeling well so he did not come to the hospital. He has been having increasing generalized edema and worsening shortness of breath and today he came to the emergency department for evaluation. On arrival he was noted to be hypoxic with an oxygen saturation of 81% on room air. Lab work was significant for creatinine of 13.35 and potassium of 7. EKG showed peaked T-waves. He received a dose of Lokelma, IV sodium bicarb, insulin, dextrose, albuterol and calcium gluconate. The case was discussed with the on-call adjunct psychology instructor who recommended urgent dialysis. Patient will be admitted for the same PER RN: Alert and oriented O2: 2L NC IV: 18G in LAC Calcium still running at this time Body aches for pain NSR on bed side monitor. Admit: dialysis, hyper K
--- NOTE | 2025-01-07 18:18 | PHA.MEDREC ---
Pharmacy Consult ? Medication Reconciliation Pharmacy has completed the medication reconciliation. Spoke with patient to confirm. He is no longer taking cefepime, folic acid, velphoro, and lokelma (last had abuot 4 weeks ago, rx ran out). He reports hydralazine is 100 mg (2 tabs) BID and he takes labetalol 300 mg (1 tab) bid. He confirmed bactrim is MoWeFr, last taken yesterday. He gets take home bottles of methadone 135 mg from [facility] in [place], he reports he had it this morning. He reports oxycodone is a larger daily dose however recent claims report 30 mg BID, kept that on med rec.
[2025-01-07 19:09] VITALS: TEMP 38.2
[2025-01-07 22:49] VITALS: BMI 23.6
[2025-01-07 22:59] VITALS: BP 179/83; PULSE 74; RESP 18; TEMP 36.9; O2SAT 94
[2025-01-08] VITALS (11 sets, daily range): BP systolic 169–195; BP diastolic 73–91; PULSE 69–80; RESP 16–18; TEMP 36.7–37.6; O2SAT 90–95
[2025-01-08] MEDS: 0.9 % Sodium Chloride Flush 3 ML SYRINGE IVFLUSH ×3 (00:25→17:07)
[2025-01-08] MEDS: oxyCODONE HCl Immed Release 5 MG TABLET 30 MG PO ×3 (00:30→20:25)
[2025-01-08 04:12] LABS: Anion Gap 15 (12-20); Blood Urea Nitrogen 40 mg/dL (9-16); Calcium 8.0 mg/dL (8.4-10.2); Carbon Dioxide 29 mmol/L (22-29); Chloride 102 mmol/L (96-108); Creatinine Clr Calc Pharmacy 14.3; Estimated Glomerular Filt Rate 9; Potassium 4.7 mmol/L (3.3-5.1); Sodium 141 mmol/L (135-145)
[2025-01-08] MEDS: Butalb/Acetamin/Caff 50/325/40 TABLET 1 TAB PO (04:15)
[2025-01-08 07:38] LABS: Anion Gap 17 (12-20); Blood Urea Nitrogen 42 mg/dL (9-16); Calcium 7.9 mg/dL (8.4-10.2); Carbon Dioxide 27 mmol/L (22-29); Chloride 102 mmol/L (96-108); Creatinine Clr Calc Pharmacy 13.7; Estimated Glomerular Filt Rate 9; Potassium 5.1 mmol/L (3.3-5.1); Sodium 141 mmol/L (135-145)
--- NOTE | 2025-01-08 08:47 | HO.PM.IMPN ---
Subjective Subjective Date of Service: 01/08/25 Interval History: esrd, hyperkalemia Review of Systems Shortness of breaths seems improving, denies any new complaints Review of Systems: Yes all other systems are reviewed and are negative Physical Exam Exam: Exam: Appearance: Alert.? Oriented X3.? cvs: [id number], [id number] , no murmur res: Air entry fair, mild diminished at bases abd: no rebound or guarding ,nt, bs present. ext pulses present , no cyanosis . neuro: axo3 , nonfocal. Vital Signs: Vital Signs: Last Vital Signs Temp 98.2 F 01/08/25 07:14 Pulse 73 01/08/25 07:14 Resp 18 01/08/25 07:14 BP 176/85 H 01/08/25 07:14 Pulse Ox 92 01/08/25 07:14 O2 Del Method Room Air 01/08/25 07:14 O2 Flow Rate 2 01/08/25 03:09 BMI result Body Mass Index 23.6 Objective Data Active Medications Acetaminophen (Acetaminophen 325 Mg Tablet) 650 mg PO Q6H PRN PRN Reason: Pain, Mild 1-3,fever,headache Last Admin: 01/07/25 19:12 Dose: 650 mg Documented By: FRANSISCO Amlodipine Besylate (Amlodipine Besylate 10 Mg Tablet) 10 mg PO DAILY [facility]; Protocol Last Admin: 01/08/25 04:15 Dose: 10 mg Documented By: JOVAN Calcium Carbonate (Calcium Carbonate 750 Mg Tab.Chew) 750 mg PO Q4H PRN PRN Reason: Heartburn Clonazepam (Clonazepam 1 Mg Tablet) 1 mg PO BID COUNT INCLUDES [facility] Gabapentin (Gabapentin 400 Mg Capsule) 400 mg PO BID COUNT INCLUDES [facility] Last Admin: 01/08/25 00:29 Dose: 400 mg Documented By: JOVAN Heparin Sodium (Porcine) (Heparin Sodium,Porcine 5,000 Unit/Ml Vial) 5,000 unit INTRACATH MOWEFR@1645 COUNT INCLUDES THE [facility] Heparin Sodium (Porcine) (Heparin Sodium,Porcine 5,000 Unit/Ml Vial) 5,000 unit SUBCUT Q12H COUNT INCLUDES THE [facility] Last Admin: 01/08/25 00:32 Dose: 5,000 unit Documented By: JOVAN Hydralazine HCl (Hydralazine Hcl 50 Mg Tablet) 100 mg PO BID COUNT [facility]CLUDES [facility]; Protocol Last Admin: 01/08/25 00:28 Dose: 100 mg Documented By: JOVAN Labetalol HCl (Labetalol Hcl 100 Mg Tablet) 300 mg PO BID COUNT INCLUDES [facility] Last Admin: 01/08/25 04:15 Dose: 300 mg Documented By: JOVAN Magnesium Hydroxide (Milk Of Magnesia 30 Ml Oral.Susp) 30 ml PO DAILY PRN PRN Reason: Constipation Melatonin (Melatonin 3 Mg Tablet) 6 mg PO BEDTIME PRN PRN Reason: Insomnia Nicotine (Nicotine 14 Mg Patch.Td24) 14 mg TRANSDERMA DAILY COUNT INCLUDES [facility] Oxycodone HCl (Oxycodone Hcl Immed Release 5 Mg Tablet) 30 mg PO BID COUNT INCLUDES [facility] Last Admin: 01/08/25 00:30 Dose: 30 mg Documented By: JOVAN Sodium Chloride (0.9 % Sodium Chloride Flush 3 Ml Syringe) 3 ml IVFLUSH QSHIFT COUNT INCLUDES THE [facility] Last Admin: 01/08/25 00:25 Dose: 3 ml Documented By: JOVAN Comments: My PC would not scan flushes Labs 01/08/25 08:58 01/08/25 07:03 Labs: Laboratory Results - last 24 hr 01/07/25 01/07/25 01/07/25 16:17 16:24 16:25 MCV 103.2 H MCH 32.1 MCHC 31.1 RDW 16.6 H Plt Count 94 L D MPV 9.1 L Immature Gran % (Auto) 0.2 Neut % (Auto) 60.6 Lymph % (Auto) 14.0 L [place] % (Auto) 8.9 Eos % (Auto) 15.8 H Baso % (Auto) 0.5 Lymph # (Auto) 0.6 L [place] # (Auto) 0.4 Eos # (Auto) 0.7 H Baso # (Auto) 0.0 Abs Immat Gran (auto) 0.01 Absolute Neuts (auto) 2.7 Absolute Nucleated RBC 0.000 Nucleated RBC % (auto) 0.0 Anion Gap 27 H Estim Creat Clear Calc 6.8 Estimated GFR 4 POC Glucose 150 H Random Glucose 151 H Calcium 8.1 L D Magnesium 3.1 H Total Bilirubin 0.5 Direct Bilirubin 0.2 AST 36 ALT 24 Alkaline Phosphatase 103 Troponin I High Sens 32.4 D Total Protein 5.4 L Albumin 3.8 Influenza Type A (PCR) NEGATIVE Influenza Type B (PCR) NEGATIVE RSV RNA Qual (PCR) NEGATIVE SARS-CoV-2 RNA (RT-PCR) NEGATIVE Blood Type B Positive Antibody Screen NEGATIVE 01/07/25 01/08/25 01/08/25 17:07 03:51 07:03 MCV MCH MCHC RDW Plt Count MPV Immature Gran % (Auto) Neut % (Auto) Lymph % (Auto) [place] % (Auto) Eos % (Auto) Baso % (Auto) Lymph # (Auto) [place] # (Auto) Eos # (Auto) Baso # (Auto) Abs Immat Gran (auto) Absolute Neuts (auto) Absolute Nucleated RBC Nucleated RBC % (auto) Anion Gap 15 17 Estim Creat Clear Calc 14.3 13.7 Estimated GFR 9 9 POC Glucose 132 H Random Glucose 143 H 95 Calcium 8.0 L 7.9 L Magnesium Total Bilirubin Direct Bilirubin AST ALT Alkaline Phosphatase Troponin I High Sens Total Protein Albumin Influenza Type A (PCR) Influenza Type B (PCR) RSV RNA Qual (PCR) SARS-CoV-2 RNA (RT-PCR) Blood Type Antibody Screen Assessment and Plan (1) End stage renal disease on dialysis: Status: Acute (2) Acute hyperkalemia: Status: Acute Plan 44-year-old male with history of multiple myeloma resulting in ESRD on HD MWF, or UTI methadone, hypertension who presented to the emergency department with shortness of breath found to have severe hyperkalemia after missing dialysis ESRD with Hyperkalemia with peaked T-waves Due to missing dialysis; h/o noncompliance with HD Received sodium bicarb, calcium gluconate, albuterol, Lokelma, insulin/dextrose in ED Status post urgent hemodialysis, hyperkalemia resolved Acute respiratory failure with hypoxia Due to fluid overload in the setting of missed dialysis Plan Status post dialysis yesterday Off oxygen , need dialysis in a.m. chronic anemia of ESRD H/H near baseline pancytopenia ikely due to prior multiple myeloma folate deficiency continue supplementation OUD continue methadone when med rec completed tobacco abuse smoking cessation advised NRT HTN amlodipine, hydralazine when med rec completed mood disorder clonazepam peripheral neuropathy continue gabapentin VTE ppx - heparin ongoing need hospital for management of her hyperkalemia, hypoxia, fluid overload due to missed dialysis requiring urgent dialysis, specialist evaluation and close monitoring Quality Stroke Does the patient have a stroke diagnosis?: No VTE Prior VTE?: No VTE Risk Level:: Medical - moderate - high VTE Device Contraindication: N/A - Device Ordered VTE Drug Contraindication: N/A - Med Ordered
[2025-01-08 09:08] LABS: Hematocrit 26.7 % (42.0-52.0); Hemoglobin 8.3 g/dl (14.0-18.0); Mean Corpuscular HGB Conc 31.1 g/dl (31.0-36.0); Mean Corpuscular Hemoglobin 32.0 pg (27.0-33.0); Mean Corpuscular Volume 103.1 fL (80.0-98.0); NRBC Abs Auto 0.000 X10*3/uL (0.0-0.012); NRBC Pct Auto 0.0 /100WBC (0.0-0.2); Platelet Count 73 X10*3/uL (160-400); Red Blood Count 2.59 X10*6/uL (4.60-5.80); White Blood Count 2.5 X10*3/uL (4.8-10.8)
--- NOTE | 2025-01-08 09:16 | MHC.CM.PN ---
Addendum entered by Mindi Levin 01/08/25 09:19: IMM GIVEN 01/08. Original Note: THIS CM MET WITH PATIENT, HE STATES HE IS SELF-CARE, LIVES AT HOME WITH HIS PARENTS. PATIENT GOES TO [facility] IN [place] FOR HD ON M-W-F. PATIENT GOES TO [facility] IN [place] FOR METHADONE. EDUCATION PROVIDED ON HCP, PATIENT DECLINES TO COMPLETE ONE AT THIS TIME. DP: RETURN HOME SELF-CARE WITH OUTPT HD ON --, AND METHADONE AT [facility] IN [place], PATIENT WILL ARRANGE HIS OWN TRANSPORT HOME AT DISCHARGE. PCP: FUNMI ROMAN
[2025-01-08] MEDS: Nicotine 14 MG PATCH.TD24 TRANSDERMA (10:07)
--- NOTE | 2025-01-08 10:55 | HE.PHANOTE ---
Addendum entered by Kushal Yanes [facility] 01/08/25 10:59: Re: Methadone. Pt says they lsat took their methadone dose yesterday. Original Note: Re: Methadone Pt received 135 mg from 01/05/25 @ 1514 from [facility], per Maday at facility. With 2 take home bottles to last the pt until 01/07.
[2025-01-08] MEDS: methADONE HCl 20 MG/2 ML ORAL.CONC 135 MG PO (11:25)
[2025-01-08 11:42] LABS: Chlamydia pneumoniae PCR Not Detected (Not Detect.); Coronavirus 229E PCR Not Detected (Not Detect.); Coronavirus HKU1 PCR Not Detected (Not Detect.); Coronavirus NL63 PCR Not Detected (Not Detect.); Coronavirus OC43 PCR Not Detected (Not Detect.); RSV PCR Not Detected (Not Detect.); Rhino/Enterovirus PCR Not Detected (Not Detect.)
[2025-01-08 11:47] LABS: Influenza A H1 PCR Not Detected (Not Detect.); Influenza A H1-2009 PCR Not Detected (Not Detect.); Influenza A H3 PCR Not Detected (Not Detect.); SARS-CoV-2 PCR Not Detected (Not Detect.)
[2025-01-09 03:56] VITALS: BP 160/75; PULSE 72; RESP 20; TEMP 36.9; O2SAT 93
[2025-01-09 06:00] VITALS: BMI 23.5
[2025-01-09 07:08] VITALS: BP 98/64; PULSE 71; RESP 18; TEMP 37.3; O2SAT 96
[2025-01-09 11:27] VITALS: BP 179/116; PULSE 62; RESP 16; TEMP 36.6
--- NOTE | 2025-01-09 12:28 | MHC.CM.PN ---
Patient is not yet medically cleared for dc (Pending Nephrology/HD today/? need for HD tomorrow); PT is recommending STR and CM will continue to follow.
--- NOTE | 2025-01-09 12:30 | P.PNIM_ITS ---
Subjective Subjective Date of Service: 01/09/25 Physical Exam 2 Vital Signs: Vital Signs: Last Vital Signs Temp 97.8 F 01/09/25 11:27 Pulse 62 01/09/25 11:27 Resp 16 01/09/25 11:27 BP 179/116 H 01/09/25 11:27 Pulse Ox 96 01/09/25 07:08 O2 Del Method Room Air 01/09/25 07:08 O2 Flow Rate 2 01/08/25 03:09 BMI result Body Mass Index 23.5 Objective Data Active Medications Acetaminophen (Acetaminophen 325 Mg Tablet) 650 mg PO Q6H PRN PRN Reason: Pain, Mild 1-3,fever,headache Last Admin: 01/08/25 13:41 Dose: 650 mg Documented By: MELA Amlodipine Besylate (Amlodipine Besylate 10 Mg Tablet) 10 mg PO DAILY [facility]; Protocol Last Admin: 01/08/25 10:06 Dose: 10 mg Documented By: MELA Calcium Carbonate (Calcium Carbonate 750 Mg Tab.Chew) 750 mg PO Q4H PRN PRN Reason: Heartburn Clonazepam (Clonazepam 1 Mg Tablet) 1 mg PO BID [facility] Last Admin: 01/08/25 20:25 Dose: 1 mg Documented By: MARKOS Gabapentin (Gabapentin 400 Mg Capsule) 400 mg PO BID [facility] Last Admin: 01/08/25 20:25 Dose: 400 mg Documented By: MARKOS Heparin Sodium (Porcine) (Heparin Sodium,Porcine 5,000 Unit/Ml Vial) 5,000 unit INTRACATH MOWEFR@1645 [facility] Last Admin: 01/09/25 06:17 Dose: 5,000 unit Documented By: MARKOS Heparin Sodium (Porcine) (Heparin Sodium,Porcine 5,000 Unit/Ml Vial) 5,000 unit SUBCUT Q12H [facility] Last Admin: 01/08/25 23:06 Dose: 5,000 unit Documented By: MARKOS Hydralazine HCl (Hydralazine Hcl 50 Mg Tablet) 100 mg PO BID [facility]; Protocol Last Admin: 01/08/25 20:26 Dose: 100 mg Documented By: MARKOS Labetalol HCl (Labetalol Hcl 100 Mg Tablet) 300 mg PO BID [facility] Last Admin: 01/08/25 20:25 Dose: 300 mg Documented By: MARKOS Magnesium Hydroxide (Milk Of Magnesia 30 Ml Oral.Susp) 30 ml PO DAILY PRN PRN Reason: Constipation Melatonin (Melatonin 3 Mg Tablet) 6 mg PO BEDTIME PRN PRN Reason: Insomnia Methadone HCl (Methadone Hcl 20 Mg/2 Ml Oral.Conc) 135 mg PO DAILY [facility] Last Admin: 01/08/25 11:25 Dose: 135 mg Documented By: MELA Co-signed By: FRANSISCO Nicotine (Nicotine 14 Mg Patch.Td24) 14 mg TRANSDERMA DAILY [facility] Last Admin: 01/08/25 10:07 Dose: 14 mg Documented By: MELA Oxycodone HCl (Oxycodone Hcl Immed Release 5 Mg Tablet) 30 mg PO BID [facility] Last Admin: 01/08/25 20:25 Dose: 30 mg Documented By: MARKOS Sodium Chloride (0.9 % Sodium Chloride Flush 3 Ml Syringe) 3 ml IVFLUSH QSHIFT [facility] Last Admin: 01/09/25 00:03 Dose: Not Given Documented By: MARKOS Non-Admin Reason: Unable to Scan Barcode Labs 01/08/25 08:58 01/08/25 07:03 Labs: Laboratory Results - last 24 hr 01/08/25 08:58 Smear Path Review SEE NOTE Quality Stroke Does the patient have a stroke diagnosis?: No VTE Prior VTE?: No VTE Risk Level:: Medical - moderate - high VTE Device Contraindication: N/A - Device Ordered VTE Drug Contraindication: N/A - Med Ordered
[2025-01-09] MEDS: oxyCODONE HCl Immed Release 5 MG TABLET 30 MG PO (12:44)
[2025-01-09 12:45] VITALS: BP 175/82
[2025-01-09] MEDS: methADONE HCl 20 MG/2 ML ORAL.CONC 135 MG PO (12:46)
[2025-01-09] MEDS: Nicotine 14 MG PATCH.TD24 TRANSDERMA (12:46)
[2025-01-09] MEDS: 0.9 % Sodium Chloride Flush 3 ML SYRINGE IVFLUSH ×2 (12:47→16:01)
--- NOTE | 2025-01-09 13:11 | P.CONNP_ITS ---
History of Present Illness Reason for Consult Consult date: 01/09/25 Reason for consult: End stage renal disease Chief Complaint Chief complaint: hyperkalemia, hypoxia History of Present Illness Narrative: 44-year-old male with a history of ESRD on hemodialysis who presents to the emergency department with shortness of breath. On Thursday patient only had partial session of dialysis reportedly due to palpitations. On Thursday he presented to dialysis but states that they would not dialyze him because his potassium levels were serum 7.0 Underwent emergency dialysis on Thursday. He missed 1 dialysis. Usually undergoes dialysis at [facility] Thursday. Usually followed by Dr. Lambert Review of Systems Constitutional: Denies fever(s) and Denies weight loss Cardiovascular: Denies chest pain Respiratory: Denies cough and Denies hemoptysis Gastrointestinal: Denies abdominal pain, Denies diarrhea and Denies nausea Musculoskeletal: Denies back pain Denies focal weakness PMFSH Past Medical History Medical History Moderate pulmonary hypertension Moderate tricuspid valve regurgitation Mitral valve regurgitation Left atrial dilation Diastolic dysfunction History of echocardiogram Methadone dependence Colon cancer screening Hypertension Establishing care with new doctor, encounter for Bacteremia End stage renal disease on dialysis Permanent central venous catheter in place Tobacco dependence Substance use disorder History of intravenous drug abuse Restless legs Anxiety Multiple myeloma Family History Family History Maternal Uncle Cancer Mother No problems noted. Social History Social History Household Members: Family Housing: House Do you presently have visiting nurse or other home services: No Alcohol intake: current Alcohol intake frequency: holidays/special occasions only Patient Tobacco Use Status: Former Tobacco user Tobacco use type: Cigarette Smoked in Last 30 Days: Yes Use of substances other than those prescribed or required for medical reasons: No Substance Use Type: Marijuana Currently Displaying Signs/Symptoms of Drug Intoxication Withdrawal: No Advance Directives: No Advance Directives Information Provided: Yes Do you have a plan to hurt others: No Plan Recently lost weight without trying: No service: No Current occupational status: disabled Cognitive needs: No Hearing needs: No Vision needs: No Meds Allergies Allergy/AdvReac Type Severity Reaction Status Date / Time No Known Allergies Allergy Verified 01/07/25 16:03 Active Medications: Current Medications Acetaminophen (Acetaminophen 325 Mg Tablet) 650 mg PO Q6H PRN PRN Reason: Pain, Mild 1-3,fever,headache Last Admin: 01/08/25 13:41 Dose: 650 mg Amlodipine Besylate (Amlodipine Besylate 10 Mg Tablet) 10 mg PO DAILY [facility]; Protocol Last Admin: 01/09/25 12:45 Dose: 10 mg Calcium Carbonate (Calcium Carbonate 750 Mg Tab.Chew) 750 mg PO Q4H PRN PRN Reason: Heartburn Clonazepam (Clonazepam 1 Mg Tablet) 1 mg PO BID [facility] Last Admin: 01/09/25 12:45 Dose: 1 mg Gabapentin (Gabapentin 400 Mg Capsule) 400 mg PO BID [facility] Last Admin: 01/09/25 12:44 Dose: 400 mg Heparin Sodium (Porcine) (Heparin Sodium,Porcine 5,000 Unit/Ml Vial) 5,000 unit INTRACATH MOWEFR@1645 [facility] Last Admin: 01/09/25 06:17 Dose: 5,000 unit Heparin Sodium (Porcine) (Heparin Sodium,Porcine 5,000 Unit/Ml Vial) 5,000 unit SUBCUT Q12H [facility] Last Admin: 01/09/25 12:46 Dose: 5,000 unit Hydralazine HCl (Hydralazine Hcl 50 Mg Tablet) 100 mg PO BID [facility]; Protocol Last Admin: 01/09/25 12:45 Dose: 100 mg Labetalol HCl (Labetalol Hcl 100 Mg Tablet) 300 mg PO BID [facility] Last Admin: 01/09/25 12:45 Dose: 300 mg Magnesium Hydroxide (Milk Of Magnesia 30 Ml Oral.Susp) 30 ml PO DAILY PRN PRN Reason: Constipation Melatonin (Melatonin 3 Mg Tablet) 6 mg PO BEDTIME PRN PRN Reason: Insomnia Methadone HCl (Methadone Hcl 20 Mg/2 Ml Oral.Conc) 135 mg PO DAILY [facility] Last Admin: 01/09/25 12:46 Dose: 135 mg Nicotine (Nicotine 14 Mg Patch.Td24) 14 mg TRANSDERMA DAILY [facility] Last Admin: 01/09/25 12:46 Dose: 14 mg Oxycodone HCl (Oxycodone Hcl Immed Release 5 Mg Tablet) 30 mg PO BID [facility] Last Admin: 01/09/25 12:44 Dose: 30 mg Sodium Chloride (0.9 % Sodium Chloride Flush 3 Ml Syringe) 3 ml IVFLUSH QSHIFT [facility] Last Admin: 01/09/25 12:47 Dose: 3 ml Home Medications ?Medication ?Instructions ?Recorded ?Confirmed ?Last Taken ?Type acyclovir 400 mg tablet 400 mg PO DAILY PRN FLARE UP 05/20/23 01/07/25 01/19/24 08:00 History methadone 10 mg/mL oral concentrate 135 mg PO DAILY 01/08/25 01/05/25 15:14 History clonazepam 1 mg tablet 1 mg PO BID 01/19/24 5 01/06/25 History hydralazine 50 mg tablet 100 mg PO BID 01/07/2501/0701/06/25 History labetalol 300 mg tablet 300 mg PO BID 01/07/2501/0701/06/25 History Physical Exam Vital Signs: Last Vital Signs Temp 97.8 F 01/09/25 11:27 Pulse 62 01/09/25 11:27 Resp 16 01/09/25 11:27 BP 175/82 H 01/09/25 12:45 Pulse Ox 96 01/09/25 07:08 O2 Del Method Room Air 01/09/25 07:08 O2 Flow Rate 2 01/08/25 03:09 BMI result Body Mass Index 23.5 Comfortable Facial puffiness Neck supple no JVD. Lungs entry equal no rales. Heart S1-S2 heard no gallop or rub. Abdomen soft nontender. Neuro alert awake oriented. No asterixis. Extremities 1+ edema. Results Lab Results 01/08/25 08:58 01/08/25 07:03 Lab results: Chemistry 01/07/25 01/08/25 01/08/25 16:25 03:51 07:03 Sodium 141 141 141 Potassium 7.0 H* D 4.7 D 5.1 Carbon Dioxide 18 L 29 27 BUN 112 H 40 H 42 H Creatinine 13.35 H* 6.55 H* 6.84 H* Calcium 8.1 L D 8.0 L 7.9 L Hematology 01/07/25 01/08/25 16:25 08:58 WBC 4.4 L 2.5 L Hgb 8.9 L 8.3 L Plt Count 94 L D 73 L Assessment and Plan (1) Hypertension: Status: Acute (2) Volume overload: Qualifiers: Hypervolemia type: unspecified Qualified Code(s): E87.70 - Fluid overload, unspecified Status: Acute (3) Acute hyperkalemia: Status: Acute (4) End stage chronic kidney disease: Status: Acute Plan End stage renal disease with fluid overload and hyperkalemia. Under when dialysis today. Recent potassium is in the normal range. Fluid removal as tolerated during dialysis. Watch blood pressure post dialysis and adjust medications accordingly. Can increase hydralazine to 100 mg t.i.d.. Keep on low-potassium diet. Procedures Date of Service Date of Service: 01/09/25
[2025-01-09 13:16] VITALS: PULSE 84; RESP 18; TEMP 36.8; O2SAT 94
--- NOTE | 2025-01-09 14:34 | MHC.CM.PN ---
Patient has been medically cleared for dc to home today, self care. Last IMM was addressed yesterday.
--- NOTE | 2025-01-09 14:46 | PM.DS ---
DS: Providers Provider Date of Service: 01/09/25 Date of admission: 01/07/25 17:23 Date of discharge: 01/09/25 Primary care physician: Bess Hernandez PA-C Consults: 01/07/25 17:23 Consult to Nephrology Routine Consulting Provider: [facility] Reason for consultation: hyperkalemia, hypoxia, ESRD on HD Has provider been notified: Yes Attending physician on discharge: Dary Terry Discharging clinician: Dary Terry DS: Diagnosis Discharge Diagnosis (1) Hypertension: Status: Acute (2) Volume overload: Status: Acute (3) Acute hyperkalemia: Status: Acute (4) End stage chronic kidney disease: Status: Acute DS: Summary Hospital Course Hospital Course: HPI:44-year-old male with a history of ESRD on hemodialysis who presents to the emergency department with shortness of breath. On Thursday patient only had partial session of dialysis reportedly due to palpitations. On Thursday he presented to dialysis but states that they would not dialyze him because his potassium levels were too high. They recommended that he come to the hospital but he was not feeling well so he did not come to the hospital. He has been having increasing generalized edema and worsening shortness of breath and today he came to the emergency department for evaluation. On arrival he was noted to be hypoxic with an oxygen saturation of 81% on room air. Lab work was significant for creatinine of 13.35 and potassium of 7. EKG showed peaked T-waves. He received a dose of Lokelma, IV sodium bicarb, insulin, dextrose, albuterol and calcium gluconate. The case was discussed with the on-call central office operator who recommended urgent dialysis. Patient will be admitted for the same. Hospital course: 44-year-old male with history of multiple myeloma resulting in ESRD on HD MWF, or UTI methadone, hypertension who presented to the emergency department with shortness of breath found to have severe hyperkalemia after missing dialysis:ESRD with Hyperkalemia with peaked T-waves:Due to missing dialysis; h/o noncompliance with HD , chest x-ray shows possible fluid overload, Received sodium bicarb, calcium gluconate, albuterol, Lokelma, insulin/dextrose in ED Status post urgent hemodialysis, hyperkalemia resolved, patient also received hemodialysis today, chest x-ray repeated almost near resolution of congestive finding. Acute respiratory failure with hypoxia Due to fluid overload in the setting of missed dialysis Plan Improved with dialysis chronic anemia of ESRD H/H near baseline pancytopenia ikely due to prior multiple myeloma,. Monitor CBC outpatient and follow up with PCP plan: Hydralazine adjusted to 100 mg p.o. t.i.d. Patient was strongly advised at least compliant with the dialysis. Monitor BMP outpatient and continue dialysis outpatient. Above management discussed with the patient detail length he understand and in agreement with the above plan, his mother was present during conversation. Time spent 50 minute. Time Attestation Total time managing care of this patient today: 50 mintues. Discharge Coordination Time (in mins): 50 minute Quality: Safe Use of Opioids Does Pt have an Active Cancer Diagnosis on the Problem List?: No Quality: Stroke Does the patient have a stroke diagnosis?: No Physical Exam Exam: Exam: Appearance: Alert.? Oriented X3.? cvs: rrr, [id number] , no murmur res: Air entry fair, no rales or wheezing. abd: no rebound or guarding ,nt, bs present. ext pulses present , no cyanosis . neuro: axo3 , nonfocal. Vital Signs: Vital Signs: Last Vital Signs Temp 98.3 F 01/09/25 13:16 Pulse 84 01/09/25 13:16 Resp 18 01/09/25 13:16 BP 175/82 H 01/09/25 12:45 Pulse Ox 94 01/09/25 13:16 O2 Del Method Room Air 01/09/25 13:16 O2 Flow Rate 2 01/08/25 03:09 BMI result Body Mass Index 23.5 DS: Data Data Completed and Pending Completed studies during hospitalization [Text1]: Procedures Insertion of Infusion Device into Right Atrium, Percutaneous Approach (01/19/24) Insertion of Infusion Device into Right Brachial Vein, Percutaneous Approach (01/19/24) Insertion of Tunneled Vascular Access Device into Chest Subcutaneous Tissue and Fascia, Percutaneous Approach (01/19/24) Performance of Urinary Filtration, Intermittent, Less than 6 Hours Per Day (09/01/24) Transfusion of Nonautologous Red Blood Cells into Peripheral Vein, Percutaneous Approach (09/01/24) Ultrasonography of Superior Vena Cava, Guidance (01/19/24) Labs on day of discharge: Laboratory Results - last 24 hr 01/08/25 08:58 Smear Path Review SEE NOTE Imaging Chest x-ray: Radiologist's impression: ITS Impressions Chest X-Ray 01/09/25 15:52 IMPRESSION: Near resolution of bilateral airspace disease. Electronically signed by: Estrada Barbosa MD 01/09/2025 04:14 PM EST Discharge Plan Discharge Anticipated Discharge Date/Time: 01/09/25 14:25 Patient Disposition: Home, Self-Care Discharge Diagnosis: Hyperkalemia, ESRD on dialysis. Referrals: Bess Hernandez PA-C [Primary Care Provider, Internal Medicine] - 1 Week Discharge Medications: Continued amlodipine 10 mg tablet 10 mg PO DAILY Qty: 90 4RF oxycodone 30 mg tablet 30 mg PO BID 7 Days Qty: 14 0RF gabapentin 100 mg capsule 400 mg PO BID 30 Days Qty: 240 0RF clonazepam 1 mg tablet 1 mg PO BID labetalol 300 mg tablet 300 mg PO BID acyclovir 400 mg tablet 400 mg PO DAILY PRN (Reason: FLARE UP) methadone 10 mg/mL concentrate 135 mg PO DAILY sulfamethoxazole-trimethoprim 800-160 mg tablet 1 tab PO MOWEFR Qty: 90 3RF Changed hydralazine 50 mg tablet 100 mg PO TID Qty: 180 0RF Discharge Orders: Discharge Order (Routine); Ordered 01/09/25 Ordered By: Dary Terry Diet: Advance to usual diet Activity on Discharge: As tolerated Stand Alone Forms: Patient Portal Discharge page Print Language: Citizen Of [place] Care Plan Goals: Patient was admitted to the hospital because of missing dialysis found to have hypokalemia that/shortness of breaths: Patient was started on hemodialysis-seems to be improved. Patient was strongly advised at least compliant with the dialysis. Monitor BMP outpatient and continue dialysis outpatient. Uncontrolled hypotension: Adjusted hydralazine 100 mg PO TID. Monitor blood pressure closely outpatient. Monitor BMP outpatient, Patient is to follow-up out patiently with PCP and Nephrology. Health Concerns: As above. Plan of Treatment: As above. Assessment: As above.
[2025-01-09 15:11] VITALS: BP 174/89; PULSE 68; RESP 16; TEMP 37.6; O2SAT 95
== END 2025-01-09 18:27 | disposition home or self-care (01) | DRG 640 ==
LOC: HO.ED 17:16 → HO.EDOVER 17:27 → HO.IMC 19:04
PROVIDERS: Internal Medicine; Physician Assistant; Admitting Provider Physician Assistant Medical; Emergency Provider Emergency Medicine; PCP Physician Assistant Medical; Visit Provider Internal Medicine
DX: E87.70 Fluid overload, unspecified (principal); J96.01 Acute respiratory failure with hypoxia; N18.6 End stage renal disease; I12.0 Hypertensive chronic kidney disease with stage 5 chronic kidney disease or end stage renal disease; F11.20 Opioid dependence, uncomplicated; D61.818 Other pancytopenia; G62.9 Polyneuropathy, unspecified; E53.8 Deficiency of other specified B group vitamins; D63.1 Anemia in chronic kidney disease; E87.5 Hyperkalemia; Z99.2 Dependence on renal dialysis; Z91.158 Patient's noncompliance with renal dialysis for other reason; Z85.79 Personal history of other malignant neoplasms of lymphoid, hematopoietic and related tissues; Z20.822 Contact with and (suspected) exposure to COVID-19; Z87.891 Personal history of nicotine dependence; Z79.899 Other long term (current) drug therapy
CPT/HCPCS: 36415; 71045; 80048; 80076; 82947; 83735; 84484; 85025; 85027; 86850; 86900; 86901; 87633; 87637; 90999; 93005; 99285; J0613; J1644

== ENCOUNTER → 2025-01-07 16:01 | Outpatient (BNV) | payer MEDICARE, MEDICAID, SELFPAY | PROVIDERS: Admitting Provider Physician Assistant Medical; Emergency Provider Emergency Medicine; PCP Physician Assistant Medical; Visit Provider Radiology Diagnostic Radiology | DX: R06.02 Shortness of breath (principal) | CPT/HCPCS: 71045 ==

== ENCOUNTER → 2025-01-07 16:01 | Outpatient (BNV) | payer MEDICARE, MEDICAID, SELFPAY | PROVIDERS: Admitting Provider Physician Assistant Medical; Emergency Provider Emergency Medicine; PCP Physician Assistant Medical; Visit Provider Internal Medicine | DX: I44.0 Atrioventricular block, first degree (principal) | CPT/HCPCS: 93010 ==

== ENCOUNTER 2025-01-07 17:23 | Outpatient (BNV) | payer MEDICARE, MEDICAID, SELFPAY | END 2025-01-09 15:52 | PROVIDERS: Admitting Provider Physician Assistant Medical; Emergency Provider Emergency Medicine; PCP Physician Assistant Medical; Visit Provider Radiology Diagnostic Radiology | DX: J84.89 Other specified interstitial pulmonary diseases (principal) | CPT/HCPCS: 71045 ==

== ENCOUNTER → 2025-01-07 17:23 | Outpatient (BNV) | payer MEDICARE, MEDICAID, SELFPAY | PROVIDERS: Admitting Provider Physician Assistant Medical; Emergency Provider Emergency Medicine; PCP Physician Assistant Medical; Visit Provider Internal Medicine Hypertension Specialist | DX: I12.0 Hypertensive chronic kidney disease with stage 5 chronic kidney disease or end stage renal disease (principal); E87.70 Fluid overload, unspecified; E87.5 Hyperkalemia; N18.6 End stage renal disease | CPT/HCPCS: 99223 ==

== ENCOUNTER → 2025-01-07 17:23 | Outpatient (BNV) | payer MEDICARE, MEDICAID, SELFPAY | PROVIDERS: Admitting Provider Physician Assistant Medical; Emergency Provider Emergency Medicine; PCP Physician Assistant Medical; Visit Provider Physician Assistant Medical | DX: I12.0 Hypertensive chronic kidney disease with stage 5 chronic kidney disease or end stage renal disease (principal); E87.70 Fluid overload, unspecified; E87.5 Hyperkalemia; N18.6 End stage renal disease | CPT/HCPCS: 99223; 99232; 99239 ==

== ENCOUNTER → 2025-01-07 23:59 | Outpatient (BNV) | payer MEDICARE, MEDICAID, SELFPAY | PROVIDERS: PCP Physician Assistant Medical; Visit Provider Internal Medicine Nephrology | DX: N18.6 End stage renal disease (principal) | CPT/HCPCS: 90961 ==

== ENCOUNTER → 2025-02-06 23:59 | Outpatient (BNV) | payer MEDICARE, MEDICAID, SELFPAY | PROVIDERS: PCP Physician Assistant Medical; Visit Provider Internal Medicine Nephrology | DX: N18.6 End stage renal disease (principal) | CPT/HCPCS: 90961 ==